=== PATIENT | female | born 1950 | race Caucasian/White ===

== ENCOUNTER 2023-03-29 14:05 | Emergency (ER) | payer MEDICARE, OTHER, SELFPAY ==
--- NOTE | 2023-03-29 14:10 | ED.WOUNDLAC1 ---
HPI - Wound/Laceration General Chief Complaint: Wound/Laceration Stated Complaint: CUT R HAND, STILL BLEEDING Time Seen by Provider: 03/29/23 14:08 Source: patient and family Mode of arrival: walk-in Limitations: no limitations History of Present Illness HPI narrative: 72-year-old female presents with a laceration to her right ring finger after she was using a mandolin today. Unknown date of last tetanus. Denies swelling, temp or sensation changes Related Data Home Medications Medication Instructions Recorded Confirmed amlodipine 5 mg-valsartan 320 mg tab 03/29/23 tablet atorvastatin 40 mg tablet 40 mg PO QDAY 03/29/23 03/29/23 insulin NPH-regular 70-30 U-100 27 unit subcut 03/29/23 insulin 100 unit/mL subcutaneous pen (Novolin 70-30 FlexPen U-100 Insulin) levothyroxine 88 mcg tablet 88 mcg PO QDAY 03/29/23 03/29/23 Allergies Allergy/AdvReac Type Severity Reaction Status Date / Time No Known Drug Allergies Allergy Verified 03/29/23 14:13 Review of Systems ROS Status of ROS 10 or more systems reviewed and unremarkable except as noted in history and below [facility] Social History Smoking status: Current every day smoker Exam Narrative Exam Narrative: General: A&Ox3, no distress, talking in full an complete sentences skin: warm, dry, 1 cm jagged T-shaped laceration to the tip of the right index finger, no foreign body head: normocephalic, atraumatic eyes: EOMI nose: nares patent neck: supple, trachea midline respiratory: non-labored extremities: FROM x 4, strength +5/5 neuro: A&Ox3 psych: appropriate mood and affect, cooperative Constitutional Vital Signs, click to edit/add: Last Vital Signs Temp 98.3 F 03/29/23 14:13 Pulse 90 03/29/23 14:13 Resp 18 03/29/23 14:13 BP 152/96 H 03/29/23 14:13 Pulse Ox 100 03/29/23 14:13 O2 Del Method Room Air 03/29/23 14:13 Course Vital Signs Vital signs: Vital Signs Temperature 98.3 F 03/29/23 14:13 Pulse Rate 90 03/29/23 14:13 Respiratory Rate 18 03/29/23 14:13 Blood Pressure 152/96 H 03/29/23 14:13 Pulse Oximetry 100 03/29/23 14:13 Oxygen Delivery Method Room Air 03/29/23 14:13 Temperature 98.3 F 03/29/23 14:13 Pulse Rate 90 03/29/23 14:13 Respiratory Rate 18 03/29/23 14:13 Blood Pressure 152/96 H 03/29/23 14:13 Pulse Oximetry 100 03/29/23 14:13 Oxygen Delivery Method Room Air 03/29/23 14:13 MDM - Wound/Laceration MDM Narrative Medical decision making narrative: Sutures placed out in 10 days. No evidence of tendon involvement. Discussed wound care. Patient declines updating tetanus. Follow-up with family doctor. Bacitracin placed. afebrile, not tachypneic, not tachycardic, not hypoxic, non toxic appearing and ambulating at baseline and hemodynamically stable to be d/c. answered all questions. educated on SE of meds. pt in agreement with tx. educated when to return to ER. Discharge Plan Discharge Chief Complaint: Wound/Laceration Clinical Impression: Laceration of finger, right Qualifiers: Encounter type: initial encounter Finger: ring finger Damage to nail status: without damage Foreign body presence: without foreign body Qualified Code(s): S61.214A - Laceration without foreign body of right ring finger without damage to nail, initial encounter Patient Disposition: Home, Self-Care Time of Disposition Decision: 14:41 Condition: Good Mode of Transportation: Private Vehicle Prescriptions / Home Meds: No Action amlodipine-valsartan 5-320 mg tablet atorvastatin 40 mg tablet 40 mg PO QDAY Novolin 70-30 FlexPen U-100 100 unit/mL (70-30) insulin pen 27 unit SUBCUT levothyroxine 88 mcg tablet 88 mcg PO QDAY Instructions: Care For Your Stitches (ED) Stand Alone Forms: Portal Instructions Referrals: CHAN MORRISON [Primary Care Provider] - 1 week Discharge Date/Time: 03/29/23 14:52 Procedures ED Laceration Laceration Laceration 1: Site: hand Side (if applicable): right Size (cm): 1 Description: irregular and clean Depth: simple, single layer Anesthetic used: lidocaine 1% Anesthesia technique: local infiltration Amount (ml): 3 Pre-repair: wound explored, irrigated extensively and deep structures intact Skin layer closed with: other (ethilon) Size (cm): 5-0 Number of sutures: 4 Technique: simple, interrupted
[2023-03-29 14:13] VITALS: BP 152/96; PULSE 90; RESP 18; TEMP 36.8; O2SAT 100; BMI 30.2
[2023-03-29] MEDS: BACITRACIN 0.9 GM PACKET 1 PACKET TOPICAL (14:48)
== END 2023-03-29 14:52 | disposition home or self-care (01) ==
PROVIDERS: Emergency Provider Student in an Organized Health Care Education/Training Program; PCP Internal Medicine
DX: S61.214A Laceration without foreign body of right ring finger without damage to nail, initial encounter (principal); Z79.890 Hormone replacement therapy; Z79.4 Long term (current) use of insulin; Z79.899 Other long term (current) drug therapy
CPT/HCPCS: 12001; 99284

== ENCOUNTER 2023-08-05 10:10 | Outpatient (OUT) | payer MEDICARE, OTHER, SELFPAY ==
--- NOTE | 2023-08-05 10:16 | XR_ITS ---
[address] [address] Patient Name: KERLINE JOHNSON MRN: [id number] date: 1950 Sex: F Assigned Patient Location: [facility] Current Patient Location: Accession/Order Number: [id number] Exam Date: 08/05/2023 10:24 Report Date: 08/08/2023 16:03 At the request of: CHAN MORRISON Procedure: XR thoracic spine 3V EXAM: XR thoracic spine 3V HISTORY: Acute Mid Back Pain M54.9 COMPARISON: None. TECHNIQUE: AP and lateral views FINDINGS: Vertebral bodies are normal in height. There is disc space narrowing at mid thoracic levels with associated anterior osteophytosis. Aortic calcification is noted. XR/XR thoracic spine 3V IMPRESSION: Multilevel mid thoracic spondylosis. Electronically authenticated by: John CUEVAS Date: 08/08/2023 16:03
== END 2023-08-05 10:11 | disposition home or self-care (01) ==
LOC: RAD 10:12
PROVIDERS: PCP Internal Medicine; Visit Provider Internal Medicine
DX: M54.9 Dorsalgia, unspecified (principal); M81.0 Age-related osteoporosis without current pathological fracture; M47.814 Spondylosis without myelopathy or radiculopathy, thoracic region
CPT/HCPCS: 72072

== ENCOUNTER 2024-09-24 09:38 | Outpatient (OUT) | payer OTHER, SELFPAY ==
--- NOTE | 2024-09-24 09:52 | XR_ITS ---
The [address] [address] Patient Name: KERLINE JOHNSON MRN: [id number] date: 1950 Sex: F Assigned Patient Location: [facility] Current Patient Location: RAD Accession/Order Number: [id number] Exam Date: 09/24/2024 10:00 Report Date: 09/24/2024 17:27 At the request of: KRAIG QUIJANO Procedure: XR chest 2V EXAM: XR chest 2V HISTORY: Chest Pain near sternum x 2 months. COMPARISON: Chest x-ray 12/29/2022. TECHNIQUE: Two-view chest x-ray. FINDINGS: Cardiac size appears unchanged. Trachea is midline. No mediastinal widening. Chronic interstitial thickening is noted with minor streak-like left basilar atelectasis or scar. No interval consolidative change, pneumothorax or effusion is identified. Osseous structures appear intact. XR/XR chest 2V IMPRESSION: Stable nonacute chest. Electronically authenticated by: RICHELLE BARRERA Date: 09/24/2024 17:27
--- OUTSIDE RECORDS SUMMARY | 2024-09-24 09:57 | XMS_ITS | CCD ---
Author Organization [facility] Care Team Providers Care Blood Bank Technologist Name Role Phone DR PHILLIP DE LA CRUZ Consulting Unavailable TAMIKO, DR GILES Attending Unavailable TAMIKO, DR GILES Admitting Unavailable TAMIKO, DR GILES Primary Care Unavailable WEST, DR CASEY Singh Consulting Unavailable TAMIKO, DR GILES Primary Care Unavailable BENEDICT, DR BLAKELY Admitting Unavailable BENEDICT, DR BLAKELY Attending Unavailable TAMIKO, DR GILES Primary Care Unavailable ERLINDA, DR HADLEY Admitting Unavailable ERLINDA, DR HADLEY Consulting Unavailable ERLINDA, DR HADLEY Attending Unavailable TAMIKO, DR GILES Primary Care Unavailable TAMIKO, DR GILES Consulting Unavailable TAMIKO, DR GILES Attending Unavailable TAMIKO, DR GILES Admitting Unavailable ZIEBER, DR BLAKELY R Consulting Unavailable REQUEST, DR VANESSA LISTED Admitting Unavaila ble REQUEST, DR VANESSA LISTED Consulting Unavaila ble REQUEST, DR VANESSA LISTED Attending Unavaila ble TAMIKO, DR GILES Primary Care Unavailable Aarti Mcgowan Unavailable Phillip De La Cruz MD Primary Care Provider Phillip De La Cruz MD Unavailable Phillip De La Cruz MD Unavailable ANDRA POLLOCK Attending Unavailable PHILLIP DE LA CRUZ Attending Unavailable PHILLIP DE LA CRUZ Attending Unavailable PHILLIP DE LA CRUZ Attending Unavailable PHILLIP DE LA CRUZ Attending Unavailable PHILLIP DE LA CRUZ Attending Unavailable ANDRA POLLOCK Attending Unavailable ANDRA POLLOCK Attending Unavailable Konrad Golden Attending Unavailable Allergies Allergy Classification Reported Allergen(s) Allergy Type Date of Onset Reaction(s) Facility (1 source) levoFLOXacin Drug Allergy nausea [facility] Other (17 sources) levoFLOXacin; Translations: [levoFLOXacin] Drug Allergy 3 Nausea Only [facility] Medications Current Medications Medication Drug Class(es) Dates Sig (Normalized) Sig (Original) amLODIPine 5 mg / valsartan 320 mg oral tablet (17 sources) Dihydropyridine Calcium Channel Vik, Angiotensin 2 Receptor Vik Start: 05-07-2024 take 1 tablet by mouth once daily in the morning amLODIPine-valsart an (Exforge) 5-320 MG tablet Indications: Benign essential hypertension (CMS/HCC) TAKE 1 TABLET BY MOUTH EVERY DAY IN THE MORNING 90 tablet 3 05/07/2024 Active take 1 tablet by matthew th every twenty-four hours Exforge 5-320 MG 1 tablet Orally Once a day for 90 Active ascorbic acid 500 mg chewabl e tablet (17 sources) Vitamin C ascorbic acid (V itamin C) 500 MG tablet Oral Active Vitamin C 500 MG Oral Active Aspir-81 81 MG (1 source) take 1 tablet by mouth once daily Aspir-81 81 MG 1 tablet Orally Once a day *please review for potential update for e-prescription and drug interaction check* Active aspirin 81 mg delayed release oral tablet (16 sources) Platelet Aggregation Inhibitor, Nonsteroidal Anti-inflammatory Drug aspirin (ASPIR) 81 M G EC tablet 1 (one) time each day at the same time. Active atorvastatin 40 mg oral tablet (17 sources) HMG-CoA Reductase Inhibitor Start: take 1 tablet by mouth once daily in the morning atorvastatin (Lipitor) 40 MG tablet Indications: Pure hypercholesterolemia (CMS/HCC) TAKE 1 TABLET BY MOUTH EVERY DAY IN THE MORNING 90 tablet 3 08/06/2024 Active Start: 11-23-2023 take 1 tablet by matthew th once daily atorvastatin (Lipitor) 40 MG tablet Indications: Pure hypercholesterolemia (CMS/HCC) TAKE 1 TABLET BY MOUTH EVERY DAY 100 tablet 3 11/23/2023 Active take 1 tablet by matthew th every twenty-four hours Atorvastatin Calcium 40 MG 1 tablet Orally Once a day Active B Complex - (1 source) B Complex - Oral ly Active B Complex Vitamins (B COMPLEX 1 PO) (16 sources) B Complex Vitami ns (B COMPLEX 1 PO) Orally Active Blood Glucose Monitoring Suppl (Blood Glucose Monitor System) w/Device kit (16 sources) Start: 05-18-2024 Blood Glucose Monitoring Suppl (Blood Glucose Monitor System) w/Device kit Indications: Type 2 diabetes mellitus without complication, with long-term current use of insulin (CMS/HCC) 1 each Daily 1 kit 05/18/2024 Active calcium carbonate 1250 mg oral tablet (1 source) take 1 tablet by mouth every twelve hours Calcium 500 MG 1 tablet with meals Orally Twice a day Active Co Q-10 200 MG (1 source) take 1 capsule by mouth twice daily Co Q-10 200 MG 1 capsule with a meal Orally TWICE A DAY Active [facility] Advanced Glucose Test - (1 source) [facility] Advanced Glu cose Test - USE TO TEST BLOOD SUGAR 3 TIMES A DAY dx:E11.65 Active Daily Multiple Vitamins (1 source) Daily Multiple V itamins Oral *please review for potential update for e-prescription and drug interaction check* Active DAILY MULTIPLE VITAMINS PO (16 sources) DAILY MULTIPLE V ITAMINS PO Oral Active 3 ml insulin isophane, human 70 unt/ml / insulin, regular, human 30 unt/ml pen injector (17 sources) Insulin Start: 02-06-2024 insulin NPH-insulin regular (NovoLIN 70/30 FlexPen) (70-30) 100 UNIT/ML injection Indications: Type 2 diabetes mellitus with diabetic polyneuropathy, with long-term current use of insulin ([facility]) INJECT 27 UNITS SUBCUTANEOUSLY TWICE A DAY 15 mL 12 02/06/2024 Active Start: 10-11-2019 NovoLIN 70/30 FlexPen (70-30) 100 UNIT/ML 27 units Subcutaneous bid Oct, Active levothyroxine sodium 0.088 mg oral tablet (18 sources) l-Thyroxine Start: 05-31-2023 End: 05-19-2024 take 1 tablet by mouth once daily levothyroxine (Synthroid, Levoxyl) 88 MCG tablet Indications: Hypothyroidism, unspecified (CMS/HCC) TAKE 1 TABLET BY MOUTH EVERY DAY FOR 100 DAYS 90 tablet 3 05/19/2024 Active take 1 tablet by matthew th every twenty-four hours Levothyroxine Sodium 88 MCG 1 tablet Orally Once a day Active lutein 6 mg oral capsule (17 sources) Lutein 6 MG caps ule 1 (one) time each day at the same time. Active meloxicam 15 mg oral tablet (1 source) Nonsteroidal Anti-inflammatory Drug Start: 4 take 1 tablet by mouth once daily Meloxicam 15 MG take 1 tablet Oral once daily May, Active niacin 500 mg oral tablet (1 source) Nicotinic Acid Start: 4 take 1 tablet by mouth once daily at bedtime Niacin ER (Antihyperlipidemic) 500 MG take 1 tablet by oral route every day at bedtime after a low-fat snack Oral *please review for potential update for e-prescription and drug interaction check* Aug, Active potassium 99 mg extended release oral tablet (1 source) take 1 tablet by mouth once daily Potassium 99 MG 1 tablet Orally Once a day Active Vitamin D3 2000 UNIT (1 source) take 1 capsule by mouth once daily Vitamin D3 2000 UNIT 1 capsule Orally Once a day *please review for potential update for e-prescription and drug interaction check* Active vitamin e d-alpha 400 unt oral capsule (16 sources) alpha tocopherol (Vitamin E) 400 units capsule 1 capsule 1 (one) time each day at the same time. Active Vitamin E 400 UNIT (1 source) take 1 capsule by mouth once daily Vitamin E 400 UNIT 1 capsule Orally Once a day Active Completed/Discontinued Medications Medication Drug Class(es) Dates Sig (Normalized) Sig (Original) 1 ml denosumab 60 mg/ml prefilled syringe (7 sources) RANK Ligand Inhibitor Start: 09-10-2024 End: 09-10-2024 denosumab (Prolia) injection 60 mg Start: 09-10-2024 End: 09-10-2024 inject 60 mg by subcutaneous injection once 60 mg, Subcutaneous, Once, On Tue09/10/24 at 1515, For 1 dose Start: 09-10-2024 End: 09-10-2024 denosumab (Prolia) injection 60 mg Start: 09-10-2024 End: 09-10-2024 inject 60 mg by subcutaneous injection once 60 mg, Subcutaneous, Once, On Tue09/10/24 at 1515, For 1 dose Start: 06-26-2019 Prolia 1 mg Jun, 60 mg Start: 12-26-2018 Prolia 60 MG/M L as directed Subcutaneous *please review for potential update for e-prescription and drug interaction check* December, Active Start: 12-26-2018 Prolia 1 mg December, 60 mg Triamcinolone (1 source) Corticosteroid Start: 02-12-2019 KENALOG - 10 m g Feb, 40 mg Problems Active Problems Problem Classification Problem Date Documented Date Episodic/Chronic Asthma (17 sources) Acute exacerbation of asthma; Translations: [Unspecified asthma with (acute) exacerbation] Onset: 01-28-2023 01-28-2023 Chronic Chronic kidney disease (4 sources) Chronic kidney disease stage 3A ; Translations: [Chronic kidney disease, stage 3a (HCC) ([facility]/HCC)] 06-04-2024 Chronic Diabetes mellitus with complications (20 sources) Type 2 diabetes mellitus; Translations: [Type 2 diabetes mellitus with other diabetic neurological complication] Onset: 01-28-2023 01-28-2023 Chronic Diabetes mellitus without complication (17 sources) Type 2 diabetes mellitus without complications; Translations: [Type 2 diabetes mellitus] Onset: 06-19-2020 01-28-2023 Chronic Disorders of lipid metabolism (20 sources) Hyperlipidemia; Translations: [Hyperlipidemia, unspecified] Onset: 01-28-2023 Resolved: 06-04-2024 01-28-2023 Chronic Esophageal disorders (17 sources) Gastroesophageal reflux disease; Translations: [Gastro-esophageal reflux disease without esophagitis] Onset: 01-28-2023 01-28-2023 Chronic Essential hypertension (20 sources) Essential (primary) hypertension; Translations: [Benign essential hypertension] Onset: 06-19-2020 01-28-2023 Chronic Menopausal disorders (18 sources) Other primary ovarian failure; Translations: [Decreased estrogen level] Onset: 02-03-2021 01-28-2023 Chronic Mycoses (6 sources) Onychomycosis; Translations: [Tinea unguium] 07-24-2024 Episodic Nutritional deficiencies (17 sources) Vitamin D deficiency; Translations: [Vitamin D deficiency, unspecified] Onset: 01-28-2023 01-28-2023 Chronic Osteoarthritis (17 sources) Osteoarthritis; Translations: [Unspecified osteoarthritis, unspecified site] Onset: 01-28-2023 01-28-2023 Chronic Osteoporosis (20 sources) Age-related osteoporosis without current pathological fracture; Translations: [Osteoporosis] Onset: 02-03-2021 01-28-2023 Chronic Other connective tissue disease (6 sources) Pain of toes of bilateral feet; Translations: [Pain in right toe(s)] 07-24-2024 Episodic Other lower respiratory disease (1 source) Lung mass; Translations: [Solitary pulmonary nodule] Episodic Other nervous system disorders (16 sources) Chronic pain; Translations: [Other chronic pain] Onset: 07-07-2023 07-07-2023 Chronic Other skin disorders (6 sources) Dystrophia unguium; Translations: [Nail dystrophy] 07-24-2024 Episodic Spondylosis; intervertebral disc disorders; other back problems (4 sources) Other intervertebral disc degeneration, lumbar region; Translations: [OTH IV DISC DEGEN LUMBAR REGION] Onset: 05-13-2020 Chronic Substance-related disorders (1 source) Nicotine dependence, cigarettes, uncomplicated; Translations: [NICOTINE DEPEND CIGARETTES UNCOMP] Onset: 06-19-2020 Chronic Thyroid disorders (19 sources) Hypothyroidism, unspecified; Translations: [Hypothyroidism] Onset: 06-19-2020 05-19-2024 Chronic Unclassified (1 source) Patient encounter status; Translations: [Encounter for health counseling related to travel] Viral infection (1 source) COVID-19; Translations: [COVID-19] Onset: 06-19-2020 Past or Other Problems Problem Classification Problem Date Documented Da te Episodic/Chronic Mood disorders (14 sources) Mood disorders Onset: 06-04-2024 06-04-2024 Nausea and vomiting (4 sources) Nausea with vomiting, unspecified; Translations: [Vomiting, unspecified] Onset: 06-17-2020 Episodic Other aftercare (1 source) half-way (current) use of aspirin; Translations: [COMPOSITION MOLDER CURRENT USE OF ASPIRIN] Onset: 06-19-2020 Episodic Other aftercare (1 source) half-way (current) use of insulin; Translations: [SKILLED NURSING CURRENT USE OF INSULIN] Onset: 06-19-2020 Episodic Other aftercare (1 source) 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; Translations: [OTH COMPOSITION MOLDER CURRENT DRUG THERAPY] Onset: 06-19-2020 Episodic Other female genital disorders (16 sources) Mass of ovary; Translations: [Other noninflammatory disorders of ovary, fallopian tube and broad ligament] Onset: 09-20-2016 12-01-2023 Episodic Other gastrointestinal disorders (16 sources) Pelvic mass; Translations: [Intra-abdominal and pelvic swelling, mass and lump, unspecified site] Onset: 10-08-2016 12-01-2023 Episodic Other lower respiratory disease (4 sources) Solitary pulmonary nodule; Translations: [SOLITARY PULMONARY NODULE] Onset: 05-16-2020 Episodic Other lower respiratory disease (16 sources) Nodule of lung; Translations: [Solitary pulmonary nodule] Onset: 01-28-2023 01-28-2023 Episodic Other screening for suspected conditions (not mental disorders or infectious disease) (16 sources) Abnormal finding on evaluation procedure; Translations: [Other abnormal tumor markers] Onset: 09-20-2016 12-01-2023 Episodic Other skin disorders (17 sources) Actinic keratosis; Translations: [Actinic keratosis] Onset: 01-28-2023 01-28-2023 Episodic Unclassified (1 source) Encounter for health counseling related to travel Onset: 01-21-2022 Resolved: 01-21-2022 Results Test Name Value Interpretation Reference Range Facility [facility] ALBUMIN, URINE 1.8 mg/dL Normal See Note: [facility] Comment on above: Result Comment: Refe rence Range: Reference Range Not established Performed By: #### 7 600, [id number] #### [facility] [address], [address] [place] [address] Planner Internship: Humberto Rosenberg MD #### [id number], [id number] #### [facility] [address] [place], [place] [id number] Planner Internship: Ksenia Bardales ALBUMIN/CREATININE RATIO, RANDOM URINE 19 mg/g creat Normal <30 [facility] Comment on above: Result Comment: The ADA defines abnormalities in albumin excretion as follows: Albuminuria Category Result (mg/g creatinine) Normal to Mildly increased <30 Moderately increased 30-299 Severely increased > OR = 300 The ADA recommends that at least two of three specimens collected within a 3-6 month period be abnormal before considering a patient to be within a diagnostic category. Performed By: #### 7 600, 6517 #### [facility] [address], [address] [place] [address] Planner Internship: Humberto Rosenberg MD #### [id number], [id number] #### [facility] [address] [place], [place] [id number] Planner Internship: Ksenia Bardales Creatinine (U) [Mass/Vol] 94 mg/dL Normal 20-275 [facility] Comment on above: Performed By: #### 7 600, 6517 #### [facility] [address], [address] [place], [place] [address] Planner Internship: Humberto Rosenberg MD #### [id number], [id number] #### [facility] [address] Planner Internship: Ksenia Bardales CBC (INCLUDES DIFF/PLT)on Basophils (Bld) [#/Vol] 0.019 10*3/uL Normal 0-200 [facility] Comment on above: Performed By: #### 7 600, 6517 #### [facility] [address], [address] [place] [address] Planner Internship: Humberto Rosenberg MD #### [id number], [id number] #### [facility] [address] Planner Internship: Ksenia Bardales Basophils/100 WBC (Bld) 0.3 % Normal [facility] Comment on above: Performed By: #### 7 600, 6517 #### [facility] [address], [address] [place] [address] Planner Internship: Humberto Rosenberg MD #### [id number], [id number] #### [facility] [address] Planner Internship: Ksenia Bardales Eosinophils (Bld) [#/Vol] 0.192 10*3/uL Normal 15-500 [facility] Comment on above: Performed By: #### 7 600, 6517 #### [facility] [address], [address] [place] [address] Planner Internship: Humberto Rosenberg MD #### [id number], 97620 #### [facility] [address] Planner Internship: Ksenia Bardales Eosinophils/100 WBC (Bld) 3.1 % Normal [facility] Comment on above: Performed By: #### 7 600, 6517 #### [facility] [address], [address] [place] [address] Planner Internship: Humberto Rosenberg MD #### [id number], [id number] #### [facility]-[address] Planner Internship: Ksenia Bardales Erythrocyte distribution width (RBC) [Ratio] 12.7 % Normal 11.0-15.0 [facility] Comment on above: Performed By: #### 7 600, 6517 #### [facility] [address], [address] [place] [address] Planner Internship: Humberto Rosenberg MD #### [id number], [id number] #### [facility]-[address] Planner Internship: Ksenia Bardales Hematocrit (Bld) [Volume fraction] 40.2 % Normal 35.0-45.0 [facility] Comment on above: Performed By: #### 7 600, 6517 #### [facility] [address], [address] [place] [address] Planner Internship: Humberto Rosenberg MD #### [id number], 93849 #### [facility] [address] Planner Internship: Ksenia Bardales Hemoglobin (Bld) [Mass/Vol] 13.0 g/dL Normal 11.7-15.5 [facility] Comment on above: Performed By: #### 7 600, 6517 #### [facility] [address], [address] [place] [address] Planner Internship: Humberto Rosenberg MD #### [id number], 84528 #### [facility] Planner Internship: Ksenia Bardales Lymphocytes (Bld) [#/Vol] 2.48 10*3/uL Normal 850-3900 [facility] Comment on above: Performed By: #### 7 600, 6517 #### [facility] [address] , [address] [place] [address] Planner Internship: Humberto Rosenberg MD #### [id number], 97628 #### [facility] [place] [address] Planner Internship: Ksenia Bardales Lymphocytes/100 WBC (Bld) 40.0 % Normal [facility] Comment on above: Performed By: #### 7 600, 6517 #### [facility] [address], [address] [place] [address] Planner Internship: Humberto Rosenberg MD #### [id number], 49075 #### [facility] [address] Planner Internship: Ksenia Bardales MCH (RBC) [Entitic mass] 30.7 pg Normal 27.0-33.0 [facility] Comment on above: Performed By: #### 7 600, 6517 #### [facility] [place] [address] Planner Internship: Humberto Rosenberg MD #### [id number], 59800 #### [facility] [address] Planner Internship: Ksenia Bardales MCHC (RBC) [Mass/Vol] 32.3 g/dL Normal 32.0-36.0 [facility] Comment on above: Result Comment: For adults, a slight decrease in the calculated MCHC value (in the range of 30 to 32 g/dL) is most likely not clinically significant; however, it should be interpreted with caution in correlation with other red cell parameters and the patient's clinical condition. Performed By: #### 7 600, 6517 #### [facility] [address], [address] [place] [address] Planner Internship: Humberto Rosenberg MD #### [id number], 75560 #### [facility] [address] Planner Internship: Ksenia Bardales MCV (RBC) [Entitic vol] 95.0 fL Normal 80.0-100.0 [facility] Comment on above: Performed By: #### 7 600, 6517 #### [facility] [address], [address] [place] [address] Planner Internship: Humberto Rosenberg MD #### [id number], 37702 #### [facility] [address] [place] [address] Planner Internship: Ksenia Bardales Monocytes (Bld) [#/Vol] 0.558 10*3/uL Normal 200-950 [facility] Comment on above: Performed By: #### 7 600, 6517 #### [facility] [address], [address] [place] [address] Planner Internship: Humberto Rosenberg MD #### [id number], [id number] #### [facility] [address] Planner Internship: Ksenia Alvaradoi Monocytes/100 WBC (Bld) 9.0 % Normal [facility] Comment on above: Performed By: #### 7 600, 6517 #### [facility] [address], [address] [place] [address] Planner Internship: Humberto Rosenberg MD #### [id number], [id number] #### [facility] [address] Planner Internship: Ksenia Alvaradoi Neutrophils (Bld) [#/Vol] 2.951 10*3/uL Normal 5343-5412 [facility] Comment on above: Performed By: #### 7 600, 6517 #### [facility] [address], [address] [place] [address] Planner Internship: Humberto Rosenberg MD #### [id number], 73466 #### [facility] [address] [place] [address] Planner Internship: Ksenia Alvaradoi Neutrophils/100 WBC (Bld) 47.6 % Normal [facility] Comment on above: Performed By: #### 7 600, 6517 #### [facility] [address] , [address] [place] [address] Planner Internship: Humberto Rosenberg MD #### [id number], [id number] #### [facility] [address] [place] [address] Planner Internship: Ksenia Bardales Platelet mean volume (Bld) [Entitic vol] 10.7 fL Normal 7.5-12.5 [facility] Comment on above: Performed By: #### 7 600, 6517 #### [facility] [address], [address] [place] [address] Planner Internship: Humberto Rosenberg MD #### [id number], [id number] #### [place] [address] Planner Internship: Ksenia Bardales Platelets (Bld) [#/Vol] 209 10*3/uL Normal 140-400 [facility] Comment on above: Performed By: #### 7 600, 6517 #### [facility] [address], [address] [place] [address] Planner Internship: Humberto Rosenberg MD #### [id number], 23644 #### [place] [address] Planner Internship: Ksenia Bardales RBC (Bld) [#/Vol] 4.23 10*6/uL Normal 3.80-5.10 [facility] Comment on above: Performed By: #### 7 600, 6517 #### [facility] [address], [address] [place] [address] Planner Internship: Humberto Rosenberg MD #### [id number], 19566 #### [facility] [id number] Planner Internship: Ksenia Bardales WBC (Bld) [#/Vol] 6.2 10*3/uL Normal 3.8-10.8 [facility] Comment on above: Performed By: #### 7 600, 6517 #### [facility] [address], [address] [place] [address] Planner Internship: Humberto Rosenberg MD #### [id number], 70102 #### [facility] [address] [place], [place] [id number] Planner Internship: Ksenia Bardales COMPREHENSIVE METABOLIC PANE [facility] 06-12-2024 Albumin [Mass/Vol] 4.4 g/dL Normal 3.6-5.1 [facility] Comment on above: Performed By: #### 7 600, 6517 #### [facility] [address], [address] [place] [address] Planner Internship: Humberto Rosenberg MD #### [id number], 35854 #### [facility] [address] [place], [place] [id number] Planner Internship: Ksenia Bardales Albumin/Globulin [Mass ratio] 1.3 {ratio} Normal 1.0-2.5 [facility] Comment on above: Performed By: #### 7 600, 6517 #### [facility] [place] [address] Planner Internship: Humberto Rosenberg MD #### [id number], [id number] #### [facility] [address] [place] [address] Planner Internship: Ksenia Bardales ALP [Catalytic activity/Vol] 44 U/L Normal 37-153 [facility] Comment on above: Performed By: #### 7 600, 6517 #### [facility] [place] [address] Planner Internship: Humberto Rosenberg MD #### [id number], 60872 #### [facility] [address] [place], [place] [id number] Planner Internship: Ksenia Bardales ALT [Catalytic activity/Vol] 21 U/L Normal 6-29 [facility] Comment on above: Performed By: #### 7 600, 6517 #### [facility] [address], [address] [place] [address] Planner Internship: Humberto Rosenberg MD #### [id number], 45983 #### [facility] [address] Planner Internship: Ksenia Bardalse AST [Catalytic activity/Vol] 23 U/L Normal 10-35 [facility] Comment on above: Performed By: #### 7 600, 6517 #### [facility] [address], [address] [place] [address] Planner Internship: Humberto Rosenberg MD #### [id number], 24887 #### [facility] [address] Planner Internship: Ksenia Okeefe Flati Bilirubin [Mass/Vol] 1.0 mg/dL Normal 0.2-1.2 [facility] Comment on above: Performed By: #### 7 600, 6517 #### [facility] [address], [address] [place] [address] Planner Internship: Humberto Rosenberg MD #### [id number], [id number] #### [facility] [address] Planner Internship: Ksenia Okeefe Flati Calcium [Mass/Vol] 10.2 mg/dL Normal 8.6-10.4 [facility] Comment on above: Performed By: #### 7 600, 6517 #### [facility] [address], [address] [place] [address] Planner Internship: Humberto Rosenberg MD #### [id number], [id number] #### [facility] [address] Planner Internship: Ksenia R Flati Chloride [Moles/Vol] 107 mmol/L Normal 98-110 [facility] Comment on above: Performed By: #### 7 600, 6517 #### [facility] [address], [address] [place] [address] Planner Internship: Humberto Rosenberg MD #### [id number], [id number] #### [facility] [address] Planner Internship: Ksenia Okeefe Flati CO2 [Moles/Vol] 28 mmol/L Normal 20-32 [facility] Comment on above: Performed By: #### 7 600, 6517 #### [facility] [address], [address] [place] [address] Planner Internship: Humberto Rosenberg MD #### [id number], 81985 #### [facility] Planner Internship: Ksenia Bardales Creatinine [Mass/Vol] 0.88 mg/dL Normal 0.60-1.00 [facility] Comment on above: Performed By: #### 7 600, 6517 #### [facility] [address], [address] [place] [address] Planner Internship: Humberto Rosenberg MD #### [id number], 86097 #### [facility] [address] Planner Internship: Ksenia Bardales GFR/1.73 sq M.predicted among non-blacks MDRD (S/P/Bld) [Vol rate/Area] 68 mL/min/{1.73_m2} Normal > OR = 60 [facility] Comment on above: Performed By: #### 7 600, 6517 #### [facility] [address], [address] [place] [address] Planner Internship: Humberto Rosenberg MD #### [id number], 37056 #### [facility] Planner Internship: Ksenia Bardales Globulin (S) [Mass/Vol] 3.3 g/dL Normal 1.9-3.7 [facility] Comment on above: Performed By: #### 7 600, 6517 #### [facility] [address], [address] [place] [address] Planner Internship: Humberto Rosenberg MD #### [id number], 78697 #### [facility] [id number] Planner Internship: Ksenia Bardales Glucose [Mass/Vol] 198 mg/dL High 65-99 [facility] Comment on above: Result Comment: Fasting reference interval For someone without known diabetes, a glucose value >125 mg/dL indicates that they may have diabetes and this should be confirmed with a follow-up test. Performed By: #### 7 600, 6517 #### [facility] [address], [address] [place] [address] Planner Internship: Humberto Rosenberg MD #### [id number], [id number] #### [facility] [address] Planner Internship: Ksenia Okeefe Flati Potassium [Moles/Vol] 4.6 mmol/L Normal 3.5-5.3 [facility] Comment on above: Performed By: #### 7 600, 6517 #### [facility] [address], [address] [place] [address] Planner Internship: Humberto Rosenberg MD #### [id number], 37115 #### [facility] [address] Planner Internship: Ksenia Okeefe Flati Protein [Mass/Vol] 7.7 g/dL Normal 6.1-8.1 [facility] Comment on above: Performed By: #### 7 600, 6517 #### [facility] [address], [address] [place] [address] Planner Internship: Humberto Rosenberg MD #### [id number], [id number] #### [facility] [address] Planner Internship: Ksenia Okeefe Flati Sodium [Moles/Vol] 141 mmol/L Normal 135-146 [facility] Comment on above: Performed By: #### 7 600, 6517 #### [facility] [address], [address] [place] [address] Planner Internship: Humberto Rosenberg MD #### [id number], 72052 #### [facility] [address] Planner Internship: Ksenia Okeefe Flati Urea nitrogen [Mass/Vol] 26 mg/dL High 7-25 [facility] Comment on above: Performed By: #### 7 600, 6517 #### [facility] [address], [address] [place] [address] Planner Internship: Humberto Rosenberg MD #### [id number], 28027 #### [facility] [address] [place] [address] Planner Internship: Ksenia Bardales Urea nitrogen/Creatinin e [Mass ratio] 30 mg/mg High 6-22 [facility] Comment on above: Performed By: #### 7 600, 6517 #### [facility] [address], [address] [place] [address] Planner Internship: Humberto Rosenberg MD #### [id number], [id number] #### [facility] [address] [place] [address] Planner Internship: Ksenia Bardales LIPID PANEL, [facility] 11-0 Cholesterol [Mass/Vol] 173 mg/dL Normal <200 [facility] Comment on above: Performed By: #### 7 600, 6517 #### [facility] [address], [address] [place] [address] Planner Internship: Humberto Rosenberg MD #### [id number], 68148 #### [facility] [address] Planner Internship: Ksenia Bardales Cholesterol in HDL [Mass/Vol] 78 mg/dL Normal > OR = 50 [facility] Comment on above: Performed By: #### 7 600, 6517 #### [facility] [address], [address] [place] [address] Planner Internship: Humberto Rosenberg MD #### [id number], 18890 #### [facility] [address] [place] [address] Planner Internship: Ksenia Bardales Cholesterol in LDL [Mass/Vol] 81 mg/dL Normal [facility] Comment on above: Result Comment: Refe rence range: <100 Desirable range <100 mg/dL for primary prevention; <70 mg/dL for patients with CHD or diabetic patients with > or = 2 CHD risk factors. LDL-C is now calculated using the Louie calculation, which is a validated novel method providing better accuracy than the Friedewald equation in the estimation of LDL-C. Ck SS et al. DRE. 2013;310(19): 4306-4444 (http://education.[facility]/faq/JSG567) Performed By: #### 7 600, 6517 #### [facility] [address], [address] [place] [address] Planner Internship: Humberto Rosenberg MD #### [id number], [id number] #### [facility] [address] Planner Internship: Ksenia Bardales Cholesterol.total/ Cholesterol in HDL [Mass ratio] 2.2 {ratio} Normal <5.0 [facility] Comment on above: Performed By: #### 7 600, 6517 #### [facility] [address], [address] [place] [address] Planner Internship: Humberto Rosenberg MD #### [id number], 54210 #### [facility] [address] Planner Internship: Ksenia Bardales NON HDL CHOLESTEROL 95 mg/dL (calc) Normal <130 [facility] Comment on above: Result Comment: For patients with diabetes plus 1 major ASCVD risk factor, treating to a non-HDL-C goal of <100 mg/dL (LDL-C of <70 mg/dL) is considered a therapeutic option. Performed By: #### 7 600, 6517 #### [facility] [address], [address] [place] [address] Planner Internship: Humberto Rosenberg MD #### 6399, 31091 #### [facility] [address] Planner Internship: Ksenia Bardales Triglyceride [Mass/Vol] 62 mg/dL Normal <150 [facility] Comment on above: Performed By: #### 7 600, 6517 #### [facility] [address], [address] [place], [place] [address] Planner Internship: Humberto Rosenberg MD #### [id number], 03478 #### [facility] [address] [place] [address] Planner Internship: Ksenia Bardales TSH W/REFLEX TO FT4on 2023 TSH W/REFLEX TO FT4 2.93 mIU/L Normal 0.40-4.50 [facility] Comment on above: Performed By: #### 7 600, 6520 #### [facility] [address], [address] [place] [address] Planner Internship: Humberto Rosenberg MD #### 6399, 18019 #### [facility] [place] [address] Planner Internship: Ksenia Bardales HbA1c (Bld) [Mass fraction]o n 06-04-2024 [facility] Hematology and Cell countson 06-04-2024 HbA1c (Bld) [Mass fraction] 7 % [facility] [employer] COVID Quick Testingon 2021 Result Negative [facility] Other Microalbumin (with Creat)on 11-30-2021 mALB <1.2 [facility] Physical Therapist Comment on above: Result Comment: Unab le to calculate mALB/Crea ratio, mALB is <1.2 mg/dL mALB reference range not established. Performed By: #### m ALBC #### [facility] [address] [place], [place] [id number] [facility] 38 mg/dL Normal 28-217 [facility] Licensed Physical Therapist Comment on above: Performed By: #### m ALBC #### [facility] [address] [place] [id number] XR DEXA BONE DENSITYon 01-30 XR DEXA BONE DENSITY EXAMINATION: XR DEXA BONE DENSITY HISTORY: Adult health examination COMPARISON: 2018 TECHNIQUE: Dual-energy X-ray absorptiometry (DXA) was performed. FINDINGS: Bone mineral density AP spine L1-L4 measures 1.101 g/sq cm. T score -0.7. WHO classification: Normal. Lowest bone mineral density is in the femoral necks measuring 0.673 on the right and on the left. T score -2.6. WHO classification: Osteoporosis IMPRESSION: Osteoporosis. High fracture risk Electronically authenticated by: CASEY RADER Date: 2021-01-30 09:00 Normal [facility] POINT OF CARE GLUCOSEon 06-08 Glucose [Mass/Vol] 189 mg/dL Critically high 74-106 T [facility] Comment on above: Performed By: #### P OCGLUC #### [facility] [address] [place] [address] Stephy Hargrove Rapid Covid-19 PCRon 020 [place] LDT Info SEE BELOW Normal [facility] Comment on above: Result Comment: This test is not yet approved or cleared by the [place] Food and Drug Administration (FDA) . This test was developed by [facility]. The performance characteristics of this test were validated by [facility]. The results are not intended to be used as the sole means for clinical diagnosis or patient management decisions. [facility] is authorized under Clinical Laboratory Improvement Amendments (CLIA) to perform high-complexity testing. When diagnostic testing is negative, the possibility of a false negative should be considered in the context of a patients recent exposures and the presence of clinical signs and symptoms consistent with SARS-CoV-2. Performed By: #### C VDRPD #### [facility] [address] [place] [address] Stephy Hargrove SARS-CoV-2 (COVID-19) RNA GAIL+probe Ql (Unsp spec) Detected Invalid Interpretation Code NOT DETECTED [facility] Comment on above: Result Comment: This test is not yet approved or cleared by the [place] Food and Drug Administration (FDA). This test was developed by [facility]. The performance characteristics of this test were validated by [facility]. The results are not intended to be used as the sole means for clinical diagnosis or patient management decisions. [facility] is authorized under Clinical Laboratory Improvement Amendments (CLIA) to perform high-complexity testing. Performed By: #### C VDRPD #### [facility] [address] [place] [address] Stephy Hargrove CREATININEon 05-16-2020 Creatinine [Mass/Vol] 1.01 mg/dL Normal 0.52-1.04 [facility] Comment on above: Performed By: #### C GIL #### [facility] [address] [place] [address] Stephy Hargrove EGFR-AF BANGLADESHI >60 Normal >=60 [facility] Comment on above: Performed By: #### C GIL #### [facility] [address] [address] Stephy Hargrove EGFR-NON AF BANGLADESHI 54 mL/min/1.73m2 Critically low >=60 [facility] Comment on above: Performed By: #### C GIL #### [facility] [address] CHEST W CONon 05-16-2020 CT CHEST W CON EXAMINATION: CT CHEST W CON HISTORY: Solitary nodule of lung COMPARISON: 05/11/2019 CTA chest without contrast TECHNIQUE: Multi-planar CT images were created with 100 mL Omnipaque 300 IV contrast. Axial, Coronal, and Sagittal images. Dose reduction techniques were achieved by using automated exposure control and/or adjustment of mA and/or kV according to patient size and/or use of iterative reconstruction technique. FINDINGS: VASCULATURE: No pulmonary embolism or abnormal opacity. LUNGS: Stable 7 mm nodule within the posterior right lower lobe. Numerous 2-4 mm nodules scattered throughout the lungs, not appreciably changed. PLEURA: No mass, effusion, or pneumothorax. LYNDA: No mass or adenopathy. MEDIASTINUM: No mass or adenopathy. CARDIAC: No enlargement, pericardial effusion, or pericardial thickening. AORTA: No aneurysm or dissection. CHEST WALL: No mass or axillary adenopathy. BONES: No bone lesion or fracture. LIMITED ABDOMEN: No suspicious findings. Limited images of the upper abdomen. OTHER: Negative. IMPRESSION: 1. Stable nodules scattered within the lungs, nonspecific, but given the multiplicity, favor chronic granulomatous. Follow-up noncontrast CT chest imaging in one year is recommended to document continued stability. Electronically authenticated by: ZORA ATKINSON Date: 2020-05-16 13:45 Normal [facility] Vital Signs Date Time Vital Sign Value Performing Clinician Jean Carlos peres 09-10-2024 14:56-0500 Body height 165.1 cm Phillip De La Cruz MD Work Phone: [facility] 09-10-2024 14:56-0500 Body mass index (BMI) [Ratio] 28.29 kg/m2 Phillpi De La Cruz MD Work Phone: [facility] 09-10-2024 14:56-0500 Body weight 77.11 kg Phillip De La Cruz MD Work Phone: [facility] 09-10-2024 14:56-0500 Diastolic blood pressure 72 mm[Hg] Phillip De La Cruz MD Work Phone: [facility] 09-10-2024 14:56-0500 Heart rate 92 /min Phillip De La Cruz MD Work Phone: [facility] 09-10-2024 14:56-0500 SaO2% (BldA) [Mass fraction] 96 % Phillip De La Cruz MD Work Phone: [facility] 09-10-2024 14:56-0500 Systolic blood pressure 132 mm[Hg] Phillip De La Cruz MD Work Phone: [facility] 08-28-2024 16:08-0500 Body height 165.1 cm Andra Pollock DPM Work Phone: [facility] 08-28-2024 16:08-0500 Body mass index (BMI) [Ratio] 28.29 kg/m2 Andar Pollock DPM Work Phone: [facility] 08-28-2024 16:08-0500 Body weight 77.11 kg Andra Pollock DPM Work Phone: [facility] 08-07-2024 09:53-0500 Body height 165.1 cm Andra Pollock DPM Work Phone: [facility] 08-07-2024 09:53-0500 Body mass index (BMI) [Ratio] 28.29 kg/m2 Andra Pollock DPM Work Phone: [facility] 08-07-2024 09:53-0500 Body weight 77.11 kg Andra Pollock DPM Work Phone: [facility] 07-24-2024 13:21-0500 Body height 165.1 cm Andra Pollock DPM Work Phone: [facility] 07-24-2024 13:21-0500 Body mass index (BMI) [Ratio] 28.29 kg/m2 Andra Pollock DPM Work Phone: [facility] 07-24-2024 13:21-0500 Body weight 77.11 kg Andra Pollock DPM Work Phone: [facility] 06-04-2024 09:41-0400 Body mass index (BMI) [Ratio] 28.21 kg/m2 Phillip De La Cruz MD Work Phone: [facility] 06-04-2024 09:41-0400 Body weight 79.29 kg Phillip De La Cruz MD Work Phone: [facility] 06-04-2024 09:41-0400 Diastolic blood pressure 85 mm[Hg] Phillip De La Cruz MD Work Phone: [facility] 06-04-2024 09:41-0400 Heart rate 79 /min Phillpi De La Cruz MD Work Phone: [facility] 06-04-2024 09:41-0400 Respiratory rate 18 /min Phillip De La Cruz MD Work Phone: [facility] 06-04-2024 09:41-0400 SaO2% (BldA) [Mass fraction] 99 % Phillip De La Cruz MD Work Phone: [facility] 06-04-2024 09:41-0400 Systolic blood pressure 125 mm[Hg] Phillip De La Cruz MD Work Phone: [facility] Encounters Encounter Date Encounter Type Care Provider Facility Start: 09-24-2024 ambulatory Konrad Golden Facility :[facility] [place] Start: 09-12-2024 ambulatory Konrad Golden Facility:[facility] [place] Start: 09-10-2024 End: 09-10-2024 Office outpatient visit 10 minutes Phillip De La Cruz MD Work Phone: [facility] Comment on above: Age-related osteopor osis without current pathological fracture ([facility]); Type 2 diabetes mellitus with diabetic chronic kidney disease ([facility]); Chronic kidney disease, stage 2 (mild); Type 2 diabetes mellitus with other specified complication ([facility]); Hyperlipidemia, unspecified ([facility]) Start: 09-10-2024 End: 09-10-2024 ambulatory PHILLIP DE LA CRUZ Not Available Start: 09-10-2024 End: 09-10-2024 Bamboo flowsheet Phillip De La Cruz MD Work Phone: [facility] Start: 09-10-2024 End: 09-10-2024 Bamboo flowsheet Phillip De La Cruz MD Work Phone: [facility] Start: 08-28-2024 End: 08-28-2024 Office outpatient visit 15 minutes Andra Pollock DPM Work Phone: [facility] Comment on above: Nail dystrophy (Prim elda Dx); Onychomycosis; Pain in toes of both feet Start: 08-28-2024 End: 08-28-2024 ambulatory ANDRA POLLOCK Not Available Start: 08-28-2024 End: 08-28-2024 Bamboo flowsheet Andra Pollock DPM Work Phone: [facility] Start: 08-28-2024 End: 08-28-2024 Bamboo flowsheet Andra Pollock DPM Work Phone: [facility] Start: 08-07-2024 End: 08-07-2024 Bamboo flowsheet Andra Pollock DPM Work Phone: [facility] Start: 08-07-2024 End: 08-07-2024 Bamboo flowsheet Andra Pollock DPM Work Phone: [facility] Start: 08-07-2024 End: 08-07-2024 Postop follow up visit related to original px Andra Pollock DPM Work Phone: [facility] Comment on above: Nail dystrophy (Prim elda Dx); Onychomycosis; Pain in toes of both feet Start: 08-07-2024 End: 08-07-2024 ambulatory ANDRA POLLOCK Not Available Start: 07-24-2024 End: 07-24-2024 Bamboo flowsheet Andra Pollock DPM Work Phone: [facility] Start: 07-24-2024 End: 07-24-2024 Bamboo flowsheet Andra Pollock DPM Work Phone: [facility] Start: 07-24-2024 End: 07-24-2024 ambulatory ANDRA POLLOCK Not Available Start: 07-24-2024 End: 07-24-2024 Office outpatient new 30 minutes Andra Pollock DPM Work Phone: [facility] Comment on above: Nail dystrophy (Prim elda Dx); Onychomycosis; Pain in toes of both feet Start: 06-04-2024 End: 06-04-2024 Bamboo flowsheet Phillip De La Cruz MD Work Phone: [facility] Start: 06-04-2024 End: 06-04-2024 Bamboo flowsheet Phillip De La Cruz MD Work Phone: [facility] Start: 06-04-2024 End: 06-04-2024 Assay of hemosiderin, quant Phillip De La Cruz MD Work Phone: [facility] Work Phone: Start: 06-04-2024 End: 06-04-2024 Patient encounter procedure Phillip De La Cruz MD Work Phone: [facility] Comment on above: Routine general medi jonna examination at health care facility (Primary Dx); Type 2 diabetes mellitus with diabetic polyneuropathy, with long-term current use of insulin (CMS/HCC); Benign essential hypertension (CMS/HCC); Chronic kidney disease, stage 3a (N18.31); Mixed hyperlipidemia (CMS/HCC) Start: 06-04-2024 End: 06-04-2024 ambulatory PHILLIP DE LA CRUZ Not Available Start: 05-19-2024 End: 05-19-2024 Refill Beena TUCKER Work Phone: [facility] Comment on above: Hypothyroidism, unsp ecified (CMS/HCC) Start: 03-01-2024 End: 03-01-2024 ambulatory PHILLIP B TAMIKO Not Available Start: 12-26-2023 End: 12-26-2023 ambulatory PHILLIP Delisa DE LA CRUZ Not Available Start: 12-01-2023 End: 12-01-2023 ambulatory PHILLIP B TAMIKO Not Available Start: 01-21-2022 End: 01-21-2022 ambulatory Aarti Mcgowan Other [facility] Other Start: 01-21-2022 Office outpatient vi sit 5 minutes Aarti Mcgowan [facility] [place] Start: 02-03-2021 Encounter for genera l adult medical examination without abnormal findings DR PHILLIP DE LA CRUZ [facility] Start: 01-30-2021 End: 01-31-[address] PHILLIP DE LA CRUZ Facility:[facility] Start: 01-30-2021 End: 01-31-2021 Encounter for general adult medical examination without abnormal findings DR PHILLIP DE LA CRUZ Facility:[facility] Start: 10-13-2020 End: 10-14-[address] RASHEEDA DUPREE Facility:[facility] Start: 06-17-2020 End: 06-17-[address] PHILLIP DE LA CRUZ Facility:[facility] Start: 05-16-2020 End: 05-17-[address] PHILLIP DE LA CRUZ Facility:[facility] Start: 05-13-2020 End: 06-16-[address] PHILLIP DE LA CRUZ Facility:[facility] Procedures Date Procedure Procedure Detail Performing Clinician Start: 06-04-2024 Hemoglobin glycosylated a1c Phillip De La Cruz MD Work Phone: Start: 01-28-2023 H/O: hysterectomy History of hysterectomy Beena TUCKER Work Phone: H/O: hysterectomy Aarti Mcgowan Other Plan of Treatment Date Care Activity Detail Author Start: 06-11-2025 Urine screening for protein Diabetes: Urine Protein Screening [facility] Start: 06-04-2025 Medicare Annual Wellness (AWV) Medicare Annual Wellness (AWV) [facility] Start: 03-01-2025 Screening for malign ant neoplasm of colon Colorectal Cancer Screening [facility] Comment on above: Postponed from 05/01 (Patient Refused) Start: 01-27-2025 Glaucoma screening Diabetes: R etinopathy Screening [facility] Start: 10-01-2024 End: 10-01-2024 Patient encounter procedure 10/01/2024 1:00 PM EST Office Visit [facility] [address] [place] [address] Phillip De La Cruz MD [address] [place] [address] [facility] Start: 09-10-2024 End: 09-10-2024 Patient encounter procedure [facility] Comment on above: Arrived Start: 09-04-2024 Hemoglobin A1c measurement Diabetes: Hemoglobin A1C [facility] Start: 08-28-2024 End: 08-28-2024 Patient encounter procedure [facility] Comment on above: Arrived Start: 08-07-2024 End: 08-07-2024 Patient encounter procedure [facility] Comment on above: Arrived Start: 08-06-2024 End: 08-06-2024 Patient encounter procedure 08/06/2024 8:45 AM EST Office Visit [facility] [address] [place] [address] Phillip De La Cruz MD [address] [facility] [address] [place] [address] [facility] Start: 06-04-2024 End: 06-04-2025 Comprehensive metabolic 2000 panel - Serum or Plasma Comprehensive metabolic panel Lab Routine Type 2 diabetes mellitus with diabetic polyneuropathy, with long-term current use of insulin (CMS/HCC) Benign essential hypertension (CMS/HCC) Chronic kidney disease, stage 3a (N18.31) Expected: 06/04/2024 (Approximate), Expires: 06/04/2025 [facility] Comment on above: Expected: 06/04/2024 (Approximate), Expires: 06/04/2025 Start: 06-04-2024 End: 06-04-2025 Lipid 1996 panel - Serum or Plasma Lipid panel Lab Routine Mixed hyperlipidemia ([facility]/HCC) Expected: 06/04/2024 (Approximate), Expires: 06/04/2025 [facility] Comment on above: Expected: 06/04/2024 (Approximate), Expires: 06/04/2025 Start: 06-04-2024 End: 06-04-2025 TSH W/REFLEX TO FT4 TSH W/REFLEX TO FT4 Lab Routine Type 2 diabetes mellitus with diabetic polyneuropathy, with long-term current use of insulin ([facility]/HCC) Expected: 06/04/2024 (Approximate), Expires: 06/04/2025 [facility] Work Phone: Comment on above: Expected: 06/04/2024 (Approximate), Expires: 06/04/2025 Start: 06-04-2024 End: 06-04-2024 Patient encounter procedure [facility] Comment on above: Arrived Start: 06-02-2024 Urine screening for protein Diabetes: Urine Protein Screening [facility] Start: 03-01-2024 Hemoglobin A1c measurement Diabetes: Hemoglobin A1C [facility] Start: 02-17-2023 Medicare Annual Wellness (AWV) Medicare Annual Wellness (AWV) [facility] Start: 12-05-2021 Screening for malign ant neoplasm of colon FIT-DNA [facility] Start: 1950 Screening for malign ant neoplasm of colon [facility] CBC W Auto Different ial panel - Blood CBC and differential Lab Routine Type 2 diabetes mellitus with diabetic polyneuropathy, with long-term current use of insulin ([facility]) Benign essential hypertension ([facility]) Chronic kidney disease, stage 3a (N18.31) Ordered: 06/04/2024 [facility] Comment on above: Ordered: 06/04/2024 Microalbumin/Creatin ine panel in random Urine Microalbumin / creatinine urine ratio Lab Routine Type 2 diabetes mellitus with diabetic polyneuropathy, with long-term current use of insulin ([facility]/HCC) Ordered: 06/04/2024 [facility] Comment on above: Ordered: 06/04/2024 Immunizations Immunization Date Immunization Notes Care Provider Fa sofia 04-16-2024 influenza, high dose seasonal, preservative-free Phillip De La Cruz MD Work Phone: [facility] 06-20-2023 RSV, recombinant, protein subunit RSVpreF, adjuvant reconstitu, 120mcg/0.5mL, PF (Arexvy) Beena Hemmer PA Work Phone: [facility] 03-23-2023 Influenza, High-dose Seasonal, Quadrivalent, Preservative Free Beena Hemmer PA Work Phone: [facility] 06-01-2022 Influenza, Seasonal, Quadrivalent, Adjuvanted Beena Hemmer PA Work Phone: [facility] 06-16-2021 influenza, high dose seasonal, preservative-free Beena Hemmer PA Work Phone: [facility] 05-29-2021 zoster vaccine recombinant Beena Hemmer PA Work Phone: [facility] 2021 influenza, high dose seasonal, preservative-free Beena Hemmer PA Work Phone: [facility] 01-29-2021 zoster vaccine recombinant Beena Hemmer PA Work Phone: [facility] 03-29-2020 influenza, injectabl e, quadrivalent, preservative free Beena Hemmer PA Work Phone: [facility] 02-07-2020 pneumococcal polysaccharide vaccine, 23 valent Beena Hemmer PA Work Phone: [facility] 01-23-2020 pneumococcal vaccine , unspecified formulation; Translations: [Pneumovax 23 25 MCG/0.5ML] Aarit Mcgowan Other [facility] Other 06-20-2019 influenza, high dose seasonal, preservative-free Aarti Mcgowan Other [facility] 02-12-2019 pneumococcal conjuga te vaccine, 13 valent Beena Hemmer PA Work Phone: [facility] NEGATED: Highlighted row has not occurred!09-24-2015 pneumococcal polysaccharide vaccine, 23 valent Aarti Mcgowan Other [facility] Other Payers Date Payer Category Payer Medicare (Managed Care) [facility] [id number] 2024 Unknown [id number] 2022 Unknown [employer] [place] [id number] 2022-Present [address] [place] [address] [id number] 2014 Medicare [id number] 1959 Medicare [id number] 1959 Self-pay 1959 Unknown [id number] 1949 Unknown [id number] [id number]. 2.593 1949 Unknown [id number] 2.16.840.1.814826.3.579. 2.593 1949 Unknown [id number] 2.16.840.1.447544.3.579. 2.593 1949 Unknown [id number] 2.16.840.1.871004.3.579. 2.593 1949 Unknown [id number] 2.16.840.1.586084.3.579. 2.1259 1949 Unknown [id number] 2.16.840.1.706996.3.579. 2.1259 1949 Unknown [id number] 2.16.840.1.174248.3.579. 2.1258 1949 Unknown [id number] 2.16.840.1.147290.3.579. 2.1258 1949 Unknown [id number] 2.16.840.1.925001.3.579. 2.1258 1949 Unknown [id number] 2.16.840.1.461432.3.579. 2.1258 1949 Unknown [id number] 2.16.840.1.117815.3.579. 2.1258 1949 Unknown [id number] 2.16.840.1.114895.3.579. 2.9 1949 Unknown [id number] 2.16.840.1.984267.3.579. 2.727 Unknown [id number] 2.16.840.1.699927.3.579. 2.593 Social History Date Type Detail Facility Start: 03-01-2024 End: 06-04-2024 Sex Assigned At [facility] [employer] Other Start: 01-28-2023 Tobacco smoking stat [facility] Never smoked tobacco [facility] Start: 01-28-2023 Tobacco use and exposure Smokeless tobacco non-user [facility] Start: 03-01-2024 End: 09-10-2024 Alcoholic beverage intake Ex-drinker (finding) [facility] Start: 03-01-2024 End: 06-04-2024 History of Social function [facility] Start: 1950 Sex assigned at Not on file [facility] Medical Equipment Procedure Code Equipment Code Equipment Origin al Text Equipment Identifier Dates [id number], [id number], [id number] Start: 12-31-2022 Clinical Notes 01-21-2022 to 09-10-2024 Phillip De La Cruz MD - 09/10/2024 3:15 PM Mendel Pollock DPM - 08/28/2024 4:00 PM ESTAndra Pringle Pollock, BISIM - 08/07/2024 10:00 AM TAMARAndra Pringle Pollock, DANE - 07/24/2024 1:15 PM EST Note Date & Type Note Facility 09-10-2024 History of Presen t illness Narrative Images from the original note were not included. Subjective Patient ID: Naima Mejia is a 74 y.o. female who presents for prolia injection. Pt here for prolia injection for osteoporosis, has completed dexa scan to verify in past Current Outpatient Medications on File Prior to Visit Medication Sig Dispense Refill alpha tocopherol (Vitamin E) 400 units capsule 1 capsule 1 (one) time each day at the same time. amLODIPine-valsartan (Exforge) 5-320 MG tablet TAKE 1 TABLET BY MOUTH EVERY DAY IN THE MORNING 90 tablet 3 ascorbic acid (Vitamin C) 500 MG tablet Oral aspirin (ASPIR) 81 MG EC tablet 1 (one) time each day at the same time. atorvastatin (Lipitor) 40 MG tablet TAKE 1 TABLET BY MOUTH EVERY DAY IN THE MORNING 90 tablet 3 B Complex Vitamins (B COMPLEX 1 PO) Orally Blood Glucose Monitoring Suppl (Blood Glucose Monitor System) w/Device kit 1 each Daily 1 kit 0 DAILY MULTIPLE VITAMINS PO Oral Glucose Blood (Blood Glucose Test) strip 1 each by In Vitro route Daily 100 strip 3 insulin NPH-insulin regular (NovoLIN 70/30 FlexPen) (70-30) 100 UNIT/ML injection INJECT 27 UNITS SUBCUTANEOUSLY TWICE A DAY 15 mL 12 insulin pen needle (B-D UF III MINI PEN NEEDLES) 31G x 5 mm misc USE WITH INSULIN DAILY 100 each 11 Lancets misc 1 Device Daily 100 each 3 Lancets Ultra Thin misc intradermal 4 times daily levothyroxine (Synthroid, Levoxyl) 88 MCG tablet TAKE 1 TABLET BY MOUTH EVERY DAY FOR 100 DAYS 90 tablet 3 Lutein 6 MG capsule 1 (one) time each day at the same time. No current facility-administered medications on file prior to visit. I have reviewed and reconciled the history and medication list with the patient today. Allergies Allergen Reactions Levofloxacin Nausea Only Social History Tobacco Use Smoking status: Never Smokeless tobacco: Never Vaping Use Vaping status: Never Used Substance Use Topics Alcohol use: Not Currently Family History Problem Relation Name Age of Onset Cancer Mother Alzheimer's disease Mother Past Medical History: Diagnosis Date Adnexal mass Asthma (CMS/HCC) Cerebrovascular accident ([facility]/HCC) 2013 Diabetes mellitus ([facility]/HCC) Diabetic coma ([facility]/HCC) 2005 Hyperlipemia ([facility]/HCC) Hypertension ([facility]/HCC) Osteoarthrosis Teratoma 2017 dr amezquita Past Surgical History: Procedure Laterality Date TOE SURGERY Bilateral 1977 TOTAL ABDOMINAL HYSTERECTOMY 1984 Visit Vitals BP 132/72 Pulse 92 Ht 5' 5 Wt 170 lb SpO2 96% BMI 28.29 kg/m Smoking Status Never BSA 1.88 m Review of Systems Objective Physical Exam Cardiovascular: Rate and Rhythm: Normal rate and regular rhythm. Pulmonary: Effort: Pulmonary effort is normal. Breath sounds: Normal breath sounds. Assessment/Plan Diagnoses and all orders for this visit: Age-related osteoporosis without current pathological fracture ([facility]) - denosumab (Prolia) injection 60 mg Type 2 diabetes mellitus with diabetic chronic kidney disease ([facility]) Chronic kidney disease, stage 2 (mild) Type 2 diabetes mellitus with other specified complication ([facility]) Hyperlipidemia, unspecified ([facility]) Follow up in about 2 weeks (around 09/24/2024) for Wellness. documented in this encounter [facility] 08-28-2024 History of Presen t illness Narrative Images from the original note were not included. Subjective Patient ID: Naima Mejia is a 74 y.o. female who presents for POV (Naima Mejia is a 74 y.o. female. Pt is here today for FUV Right hallux total phenol. DOS 07/24/24. Patient states it has improved, still some drainage present./BS: [address] De La Cruz 06/04/2024 SS 9.5). HPI Patient presents for follow up of the right hallux total phenol procedure. She states the toe is no longer painful. She is no longer having drainage. She has continued to cover the area during the day and leave it open to air at night. She was interested in having the same procedure on the left hallux, but was surprised as to how slowly her right great toe healed and does not wish to proceed with a phenol on the left. Review of Systems Medications Current Outpatient Medications: alpha tocopherol (Vitamin E) 400 units capsule, 1 capsule 1 (one) time each day at the same time., Disp: , Rfl: amLODIPine-valsartan (Exforge) 5-320 MG tablet, TAKE 1 TABLET BY MOUTH EVERY DAY IN THE MORNING, Disp: 90 tablet, Rfl: 3 ascorbic acid (Vitamin C) 500 MG tablet, Oral, Disp: , Rfl: aspirin (ASPIR) 81 MG EC tablet, 1 (one) time each day at the same time., Disp: , Rfl: atorvastatin (Lipitor) 40 MG tablet, TAKE 1 TABLET BY MOUTH EVERY DAY IN THE MORNING, Disp: 90 tablet, Rfl: 3 B Complex Vitamins (B COMPLEX 1 PO), Orally, Disp: , Rfl: Blood Glucose Monitoring Suppl (Blood Glucose Monitor System) w/Device kit, 1 each Daily, Disp: 1 kit, Rfl: 0 DAILY MULTIPLE VITAMINS PO, Oral, Disp: , Rfl: Glucose Blood (Blood Glucose Test) strip, 1 each by In Vitro route Daily, Disp: 100 strip, Rfl: 3 insulin NPH-insulin regular (NovoLIN 70/30 FlexPen) (70-30) 100 UNIT/ML injection, INJECT 27 UNITS SUBCUTANEOUSLY TWICE A DAY, Disp: 15 mL, Rfl: 12 insulin pen needle (B-D UF III MINI PEN NEEDLES) 31G x 5 mm misc, USE WITH INSULIN DAILY, Disp: 100 each, Rfl: 11 Lancets misc, 1 Device Daily, Disp: 100 each, Rfl: 3 Lancets Ultra Thin misc, intradermal 4 times daily, Disp: , Rfl: levothyroxine (Synthroid, Levoxyl) 88 MCG tablet, TAKE 1 TABLET BY MOUTH EVERY DAY FOR 100 DAYS, Disp: 90 tablet, Rfl: 3 Lutein 6 MG capsule, 1 (one) time each day at the same time., Disp: , Rfl: Allergies Levofloxacin Past Surgical History Past Surgical History: Procedure Laterality Date TOE SURGERY Bilateral 1977 TOTAL ABDOMINAL HYSTERECTOMY 1984 Family History Family History Problem Relation Name Age of Onset Cancer Mother Alzheimer's disease Mother Objective Physical Exam Cardiovascular: Comments: Pedal pulses: DP trace b/l, PT 2/4 bilateral. Skin temp is warm to warm. Varicosities: absent Hair growth: present Pulmonary: Effort: Pulmonary effort is normal. Musculoskeletal: General: No tenderness. Right lower leg: No edema. Left lower leg: No edema. Comments: ROM: AJ and STJ ROM are normal and pain free. MUSCLE STRENGTH: 5/5 for dorsiflexion, plantarflexion, inversion, eversion. PAIN: No further pain R hallux, L hallux nail is painful Skin: General: Skin is warm. Capillary Refill: Capillary refill takes 2 to 3 seconds. Findings: No bruising or erythema. Comments: SKIN FINDINGS: web spaces are clean/dry HYPERKERATOSIS: none. NAIL PATHOLOGY: R hallux nail has been permanently removed. The distal nail bed is healed. The proximal nail bed is healed with a thin new layer of epithelialized tissue present. No further inflammation or erythema at the nail fold. L hallux nail is 8mm thick, yellow, brittle, elongated, fungal, lysed from distal 1/2 of nail bed, clubbed SKIN PATHOLOGY: texture, turgor, hair growth, within normal limits. Neurological: Mental Status: She is alert and oriented to person, place, and time. Comments: VIBRATORY:Absent at IPJ and MPJ R, diminished at IPJ and MPJ L, and medial malleolus, and patella b/l. SEMMES-MANUELA 5.07 MONOFILAMENT intact at 10/10 sites. Psychiatric: Mood and Affect: Mood normal. Behavior: Behavior normal. Assessment/Plan ICD-10-CM 1. Nail dystrophy L60.3 2. Onychomycosis B35.1 3. Pain in toes of both feet M79.674 M79.675 Pt is doing well. Nail bed has healed, due to the delay in healing R hallux, pt does not wish to proceed with L hallux total phenol procedure at this time and plans to return for nail debridement if the nail becomes painful. She was invited to call with any questions or concerns. RTO prn This note was created with the assistance of a speech recognition program. While intending to generate a timely document that accurately reflects the content of the visit, no guarantee can be provided that every grammatical or spelling mistake has been or will be identified or corrected. Thank you for your understanding. Andra Pollock DPM documented in this encounter [facility] 08-07-2024 History of Presen t illness Narrative Images from the original note were not included. Subjective Patient ID: Naima Mejia is a 74 y.o. female who presents for Follow-up (Pt is here today for FUV nail procedure Rt total hallux nail removal, she states it has improved, still some drainage present./BS: 132). HPI Patient presents for follow up of right hallux total phenol procedure. Patient states the toe is nonpainful. She has had some drainage. She has continued to soak the toe. She is covering the area occasionally. She is interested in having the same procedure done to the left hallux but would like to wait to see how the right toe heals 1st. Review of Systems Medications Current Outpatient Medications: alpha tocopherol (Vitamin E) 400 units capsule, 1 capsule 1 (one) time each day at the same time., Disp: , Rfl: amLODIPine-valsartan (Exforge) 5-320 MG tablet, TAKE 1 TABLET BY MOUTH EVERY DAY IN THE MORNING, Disp: 90 tablet, Rfl: 3 ascorbic acid (Vitamin C) 500 MG tablet, Oral, Disp: , Rfl: aspirin (ASPIR) 81 MG EC tablet, 1 (one) time each day at the same time., Disp: , Rfl: atorvastatin (Lipitor) 40 MG tablet, TAKE 1 TABLET BY MOUTH EVERY DAY IN THE MORNING, Disp: 90 tablet, Rfl: 3 B Complex Vitamins (B COMPLEX 1 PO), Orally, Disp: , Rfl: Blood Glucose Monitoring Suppl (Blood Glucose Monitor System) w/Device kit, 1 each Daily, Disp: 1 kit, Rfl: 0 DAILY MULTIPLE VITAMINS PO, Oral, Disp: , Rfl: Glucose Blood (Blood Glucose Test) strip, 1 each by In Vitro route Daily, Disp: 100 strip, Rfl: 3 insulin NPH-insulin regular (NovoLIN 70/30 FlexPen) (70-30) 100 UNIT/ML injection, INJECT 27 UNITS SUBCUTANEOUSLY TWICE A DAY, Disp: 15 mL, Rfl: 12 insulin pen needle (B-D UF III MINI PEN NEEDLES) 31G x 5 mm misc, USE WITH INSULIN DAILY, Disp: 100 each, Rfl: 11 Lancets misc, 1 Device Daily, Disp: 100 each, Rfl: 3 Lancets Ultra Thin misc, intradermal 4 times daily, Disp: , Rfl: levothyroxine (Synthroid, Levoxyl) 88 MCG tablet, TAKE 1 TABLET BY MOUTH EVERY DAY FOR 100 DAYS, Disp: 90 tablet, Rfl: 3 Lutein 6 MG capsule, 1 (one) time each day at the same time., Disp: , Rfl: Allergies Levofloxacin Past Surgical History Past Surgical History: Procedure Laterality Date TOE SURGERY Bilateral 1977 TOTAL ABDOMINAL HYSTERECTOMY 1983 Family History Family History Problem Relation Name Age of Onset Cancer Mother Alzheimer's disease Mother Objective Physical Exam Cardiovascular: Comments: Pedal pulses: DP trace b/l, PT 2/4 bilateral. Skin temp is warm to warm. Varicosities: absent Hair growth: present Pulmonary: Effort: Pulmonary effort is normal. Musculoskeletal: General: No tenderness. Right lower leg: No edema. Left lower leg: No edema. Comments: ROM: AJ and STJ ROM are normal and pain free. MUSCLE STRENGTH: 5/5 for dorsiflexion, plantarflexion, inversion, eversion. PAIN: No further pain R hallux, L hallux nail is painful Skin: General: Skin is warm. Capillary Refill: Capillary refill takes 2 to 3 seconds. Findings: No bruising or erythema. Comments: SKIN FINDINGS: web spaces are clean/dry HYPERKERATOSIS: none. NAIL PATHOLOGY: R hallux nail has been permanently removed. The distal nail bed is healed. The proximal nail bed is still open with serous drainage and fibrogranular base. The eponychium has mild inflammation and erythema as expected after total phenol. L hallux nail is 8mm thick, yellow, brittle, elongated, fungal. Both nails are lysed from distal 1/2 of nail bed, clubbed, fungal. SKIN PATHOLOGY: texture, turgor, hair growth, within normal limits. Neurological: Mental Status: She is alert and oriented to person, place, and time. Comments: VIBRATORY:Absent at IPJ and MPJ R, diminished at IPJ and MPJ L, and medial malleolus, and patella b/l. SEMMES-MANUELA 5.07 MONOFILAMENT intact at 10/10 sites. Psychiatric: Mood and Affect: Mood normal. Behavior: Behavior normal. Assessment/Plan ICD-10-CM 1. Nail dystrophy L60.3 2. Onychomycosis B35.1 3. Pain in toes of both feet M79.674 M79.675 Pt is doing well. Nail bed is healing. Fibrous tissue removed to encourage continued drainage from nail matrix area. Instructed pt to continue to change dressing daily until drainage ceases. Call if they notice increase in redness, swelling, pain, or drainage. RTO 2-3 weeks for recheck. If patient heals well, she would like to proceed with L hallux total phenol procedure This note was created with the assistance of a speech recognition program. While intending to generate a timely document that accurately reflects the content of the visit, no guarantee can be provided that every grammatical or spelling mistake has been or will be identified or corrected. Thank you for your understanding. Andra Pollock DPM documented in this encounter [facility] 07-24-2024 History of Presen t illness Narrative Images from the original note were not included. Subjective Patient ID: Naima Mejia is a 74 y.o. female who presents for Toenail Problem (Pt is here today requesting nail removal BL hallux nails, the nails are bothersome for her as they grow into the 2nd toe. /BS: 123 A1C: 7.0 /LV Dr. De La Cruz 06-04-2024/SS: 9.5). HPI Patient presents complaining of hallux nails that are thick, elongated, fungal. She states the nails are raised and rubbing in shoe gear and curled to grow into the 2nd digits. They are bothersome for her. She has tried trimming them and maintain them at home with little success. She is requesting permanent removal of both hallux nails. She is a diabetic. She has been seen here in the past for the same issue, most recently in 2020. Review of Systems Medications Current Outpatient Medications: alpha tocopherol (Vitamin E) 400 units capsule, 1 capsule 1 (one) time each day at the same time., Disp: , Rfl: amLODIPine-valsartan (Exforge) 5-320 MG tablet, TAKE 1 TABLET BY MOUTH EVERY DAY IN THE MORNING, Disp: 90 tablet, Rfl: 3 ascorbic acid (Vitamin C) 500 MG tablet, Oral, Disp: , Rfl: aspirin (ASPIR) 81 MG EC tablet, 1 (one) time each day at the same time., Disp: , Rfl: atorvastatin (Lipitor) 40 MG tablet, TAKE 1 TABLET BY MOUTH EVERY DAY, Disp: 100 tablet, Rfl: 3 B Complex Vitamins (B COMPLEX 1 PO), Orally, Disp: , Rfl: Blood Glucose Monitoring Suppl (Blood Glucose Monitor System) w/Device kit, 1 each Daily, Disp: 1 kit, Rfl: 0 DAILY MULTIPLE VITAMINS PO, Oral, Disp: , Rfl: Glucose Blood (Blood Glucose Test) strip, 1 each by In Vitro route Daily, Disp: 100 strip, Rfl: 3 insulin NPH-insulin regular (NovoLIN 70/30 FlexPen) (70-30) 100 UNIT/ML injection, INJECT 27 UNITS SUBCUTANEOUSLY TWICE A DAY, Disp: 15 mL, Rfl: 12 insulin pen needle (B-D UF III MINI PEN NEEDLES) 31G x 5 mm misc, USE WITH INSULIN DAILY, Disp: 100 each, Rfl: 11 Lancets misc, 1 Device Daily, Disp: 100 each, Rfl: 3 Lancets Ultra Thin misc, intradermal 4 times daily, Disp: , Rfl: levothyroxine (Synthroid, Levoxyl) 88 MCG tablet, TAKE 1 TABLET BY MOUTH EVERY DAY FOR 100 DAYS, Disp: 90 tablet, Rfl: 3 Lutein 6 MG capsule, 1 (one) time each day at the same time., Disp: , Rfl: Allergies Levofloxacin Past Surgical History Past Surgical History: Procedure Laterality Date TOE SURGERY Bilateral 1977 TOTAL ABDOMINAL HYSTERECTOMY 1983 Family History Family History Problem Relation Name Age of Onset Cancer Mother Alzheimer's disease Mother Objective Physical Exam Cardiovascular: Comments: Pedal pulses: DP trace b/l, PT 2/4 bilateral. Skin temp is warm to warm. Varicosities: absent Hair growth: present Pulmonary: Effort: Pulmonary effort is normal. Musculoskeletal: General: No tenderness. Right lower leg: No edema. Left lower leg: No edema. Comments: ROM: AJ and STJ ROM are normal and pain free. MUSCLE STRENGTH: 5/5 for dorsiflexion, plantarflexion, inversion, eversion. PAIN: b/l hallux nails Skin: General: Skin is warm. Capillary Refill: Capillary refill takes 2 to 3 seconds. Findings: No bruising or erythema. Comments: SKIN FINDINGS: web spaces are clean/dry HYPERKERATOSIS: none. NAIL PATHOLOGY: R hallux nail is 8mm thick, malformed, dystrophic, yellow, raised, incurvated. There is evidence of fungal involvement. L hallux nail is 8mm thick, yellow, brittle, elongated, fungal. Both nails are lysed from distal 1/2 of nail bed, clubbed, fungal. SKIN PATHOLOGY: texture, turgor, hair growth, within normal limits. Neurological: Mental Status: She is alert and oriented to person, place, and time. Comments: VIBRATORY:Absent at IPJ and MPJ R, diminished at IPJ and MPJ L, and medial malleolus, and patella b/l. SEMMES-MANULEA 5.07 MONOFILAMENT intact at 10/10 sites. Psychiatric: Mood and Affect: Mood normal. Behavior: Behavior normal. Assessment/Plan ICD-10-CM 1. Nail dystrophy L60.3 2. Onychomycosis B35.1 3. Pain in toes of both feet M79.674 M79.675 Patient was examined and evaluated. Discussed findings of trace DP pulse bilateral. Discussed that this may cause delayed healing after a nail procedure. Patient is interested in having both hallux nails fully removed permanently. I recommended we start with 1 nail to see how she tolerates the procedure, and how well she heals postoperatively. She agrees, and requests the R hallux nail be removed first and asks if I can debride the L hallux nail as it is abutting the L 2nd digit and is painful. L hallux nail was debrided in length and thickness with small nail nipper and electronic nail ti and curette. The phenol procedure was discussed in detail and pt understands it will likely drain for several days to weeks after. It may be painful and there could be regrowth of nail. All questions answered to their satisfaction. I explained the removal of the offending toenail and matrix, followed by the application of Phenol to destroy the nail growth plate. I discussed the risks, complications, and the expected recovery course with the patient and they said they understood and agreed. After appropriate consent and verifying the correct digit, the R hallux was anesthetized with 3 mL of 2% xylocaine plain. It was then prepped and draped in the usual aseptic manner. A tourniquet was used for hemostasis. The offending nail was removed, matrix area curetted, and 3-30 second applications of phenol were applied to the matrix area and nail bed. The tourniquet was released, free bleeding was encountered and encouraged. A telfa pad and DSD was applied with moderate compression. The initial layer impregnated with Amerigel Ointment. Written and oral instructions were given to and understood by the patient. Patient will RTO in 10-14 days This note was created with the assistance of a speech recognition program. While intending to generate a timely document that accurately reflects the content of the visit, no guarantee can be provided that every grammatical or spelling mistake has been or will be identified or corrected. Thank you for your understanding. Andra Pollock DPM documented in this encounter [facility] 06-04-2024 History of Presen t illness Narrative Images from the original note were not included. Subjective : Chief Complaint: Naima Mejia is an 74 y.o. female here for an annual wellness visit. I have reviewed and reconciled the history and medication list with the patient today. Current Outpatient Medications Medication Sig Dispense Refill alpha tocopherol (Vitamin E) 400 units capsule 1 capsule 1 (one) time each day at the same time. amLODIPine-valsartan (Exforge) 5-320 MG tablet TAKE 1 TABLET BY MOUTH EVERY DAY IN THE MORNING 90 tablet 3 ascorbic acid (Vitamin C) 500 MG tablet Oral aspirin (ASPIR) 81 MG EC tablet 1 (one) time each day at the same time. atorvastatin (Lipitor) 40 MG tablet TAKE 1 TABLET BY MOUTH EVERY DAY 100 tablet 3 B Complex Vitamins (B COMPLEX 1 PO) Orally Blood Glucose Monitoring Suppl (Blood Glucose Monitor System) w/Device kit 1 each Daily 1 kit 0 DAILY MULTIPLE VITAMINS PO Oral Glucose Blood (Blood Glucose Test) strip 1 each by In Vitro route Daily 100 strip 3 insulin NPH-insulin regular (NovoLIN 70/30 FlexPen) (70-30) 100 UNIT/ML injection INJECT 27 UNITS SUBCUTANEOUSLY TWICE A DAY 15 mL 12 insulin pen needle (B-D UF III MINI PEN NEEDLES) 31G x 5 mm misc USE WITH INSULIN DAILY 100 each 11 Lancets misc 1 Device Daily 100 each 3 Lancets Ultra Thin misc intradermal 4 times daily levothyroxine (Synthroid, Levoxyl) 88 MCG tablet TAKE 1 TABLET BY MOUTH EVERY DAY FOR 100 DAYS 90 tablet 3 Lutein 6 MG capsule 1 (one) time each day at the same time. No current facility-administered medications for this visit. Review of Systems List of current healthcare providers: Patient Care Team: Phillip De La Cruz MD as PCP - General (Internal Medicine) Phillip De La Cruz MD as PCP - O Reach Phillip De La Cruz MD as PCP - Devoted Medicare Annual Visit Over the past 2 weeks, how often have you been bothered by any of the following problems? Little interest or pleasure in doing things: Not at all Feeling down, depressed, or hopeless: Not at all Patient Health Questionnaire-2 Score: 0 Over the past 2 weeks, how often have you been bothered by any of the following problems? Trouble falling or staying asleep, or sleeping too much: Not at all Feeling tired or having little energy: Not at all Poor appetite or overeating: Not at all Feeling bad about yourself - or that you are a failure or have let yourself or your family down: Not at all Trouble concentrating on things, such as reading the newspaper or watching television: Not at all Moving or speaking so slowly that other people could have noticed? Or the opposite - being so fidgety or restless that you have been moving around a lot more than usual.: Not at all Thoughts that you would be better off or hurting yourself in some way: Not at all Patient Health Questionnaire-9 Score: 0 Ritchie Fall Risk History of Falling, Immediate or Within 3 Months: No Health Risk Assessment Form Do you need help eating, bathing, using the toilet, dressing, or getting around your home?: No Can you prepare your own meals?: Yes Can you do your own housework without help?: Yes Can you shop for groceries or clothes without help?: Yes Do you exercise for about 20 minutes 3 or more days a week?: No How confident are you that you can control and manage most of your health problems?: Very confident Can you mange your money, credit cards and accounts, pay bills and taxes?: Yes Cognitive Screening Three Word Registration: Banana, [place], Chair Clock Drawing: Normal Clock - 2 Three Word Recall: All 3 words correct - 3 Total Score (0-5 Points): 5 Advance Care Planning Do you have a living will?: Yes Do you have a medical power of trial attorney?: Yes Who is your medical power of trial attorney?: sister Objective : BP 125/85 Pulse 79 Resp 18 Wt 174 lb 12.8 oz SpO2 99% BMI 28.21 kg/m No results found. Physical Exam Constitutional: General: She is not in acute distress. Appearance: Normal appearance. She is well-developed. HENT: Head: Normocephalic and atraumatic. Eyes: General: No scleral icterus. Conjunctiva/sclera: Conjunctivae normal. Cardiovascular: Rate and Rhythm: Normal rate and regular rhythm. Heart sounds: Normal heart sounds. No murmur heard. Pulmonary: Effort: Pulmonary effort is normal. No respiratory distress. Breath sounds: Normal breath sounds. No wheezing, rhonchi or rales. Skin: General: Skin is warm and dry. Neurological: General: No focal deficit present. Mental Status: She is alert and oriented to person, place, and time. Psychiatric: Mood and Affect: Mood normal. Behavior: Behavior normal. Office Visit on 06/04/2024 Component Date Value Ref Range Status Hemoglobin A1C 06/04/2024 7.0 Final Assessment/Plan : The following health maintenance schedule was reviewed with the patient and provided in printed form in the after visit summary: Health Maintenance Topic Date Due Medicare Annual Wellness (AWV) 02/17/2023 Diabetes: Urine Protein Screening 06/02/2024 Colorectal Cancer Screening 03/01/2025 (Originally 1950) Diabetes: Hemoglobin A1C 09/04/2024 Diabetes: Retinopathy Screening 01/27/2025 Influenza Vaccine Completed Pneumococcal Vaccine: 65+ Years Completed Mammogram Discontinued Advance Care Planning Assessment/Plan Diagnoses and all orders for this visit: Routine general medical examination at health care facility Type 2 diabetes mellitus with diabetic polyneuropathy, with long-term current use of insulin (CMS/HCC) - POCT glycosylated hemoglobin (Hb A1C) docked device - TSH W/REFLEX TO FT4; Future - Microalbumin / creatinine urine ratio - Comprehensive metabolic panel; Future - CBC and differential Benign essential hypertension (CMS/HCC) - Comprehensive metabolic panel; Future - CBC and differential Chronic kidney disease, stage 3a (N18.31) - Comprehensive metabolic panel; Future - CBC and differential Mixed hyperlipidemia (CMS/HCC) - Lipid panel; Future Orders Placed This Encounter Procedures POCT glycosylated hemoglobin (Hb A1C) docked device Electronically signed by Phillip De La Cruz MD on June 04, 2024 documented in this encounter [facility] 05-19-2024 Telephone encount er Note Levothyroxine sent [facility] 05-19-2024 Miscellaneous Notes Formattin g of this note might be different from the original. Levothyroxine sent documented in this encounter [facility] 01-21-2022 Evaluation note Encounter Date Diagnosis Assessment Notes Jan, Travel advice encounter (ICD-10 - Z71.84) [facility] Other Evaluation note* Diagnosis Hypothyroidism, unspecified ([facility]/HCC) documented in this encounter [facility] HealthcareEvaluation note* Diagnosis Routine general medical examination at health care facility- Primary Routine general medical examination at a health care facility Type 2 diabetes mellitus with diabetic polyneuropathy, with long-term current use of insulin ([facility]/HCC) Benign essential hypertension ([facility]/HCC) Essential hypertension, benign Chronic kidney disease, stage 3a (N18.31) Mixed hyperlipidemia ([facility]/HCC) Mixed hyperlipidemia documented in this encounter [facility] HealthcareEvaluation note* Diagnosis Nail dystrophy- Primary Other specified disease of nail Onychomycosis Dermatophytosis of nail Pain in toes of both feet documented in this encounter [facility] HealthcareEvaluation note* Diagnosis Nail dystrophy- Primary Other specified disease of nail Onychomycosis Dermatophytosis of nail Pain in toes of both feet documented in this encounter [facility] HealthcareEvaluation note* Diagnosis Age-related osteoporosis without current pathological fracture (CMS/HCC) Type 2 diabetes mellitus with diabetic chronic kidney disease ([facility]/HCC) Chronic kidney disease, stage 2 (mild) Type 2 diabetes mellitus with other specified complication (CMS/HCC) Hyperlipidemia, unspecified (CMS/HCC) documented in this encounter [facility] HealthcareHistory general Narrative - Reported* Type Description Date Medical History Essential hypertension, benign Medical History Diabetes mellitus wi thout mention of complication, type II or unspecified type, not stated as uncontrolled Medical History Other and unspecified hyperlipid emia Medical History Osteoarthrosis, unsp ecified whether generalized or localized, unspecified site Medical History Asthma, unspecified, with (acute ) exacerbation Medical History cerebrovascular accident 2014 Medical History 2006 Diabetic Coma Medical History Teratoma - Dr. Amezquita (2017) Medical History Adnexal mass Medical History Adnexal mass Surgical History Procedure:Hysterectomy;Disease: MARGARET 1983 Surgical History Lance toe surgery 1977 Surgical History Teratoma Removal 2017 Hospitalization History see surgical history [facility] Other Summary Purpose Family History No Family History Records FoundNo Family History Records FoundNo Family History Records FoundNo Family History Records FoundNo Family History Records Found Advance Directives No Advanced Directives Records FoundNo Advanced Directives Records FoundNo Advanced Directives Records FoundNo Advanced Directives Records FoundNo Advanced Directives Records Found Additional Source Comments INFORMATION SOURCE (unrecogn ized section and content) DATE CREATED AUTHOR 02/04/2021 [facility] DATE CREATED AUTHOR AUTHOR'S ORGANIZ ATION 12/02/2021 [facility] DATE CREATED AUTHOR AUTHOR'S ORGANIZ ATION 06/14/2024 [facility] DATE CREATED AUTHOR AUTHOR'S ORGANIZ ATION 09/12/2024 [facility] EPIC DATE CREATED AUTHOR AUTHOR'S ORGANIZ ATION 09/23/2024 [facility] REASON FOR VISIT (unrecogniz ed section and content) Reason Comments Med Refill Reason Comments Toenail Problem Pt is here today req uesting nail removal BL hallux nails, the nails are bothersome for her as they grow into the 2nd toe. BS: 123 A1C: 7.[address] De La Cruz [id number]: 9.5 Reason Comments Follow-up Pt is here today for FUV nail procedure Rt total hallux nail removal, she states it has improved, still some drainage present.BS: 132 Reason Comments POV Naima Mejia is a 74 y.o. female. Pt is here today for FUV Right hallux total phenol. DOS 07/24/24. Patient states it has improved, still some drainage present./BS: [address] De La Cruz 06/04/2024 SS 9.5 Reason Comments prolia injection Care Teams (unrecognized sec tion and content) Blood Bank Technologist Relationship Specialty Start Date End Date Phillip De La Cruz MD [address] [place] [address] [place] [address] PCP - General Internal Medicine 12/31/22 Phillip De La Cruz MD [address] [place] [address] [place] [address] PCP - ACO Reach 12/30/22 Phillip De L aCruz MD [address] [place] [address] [place] [address] PCP - Devoted 04/08/24 Blood Bank Technologist Relationship Specialty Start Date End Date Phillip De La Cruz MD [address] [place] [address] [place] [address] PCP - General Internal Medicine 12/31/22 Phillip De La Cruz MD [address] [place] [address] [place] [address] PCP - ACO Reach 12/30/22 Phillip De La Cruz MD [address] [place] [address] [place] [address] PCP - Devoted 04/08/24 Blood Bank Technologist Relationship Specialty Start Date End Date Phillip De La Cruz MD [address] [place] [address] [place] [address] PCP - General Internal Medicine 12/31/22 Phillip De La Cruz MD [address] [place] [address] [place] [address] PCP - ACO Reach 12/30/22 Phillip De La Cruz MD [address] [facility] [address] [place] [address] PCP - Devoted 04/08/24 Blood Bank Technologist Relationship Specialty Start Date End Date Phillip De La Cruz MD [address] [place] [address] [place] [address] PCP - General Internal Medicine 12/31/22 Phillip De La Cruz MD [address] [place] [address] [place] [address] PCP - ACO Reach 12/30/22 Phillip De La Cruz MD [address] [place] [address] [place] [address] PCP - Devoted 04/08/24 Blood Bank Technologist Relationship Specialty Start Date End Date Phillip De La Cruz MD [address] [place] [address] [place] [address] PCP - General Internal Medicine 12/31/22 Phillip De La Cruz MD [address] [place] [address] [place] [address] PCP - ACO Reach 12/30/22 Phillip De La Cruz MD [address] [place] [address] [place] [address] PCP - Devoted 04/08/24 Blood Bank Technologist Relationship Specialty Start Date End Date Phillip De La Cruz MD [address] [place] [address] [place] [address] PCP - General Internal Medicine 12/31/22 Phillip De La Cruz MD [address] [place] [address] [place] [address] PCP - ACO Reach 12/30/22 Phillip De La Cruz MD [address] [place] [address] [place] [address] PCP - Devoted 04/08/24 FOR RECORDS PERTAINING TO PATIENTS WHO ARE OR HAVE BEEN ENROLLED IN A CHEMICAL DEPENDENCY/SUBSTANCEABUSE PROGRAM, SOME INFORMATION MAY BE OMITTED. This clinical summary was aggregated from multiple sources. Caution should be exercised in using it in the provision of clinical care. This summary normalizes information from multiple sources, and as a consequence, information in this document may materially change the coding, format and clinical context of patient data. In addition, data may be omitted in some cases. CLINICAL DECISIONS SHOULD BE BASED ON THE PRIMARY CLINICAL RECORDS. [facility]. provides no warranty or guarantee of the accuracy or completeness of information in this document.
== END 2024-09-24 09:39 | disposition home or self-care (01) ==
LOC: RAD 09:42
PROVIDERS: PCP Family Medicine; Visit Provider Nurse Practitioner
DX: R07.89 Other chest pain (principal)
CPT/HCPCS: 71046

== ENCOUNTER 2025-01-08 12:21 | Outpatient (OUT) | payer OTHER, SELFPAY ==
--- NOTE | 2025-01-08 12:29 | XR_ITS ---
The [place] [id number] Patient Name: KERLINE JOHNSON MRN: [id number] date: 1950 Sex: F Assigned Patient Location: [facility] Current Patient Location: [facility] Accession/Order Number: [id number] Exam Date: 01/08/2025 12:46 Report Date: 01/08/2025 12:47 At the request of: KRAIG QUIJANO Procedure: XR abdomen 1V SINGLE VIEW ABDOMEN COMPARISON: None CLINICAL DATA: Bilateral flank pain and microscopic hematuria. Supine view of the abdomen and pelvis was obtained. There is mild air and stool within the colon. No dilated small bowel loops are present. No soft tissue masses or suspect renal calculi are seen. There are mild degenerative changes at the spine. There is partial lumbarization of S1. XR/XR abdomen 1V IMPRESSION: NO ACUTE FINDINGS OR RADIOPAQUE STONES. Impression dictated by: Beena Grigsby M.D. 01/08/2025 12:47 PM Dictation Location: [place] [address] Electronically authenticated by: [id number] Y Date: 01/08/2025 12:47
== END 2025-01-08 12:22 | disposition home or self-care (01) ==
LOC: RAD 12:25
PROVIDERS: PCP Family Medicine; Visit Provider Nurse Practitioner
DX: R10.9 Unspecified abdominal pain (principal); R31.9 Hematuria, unspecified
CPT/HCPCS: 74018

== ENCOUNTER 2025-02-07 10:29 | Outpatient (OUT) | payer OTHER, SELFPAY ==
--- OUTSIDE RECORDS SUMMARY | 2025-02-07 10:35 | XMS_ITS | Encounter Summary ---
Author Organization [facility] Address [address] [place] [address] Care Team Providers Care Elementary Assistant Teacher Name Role Phone Phillip De La Cruz MD Primary Care Provider [phone] Phillip De La Cruz MD Unavailable [phone] Phillip De La Cruz MD Unavailable [phone] Phillip De La Cruz MD Unavailable [phone] Encounter Details Date Type Department Care Team (Late st Contact Info) Description 09/11/2024 Abstract [facility] [address] [facility] [address] [place] [address] Phillip De La Cruz MD [address] [facility] [address] [place], [place] [id number] Social History Tobacco Use Types Packs/Day Years Used Date Smoking Tobacco: Never Smokeless Tobacco: Never Alcohol Use Standard Drinks/Week Comments Not Currently 0 (1 standard drink = 0.6 oz pur e alcohol) PHQ-2 Answer Date Recorded Patient Health Questionnaire-2 Score 0 06/04/2024 Comments Unknown Sex and Gender Information Value Date Recorded Sex Assigned at Not on file Legal Sex Female 6:52 PM EDT Gender Identity Not on file Sexual Orientation Not on file documented as of this encounter Plan of Treatment Not on file documented as of this encounter Visit Diagnoses Not on filedocumented in this encounter Additional Health Concerns Assessment Noted Time PHQ-9 Depression Total Score: 0 06/04/20 9:00 AM EDT documented as of this encounter Care Teams Elementary Assistant Teacher Relationship Specialty Start Date End Date Phillip De La Cruz MD [address] [facility] [address] [place], [place] [id number] PCP - General Internal Medicine 12/31/22 Phillip De La Cruz MD [address] [place] [address] [place] [address] PCP - ACO Reach 12/30/22 09/13/24 Phillip De La Cruz MD [address] [place] [address] [place] [address] PCP - Devoted 04/08/24 Phillip De La Cruz MD [address] [facility] [address] [place] [address] PCP - ACO Reach 09/21/24 11/08/24 documented as of this encounter
--- OUTSIDE RECORDS SUMMARY | 2025-02-07 10:35 | XMS_ITS | Encounter Summary ---
Author Organization [facility] Address [address] [place] [address] Care Team Providers Care Medical Office Receptionist Assistant Name Role Phone Phillip De La Cruz MD Primary Care Provider [phone] Phillip De La Cruz MD Unavailable [phone] Phillip De La Cruz MD Unavailable [phone] Phillip De La Cruz MD Unavailable [phone] Encounter Details Date Type Department Care Team (Late st Contact Info) Description 08/08/2023 Clinisync Result Encounter [facility] External Department Unsolicited Phillip De La Cruz MD [address] [place] [address] Social History Tobacco Use Types Packs/Day Years Used Date Smoking Tobacco: Never Smokeless Tobacco: Never Alcohol Use Standard Drinks/Week Comments Not Currently 0 (1 standard drink = 0.6 oz pur e alcohol) Comments Unknown Sex and Gender Information Value Date Recorded Sex Assigned at Not on file Legal Sex Female 6:52 PM EDT Gender Identity Not on file Sexual Orientation Not on file documented as of this encounter Plan of Treatment Not on file documented as of this encounter Procedures Procedure Name Priority Date/Time Associated Diagnosis Comments XR THORACIC SPINE 3V 08/08/2023 4:03 PM EST documented in this encounter Results * XR THORACIC SPINE 3V (08/08/2023 4:03 PM EST) Anatomical Region Laterality Modality Other 08/08/2023 4:03 PM EST Narrative 08/08/2023 4:05 PM EST The [address] [address] XRay Report Signed Patient: KERLINE JOHNSON MR#: [id number] : 1950 Acct:[id number] Age/Sex: 73 / F ADM Date: 08/05/23 Loc: RAD Attending Dr: PHILLIP DE LA CRUZ Ordering Physician: PHILLIP DE LA CRUZ Date of Service: 08/05/23 Procedure(s): XR thoracic spine 3V Accession Number(s): [id number] cc: PHILLIP DE LA CRUZ [place] [id number] Patient Name: KERLINE JOHNSON MRN: [id number] date: 1950 Sex: F Assigned Patient Location: [facility] Current Patient Location: Accession/Order Number: [id number] Exam Date: 08/05/2023 10:24 Report Date: 08/08/2023 16:03 At the request of: PHILLIP DE LA CRUZ Procedure: XR thoracic spine 3V EXAM: XR thoracic spine 3V HISTORY: Acute Mid Back Pain M54.9 COMPARISON: None. TECHNIQUE: AP and lateral views FINDINGS: Vertebral bodies are normal in height. There is disc space narrowing at mid thoracic levels with associated anterior osteophytosis. Aortic calcification is noted. XR/XR thoracic spine 3V IMPRESSION: Multilevel mid thoracic spondylosis. Electronically authenticated by: John LOPEZ Date: 08/08/2023 16:03 Dictated By: Leonardo Lopez M.D. Signed By: 08/08/23 1605 DD/ 1603 TD/TT: Special Warfare Boat Operator: Procedure Note Radiology, Radiologist, MD - 08/08/[address] [address] XRay Report Signed Patient: KERLINE JOHNSON LMR#: [id number] : 1950cct:[id number] Age/Sex: 73 / FADM Date: 08/05/23 Loc: RAD Attending Dr: PHILLIP DE LA CRUZ Ordering Physician: PHILLIP DE LA CRUZ Date of Service: 08/05/23 Procedure(s): XR thoracic spine 3V Accession Number(s): [id number] cc: PHILLIP DE LA CRUZ [address] [address] Patient Name: KERLINE JOHNSON MRN: [facility]:[id number] date: 1950 Sex: F Assigned Patient Location: [facility] Current Patient Location: Accession/Order Number: [id number] Exam Date: 08/05/2023 10:24 Report Date: 08/08/2023 16:03 At the request of: PHILLIP DE LA CRUZ Procedure: XR thoracic spine 3V EXAM: XR thoracic spine 3V HISTORY: Acute Mid Back Pain M54.9 COMPARISON: None. TECHNIQUE: AP and lateral views FINDINGS: Vertebral bodies are normal in height. There is disc spacenarrowing at mid thoracic levels with associated anterior osteophytosis. Aortic calcification is noted. XR/XR thoracic spine 3V IMPRESSION: Multilevel mid thoracic spondylosis. Electronically authenticated by: John LOPEZ Date: 08/08/2023 16:03 Dictated By: Leonardo Lopez M.D. Signed By:08/08/23 1605 DD/ 1603 TD/TT: Special Warfare Boat Operator: Phillip De La Cruz MD [facility] Final Result documented in this encounter Visit Diagnoses Not on filedocumented in this encounter Care Teams Medical Office Receptionist Assistant Relationship Specialty Start Date End Date Phillip De La Cruz MD [address] [facility] [address] [place] [address] PCP - General Internal Medicine 12/31/22 Phillip De La Cruz MD [address] [place] [address] [place] [address] PCP - ACO Reach 12/30/22 09/13/24 Phillip De La Cruz MD [address] [place] [address] [place] [address] PCP - Devoted 04/08/24 Phillip De La Cruz MD [address] [place] [address] [place] [address] PCP - ACO Reach 09/21/24 11/08/24 documented as of this encounter
--- OUTSIDE RECORDS SUMMARY | 2025-02-07 10:35 | XMS_ITS | Encounter Summary ---
Author Organization [facility] Address [address] [place] [address] Care Team Providers Care Optimization Consultant Name Role Phone Phillip De La Cruz MD Primary Care Provider [phone] Phillip De La Cruz MD Unavailable [phone] Phillip De La Cruz MD Unavailable [phone] Phillip De La Cruz MD Unavailable [phone] Encounter Details Date Type Department Care Team (Late st Contact Info) Description 12/27/2023 Abstract [facility] 112 [facility] [address] [place] [address] Phillip De La Cruz MD [address] [facility] [address] [place] [address] Social History Tobacco Use Types Packs/Day Years [...] on filedocumented in this encounter Care Teams Optimization Consultant Relationship Specialty Start Date End Date Phillip De La Cruz MD [address] [facility] [address] [place] [address] PCP - General Internal Medicine 12/31/22 Phillip De La Cruz MD [address] [facility] [address] [place] [address] PCP - ACO Reach 12/30/22 09/13/24 Phillip De La Cruz MD [address] [facility] [address] [place] [address] PCP - Devoted 04/08/24 Phillip De La Cruz MD [address] [facility] [address] [place] [address] PCP - ACO Reach 09/21/24 11/08/24 documented as of this encounter
--- OUTSIDE RECORDS SUMMARY | 2025-02-07 10:35 | XMS_ITS | Clinical Summary ---
Author Organization [facility] Healthcare Address [address] [place] [address] Care Team Providers Care Sales Representative Adding Machines Name Role Phone Phillip De La Cruz MD Primary Care Provider [phone] Phillip De La Cruz MD Unavailable [phone] Allergies Active Allergy Reactions Criticality Noted Date Comments Levofloxacin Nausea Only 01/28/2023 Medications insulin pen needle (B-D UF III MINI PEN NEEDLES) 31G x 5 mm miscIndications:Unspeci fied osteoarthritis, unspecified site USE WITH INSULIN DAILY 100 each 11 023 Active DAILY MULTIPLE VITAMINS PO Oral Active aspirin (ASPIR) 81 MG EC tablet 1 (one) time each day at the same time. Active B Complex Vitamins (B COMPLEX 1 PO) Orally Active ascorbic acid (Vitamin C) 500 MG tablet Oral Act ana luisa Lancets Ultra Thin misc intradermal 4 times daily Active alpha tocopherol (Vitamin E) 400 units capsule 1 capsule 1 (one) time each day at the same time. Active Lutein 6 MG capsule 1 (one) time each day at the same time. Active insulin NPH-insulin regular (NovoLIN 70/30 FlexPen) (70-30) 100 UNIT/ML injectionIndications:Ty pe 2 diabetes mellitus with diabetic polyneuropathy, with long-term current use of insulin (HCC) INJECT 27 UNITS SUBCUTANEOUSLY TWICE A DAY 15 mL 12 02/05/ 024 Active amLODIPine-valsartan (Exforge) 5-320 MG tabletIndications:Benig n essential hypertension TAKE 1 TABLET BY MOUTH EVERY DAY IN THE MORNING 90 tablet 3 024 Active Blood Glucose Monitoring Suppl (Blood Glucose Monitor System) w/Device kitIndications:Type 2 diabetes mellitus without complication, with long-term current use of insulin (HCC) 1 each Daily 1 kit Active Glucose Blood (Blood Glucose Test) stripIndications:Type 2 diabetes mellitus without complication, without long-term current use of insulin ([facility]) 1 each by In Vitro route Daily 100 strip 3 Active Lancets miscIndications:Type 2 diabetes mellitus without complication, without long-term current use of insulin ([facility]) 1 Device Daily 100 each 3 Active levothyroxine (Synthroid, Levoxyl) 88 MCG tabletIndications:Hypot hyroidism, unspecified TAKE 1 TABLET BY MOUTH EVERY DAY FOR 100 DAYS 90 tablet 3 Active atorvastatin (Lipitor) 40 MG tabletIndications:Pure hypercholesterolemia TAKE 1 TABLET BY MOUTH EVERY DAY IN THE MORNING 90 tablet 3 Active Active Problems Problem Noted Date Diagnosed Date Other chronic pain 07/07/2023 Actinic keratosis 01/28/2023 Benign essential hypertension 01/28/2023 Estrogen deficiency 01/28/2023 GERD (gastroesophageal reflux disease) 3 History of hysterectomy 01/28/2023 Hyperlipidemia 01/28/2023 Hypothyroidism 01/28/2023 Mild nonproliferative diabetic retinopathy 01/28 Neuropathy due to type 2 diabetes mellitus 01/28 Osteoarthrosis 01/28/2023 Osteoporosis without current pathological fractu re 01/28/2023 Pulmonary nodule seen on imaging study 3 Type 2 diabetes mellitus 01/28/2023 Unspecified asthma with (acute) exacerbation Vitamin D deficiency 01/28/2023 Pelvic mass in female 10/08/2016 Abnormal tumor markers 09/20/2016 Ovarian mass 09/20/2016 Resolved Problems Problem Noted Date Diagnosed Date Resolved Date Pure hypercholesterolemia 06/01/2023 Immunizations Immunization Administration Dates Next Due Influenza, High Dose Seasona l, Preservative Free 04/16/2024,06/16/2021,2021,06/20,06/20/2019 Influenza, High-dose Seasona l, Quadrivalent, Preservative Free 03/23/2023 Influenza, Seasonal, Quadriv alent, Adjuvanted 06/01/2022 Influenza, injectable, quadr ivalent, preservative free 03/29/2020 Pneumococcal Conjugate PCV 13 02/12/2019 Pneumococcal Polysaccharide PPSV23 02/07/2020 RSV, recombinant, protein rocha bunit RSVpreF, adjuvant reconstitu, 120mcg/0.5mL, PF (Arexvy) 06/20/2023 Zoster, Recombinant 05/29/2021,01/29/2021 Family History Medical History Relation Name Comments Alzheimer's disease Mother Cancer Mother Relation Name Status Comments Mother Social History Tobacco Use Types Packs/Day Years Used Date Smoking Tobacco: Never Smokeless Tobacco: Never Tobacco Cessation:Counseling Given: Not Answered Alcohol Use Standard Drinks/Week Comments Not Currently 0 (1 standard drink = 0.6 oz pur e alcohol) PHQ-2 Answer Date Recorded Patient Health Questionnaire-2 Score 0 06/04/2024 Comments Unknown Sex and Gender Information Value Date Recorded Sex Assigned at Not on file Legal Sex Female 6:52 PM EDT Gender Identity Not on file Sexual Orientation Not on file Last Filed Vital Signs Vital Sign Reading Time Taken Comments Blood Pressure 132/72 09/10/2024 2:56 PM EST Pulse 92 09/10/2024 2:56 PM EST Temperature - - Respiratory Rate 18 06/04/2024 9:41 AM EDT Oxygen Saturation 96% 09/10/2024 2:56 PM EST Inhaled Oxygen Concentration - - Weight 77.1 kg (170 lb) 09/10/2024 2:56 PM EST Height 165.1 cm (5' 5 ) 09/10/2024 2:56 PM EST Body Mass Index 28.29 09/10/2024 2:56 PM EST Plan of Treatment Health Maintenance Due Date Last Done Comments CT Colonography 1950 Colonoscopy 1950 FIT 1949 FOBT 1950 Sigmoidoscopy 1950 FIT-DNA 12/05/2021 12/05/2018 Diabetes: Hemoglobin A1C 09/04/2024 024, 12/01/2023, 06/01/2023, Additional history exists Diabetes: Retinopathy Screening 01/27/2025 01/28/2024, 11/26/2021, 12/06/2020, Additional history exists Colorectal Cancer Screening 03/01/2025 Postponed from 1950 (Patient Refused) Influenza Vaccine (#1) 2025 , 03/23/2023, 06/01/2022, Additional history exists Medicare Annual Wellness (AWV) 06/04/2025 06/04/2024, 02/17/2022 Diabetes: Urine Protein Screening 06/11/2025 06/11/2024, 06/02/2023, 04/23/2022, Additional history exists Mammogram Discontinued 07/19/2018 Pneumococcal Vaccine: 65+ Years Completed 02/07/2020, 02/12/2019 Procedures Procedure Name Priority Date/Time Associated Diagnosis Comments MICROALBUMIN / CREATININE URINE RATIO Routine 06/11/2024 8:01 AM EST Type 2 diabetes mellitus with diabetic polyneuropathy, with long-term current use of insulin (HCC) POCT GLYCOSYLATED HEMOGLOBIN (HGB A1C) Routine 06/04/2024 9:56 AM EDT Type 2 diabetes mellitus with diabetic polyneuropathy, with long-term current use of insulin (HCC) DIABETIC RETINOPATHY SCREENING - OU - BOTH EYES Routine 01/28/2024 LAB COLOGUARD COLON CANCER SCREEN Routine 12/05/2018 BI MAMMOGRAM SCREENING BILATERAL Routine 07/19/2018 12:00 PM EST from Last 3 Months or Most Recently Relevant to Health Maintenance Results * Microalbumin / creatinine urine ratio (06/11/2024 8:01 AM EST) CREATININE, RANDOM URINE 94 20 - 275 mg/dL [facility] ALBUMIN, URINE 1.8 See Note: mg/dL [facility] Comment: Reference Range: Reference Range Not established ALBUMIN/CREATININE RATIO, RANDOM URINE 19 <30 mg/g creat [facility] Comment: The ADA defines abnormalities in albumin excretion as follows: Albuminuria Category Result (mg/g creatinine) Normal to Mildly increased <30 Moderately increased 30-299 Severely increased > OR = 300 The ADA recommends that at least two of three specimens collected within a 3-6 month period be abnormal before considering a patient to be within a diagnostic category. Urine Urine specimen obtained by clean catch procedure / Unknown 06/11/2024 8:01 AM EST 06/11/2024 3:17 PM EST Narrative Resulting Agency Comment Performing Organization Information Site ID: QPT Name: [facility] Address: [address] , [address] [place] [address] Director: Humberto Rosenberg MD us Phillip De La Cruz MD LAB URINE ORDERABLES Final Res ult [facility] * POCT glycosylated hemoglobin (Hb A1C) docked device (06/04/2024 9:56 AM EDT) Hemoglobin A1C 7.0 Blood Venous blood specimen / Unknown 06/04/2024 9:56 AM EDT us Phillip De La Cruz MD POINT OF CARE TEST ENTER/EDIT ORDERABLES Final Result * (ABNORMAL) Diabetic Retinopathy Screening - OU - Both Eyes (01/28/2024) RESULTS Retinopathy OU Anatomical Region Laterality Modality Head Other 01/28/2024 Beena Khan PA OPHTH PHOTOGRAPHY Final Result * Cologuard® colon cancer screening (12/05/2018) COLOGUARD RESULT REPORTABLE Negative Not Applicable [facility] Comment: A negative result indicates a low likelihood that a colorectal cancer (CRC) or an advanced adenoma (adenomatous polyps with more advanced pre-malignant features) is present. The chance that a person with a negative Cologuard test has a colorectal cancer is less than 1 in 1500 (negative predictive value >99.9%) or has an advanced adenoma is less than 5.3% (negative predictive value 94.7%). These data are based on a prospective cross-sectional screening study of 10,000 individuals at average risk for colorectal cancer who were screened with both Cologuard and colonoscopy. (Estrella Obrien al, N Engl J Med 2014;370(14):8151-4367) COLOGUARD RE-SCREENING RECOMMENDATION: Periodic routine colorectal cancer screening is an important part of preventive healthcare for asymptomatic persons at average risk for colorectal cancer. Following a negative Cologuard result, the [place] [employer] Society and U.S. Multi-Society Task Force screening guidelines recommend a Cologuard re-screening interval of 3 years. References: [place] [employer] Society (ACS). Colorectal cancer prevention and early detection. [place], [place]: [place] [employer]; [updated 2015Nov 29]. https://www.cancer.org/cancer/fvqoa-jykraq-hlrhed/xzypwefhy-yawohainq-ymptejy/ac s-rec ommendations.html. Accessed April 07, 2018; Juan Pablo DK, Kiya CR, Cinthya RamseyK, Colorectal Cancer Screening: Recommendations for Physicians and Patients from the U.S. Multi-Society Task Force on Colorectal Cancer Screening, Am J Gastroenterology 2017; 112:0137-8300. Test Type: Composite algorithmic analysis of stool DNA-biomarkers with hemoglobin immunoassay. Quantitative values of individual biomarkers are not reportable and are not associated with individual biomarker result reference ranges. Precautions and Limitations: Cologuard is intended for colorectal cancer screening of adults of either sex, 50 years or older, who are at typical average-risk for colorectal cancer. A negative Cologuard test result does not guarantee the absence of colorectal cancer or advanced adenoma (pre-cancer). Patients with a negative Cologuard test result should be advised to continue participating in a colorectal cancer screening program. Cologuard may produce a positive result, even though a colonoscopy may not find colorectal cancer or precancerous polyps. The performance of Cologuard has been established in a cross sectional study (i.e., single point in time). Performance has not been evaluated in adults who have been previously tested with Cologuard or in patients less than 50 years of age. Cologuard has been approved for use by the U.S. FDA. Cologuard performance data in a 10,000 patient pivotal study using colonoscopy as the reference method can be accessed at the following location: www.GoCardless.Ufora/results. Additional description of the Cologuard test process, warnings and precautions can be found at www.cologuardtest.com. Rx Only. 12/05/2018 us Beena [facility] FERNANDEZ Final Result [facility] * Bilateral screening mammogram (07/19/2018 12:00 PM EST) Anatomical Region Laterality Modality Breast Bilateral Mammography Narrative 07/19/2018 12:00 PM EST PERFORMED AT [facility] LOCATION:[id number] Procedure Note CONVERSION, GENERIC / Phillip De La Cruz MD - 02/11/2023 PERFORMED AT [facility] LOCATION:[id number] Phillip De La Cruz MD IMG BI PROCEDURES Final Result from Last 3 Months or Most Recently Relevant to Health Maintenance Insurance [employer] Care Teams Sales Representative Adding Machines Relationship Specialty Start Date End Date Phillip De La Cruz MD [address] [facility] [address] [place] [address] PCP - General Internal Medicine 12/31/22 Phillip De La Cruz MD [address] [place] [address] [place] [address] PCP - Devoted 04/08/24
--- OUTSIDE RECORDS SUMMARY | 2025-02-07 10:35 | XMS_ITS | Encounter Summary ---
Author Organization [facility] Address [address] [place] [address] Care Team Providers Care Strap Machine Operator Name Role Phone Phillip De La Cruz MD Primary Care Provider [phone] Phillip De La Cruz MD Unavailable [phone] Phillip De La Cruz MD Unavailable [phone] Phillip De La Cruz MD Unavailable [phone] Encounter Details Date Type Department Care Team (Late st Contact Info) Description 06/21/2024 Abstract [facility] [address] [facility] 110 [place] [address] Phillip De La Cruz MD [address] [facility] 110 [place], [place] [id number] Social History Tobacco Use Types Packs/Day Years [...] documented as of this encounter Care Teams Strap Machine Operator Relationship Specialty Start Date End Date Phillip De La Cruz MD [address] [facility] 110 [place], [place] [id number] PCP - General Internal Medicine 12/31/22 Phillip De La Cruz MD [address] [place] [address] [place] [address] PCP - ACO Reach 12/30/22 09/13/24 Phillip De La Cruz MD [address] [place] [address] [place] [address] PCP - Devoted 04/08/24 Phillip De La Cruz MD [address] [facility] [address] [place] [address] PCP - ACO Reach 09/21/24 11/08/24 documented as of this encounter
--- OUTSIDE RECORDS SUMMARY | 2025-02-07 10:35 | XMS_ITS | Encounter Summary ---
Author Organization [facility] Address [address] [place] [address] Care Team Providers Care Customer Relations Consultant Name Role Phone Phillip De La Cruz MD Primary Care Provider [phone] Phillip De La Cruz MD Unavailable [phone] Phillip De La Cruz MD Unavailable [phone] Phillip De La Cruz MD Unavailable [phone] Encounter Details Date Type Department Care Team (Late st Contact Info) Description 01/12/2023 Abstract [facility] [address] [facility] 110 [place] [address] Phillip De La Cruz MD [address] [facility] 110 [place] [address] Social History Tobacco Use Types Packs/Day Years Used Date Smoking Tobacco: Never Assessed Comments Unknown Sex and Gender Information Value Date Recorded Sex Assigned at Not on file Legal Sex Female 6:52 PM EDT Gender Identity Not on file Sexual Orientation Not on file documented as of this encounter Plan of Treatment Not on file documented as of this encounter Visit Diagnoses Not on filedocumented in this encounter Care Teams Customer Relations Consultant Relationship Specialty Start Date End Date Phillip De La Cruz MD [address] [place] [address] [place] [address] PCP - General Internal Medicine 12/31/22 Phillip De La Cruz MD [address] [place] [address] [place] [address] PCP - ACO Reach 12/30/22 09/13/24 Phillip De La Cruz MD [address] [facility] [address] [place] [address] PCP - Devoted 04/08/24 Phillip De La Cruz MD [address] [facility] [address] [place] [address] PCP - ACO Reach 09/21/24 11/08/24 documented as of this encounter
--- OUTSIDE RECORDS SUMMARY | 2025-02-07 10:35 | XMS_ITS | Encounter Summary ---
Author Organization [facility] Address [address] [place] [address] Care Team Providers Care Cardio Clinician Name Role Phone Phillip De La Cruz MD Primary Care Provider [phone] Phillip De La Cruz MD Unavailable [phone] Phillip De La Cruz MD Unavailable [phone] Phillip De La Cruz MD Unavailable [phone] Encounter Details Date Type Department Care Team (Late st Contact Info) Description 01/30/2024 Abstract [facility] 112 [facility] 110 [place] [address] Phillip De La Cruz MD [address] [facility] 110 [place] [address] Social History Tobacco Use Types Packs/Day Years [...] on filedocumented in this encounter Care Teams Cardio Clinician Relationship Specialty Start Date End Date Phillip De La Cruz MD [address] [facility] 110 [place] [address] PCP - General Internal Medicine 12/31/22 Phillip De La Cruz MD 112 [facility] 110 [place] [address] PCP - ACO Reach 12/30/22 09/13/24 Phillip De La Cruz MD [address] [facility] 110 [place] [address] PCP - Devoted 04/08/24 Phillip De La Cruz MD [address] [facility] 110 [place] [address] PCP - ACO Reach 09/21/24 11/08/24 documented as of this encounter
--- OUTSIDE RECORDS SUMMARY | 2025-02-07 10:35 | XMS_ITS | Encounter Summary ---
Author Organization [facility] Address [address] [place] [address] Care Team Providers Care Pediatric Geneticist Name Role Phone Phillip De La Cruz MD Primary Care Provider [phone] Phillip De La Cruz MD Unavailable [phone] Phillip De La Cruz MD Unavailable [phone] Phillip De La Cruz MD Unavailable [phone] Encounter Details Date Type Department Care Team (Late st Contact Info) Description 06/04/2024 Abstract [facility] [address] [facility] 110 [place] [address] Phillip De La Cruz MD [address] [facility] 110 [place] [address] Social History Tobacco Use Types Packs/Day Years [...] on file documented as of this encounter Functional Status * Over the past 2 weeks, how often have you been bothered by any of the following problems? Question Answer Date of Assessment Author Little interest or pleasure in doing things Not at all 06/04/2024 9:00 AM EDT Rosalba Quinones M A Feeling down, depressed, or hopeless Not at all 06/04/2024 9:00 AM EDT Rosalba Quinones M A Patient Health Questionnaire -2 Score 0 06/04/2024 9:00 AM EDT Rosalba Quinones M A * Question Answer Date of Assessment Author Trouble falling or staying asleep, or sleeping too much Not at all 06/04/2024 9:00 AM EDT Rosalba Quinones MA Feeling tired or having emanuel le energy Not at all 06/04/2024 9:00 AM EDT Rosalba Quinones M A Poor appetite or overeating Not at all 06/04/2024 9: 00 AM EDT Rosalba Quinones MA Feeling bad about yourself - or that you are a failure or have let yourself or your family down Not at all 06/04/2024 9:00 AM EDT Rosalba Reyes MA Trouble concentrating on thi ngs, such as reading the newspaper or watching television Not at all 06/04/2024 9:00 AM EDT Rosalba Quinones M A Moving or speaking so slowly that other people could have noticed? Or the opposite - being so fidgety or restless that you have been moving around a lot more than usual. Not at all 06/04/2024 9:00 AM EDT Rosalba Quinones M A Thoughts that you would be better off or hurting yourself in some way Not at all 06/04/2024 9:00 AM EDT Rosalba Quinones MA Patient Health Questionnaire -9 Score 0 06/04/2024 9:00 AM EDT Rosalba Quinones M A documented as of this encounter Plan of Treatment Not on file documented as of this encounter Visit Diagnoses Not on filedocumented in this encounter Additional Health Concerns Assessment Noted Time PHQ-9 Depression Total Score: 0 06/04/20 24 9:00 AM EDT documented as of this encounter Care Teams Pediatric Geneticist Relationship Specialty Start Date End Date Phillip De La Cruz MD [address] [facility] 110 [place] [address] PCP - General Internal Medicine 12/31/22 Phillip De La Cruz MD [address] [place] [address] [place] [address] PCP - ACO Reach 12/30/22 09/13/24 Phillip De La Cruz MD [address] [facility] [address] [place] [address] PCP - Devoted 04/08/24 Phillip De La Cruz MD [address] [facility] [address] [place] [address] PCP - ACO Reach 09/21/24 11/08/24 documented as of this encounter
--- OUTSIDE RECORDS SUMMARY | 2025-02-07 10:35 | XMS_ITS | Encounter Summary ---
Author Organization [facility] Address [address] [place] [address] Care Team Providers Care Economic Development Director Name Role Phone Phillip De La Cruz MD Primary Care Provider [phone] Phillip De La Cruz MD Unavailable [phone] Phillip De La Cruz MD Unavailable [phone] Phillip De La Cruz MD Unavailable [phone] Encounter Details Date Type Department Care Team (Late st Contact Info) Description 05/03/2024 Abstract [facility] 112 [facility] 110 [place] [address] Phillip De La Cruz MD [address] [facility] 110 [place] [address] Social History Tobacco Use Types Packs/Day Years [...] on filedocumented in this encounter Care Teams Economic Development Director Relationship Specialty Start Date End Date Phillip De La Cruz MD 112 [facility] 110 [place] [address] PCP - General Internal Medicine 12/31/22 Phillip De La Cruz MD 112 [facility] 110 [place] [address] PCP - ACO Reach 12/30/22 09/13/24 Phillip De La Cruz MD [address] [facility] 110 [place] [address] PCP - Devoted 04/08/24 Phillip De La Cruz MD [address] [facility] 110 [place] [address] PCP - ACO Reach 09/21/24 11/08/24 documented as of this encounter
--- OUTSIDE RECORDS SUMMARY | 2025-02-07 10:35 | XMS_ITS | Encounter Summary ---
Author Organization [facility] Address [address] [place] [address] Care Team Providers Care Senior Sql Dba Name Role Phone Phillip De La Cruz MD Primary Care Provider [phone] Phillip De La Cruz MD Unavailable [phone] Phillip De La Cruz MD Unavailable [phone] Phillip De La Cruz MD Unavailable [phone] Encounter Details Date Type Department Care Team (Late st Contact Info) Description 05/03/2024 Abstract [facility] 112 [facility] 110 [place] [address] Phillip De La Cruz MD [address] [facility] 110 [place] [address] Social History Tobacco Use Types Packs/Day Years [...] on filedocumented in this encounter Care Teams Senior Sql Dba Relationship Specialty Start Date End Date Phillip De La Cruz MD 112 [facility] 110 [place] [address] PCP - General Internal Medicine 12/31/22 Phillip De La Cruz MD 112 [facility] 110 [place] [address] PCP - ACO Reach 12/30/22 09/13/24 Phillip De La Cruz MD [address] [facility] 110 [place] [address] PCP - Devoted 04/08/24 Phillip De La Cruz MD [address] [facility] 110 [place] [address] PCP - ACO Reach 09/21/24 11/08/24 documented as of this encounter
--- OUTSIDE RECORDS SUMMARY | 2025-02-07 10:35 | XMS_ITS | Encounter Summary ---
Author Organization [facility] Address [address] [place] [address] Care Team Providers Care Ems Helicopter Pilot Name Role Phone Phillip De La Cruz MD Primary Care Provider [phone] Phillip De La Cruz MD Unavailable [phone] Phillip De La Cruz MD Unavailable [phone] Phillip De La Cruz MD Unavailable [phone] Encounter Details Date Type Department Care Team (Late st Contact Info) Description 08/09/2023 Orders Only [facility] [address] [place] [address] [place] [phone] A, Unknown Practice [address] [place], [place] [id number] Social History Tobacco Use Types Packs/Day Years [...] Date/Time Associated Diagnosis Comments XR THORACIC SPINE 3 VIEWS Routine 08/05/2023 9:23 AM EST documented in this encounter Results * XR thoracic spine 3 views (08/05/2023 9:23 AM EST) Anatomical Region Laterality Modality Spine, T-spine Radiographic Alicia ging us Unknown Practice A IMG XR PROCEDURES Final Resul t documented in this encounter Visit Diagnoses Not on filedocumented in this encounter Care Teams Ems Helicopter Pilot Relationship Specialty Start Date End Date Phillip De La Cruz MD [address] [place] [address] [place] [address] PCP - General Internal Medicine 12/31/22 Phillip De La Cruz MD [address] [place] [address] [place] [address] PCP - ACO Reach 12/30/22 09/13/24 Phillip De La Cruz MD [address] [facility] 110 [place] [address] PCP - Devoted 04/08/24 Phillip De La Cruz MD [address] [facility] [address] [place] [address] PCP - ACO Reach 09/21/24 11/08/24 documented as of this encounter
--- OUTSIDE RECORDS SUMMARY | 2025-02-07 10:35 | XMS_ITS | Clinical Summary ---
Author Organization [employer] Address [facility] [id number] [address] [place] [address] Care Team Providers Care Sports Attorney Name Role Phone Phillip De La Cruz MD Primary Care Provider [phone] Allergies Active Allergy Reactions Criticality Noted Date Comments Levofloxacin Vomiting 10/08/2016 Medications amLODIPine-vals madyson (EXFORGE) 5-320 mg per tablet Take 1 tablet by mouth once daily. 3 08/20/2016 Active levothyroxine (SYNTHROID, LEVOTHROID) 88 MCG tablet Take 1 tablet (88 mcg total) by mouth once daily. 2 08/17/2016 Active atorvastatin (LIPITOR) 40 mg tablet Take 1 tablet (40 mg total) by mouth once daily. 1 08/16/2016 Active meloxicam (MOBIC) 15 mg tablet Take 1 tablet (15 mg total) by mouth once daily. 3 06/21/2016 Active aspirin 81 mg Take 1 tablet (81 mg total) by mouth in the morning. Active LUTEIN ORAL Take by mouth daily. Active niacin (VITAMIN B3) 500 mg tablet Take 1 tablet (500 mg total) by mouth daily with breakfast. Active VITAMIN E ACETATE (VITAMIN E ORAL) Take by mouth daily. Active b complex vitamins tablet Take 1 tablet by mouth in the morning. Active multivitamin (THERAGRAN) tablet Take 1 tablet by mouth in the morning. Active coenzyme Q10 200 mg capsule Take 200 mg by mouth daily. Active CALCIUM CARBONATE (CALCIUM 500 ORAL) Take by mouth daily. Active ascorbic acid (VITAMIN C) 500 mg tablet Take 1 tablet (500 mg total) by mouth in the morning. Active insulin NPH and regular human (HumuLIN 70-30,NovoLIN 70-30) 100 unit/mL (70-30) injection Inject 0.27 mL (27 Units total) under the skin in the morning and 0.27 mL (27 Units total) in the evening. Inject before meals. Active Active Problems Problem Noted Date Diagnosed Date Pelvic mass in female 10/08/2016 Ovarian mass 09/20/2016 Type 2 diabetes mellitus with complication 09/20 Abnormal tumor markers 09/20/2016 Family History Medical History Relation Name Comments No Known Problems Father Breast cancer Mother Dementia Mother Anesthesia problems Neg Hx Relation Name Status Comments Father Mother Social History Tobacco Use Types Packs/Day Years Used Date Smoking Tobacco: Never Smokeless Tobacco: Never Alcohol Use Standard Drinks/Week Comments No 0 (1 standard drink = 0.6 oz pur e alcohol) Childcare Answer Date Recorded Childcare Unknown 01/17/2019 Employment Answer Date Recorded Employment Unknown 01/17/2019 Purpose - Life Answer Date Recorded Purpose and direction in life Unknown Comments No Sex and Gender Information Value Date Recorded Sex Assigned at Not on file Legal Sex Female 11:33 AM EDT Gender Identity Not on file Sexual Orientation Not on file Last Filed Vital Signs Vital Sign Reading Time Taken Comments Blood Pressure 131/56 11/11/2022 8:50 AM EDT Pulse 73 11/11/2022 8:50 AM EDT Temperature 36.8 C (98.2 F) 11/11/2022 6:46 AM EDT Respiratory Rate 15 11/11/2022 8:50 AM EDT Oxygen Saturation 95% 11/11/2022 8:50 AM EDT Inhaled Oxygen Concentration - - Weight 81.2 kg (179 lb) 11/11/2022 6:46 AM EDT Height 167.6 cm (5' 6 ) 11/11/2022 6:46 AM EDT Body Mass Index 28.89 11/11/2022 6:46 AM EDT Plan of Treatment Health Maintenance Due Date Last Done Comments Diabetic Ophthalmology Exam 1949 Depression Screening 1961 Tobacco Screening 1961 DTaP,Tdap and Td Vaccines (1 - Tdap) 1968 Fall Risk Screening 2014 COVID-19 Vaccine (2023-2 5 season) 2024 11/15/2021, 06/10/2021, 10/13/2020 Influenza Vaccine 04/08/2025 06/01/2022, , 03/29/2020, Additional history exists Zoster (Shingles) Vaccine Completed 05/29/2021, Medical Devices Implanted Type Area Butcher Head Device Identifier Shelf Expiration Date Model / Serial / Lot Lens Iol Ultrasert 24.0d - [id number] - [id number] Implanted:Qty: 1 on 10/21/2022 by Swathi Jones MD at [facility] Lens Left: [employer] 09/28/2024 [id number] 24.0 / [id number] / NA Lens Iol Ultrasert 23.5d - [id number] - [id number] Implanted:Qty: 1 on 11/11/2022 by Swathi Jones MD at [facility] Lens [employer] 03/07/2025 [id number] 23.5 / [id number] / Insurance MEDICARE [facility] [place] [address] Care Teams Sports Attorney Relationship Specialty Start Date End Date Phillip De La Cruz MD [address] [facility], [facility] [address] [place] [id number] PCP - General Internal Medicine 09/20/16
--- OUTSIDE RECORDS SUMMARY | 2025-02-07 10:35 | XMS_ITS | Encounter Summary ---
Author Organization [facility] Address [address] [place] [address] Care Team Providers Care Toxics Program Officer Name Role Phone Phillip De La Cruz MD Primary Care Provider [phone] Phillip De La Cruz MD Unavailable [phone] Phillip De La Cruz MD Unavailable [phone] Phillip De La Cruz MD Unavailable [phone] Encounter Details Date Type Department Care Team (Late st Contact Info) Description 06/08/2023 Abstract [facility] [address] [facility] [address] [place] [phone] Phillip De La Cruz MD [address] [facility] [address] [place] [address] Social History Tobacco Use Types Packs/Day Years [...] on filedocumented in this encounter Care Teams Toxics Program Officer Relationship Specialty Start Date End Date Phillip De La Cruz MD 112 [facility] [address] [place] [address] PCP - General Internal Medicine 12/31/22 Phillip De La Cruz MD 112 [facility] [address] [place] [address] PCP - ACO Reach 12/30/22 09/13/24 Phillip De La Cruz MD [address] [facility] [address] [place] [address] PCP - Devoted 04/08/24 Phillip De La Cruz MD [address] [facility] [address] [place] [address] PCP - ACO Reach 09/21/24 11/08/24 documented as of this encounter
--- OUTSIDE RECORDS SUMMARY | 2025-02-07 10:35 | XMS_ITS | Encounter Summary ---
Author Organization [facility] Address [address] [place] [address] Care Team Providers Care Intellectual Property Manager Name Role Phone Phillip De La Cruz MD Primary Care Provider [phone] Phillip De La Cruz MD Unavailable [phone] Phillip De La Cruz MD Unavailable [phone] Phillip De La Cruz MD Unavailable [phone] Encounter Details Date Type Department Care Team (Late st Contact Info) Description 09/06/2024 Abstract [facility] [address] [facility] [address] [place] [address] Phillip De La Cruz MD [address] [facility] [address] [place], [place] [id number] Social History Tobacco Use Types Packs/Day Years [...] documented as of this encounter Care Teams Intellectual Property Manager Relationship Specialty Start Date End Date Phillip De La Cruz MD [address] [facility] [address] [place], [place] [phone] PCP - General Internal Medicine 12/31/22 Phillip De La Cruz MD [address] [facility] [address] [place] [address] PCP - ACO Reach 12/30/22 09/13/24 Phillip De La Cruz MD [address] [facility] [address] [place] [address] PCP - Devoted 04/08/24 Phillip De La Cruz MD [address] [facility] [address] [place] [address] PCP - ACO Reach 09/21/24 11/08/24 documented as of this encounter
[2025-02-07 11:15] LABS: Lactate/Lactic Acid 1.2 mmol/L (0.4-2.0)
[2025-02-07 11:21] LABS: Potassium 4.1 mmol/L (3.5-5.1)
== END 2025-02-07 10:30 | disposition home or self-care (01) ==
PROVIDERS: PCP Family Medicine; Visit Provider Nurse Practitioner Family
DX: R42 Dizziness and giddiness (principal); R25.2 Cramp and spasm
CPT/HCPCS: 36415; 83605; 84132

== ENCOUNTER 2025-03-11 08:49 | Outpatient (OUT) | payer OTHER, SELFPAY ==
--- OUTSIDE RECORDS SUMMARY | 2025-03-05 23:59 | XMS_ITS | Continuity of Care Document ---
Author Organization [facility] Address [address] [place] [phone] Care Team Providers Care Radiological Engineer Name Role Phone MELITA GUILLERMO Primary Care Physician Encounter FT_AMBFIN [id number] Date(s): 03/05/25 - 03/05/[address] [address]- Discharge Disposition: Home (Routine DC) Attending Physician: Konrad Golden MD Encounter Type: Clinic Allergies, Adverse Reactions, Alerts Substance Criticality Severity Reaction Reaction Severity Status levoFLOXacin Nausea Active Immunizations Given and Recorded Vaccine Date Status Refusal Reason influenza virus vaccine, inactivated 04/16/24 Thomas rded influenza virus vaccine, inactivated 03/23/23 Thomas rded influenza virus vaccine, inactivated 06/01/22 Thomas rded influenza virus vaccine, inactivated 06/16/21 Thomas rded influenza virus vaccine, inactivated 03/29/20 Thomas rded influenza virus vaccine, inactivated 06/20/19 Thomas rded RSV vaccine preF3, recombinant 06/20/23 Recorded SARSCoV2 mRNA(ooybhzekj-exin-ekzppv) vac 11/15/21 Recorded SARS-CoV-2 (COVID-19) mRNA BNT-162b2 vax 1 06/10/21 Recorded zoster vaccine, inactivated 05/29/21 Recorded zoster vaccine, inactivated 01/29/21 Recorded SARS-CoV-2 (COVID-19) Ad26 vaccine 10/13/20 Record ed pneumococcal 23-valent vaccine 02/07/20 Recorded pneumococcal 13-valent vaccine 02/12/19 Recorded 1Result Comment: 2024-09-20: TPV70 Medications amlodipine-valsartan 5 mg-320 mg oral tablet 1 tab(s), Oral, Daily, 90 tab(s), Refill(s) 0, TAKE 1 TABLET BY MOUTH EVERY DAY IN THE MORNING, [id number] 164, cm, 11/27/24 12:58:00 EDT, Height/Length Dosing, 77, kg, 11/27/24 12:58:00 EDT, Weight Dosing Start Date: 11/27/24 Status: Ordered Quantity: 90.0 Unit: tab(s) Repeat number: 1 atorvastatin 80 mg Tab 80 mg = 1 tab(s), Oral, Daily, # 90 tab(s), Refills(s) 0, [id number], 164, cm, 02/07/25 9:23:00 EDT, Height/Length Dosing, 67.2, kg, 02/07/25 9:23:00 EDT, Weight Dosing Start Date: 02/21/25 Status: Ordered Quantity: 90.0 Unit: tab(s) Repeat number: 1 levothyroxine 88 mcg (0.088 mg) Tab TAKE 1 TABLET BY MOUTH EVERY DAY FOR 100 DAYS Start Date: 09/20/24 Status: Ordered Repeat number: 1 NovoLOG FlexPen 100 units/mL injectable solution See Instructions, TID AC per SSI 150-199= 2unints 200-249=4u 250-299=6u 300- 349=8u 350-400=10u [id number] give 15u and call doctor, # 45 mL, Refills(s) 1, [id number], 164, cm, 11/27/24 12:58:00 EDT, Height/Length Dosing, 77, kg, 11/27/24 12:58:00 EDT, Weight Dosing Start Date: 11/29/24 Status: Ordered Quantity: 45.0 Unit: mL Repeat number: 2 ondansetron 4 mg Dis Tab 4 mg = 1 tab(s), Oral, q6hr, PRN Nausea/Vomiting, # 12 tab(s), Refills(s) 0, [id number], 164, cm, 01/08/25 11:48:00 EDT, Height/Length Dosing, 70.1, kg, 01/08/25 11:48:00 EDT, Weight Dosing Start Date: 01/10/25 Status: Ordered Quantity: 12.0 Unit: tab(s) Repeat number: 1 onetouch ultra2 test strips onetouch ultra2 test strips, See Instructions, 400 EA, 1, to check BS qid e11.9, [id number] Supply, 164, cm, 11/27/24 12:58:00 EDT, Height/Length Dosing, 77, kg, 11/27/24 12:58:00 EDT, Weight Dosing Start Date: 12/25/24 Status: Ordered Quantity: 400.0 Unit: EA Repeat number: 2 Ozempic (1 mg dose) 4 mg/3 mL subcutaneous solution 1 mg, SubCutaneous, qWeek, please start after February 01., # 9 mL, Refills(s) 1, [id number], 164, cm, 01/17/25 10:06:00 EDT, Height/Length Dosing, 68.4, kg, 01/17/25 10:06:00 EDT, Weight Dosing Start Date: 01/17/25 Status: Ordered Quantity: 9.0 Unit: mL Repeat number: 2 Pepcid 20 mg Tab 20 mg = 1 tab(s), Oral, BID, # 180 tab(s), Refills(s) 0, [id number], 164, cm, 02/07/25 9:23:00 EDT, Height/Length Dosing, 67.2, kg, 02/07/25 9:23:00 EDT, Weight Dosing Start Date: 02/22/25 Status: Ordered Quantity: 180.0 Unit: tab(s) Repeat number: 1 Indications: Gastro-esophageal reflux disease without esophagitis; Hyperlipidemia, unspecified; Type 2 diabetes mellitus without complications; Essential (primary) hypertension; Cerebral infarction, unspecified; Other specified health status; Chronic kidney disease, stage 3a; Hypothyroidism, unspecified; Overweight; Body mass index [BMI] 28.0-28.9, adult; Problem List Condition Confirmation Course Effective Dates Status Health Status Informant Asthma Confirmed Active Hematuria Confirmed Active CVA (cerebrovascular accident) Confirmed Active Chest pain Confirmed Active Chronic kidney disease stage 3A. 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 Active Osteoarthritis Confirmed 01/28/23 Active Osteoporosis Confirmed 02/03/21 Active Type 2 diabetes mellitus Confirmed 06/19/20 Active Procedures Procedure Date Related Diagnosis Body Site Status 2017 Completed History of - hysterectomy (context-dependent category) Com pleted Social History Social History Type Response Smoking Status Never (less than 100 in lifetime);Never; Concerns about tobacco use in household: No; Smoking Cessation Yes entered on: 02/07/25 Sex Female Sex Representation Female (finding) Patient Care team information Care Team Personnel Name: MELITA GUILLERMO CNP Position: FT Ambulatory - Primary Care - [facility] Member Role: Primary Care Physician Address: [address] [place] [phone] Telecom: Care Team Related Persons Name: Barrett Johnson Insurance Providers Guarantor name: Health Plan Information #: 1 Payer: NA Payer Identifier: [id number] Member Number: [id number] Group Number: [id number] Subscriber Identifier: [id number] Relationship to Subscriber: Self Coverage Type: MEDICARE Coverage Verification Date: Telecom: NA Address:
--- OUTSIDE RECORDS SUMMARY | 2025-03-05 23:59 | XMS_ITS | Continuity of Care Document ---
Author Organization [facility] Address [address] [place] [phone] Care Team Providers Care Real Estate Internship Name Role Phone MELITA GUILLERMO Primary Care Physician Encounter FT_AMBFIN [id number] Date(s): 03/05/25 - 03/05/[address] [address]- Encounter Diagnosis Gastroesophageal reflux disease(Discharge Diagnosis) - 03/05/25 Hypertension(Discharge Diagnosis) - 03/05/25 Type 2 diabetes mellitus(Discharge Diagnosis) - 03/05/25 Discharge Disposition: Home (Routine DC) Attending Physician: MELITA GUILLERMO CNP Encounter Type: Clinic Allergies, Adverse Reactions, Alerts [...] RSV vaccine preF3, recombinant 06/20/23 Recorded SARSCoV2 mRNA(mgmswbmiz-lfze-xyapui) vac 11/15/21 Recorded SARS-CoV-2 (COVID-19) mRNA BNT-162b2 [...] BY MOUTH EVERY DAY IN THE MORNING, [id number], cm, 11/27/24 12:58:00 EDT, Height/Length Dosing, 77, kg, 11/27/24 12:58:00 EDT, Weight Dosing Start Date: 11/27/24 Status: Ordered Quantity: 90.0 Unit: tab(s) Repeat number: 1 atorvastatin 80 mg Tab 80 mg = 1 tab(s), Oral, Daily, # 90 tab(s), Refills(s) 0, [id number], 164, cm, 02/07/25 9:23:00 EDT, Height/Length [...] 150-199= 2unints 200-249=4u 250-299=6u 300- 349=8u 350-400=10u [id number] give 15u and call doctor, # 45 mL, Refills(s) 1, Pharmacy: [facility]/pharmacy #[id number], 164, cm, 11/27/24 12:58:00 EDT, Height/Length Dosing, 77, kg, 11/27/24 12:58:00 EDT, Weight Dosing Start Date: 11/29/24 Status: Ordered Quantity: 45.0 Unit: mL Repeat number: 2 ondansetron 4 mg Dis Tab 4 mg = 1 tab(s), Oral, q6hr, PRN Nausea/Vomiting, # 12 tab(s), Refills(s) 0, [id number], 164, cm, 06/03/25 11:48:00 EDT, Height/Length Dosing, 70.1, kg, 01/08/25 11:48:00 EDT, Weight Dosing Start Date: 01/10/25 Status: Ordered Quantity: 12.0 Unit: tab(s) Repeat number: 1 onetouch ultra2 test strips onetouch ultra2 test strips, See Instructions, 400 EA, 1, to check BS qid e11.9, [facility]/pharmacy #[id number], Supply, 164, cm, 11/27/24 12:58:00 EDT, Height/Length Dosing, 77, kg, 11/27/24 12:58:00 EDT, Weight Dosing Start Date: 12/25/24 Status: Ordered Quantity: 400.0 Unit: EA Repeat number: 2 Ozempic (1 mg dose) 4 mg/3 mL subcutaneous solution 1 mg, SubCutaneous, qWeek, please start after February 01., # 9 mL, Refills(s) 1, [id number], 164, cm, 01/17/25 10:06:00 EDT, Height/Length Dosing, 68.4, kg, 01/17/25 10:06:00 EDT, Weight Dosing Start Date: 01/17/25 Status: Ordered Quantity: 9.0 Unit: mL Repeat number: 2 Pepcid 20 mg Tab 20 mg = 1 tab(s), Oral, BID, # 180 tab(s), Refills(s) 0, [id number], 164, cm, 02/07/25 9:23:00 EDT, Height/Length [...] GUSTAVO Member Role: Primary Care Physician Address: [address] [place] [phone] Telecom: Care Team Related Persons Name: Barrett Johnson Insurance Providers Guarantor name: Health Plan Information #: 1 Payer: NA Payer Identifier: [id number] Member Number: [id number] Group Number: [id number] Subscriber Identifier: [id number] Relationship to Subscriber: Self Coverage Type: MEDICARE Coverage Verification Date: Telecom: NA Address:
--- OUTSIDE RECORDS SUMMARY | 2025-03-11 08:52 | XMS_ITS | Encounter Summary ---
Author Organization [facility] Address [address] [place] [address] Care Team Providers Care Senior Climate Advisor Name Role Phone Phillip De La Cruz MD Primary Care Provider [phone] Phillip De La Cruz MD Unavailable [phone] Phillip De La Cruz MD Unavailable [phone] Phillip De La Cruz MD Unavailable [phone] Encounter Details Date Type Department Care Team (Late st Contact Info) Description 06/04/2024 Abstract [facility] [place] [facility] [address] [facility] 110 [place] [address] Phillip De La Cruz MD [address] [facility] 110 [place], [place] [id number] Social History Tobacco Use Types Packs/Day Years [...] documented as of this encounter Care Teams Senior Climate Advisor Relationship Specialty Start Date End Date Phillip De La Cruz MD [address] [facility] 110 [place] [address] PCP - General Internal Medicine 12/31/22 Phillip De La Cruz MD [address] [facility] 110 [place] [address] PCP - ACO Reach 12/30/22 09/13/24 Phillip De La Cruz MD [address] [facility] 110 [place] [address] PCP - Devoted 04/08/24 Phillip De La Cruz MD [address] [facility] [address] [place] [address] PCP - ACO Reach 09/21/24 11/08/24 documented as of this encounter
--- OUTSIDE RECORDS SUMMARY | 2025-03-11 08:52 | XMS_ITS | Encounter Summary ---
Author Organization [facility] Address [address] [place] [address] Care Team Providers Care Design Sales Consultant Name Role Phone Phillip De La Cruz MD Primary Care Provider [phone] Phillip De La Cruz MD Unavailable [phone] Phillip De La Cruz MD Unavailable [phone] Phillip De La Cruz MD Unavailable [phone] Encounter Details Date Type Department Care Team (Late st Contact Info) Description 09/11/2024 Abstract [facility] [place] [facility] [address] [facility] 110 [place] [address] Phillip De La Cruz MD [address] [facility] 110 [place], [place] [id number] Social History Tobacco Use Types Packs/Day Years [...] documented as of this encounter Care Teams Design Sales Consultant Relationship Specialty Start Date End Date Phillip De La Cruz MD [address] [facility] 110 [place], [place] [phone] PCP - General Internal Medicine 12/31/22 Phillip De La Cruz MD [address] [place] [address] [place] [address] PCP - ACO Reach 12/30/22 09/13/24 Phillip De La Cruz MD [address] [place] [address] [place] [address] PCP - Devoted 04/08/24 Phillip De La Cruz MD [address] [facility] 110 [place] [address] PCP - ACO Reach 09/21/24 11/08/24 documented as of this encounter
--- OUTSIDE RECORDS SUMMARY | 2025-03-11 08:52 | XMS_ITS | Clinical Summary ---
Author Organization [employer] Address [id number] [address] [place] [address] Care Team Providers Care Silo Operator Name Role Phone Phillip De La Cruz MD Primary Care Provider [phone] Allergies Active Allergy Reactions Criticality Noted Date [...] Completed 05/29/2021, Medical Devices Implanted Type Area Senior Enterprise Architect Device Identifier Shelf Expiration Date Model / Serial / Lot Lens Iol Ultrasert 24.0d - [id number] - [id number] Implanted:Qty: 1 on 10/21/2022 by Swathi Jones MD at [facility] Lens Left: [employer] 09/28/2024 [id number] 24.0 / [id number] / NA Lens Iol Ultrasert 23.5d - [id number] - [id number] Implanted:Qty: 1 on 11/11/2022 by Swathi Jones MD at [facility] Lens [employer] 03/07/2025 [id number] 23.5 / [id number] / Insurance MEDICARE [facility] [place] [address] Care Teams Silo Operator Relationship Specialty Start Date End Date Phillip De La Cruz MD [address] [facility] 110 [place] [id number] PCP - General Internal Medicine 09/20/16
--- OUTSIDE RECORDS SUMMARY | 2025-03-11 08:52 | XMS_ITS | Encounter Summary ---
Author Organization [facility] Address [address] [place] [address] Care Team Providers Care Body Mechanic Name Role Phone Phillip De La Cruz MD Primary Care Provider [phone] Phillpi De La Cruz MD Unavailable [phone] Phillip De La Cruz MD Unavailable [phone] Phillip De La Cruz MD Unavailable [phone] Encounter Details Date Type Department Care Team (Late st Contact Info) Description 12/27/2023 Abstract [facility] [place] [facility] [address] [facility] 110 [place] [address] Phillip De La Cruz MD [address] [facility] 110 [place], [place] [id number] Social History Tobacco Use Types Packs/Day Years [...] on filedocumented in this encounter Care Teams Body Mechanic Relationship Specialty Start Date End Date Phillip De La Cruz MD [address] [facility] 110 [place] [address] PCP - General Internal Medicine 12/31/22 Phillip De La Cruz MD [address] [facility] 110 [place] [address] PCP - ACO Reach 12/30/22 09/13/24 Phillip De La Cruz MD [address] [facility] [address] [place] [address] PCP - Devoted 04/08/24 Phillip De La Cruz MD [address] [place] [address] [place] [address] PCP - ACO Reach 09/21/24 11/08/24 documented as of this encounter
--- OUTSIDE RECORDS SUMMARY | 2025-03-11 08:52 | XMS_ITS | Encounter Summary ---
Author Organization [facility] Address [address] [place] [address] Care Team Providers Care Retarder Operator Name Role Phone Phillip De La Cruz MD Primary Care Provider [phone] Phillip De La Cruz MD Unavailable [phone] Phillip De La Cruz MD Unavailable [phone] Phillip De La Cruz MD Unavailable [phone] Encounter Details Date Type Department Care Team (Late st Contact Info) Description 08/09/2023 [facility] [address] [facility] 110 [place] [address] A, Unknown Practice [address] [place] [id number] Social History Tobacco Use Types Packs/Day Years [...] on filedocumented in this encounter Care Teams Retarder Operator Relationship Specialty Start Date End Date Phillip De La Cruz MD [address] [place] [address] [place] [address] PCP - General Internal Medicine 12/31/22 Phillip De La Cruz MD [address] [facility] [address] [place] [address] PCP - ACO Reach 12/30/22 09/13/24 Phillip De La Cruz MD [address] [place] 110 [place] [address] PCP - Devoted 04/08/24 Phillip De La Cruz MD [address] [facility] 110 [place] [address] PCP - ACO Reach 09/21/24 11/08/24 documented as of this encounter
--- OUTSIDE RECORDS SUMMARY | 2025-03-11 08:52 | XMS_ITS | Encounter Summary ---
Author Organization [facility] Address [address] [place] [address] Care Team Providers Care Furniture Cleaner Name Role Phone Phillip De La Cruz MD Primary Care Provider [phone] Phillip De La Cruz MD Unavailable [phone] Phillip De La Cruz MD Unavailable [phone] Phillip De La Cruz MD Unavailable [phone] Encounter Details Date Type Department Care Team (Late st Contact Info) Description 05/03/2024 Abstract [facility] [place] [facility] [address] [facility] 110 [place] [address] Phillip De La Cruz MD [address] [facility] 110 [place], [place] [phone] Social History Tobacco Use Types Packs/Day Years [...] on filedocumented in this encounter Care Teams Furniture Cleaner Relationship Specialty Start Date End Date Phillip De La Cruz MD [address] [facility] 110 [place] [address] PCP - General Internal Medicine 12/31/22 Phillip De La Cruz MD [address] [facility] 110 [place] [address] PCP - ACO Reach 12/30/22 09/13/24 Phillip De La Cruz MD [address] [facility] [address] [place] [address] PCP - Devoted 04/08/24 Phillip De La Cruz MD [address] [place] [address] [place] [address] PCP - ACO Reach 09/21/24 11/08/24 documented as of this encounter
--- OUTSIDE RECORDS SUMMARY | 2025-03-11 08:52 | XMS_ITS | Encounter Summary ---
Author Organization [facility] Address [address] [place] [address] Care Team Providers Care Parking Control Officer Name Role Phone Phillip De La Cruz MD Primary Care Provider [phone] Phillip De La Cruz MD Unavailable [phone] Phillip De La Cruz MD Unavailable [phone] Phillip De La Cruz MD Unavailable [phone] Encounter Details Date Type Department Care Team (Late st Contact Info) Description 06/08/2023 Abstract [facility] [place] [facility] [address] [facility] 110 [place] [address] Phillip De La Cruz MD [address] [facility] 110 [place], [place] [id number] Social History Tobacco Use Types Packs/Day Years [...] on filedocumented in this encounter Care Teams Parking Control Officer Relationship Specialty Start Date End Date Phillip De La Cruz MD [address] [facility] 110 [place], [place] [phone] PCP - General Internal Medicine 12/31/22 Phillip De La Cruz MD [address] [facility] 110 [place] [address] PCP - ACO Reach 12/30/22 09/13/24 Phillip De La Cruz MD [address] [facility] [address] [place] [address] PCP - Devoted 04/08/24 Phillip De La Cruz MD [address] [place] [address] [place] [address] PCP - ACO Reach 09/21/24 11/08/24 documented as of this encounter
--- OUTSIDE RECORDS SUMMARY | 2025-03-11 08:52 | XMS_ITS | Clinical Summary ---
Author Organization [facility] Address [address] [place] [address] Care Team Providers Care Retail Marketing Specialist Name Role Phone Phillip De La Cruz MD Primary Care Provider [phone] Phillip De La Cruz MD Unavailable [phone] Allergies Active Allergy Reactions Criticality Noted Date [...] complication, without long-term current use of insulin ([facility]) 1 each by In Vitro route Daily 100 strip 3 Active Lancets miscIndications:Type 2 diabetes mellitus without complication, without long-term current use of insulin ([facility]) 1 Device Daily 100 each 3 Active [...] 1950 FIT 1950 FOBT 1950 Sigmoidoscopy 1950 Colorectal Cancer Screening 12/05/2021 FIT-DNA 12/05/2021 12/05/2018 Diabetes: Hemoglobin A1C 09/04/2024 024, 12/01/2023, 06/01/2023, Additional history exists Diabetes: Retinopathy Screening 01/27/2025 01/28/2024, 11/26/2021, 12/06/2020, Additional history exists Influenza Vaccine (#1) 2025 4, 03/23/2023, 06/01/2022, Additional history exists Medicare Annual Wellness (AWV) 06/04/2025 06/04/2024 , 02/17/2022 Diabetes: Urine Protein Screening 06/11/2025 06/11/2024, 06/02/2023, 04/23/2022, Additional history exists Mammogram Discontinued 07/19/2018 Pneumococcal Vaccine: 65+ Years Completed 0, 02/12/2019 Procedures Procedure Name Priority Date/Time Associated [...] Information Site ID: QPT Name: [facility] Address: Sasha Das , [address] [place] [address] Director: Humberto Rosenberg MD Phillip De La Cruz MD LAB URINE [...] Khan PA OPHTH PHOTOGRAPHY Final Result * Cologuard?? colon cancer screening (12/05/2018) COLOGUARD RESULT REPORTABLE [...] (Estrella Obrien al, N Engl J Med 2014;370(14):3816-1170) COLOGUARD RE-SCREENING RECOMMENDATION: Periodic routine colorectal cancer screening is an important part of preventive healthcare for asymptomatic persons at average risk for colorectal cancer. Following a negative Cologuard result, the [place] [employer] Society and U.S. Multi-Society Task Force screening guidelines recommend a Cologuard re-screening interval of 3 years. References: [place] [employer] Society (ACS). Colorectal cancer prevention and early detection. [place], [place]: [place] [employer]; [updated 2015Nov 29]. https://www.cancer.org/cancer/udezd-qgjdhe-qucezq/jxyekcfli-gkzlhppet-jvjaumq/ac s-rec ommendations.html. Accessed April 07, 2018; Juan Pablo DK, Kiya GAVIRIA, Cinthya RamseyK, Colorectal Cancer Screening: Recommendations for Physicians and Patients from the U.S. Multi-Society Task Force on Colorectal Cancer Screening, Am J Gastroenterology 2017; 112:0010-9005. Test Type: Composite algorithmic analysis of stool [...] can be accessed at the following location: www.[employer]/results. Additional description of the Cologuard test process, warnings and precautions can be found at www.cologuardtest.com. Rx Only. 12/05/2018 [facility] Final Result [facility] * Bilateral screening mammogram (07/19/2018 12:00 PM EST) Anatomical Region Laterality Modality Breast Bilateral Mammography Narrative 07/19/2018 12:00 PM EST PERFORMED AT [facility] LOCATION:[id number] Procedure Note CONVERSION, GENERIC / Phillip De La Cruz MD - 02/11/2023 PERFORMED AT [facility] LOCATION:[id number] Phillip De La Cruz MD IMG BI PROCEDURES Final Result from Last 3 Months or Most Recently Relevant to Health Maintenance Insurance [employer] Care Teams Retail Marketing Specialist Relationship Specialty Start Date End Date Phillip De La Cruz MD [address] [place] [address] [place] [address] PCP - General Internal Medicine 12/31/22 Phillip De La Cruz MD [address] [place] [address] [place] [address] PCP - Devoted 04/08/24
--- OUTSIDE RECORDS SUMMARY | 2025-03-11 08:52 | XMS_ITS | Encounter Summary ---
Author Organization [facility] Address [address] [place] [address] Care Team Providers Care Music Coordinator Name Role Phone Phillip De La Cruz MD Primary Care Provider [phone] Phillip De La Cruz MD Unavailable [phone] Phillip De La Cruz MD Unavailable [phone] Phillip De La Cruz MD Unavailable [phone] Encounter Details Date Type Department Care Team (Late st Contact Info) Description 06/21/2024 Abstract [facility] [place] [facility] [address] [facility] 110 [place] [address] Phillip De La Cruz MD [address] [facility] 110 [place], [place] [id number] Social History Tobacco Use Types Packs/Day Years [...] documented as of this encounter Care Teams Music Coordinator Relationship Specialty Start Date End Date Phillip De La Cruz MD [address] [facility] 110 [place], [place] [id number] PCP - General Internal Medicine 12/31/22 Phillip De La Cruz MD [address] [place] [address] [place] [address] PCP - ACO Reach 12/30/22 09/13/24 Phillip De La Cruz MD [address] [place] [address] [place] [address] PCP - Devoted 04/08/24 Phillip De La Cruz MD [address] [facility] 110 [place] [address] PCP - ACO Reach 09/21/24 11/08/24 documented as of this encounter
--- OUTSIDE RECORDS SUMMARY | 2025-03-11 08:52 | XMS_ITS | Encounter Summary ---
Author Organization [facility] Address [address] [place] [address] Care Team Providers Care Coating Mixer Name Role Phone Phillip De La Cruz MD Primary Care Provider [phone] Phillip De La Cruz MD Unavailable [phone] Phillip De La Cruz MD Unavailable [phone] Phillip De La Cruz MD Unavailable [phone] Encounter Details Date Type Department Care Team (Late st Contact Info) Description 09/06/2024 Abstract [facility] [place] [facility] [address] [facility] 110 [place] [address] Phillip De La Cruz MD [address] [facility] 110 [place], [place] [address] Social History Tobacco Use Types Packs/Day Years [...] documented as of this encounter Care Teams Coating Mixer Relationship Specialty Start Date End Date Phillip De La Cruz MD [address] [facility] 110 [place], [place] [address] PCP - General Internal Medicine 12/31/22 Phillip De La Cruz MD [address] [place] [address] [place] [address] PCP - ACO Reach 12/30/22 09/13/24 Phillip De La Cruz MD [address] [place] [address] [place] [address] PCP - Devoted 04/08/24 Phillip De La Cruz MD [address] [facility] 110 [place] [address] PCP - ACO Reach 09/21/24 11/08/24 documented as of this encounter
--- OUTSIDE RECORDS SUMMARY | 2025-03-11 08:52 | XMS_ITS | Encounter Summary ---
Author Organization [facility] Address [address] [place] [address] Care Team Providers Care Horticulture Superintendent Name Role Phone Phillip De La Cruz MD Primary Care Provider [phone] Phillip De La Cruz MD Unavailable [phone] Phillip De La Cruz MD Unavailable [phone] Phillip De La Cruz MD Unavailable [phone] Encounter Details Date Type Department Care Team (Late st Contact Info) Description 05/03/2024 Abstract [facility] [place] [facility] [address] [facility] 110 [place] [address] Phillip De La Cruz MD [address] [facility] 110 [place], [place] [phone] Social History Tobacco Use Types Packs/Day Years [...] on filedocumented in this encounter Care Teams Horticulture Superintendent Relationship Specialty Start Date End Date Phillip De La Cruz MD [address] [facility] 110 [place] [address] PCP - General Internal Medicine 12/31/22 Phillip De La Cruz MD [address] [facility] 110 [place] [address] PCP - ACO Reach 12/30/22 09/13/24 Phillip De La Cruz MD [address] [facility] [address] [place] [address] PCP - Devoted 04/08/24 Phillip De La Cruz MD [address] [place] [address] [place] [address] PCP - ACO Reach 09/21/24 11/08/24 documented as of this encounter
--- OUTSIDE RECORDS SUMMARY | 2025-03-11 08:52 | XMS_ITS | Encounter Summary ---
Author Organization [facility] Address [address] [place] [address] Care Team Providers Care Cook Night Name Role Phone Phillip De La Cruz MD Primary Care Provider [phone] Phillip De La Cruz MD Unavailable [phone] Phillip De La Cruz MD Unavailable [phone] Phillip De La Cruz MD Unavailable [phone] Encounter Details Date Type Department Care Team (Late st Contact Info) Description 08/08/2023 Clinisync Result Encounter [facility] External Department Unsolicited Phillip De La Cruz MD [address] [place] [address] Social History Tobacco Use Types Packs/Day Years [...] PM EST Narrative 08/08/2023 4:05 PM EST [address] [address] XRay Report Signed Patient: KERLINE JOHNSON MR#: [id number] : 1950 Acct:[id number] Age/Sex: 73 / F ADM Date: 08/05/23 Loc: RAD Attending Dr: PHILLIP DE LA CRUZ Ordering Physician: PHILLIP DE LA CRUZ Date of Service: 08/05/23 Procedure(s): XR thoracic spine 3V Accession Number(s): [id number] cc: PHILLIP DE LA CRUZ [place] [id number] Patient Name: KERLINE JOHNSON MRN: [id number] date: 1950 Sex: F Assigned Patient Location: [facility] Current Patient Location: Accession/Order Number: [id number] Exam Date: 08/05/2023 10:24 Report Date: 08/08/2023 [...] Signed By: 08/08/23 1605 DD/ 1603 TD/TT: Rn Admissions: Procedure Note Radiology, Radiologist, MD - 08/08/[address] [address] XRay Report Signed Patient: EKRLINE JOHNSON LMR#: [id number] : 1950cct:[id number] Age/Sex: 73 / FADM Date: 08/05/23 Loc: RAD Attending Dr: PHILLIP DE LA CRUZ Ordering Physician: PHILLIP DE LA CRUZ Date of Service: 08/05/23 Procedure(s): XR thoracic spine 3V Accession Number(s): [id number] cc: PHILLIP DE LA CRUZ [address] [address] Patient Name: KERLINE JOHNSON MRN: [facility]:[id number] date: 1950 Sex: F Assigned Patient Location: [facility] Current Patient Location: Accession/Order Number: [id number] Exam Date: 08/05/2023 10:24 Report Date: 08/08/2023 [...] M.D. Signed By:08/08/23 1605 DD/ 1603 TD/TT: Rn Admissions: Phillip De La Cruz MD [facility] Final Result documented in this encounter Visit Diagnoses Not on filedocumented in this encounter Care Teams Cook Night Relationship Specialty Start Date End Date Phillip De La Cruz MD [address] [facility] 110 [place] [address] PCP - General Internal Medicine 12/31/22 Phillip De La Cruz MD [address] [place] [address] [place] [address] PCP - ACO Reach 12/30/22 09/13/24 Phillip De La Cruz MD [address] [place] [address] [place] [address] PCP - Devoted 04/08/24 Phillip De La Cruz MD [address] [place] [address] [place] [address] PCP - ACO Reach 09/21/24 11/08/24 documented as of this encounter
--- OUTSIDE RECORDS SUMMARY | 2025-03-11 08:52 | XMS_ITS | Encounter Summary ---
Author Organization [facility] Address [address] [place] [address] Care Team Providers Care Small Battery Plate Assembler Name Role Phone Phillip De La Cruz MD Primary Care Provider [phone] Phillip De La Cruz MD Unavailable [phone] Phlilip De La Cruz MD Unavailable [phone] Phillip De La Cruz MD Unavailable [phone] Encounter Details Date Type Department Care Team (Late st Contact Info) Description 01/12/2023 Abstract [facility] [place] [facility] [address] [facility] 110 [place] [address] Phillip De La Cruz MD [address] [facility] 110 [place], [place] [phone] Social History Tobacco Use Types Packs/Day Years [...] on filedocumented in this encounter Care Teams Small Battery Plate Assembler Relationship Specialty Start Date End Date Phillip De La Cruz MD [address] [facility] [address] [place] [address] PCP - General Internal Medicine 12/31/22 Phillip De La Cruz MD [address] [place] [address] [place] [address] PCP - ACO Reach 12/30/22 09/13/24 Phillip De La Cruz MD [address] [place] [address] [place] [address] PCP - Devoted 04/08/24 Phillip De La Cruz MD [address] [place] [address] [place] [address] PCP - ACO Reach 09/21/24 11/08/24 documented as of this encounter
--- OUTSIDE RECORDS SUMMARY | 2025-03-11 08:52 | XMS_ITS | Encounter Summary ---
Author Organization [facility] Address [address] [place] [address] Care Team Providers Care Equipment Or Machinery Cleaner Name Role Phone Phillip De La Cruz MD Primary Care Provider [phone] Phillip De La Cruz MD Unavailable [phone] Phillip De La Cruz MD Unavailable [phone] Phillip De La Cruz MD Unavailable [phone] Encounter Details Date Type Department Care Team (Late st Contact Info) Description 01/30/2024 Abstract [facility] [place] [facility] [address] [facility] 110 [place] [address] Phillip De La Cruz MD [address] [facility] 110 [place], [place] [address] Social History Tobacco Use Types Packs/Day Years [...] on filedocumented in this encounter Care Teams Equipment Or Machinery Cleaner Relationship Specialty Start Date End Date Phillip De La Cruz MD [address] [facility] 110 [place] [address] PCP - General Internal Medicine 12/31/22 Phillip De La Cruz MD [address] [facility] 110 [place] [address] PCP - ACO Reach 12/30/22 09/13/24 Phillip De La Cruz MD [address] [facility] [address] [place] [address] PCP - Devoted 04/08/24 Phillip De La Cruz MD [address] [place] [address] [place] [address] PCP - ACO Reach 09/21/24 11/08/24 documented as of this encounter
[2025-03-11 09:24] LABS: Hematocrit 39.6 % (36.0-48.0); Hemoglobin 13.2 g/dL (12.0-16.0); Immature Granulocytes Abs Auto 0.01 10^3/uL (0.00-0.03); Immature Granulocytes Pct Auto 0.1 % (0.0-0.5); Lymphocytes Absolute Auto 3.0 10^3/uL (1.2-3.8); Mean Corpuscular HGB Conc 33.3 g/dL (29.9-35.2); Mean Corpuscular Hemoglobin 32.1 pg (26.7-34.0); Mean Corpuscular Volume 96.4 fL (81.0-99.0); Platelet Count 141 10^3/uL (150-450); Red Blood Count 4.11 10^6/uL (4.20-5.40); White Blood Count 6.7 10^3/uL (4.0-11.0)
[2025-03-11 10:31] LABS: Iron 107.0 ug/dL (50.0-170.0)
[2025-03-11 10:42] LABS: Alanine Aminotransferase 44 U/L (14-59); Albumin Globulin Ratio 1.0; Albumin Level 4.0 g/dL (3.4-5.0); Alkaline Phosphatase 50 U/L (46-116); Anion Gap 10.8; Aspartate Amino Transferase 35 U/L (15-37); Blood Urea Nitrogen 30.0 mg/dL (7.0-18.0); Calcium 11.1 mg/dL (8.5-10.1); Carbon Dioxide 28.8 mmol/L (21.0-32.0); Chloride 104 mmol/L (98-107); Cholesterol 168 mg/dL (<=200); Estimated GFR (African America 56 (>=60 mL/min/1.73m^2); Estimated GFR (Non-African Ame 46 (>=60 mL/min/1.73m^2); Free T3 1.62 pg/mL (2.18-3.98); Globulin 4.1 g/dL; Glucose 153 mg/dL (74-106); HDL Cholesterol 75 mg/dL (40-60); Potassium 4.6 mmol/L (3.5-5.1); Sodium 139 mmol/L (136-145); Thyroid Stimulating Hormone 1.190 uIU/mL (0.358-3.740); Total Protein 8.1 g/dL (6.4-8.2); Triglycerides 73 mg/dL (<=150); VLDL CHOLESTEROL 14.6 mg/dL
== END 2025-03-11 08:50 | disposition home or self-care (01) ==
LOC: LAB 08:50
PROVIDERS: PCP Family Medicine; Visit Provider Family Medicine
DX: D64.9 Anemia, unspecified (principal); E11.9 Type 2 diabetes mellitus without complications; E78.00 Pure hypercholesterolemia, unspecified; E03.9 Hypothyroidism, unspecified; I10 Essential (primary) hypertension; Z12.12 Encounter for screening for malignant neoplasm of rectum; R53.83 Other fatigue
CPT/HCPCS: 36415; 80053; 80061; 83036; 83540; 84436; 84443; 84481; 85025

== ENCOUNTER 2025-03-12 10:01 | Outpatient (REF) | payer OTHER, SELFPAY ==
--- OUTSIDE RECORDS SUMMARY | 2025-03-06 07:30 | XMS_ITS ---
Author Organization [facility] in [place] Address [address] [place] [address] Care Team Providers Care Court Assistant Name Role Phone Ivan Gutierrez Primary Care Provider [phone] Allergies No Known Allergies REASON FOR VISIT Wellness check- needs to have yearly labs done as well, Patient needs [facility] Medications Medication SIG (Take, Route, Frequency, Duration) Notes Start Date End Date Status Lancets - use one lancet daily to monitor glucose level dx-E11.9 for 90 days 03/01/2025 Active Atorvastatin Calcium 80 MG TAKE 1 TABLET BY MOUTH EVERY DAY Oral for 90 Days Active NovoLIN 70/30 FlexPen (70-30) 100 UNIT/ML 12 U Subcutaneous bid 02/20/2025 Active Levothyroxine Sodium 88 MCG TAKE 1 TABLE T BY MOUTH EVERY DAY FOR 100 DAYS Oral for 90 Days Active amLODIPine Besylate-Valsartan 5-320 MG TAKE 1 TABLET BY MOUTH EVERY DAY IN THE MORNING Oral for 90 Days Active Aspirin 81 MG 1 tablet Orally Once a day Active Pen Montfort 31G X 5 MM Use 1 pen needle to inject insulin TID for 30 days 03/06/2025 Active Social History Tobacco Use: Social History Observation Description Date Details (start date - stop date) Never Smoker NA - NA Tobacco Control (Standard) Question Answer Notes Tobacco use: Nonsmoker Problems Problem Type SNOMED Code ICD Code Onset Dates Problem Status W/U Status Risk Notes Problem Hypothyroid (03652719) Hypothyroid (E03.9) Active confirmed Problem Hypertension (24964131) Hypertension (I10) Active confirmed Vital Signs Weight 141.4 lbs 03/06/2025 Height 66 in 03/06/2025 Blood pressure systolic 116 mm Hg 03/06/20 25 Blood pressure diastolic 62 mm Hg 025 BMI 22.82 kg/m2 03/06/2025 Encounters Encounter Location Date Provider Diagnosis [facility] [address] [place] [address] 03/06/2025 Ivan Gutierrez Diabetes E11.9 ; Hypercholesteremia E78.00 ; Hypothyroid E03.9 and Hypertension I10 Assessments Encounter Date Diagnosis (ICD Code) Assessment Notes Treatment Notes Treatment Clinical Notes Section Notes 03/06/2025 Diabetes (ICD-10 - E11.9) 03/06/2025 Hypercholesteremia (ICD-10 - E78.00) 03/06/2025 Hypothyroid (ICD-10 - E03.9) 03/06/2025 Hypertension (ICD-10 - I10) Plan Of Treatment Medication Medication Name Sig Start Date Stop Date Notes Pen Montfort 31G X 5 MM Use 1 pen needle to inject insulin TID for 30 days 03/06/2025 Pending Test Test Name Order Date HEMOGLOBIN A1C (GLYCO) 03/06/2025 IRON, TOTAL 03/06/2025 LIPID PANEL (CHOL/TRIG/HDL/LDL) 03/06/20 25 STOOL OCCULT BLOOD 03/06/2025 THYROID PANEL (T4/TSH/FREE T3) 5 CMP (COMP MET HAYDEN) w/eGFR CKD-EPI 2024 CBC WITH DIFF 03/06/2025 Progress Notes * ALEX Naima LDOB:[birth year] (74 yo F)Acc No.[id number]:03/06/2025 Progress Note Patient: Naima WEINER Provider: Teagan Gutierrez ([facility])MD :1950 A ge:74 Y S ex:Female Date:03/06/2025 Address:[address] [place], [place] [id number] Check In:11:09 AM ESTCheck O ut:11:56 AM EST Subjective: * Chief Complaints: * W froylan check- needs to have yearly labs done as wellPatient needs pen needle [facility] * HPI: G eneral: chol - on meds - follow up on labs htn - stabel at home - o SE from meds dm - back on the 70/30 - much better low thyfoid - checking on labs. * ROS: E ENT: hearing changes d enies. v isual changes d enies.?non-healing mouth sores d enies. s wollen glands or neck lumps d enies. h oarseness d enies. s ore throat d enies. d ifficulty swallowing d enies. n ose bleeds d enies. n yen congestion d enies. e ar ache d enies. e ar discharge?denies. r inging in ears d enies. l ight sensitivity d enies. e ye pain d enies. b lurring d enies. e ye irritation d enies. d ouble vision d enies.?vision loss d enies. G eneral/Constitutional: Sweats: D enies. F atigue d enies. S leep problems d enies. A norexia d enies. M alaise d enies. W eight loss d enies.?Fatigue or Weakness d enies. F ever or Chills d enies. C ardiovascular: Shortness of Breath w/lying flat d enies. L ightheadedness/dizziness d enies. C hest tightness/ heavy pressure d enies. S welling of legs, ankles, or feet d enies. W aking up with shortness of breath d enies. C hest pain denies. P alpitations d enies. W eight gain d enies. R espiratory: Chronic or frequent cough d enies. C oughing up blood?denies. D ifficulty breathing d enies. P roductive cough d enies. S noring?denies. S hortness of breath that awakens from sleep (PND) d enies. C hest pain d enies. S putum production d enies. W heezing d enies. M usculoskeletal: Joint pain d enies. J oint Fluid d enies. B ack pain d enies. K nee pain d enies. N lorrie pain d enies. J oint Stiffness d enies. M uscle cramps d enies. W eakness of muscles d enies. A rthritis d enies. M uscle aches d enies. P ain in shoulder(s) d enies. S wollen joints d enies. * Active Problem List I63.9 Stroke Modified On:02/20/2025/U Status:confirmed E78.00 Hypercholesteremia Modified On:02/20/2025/U Status:confirmed E11.9 Diabetes Modified On:02/20/2025/U Status:confirmed E03.9 Hypothyroid Modified On:03/06/2025/U Status:confirmed I10 Hypertension Modified On:03/06/2025U Status:confirmed * Medical History: * Surgical History: U terus Removed Big Toe- Bilateral (Calcium Deposit) Ovaries and Tubes Removed * Hospitalization/Major Diagno stic Procedure: D enies Past Hospitalization * Family History: F ather: unknown. M other: , Dementia, diagnosed with Other malignant neoplasm of unspecified site. * Social History: T obacco Use: T obacco Control (Standard) T obacco use: N onsmoker * Medications: T akingamLODIPine Besylate-Valsartan 5-320 MG Tablet TAKE 1 TABLET BY MOUTH EVERY DAY IN THE MORNING Oral Aspirin 81 MG Tablet Chewable 1 tablet Orally Once a day Atorvastatin Calcium 80 MG Tablet TAKE 1 TABLET BY MOUTH EVERY DAY Oral Lancets - Miscellaneous use one lancet daily to monitor glucose level dx-E11.9 Levothyroxine Sodium 88 MCG Tablet TAKE 1 TABLET BY MOUTH EVERY DAY FOR 100 DAYS Oral NovoLIN 70/30 FlexPen(Insulin NPH Isophane & Regular) (70-30) 100 UNIT/ML Suspension Pen- injector 12 U Subcutaneous bid Pen Montfort 31G X 5 MM Miscellaneous Use 1 pen needle to inject insulin TID DX E11.9 Taking amLODIPine Besylate-Valsartan 5-320 MG Tablet TAKE 1 TABLET BY MOUTH EVERY DAY IN THE MORNING Oral Taking Aspirin 81 MG Tablet Chewable 1 tablet Orally Once a day Taking Atorvastatin Calcium 80 MG Tablet TAKE 1 TABLET BY MOUTH EVERY DAY Oral Taking Lancets - Miscellaneous use one lancet daily to monitor glucose level dx-E11.9 Taking Levothyroxine Sodium 88 MCG Tablet TAKE 1 TABLET BY MOUTH EVERY DAY FOR 100 DAYS Oral Taking NovoLIN 70/30 FlexPen(Insulin NPH Isophane & Regular) (70-30) 100 UNIT/ML Suspension Pen-injector 12 U Subcutaneous bid Taking Pen Montfort 31G X 5 MM Miscellaneous Use 1 pen needle to inject insulin TID DX E11.9 DiscontinuedNovoLOG FlexPen(Insulin Aspart) 100 UNIT/ML Solution Pen-injector Subcutaneous Medication List reviewed and reconciled with the patientDiscontinued NovoLOG FlexPen(Insulin Aspart) 100 UNIT/ML Solution Pen-injector Subcutaneous Medication List reviewed and reconciled with the patient * Allergies: N .K.D.A.no[Allergies Verified] Objective: * Vitals: W t:141.4lbs, Ht: 66 in, BP:116/62mm Hg, BMI:22.82Index, Ht-cm: 167.64 cm, Wt-k.14 kg. * Examination: P hysical Exam: GENERAL: w ell developed, well nourished, in no acute distress. HEAD: n ormocephalic/atraumatic. EYES: p upils equal, round and reactive to light, conjunctivae and sclerae normal. EARS: n o deformity or lesion of external ear, canals and TM appear normal bilaterally, TM's intact, not inflamed with normal light reflex, hearing grossly normal to conversational speech. NOSE: n o deformity, discharge, inflammation, or lesions.? MOUTH: m ucous membranes moist, normal oropharynx and posterior pharynx without lesions or exudates, tongue normal, dentition normal. NECK: n lorrie supple, no masses or palpable cervical nodes, trachea midline, thyroid without nodules, masses, tenderness, or enlargement. CHEST: n o chest wall deformity, no chest wall tenderness.? LUNGS: n ormal respiratory effort and clear to auscultation, no wheezes, rales, or rhonchi, good air exchange. CARDIO: r egular rate and rhythm, normal S1 and S2, nor murmur, rub, or gallop. PULSES: n ormal capillary refill. ABDOMEN: s oft, non-distended, non-tender, no masses. MUSCULOSKELETAL: n o deformity or scoliosis noted, normal range of motion, joints normal, no erythema, edema, effusion, or ecchymosis. EXTREMITY: n o clubbing, cyanosis, edema, or deformity with normal ROM in both upper and lower bilateral extremities. NEUROLOGIC: g rossly normal. SKIN: n o rashes, ulcerations, or suspicious lesions. LYMPH NODES: n o cervical adenopathy, nodes normal. MENTAL STATUS: a lert and oriented x3, normal mood and affect. Assessment: * Assessment: 1. D iabetes - E11.9 (Primary) 2 . H ypercholesteremia - E78.00 ?3. H ypothyroid - E03.9 4 . H ypertension - I10 Plan: * Treatment: 2. H ypercholesteremia L AB: HEMOGLOBIN A1C (GLYCO) L AB: IRON, TOTAL L AB: LIPID PANEL (CHOL/TRIG/HDL/LDL) L AB: STOOL OCCULT BLOOD L AB: THYROID PANEL (T4/TSH/FREE T3) L AB: CMP (COMP MET HAYDEN) w/eGFR CKD-EPI L AB: CBC WITH DIFF 3. H ypothyroid L AB: HEMOGLOBIN A1C (GLYCO) L AB: IRON, TOTAL L AB: LIPID PANEL (CHOL/TRIG/HDL/LDL) L AB: STOOL OCCULT BLOOD L AB: THYROID PANEL (T4/TSH/FREE T3) L AB: CMP (COMP MET HAYDEN) w/eGFR CKD-EPI L AB: CBC WITH DIFF 4. H ypertension L AB: HEMOGLOBIN A1C (GLYCO) L AB: IRON, TOTAL L AB: LIPID PANEL (CHOL/TRIG/HDL/LDL) L AB: STOOL OCCULT BLOOD L AB: THYROID PANEL (T4/TSH/FREE T3) L AB: CMP (COMP MET HAYDEN) w/eGFR CKD-EPI L AB: CBC WITH DIFF * Procedure Codes: * * Sign off status: Completed Visit Status: C HK (Check Out) true * Provider: Teagan Gutierrez ([facility])MD Date: 0 03/06/2025 Generated for Oskar loyd/Luis/eTransmitting on: 03/12/2025 10:07 AM EDT History and Physical Notes * HPI (History of Present Illness) Category Sub-Category Detail Notes Category Not es General chol - on meds - follow up on labs htn - stabel at home - o SE from meds dm - back on the 70/30 - much better low thyfoid - checking on labs Examination Category Sub-Category Detail Notes Category Not es Physical Exam GENERAL: well developed, well nourished, in no acute distress HEAD: normocephalic/atraum atic EYES: pupils equal, round and reactive to light, conjunctivae and sclerae normal EARS: no deformity or lesi on of external ear, canals and TM appear normal bilaterally, TM's intact, not inflamed with normal light reflex, hearing grossly normal to conversational speech NOSE: no deformity, discha rge, inflammation, or lesions MOUTH: mucous membranes radha st, normal oropharynx and posterior pharynx without lesions or exudates, tongue normal, dentition normal NECK: neck supple, no mass es or palpable cervical nodes, trachea midline, thyroid without nodules, masses, tenderness, or enlargement CHEST: no chest wall deform ity, no chest wall tenderness LUNGS: normal respiratory e ffort and clear to auscultation, no wheezes, rales, or rhonchi, good air exchange CARDIO: regular rate and rhy thm, normal S1 and S2, nor murmur, rub, or gallop PULSES: normal capillary ref ill ABDOMEN: soft, non-distended, non-tender, no masses RECTAL: MUSCULOSKELETAL: no deformity or scol iosis noted, normal range of motion, joints normal, no erythema, edema, effusion, or ecchymosis EXTREMITY: no clubbing, cyanosi s, edema, or deformity with normal ROM in both upper and lower bilateral extremities NEUROLOGIC: grossly normal SKIN: no rashes, ulceratio ns, or suspicious lesions LYMPH NODES: no cervical adenopat hy, nodes normal MENTAL STATUS: alert and oriented x 3, normal mood and affect
--- OUTSIDE RECORDS SUMMARY | 2025-03-11 09:36 | XMS_ITS ---
Author Organization [facility] [place] Address [address] [place] [address] Care Team Providers Care Pit Worker Power Shovel Name Role Phone Matt Ivan Primary Care Provider REASON FOR VISIT review labs Encounters Encounter Location Date Provider Diagnosis [facility] [address] [place] [address] 03/11/2025 Ivan Gutierrez Plan Of Treatment No Information Progress Notes * Naima MEJIA LDOB:[birth year] (74 yo F)Acc No.[id number]:03/11/2025 Patient: Naima WEINER :1950 A ge:74 Y S ex:Female Address:[address] [place] [address], [address] * true * Date: Generated for Oskar loyd/Luis/eTransmitting on: 0 03/12/2025 10:06 AM EDT
--- OUTSIDE RECORDS SUMMARY | 2025-03-12 10:07 | XMS_ITS | Encounter Summary ---
Author Organization [facility] Address [address] [place] [address] Care Team Providers Care Animation Producer Name Role Phone Phillip De La Cruz MD Primary Care Provider [phone] Phillip De La Cruz MD Unavailable [phone] Phillip De La Cruz MD Unavailable [phone] Phillip De La Cruz MD Unavailable [phone] Encounter Details Date Type Department Care Team (Late st Contact Info) Description 08/09/2023 Orders Only [facility] [address] [facility] 110 [place] [address] A, Unknown Practice [address] [place] [address] Social History Tobacco Use Types Packs/Day [...] on filedocumented in this encounter Care Teams Animation Producer Relationship Specialty Start Date End Date Phillip De La Cruz MD [address] [place] [address] [place] [address] PCP - General Internal Medicine 12/31/22 Phillip De La Cruz MD [address] [place] [address] [place] [address] PCP - ACO Reach 12/30/22 09/13/24 Phillip De La Cruz MD [address] [place] [address] [place] [address] PCP - Devoted 04/08/24 Phillip De La Cruz MD [address] [facility] 110 [place] [address] PCP - ACO Reach 09/21/24 11/08/24 documented as of this encounter
--- OUTSIDE RECORDS SUMMARY | 2025-03-12 10:07 | XMS_ITS | Encounter Summary ---
Author Organization [facility] Address [address] [place] [address] Care Team Providers Care Locomotive Firer/Fireman Name Role Phone Phillip De La Cruz MD Primary Care Provider [phone] Phlilip De La Cruz MD Unavailable [phone] Phillip De La Cruz MD Unavailable [phone] Phillip De La Cruz MD Unavailable [phone] Encounter Details Date Type Department Care Team (Late st Contact Info) Description 01/12/2023 Abstract [facility] [place] [facility] [address] [facility] 110 [place] [address] Phillip De La Cruz MD [address] [facility] 110 [place], [place] [phone] Social History Tobacco Use Types Packs/Day Years [...] on filedocumented in this encounter Care Teams Locomotive Firer/Fireman Relationship Specialty Start Date End Date Phillip De La Cruz MD [address] [facility] [address] [place] [address] PCP - General Internal Medicine 12/31/22 Phillip De La Cruz MD [address] [place] [address] [place] [address] PCP - ACO Reach 12/30/22 09/13/24 Phillip De La Cruz MD [address] [place] [address] [place] [address] PCP - Devoted 04/08/24 Phillip De La Cruz MD [address] [place] [address] [place] [address] PCP - ACO Reach 09/21/24 11/08/24 documented as of this encounter
--- OUTSIDE RECORDS SUMMARY | 2025-03-12 10:07 | XMS_ITS | Encounter Summary ---
Author Organization [facility] Address [address] [place] [address] Care Team Providers Care Supervisor Plating And Point Assembly Name Role Phone Phillip De La Cruz MD Primary Care Provider [phone] Phillip De La Cruz MD Unavailable [phone] Phillip De La Cruz MD Unavailable [phone] Phillip De La Cruz MD Unavailable [phone] Encounter Details Date Type Department Care Team (Late st Contact Info) Description 06/21/2024 Abstract [facility] [place] [facility] [address] [facility] 110 [place] [address] Phillip De La Cruz MD [address] [facility] 110 [place], [place] [address] Social History Tobacco Use Types Packs/Day Years [...] documented as of this encounter Care Teams Supervisor Plating And Point Assembly Relationship Specialty Start Date End Date Phillip De La Cruz MD [address] [facility] 110 [place], [place] [address] PCP - General Internal Medicine 12/31/22 Phillip De La Cruz MD [address] [place] [address] [place] [address] PCP - ACO Reach 12/30/22 09/13/24 Phillip De La Cruz MD [address] [place] [address] [place] [address] PCP - Devoted 04/08/24 Phillip De La Cruz MD [address] [facility] 110 [place] [address] PCP - ACO Reach 09/21/24 11/08/24 documented as of this encounter
--- OUTSIDE RECORDS SUMMARY | 2025-03-12 10:07 | XMS_ITS | Clinical Summary ---
Author Organization [employer] Address [id number] [address] [place] [address] Care Team Providers Care Stone Breaker Name Role Phone Phillip De La Cruz MD Primary Care Provider [phone] Allergies Active Allergy Reactions Criticality Noted Date [...] Completed 05/29/2021, Medical Devices Implanted Type Area Liability Claims Adjuster Device Identifier Shelf Expiration Date Model / Serial / Lot Lens Iol Ultrasert 24.0d - [id number] - [id number] Implanted:Qty: 1 on 10/21/2022 by Swathi Jones MD at [facility] Lens Left: [employer] 09/28/2024 [id number] 24.0 / [id number] / NA Lens Iol Ultrasert 23.5d - [id number] - [id number] Implanted:Qty: 1 on 11/11/2022 by Swathi Jones MD at [facility] Lens [employer] 03/07/2025 [id number] 23.5 / [id number] / Insurance MEDICARE [facility] [place] [address] Care Teams Stone Breaker Relationship Specialty Start Date End Date Phillip De La Cruz MD [address] [email or web address] 110 [place] [address] PCP - General Internal Medicine 09/20/16
--- OUTSIDE RECORDS SUMMARY | 2025-03-12 10:07 | XMS_ITS | Patient Health Record ---
Author Organization [facility] in [place] Address [address] [place] [address] Care Team Providers Care Tax Assistant Name Role Phone Ivan Gutierrez Primary Care Provider [phone] Allergies No Known Allergies Results Component Value Reference Range Notes CBC AUTO DIFF Reviewed date:03/11/2025 01:38:22 PM Interpretation: Performing Lab: Notes/Report: [facility] , White Blood Count 6.7 4.0-11.0 10 3/uL Red Blood Count 4.11 4.20-5.40 10 6/uL Hemoglobin 13.2 12.0-16.0 g/dL Hematocrit 39.6 36.0-48.0 % Mean Corpuscular Volume 96.4 81.0-99.0 fL Mean Corpuscular Hemoglobin 32.1 26.7-34.0 pg Mean Corpuscular HGB Conc 33.3 29.9-35.2 g/dL Red Cell Distribution Width 13.2 11.0-15.0 % Platelet Count 141 150-450 10 3/uL Mean Platelet Volume 10.6 9.5-13.5 fL Neutrophils Percent Auto 43.0 43.0-75.0 % Lymphocytes Percent Auto 45.2 20.5-60.0 % Monocytes Percent Auto 9.7 1.7-12.0 % Eosinophils Percent Auto 1.6 0.9-7.0 % Basophils Percent Auto 0.4 0.2-2.0 % Immature Granulocytes Pct Auto 0.1 0.0-0.5 % Neutrophils Absolute Auto 2.9 1.4-6.5 10 3/uL Lymphocytes Absolute Auto 3.0 1.2-3.8 10 3/uL Monocytes Absolute Auto 0.7 0.3-0.8 10 3/uL Eosinophils Absolute Auto 0.1 0.0-0.7 10 3/uL Basophils Absolute Auto 0.0 0.0-0.1 10 3/uL Immature Granulocytes Abs Auto 0.01 0.00-0.03 10 3/uL Performing Lab: see note ML - [facility] FREE T3 Reviewed date:03/11/2025 01:38:22 PM Interpretation: Performing Lab: Notes/Report: [facility] , Free T3 1.62 2.18-3.98 pg/mL Performing Lab: see note ML - [facility] GLYCOHEMOGLOBIN A1C Reviewed date:03/11/2025 01:38:22 PM Interpretation: Performing Lab: Notes/Report: [facility] , Glycohemoglobin A1C 8.2 4.5-6.2 % ADA RECOMMENDED LIMIT 4.0 - 6.0 ADA THERAPEUTIC TARGET < 7.0 ACTION SUGGESTED > 7.0 Estimated Average Glucose 189 Performing Lab: see note ML - [facility] IRON Reviewed date:03/11/2025 01:38:22 PM Interpretation: Performing Lab: Notes/Report: [facility] , Iron 107.0 50.0-170.0 ug/dL Performing Lab: see note ML - [facility] LIPID PROFILE Reviewed date:03/11/2025 01:38:22 PM Interpretation: Performing Lab: Notes/Report: [facility] , Triglycerides 73 <=150 mg/dL Cholesterol 168 <=200 mg/dL HDL Cholesterol 75 40-60 mg/dL > or =60 mg/dl - LOW CARDIOVASCULAR RISK <40 mg/dl - HIGH CARDIOVASCULAR RISK LDL Cholesterol Calculated 79.0 <100 mg/dl OPTIMAL 100-129 mg/dl NEAR OR ABOVE OPTIMAL 130-159 mg/dl BORDERLINE HIGH 160-189 mg/dl HIGH >190 mg/dl VERY HIGH VLDL CHOLESTEROL 14.6 Chol HDL Ratio 2.2 3.3 - 4.4 LOW RISK 4.4 - 7.1 AVERAGE RISK 7.1 - 11.0 MODERATE RISK >11.0 HIGH RISK Performing Lab: see note ML - [facility] PROF 14(COMP METB) Reviewed date:03/11/2025 01:38:22 PM Interpretation: Performing Lab: Notes/Report: [facility] , Sodium 139 136-145 mmol/L Potassium 4.6 3.5-5.1 mmol/L Chloride 104 98-107 mmol/L Carbon Dioxide 28.8 21.0-32.0 mmol/L Anion Gap 10.8 Glucose 153 74-106 mg/dL Blood Urea Nitrogen 30.0 7.0-18.0 mg/dL Creatinine 1.15 0.55-1.02 mg/dL Estimated GFR ( Monique 56 >=60 mL/min/1.73m 2 Estimated GFR (Non- Haven 46 >=60 mL/min/1.73m 2 BUN Creatinine Ratio 26.1 Calcium 11.1 8.5-10.1 mg/dL Bilirubin Total 1.5 0.2-1.0 mg/dL Aspartate Amino Transferase 35 15-37 U/L Alanine Aminotransferase 44 14-59 U/L Alkaline Phosphatase 50 46-116 U/L Total Protein 8.1 6.4-8.2 g/dL Albumin Level 4.0 3.4-5.0 g/dL Globulin 4.1 Albumin Globulin Ratio 1.0 Performing Lab: see note ML - [facility] LB T4 Reviewed date:03/11/2025 01:38:22 PM Interpretation: Performing Lab: Notes/Report: [facility] , T4 Thyroxine 12.10 4.80-13.90 ug/dL Performing Lab: see note ML - [facility] LB TSH Reviewed date:03/11/2025 01:38:22 PM Interpretation: Performing Lab: Notes/Report: [facility] , Thyroid Stimulating Hormone 1.190 0.358-3.740 u IU/mL Performing Lab: see note ML - [facility] LB Reason For Referral No Information Medications Medication SIG (Take, Route, Frequency, Duration) Notes Start Date End Date Status amLODIPine Besylate-Valsartan 5-320 MG TAKE 1 TABLET BY MOUTH EVERY DAY IN THE MORNING Oral for 90 Days Active Lancets - use one lancet daily to [...] 100 DAYS Oral for 90 Days Active Aspirin 81 MG 1 tablet Orally Once a day Active Pen [place] 31G X 5 MM Use 1 pen needle to inject insulin TID for 30 days 03/06/2025 Active Social History Tobacco Use: Social History Observation Description Date Details (start date - stop date) Never Smoker NA - NA Tobacco Control (Standard) Question Answer Notes Tobacco use: Nonsmoker AUDIT-C (Standard) Question Answer Notes Did you have a drink containing alcohol in the p ast year? No Points 0 Interpretation Negative Problems Problem Type SNOMED Code ICD Code Onset Dates Problem Status W/U Status Risk Notes Problem Hypertension (22752115) Hypertension (I10) Active confirmed Problem Stroke (156427222) Stroke (I63.9) Active confir med Problem Hypothyroid (40379555) Hypothyroid (E03.9) Activ e confirmed Problem hypercholesterolemia (disorder) (84403563) Hypercholesteremia (E78.00) Active confirmed Problem Type II diabetes mellitus without complication (933588072) Diabetes (E11.9) Active confirmed Vital Signs Blood pressure diastolic 62 mm Hg 03/06/2025 Height 66 in 03/06/2025 Blood pressure systolic 116 mm Hg 03/06/2025 Weight 141.4 lbs 03/06/2025 BMI 22.82 kg/m2 03/06/2025 Encounters Encounter Location Date Provider Diagnosis [id number] [place] [address] 02/20/2025 Ivan Hoy Diabetes E11.9 and Hypercholesteremia E78.[address] [address] 03/06/2025 Ivan Hoy Diabetes E11.9 ; Hypercholesteremia E78.00 ; Hypothyroid E03.9 and Hypertension I10 [address] [address] 03/01/2025 Ivan Yeungy [address] [address] 03/11/2025 Ivan Yeungy [facility] [address] [place] [address] 03/11/2025 Ivan Yeungy Assessments Encounter Date Diagnosis (ICD Code) Assessment Notes Treatment Notes Treatment Clinical Notes Section Notes 02/20/2025 Hypercholesteremia (ICD-10 - E78.00) 02/20/2025 Diabetes (ICD-10 - E11.9) 03/06/2025 Hypercholesteremia (ICD-10 - E78.00) 03/06/2025 Diabetes (ICD-10 - E11.9) 03/06/2025 Hypothyroid (ICD-10 - E03.9) 03/06/2025 Hypertension (ICD-10 - I10) Plan Of Treatment Pending Test Test Name Order Date HEMOGLOBIN A1C (GLYCO) 03/06/2025 IRON, TOTAL 03/06/2025 LIPID PANEL (CHOL/TRIG/HDL/LDL) 03/06/20 25 STOOL OCCULT BLOOD 03/06/2025 THYROID PANEL (T4/TSH/FREE T3) 5 CMP (COMP MET HAYDEN) w/eGFR CKD-EPI 2024 CBC WITH DIFF 03/06/2025 Insurance Providers Payer Name Payer Address Payer Phone Subscriber Number Group Number Insured Name Patient Relationship to Insured Coverage Start Date Coverage End Date [employer] [address] [place] [id number] [phone] [id number] Naima Johnson Self - patient is the insured Medical (General) History Medical History History ICD Code Diabetes E11.9 Hypercholesteremia E78.00 Thyroid disorder E07.9 Stroke I63.9 Surgical History Surgery Date(Month/Year) Big Toe- Bilateral (Calcium Deposit) Uterus Removed Ovaries and Tubes Removed
--- OUTSIDE RECORDS SUMMARY | 2025-03-12 10:07 | XMS_ITS | Encounter Summary ---
Author Organization [facility] Address [address] [place] [address] Care Team Providers Care Criminalist Technician Name Role Phone Phillip De La Cruz MD Primary Care Provider [phone] Phillip De La Cruz MD Unavailable [phone] Phillip De La Cruz MD Unavailable [phone] Phillip De La Cruz MD Unavailable [phone] Encounter Details Date Type Department Care Team (Late st Contact Info) Description 06/08/2023 Abstract [facility] [place] [facility] [address] [facility] 110 [place] [address] Phillip De La Cruz MD [address] [facility] 110 [place], [place] [address] Social History Tobacco Use Types Packs/Day Years [...] on filedocumented in this encounter Care Teams Criminalist Technician Relationship Specialty Start Date End Date Phillip De La Cruz MD [address] [facility] 110 [place], [place] [address] PCP - General Internal Medicine 12/31/22 Phillip De La Cruz MD [address] [facility] 110 [place] [address] PCP - ACO Reach 12/30/22 09/13/24 Phillip De La Cruz MD [address] [facility] [address] [place] [address] PCP - Devoted 04/08/24 Phillip De La Cruz MD [address] [place] [address] [place] [address] PCP - ACO Reach 09/21/24 11/08/24 documented as of this encounter
--- OUTSIDE RECORDS SUMMARY | 2025-03-12 10:07 | XMS_ITS | Encounter Summary ---
Author Organization [facility] Address [address] [place] [address] Care Team Providers Care Maintenance Shop Manager Name Role Phone Phillip De La Cruz MD Primary Care Provider [phone] Phillip De La Cruz MD Unavailable [phone] Phillip De La Cruz MD Unavailable [phone] Phillip De La Cruz MD Unavailable [phone] Encounter Details Date Type Department Care Team (Late st Contact Info) Description 06/04/2024 Abstract [facility] [place] [facility] [address] [facility] 110 [place] [address] Phillip De La Cruz MD [address] [facility] 110 [place], [place] [id number] Social History Tobacco Use Types Packs/Day Years [...] documented as of this encounter Care Teams Maintenance Shop Manager Relationship Specialty Start Date End Date Phillip De La Cruz MD [address] [facility] 110 [place] [address] PCP - General Internal Medicine 12/31/22 Phillip De La Cruz MD [address] [facility] 110 [place] [address] PCP - ACO Reach 12/30/22 09/13/24 Phillip De La Cruz MD [address] [facility] 110 [place] [address] PCP - Devoted 04/08/24 Phillip De La Cruz MD [address] [facility] 110 [place] [address] PCP - ACO Reach 09/21/24 11/08/24 documented as of this encounter
--- OUTSIDE RECORDS SUMMARY | 2025-03-12 10:07 | XMS_ITS | Encounter Summary ---
Author Organization [facility] Address [address] [place] [address] Care Team Providers Care Staff Auditor Name Role Phone Phillip De La Cruz MD Primary Care Provider [phone] Phillip De La Cruz MD Unavailable [phone] Phillip De La Cruz MD Unavailable [phone] Phillip De La Cruz MD Unavailable [phone] Encounter Details Date Type Department Care Team (Late st Contact Info) Description 09/06/2024 Abstract [facility] [place] [facility] [address] [facility] 110 [place] [address] Phillip De La Cruz MD [address] [facility] 110 [place], [place] [address] Social History Tobacco Use Types Packs/Day Years [...] documented as of this encounter Care Teams Staff Auditor Relationship Specialty Start Date End Date Phillip De La Cruz MD [address] [facility] 110 [place], [place] [phone] PCP - General Internal Medicine 12/31/22 Phillip De La Cruz MD [address] [place] [address] [place] [address] PCP - ACO Reach 12/30/22 09/13/24 Phillip De La Cruz MD [address] [facility] [address] [place] [address] PCP - Devoted 04/08/24 Phillip De La Cruz MD [address] [facility] 110 [place] [address] PCP - ACO Reach 09/21/24 11/08/24 documented as of this encounter
--- OUTSIDE RECORDS SUMMARY | 2025-03-12 10:07 | XMS_ITS | Encounter Summary ---
Author Organization [facility] Address [address] [place] [address] Care Team Providers Care Electric Arc Welder Name Role Phone Phillip De La Cruz MD Primary Care Provider [phone] Phillip De La Cruz MD Unavailable [phone] Phillip De La Cruz MD Unavailable [phone] Phillip De La Cruz MD Unavailable [phone] Encounter Details Date Type Department Care Team (Late st Contact Info) Description 09/11/2024 Abstract [facility] [place] [facility] [address] [facility] 110 [place] [address] Phillip De La Cruz MD [address] [facility] 110 [place], [place] [phone] Social History Tobacco Use Types Packs/Day Years [...] documented as of this encounter Care Teams Electric Arc Welder Relationship Specialty Start Date End Date Phillip De La Cruz MD [address] [facility] 110 [place], [place] [address] PCP - General Internal Medicine 12/31/22 Phillip De La Cruz MD [address] [place] [address] [place] [address] PCP - ACO Reach 12/30/22 09/13/24 Phillip De La Cruz MD [address] [place] [address] [place] [address] PCP - Devoted 04/08/24 Phillip De La Cruz MD [address] [facility] 110 [place] [address] PCP - ACO Reach 09/21/24 11/08/24 documented as of this encounter
--- OUTSIDE RECORDS SUMMARY | 2025-03-12 10:07 | XMS_ITS | Encounter Summary ---
Author Organization [facility] Address [address] [place] [address] Care Team Providers Care Production Material Handler Name Role Phone Phillip De La Cruz MD Primary Care Provider [phone] Phillip De La Cruz MD Unavailable [phone] Phillip De La Cruz MD Unavailable [phone] Phillip De La Cruz MD Unavailable [phone] Encounter Details Date Type Department Care Team (Late st Contact Info) Description 12/27/2023 Abstract [facility] [place] [facility] [address] [facility] 110 [place] [address] Phillip De La Cruz MD [address] [facility] 110 [place], [place] [phone] Social History Tobacco Use Types Packs/Day Years [...] on filedocumented in this encounter Care Teams Production Material Handler Relationship Specialty Start Date End Date Phillip De La Cruz MD [address] [facility] 110 [place] [address] PCP - General Internal Medicine 12/31/22 Phillip De La Cruz MD [address] [facility] 110 [place] [address] PCP - ACO Reach 12/30/22 09/13/24 Phillip De La Cruz MD [address] [facility] [address] [place] [address] PCP - Devoted 04/08/24 Phillip De La Cruz MD [address] [place] [address] [place] [address] PCP - ACO Reach 09/21/24 11/08/24 documented as of this encounter
--- OUTSIDE RECORDS SUMMARY | 2025-03-12 10:07 | XMS_ITS | Encounter Summary ---
Author Organization [facility] Address [address] [place] [address] Care Team Providers Care Ice Cream Shop Associate Name Role Phone Phillip De La Cruz MD Primary Care Provider [phone] Phillip De La Cruz MD Unavailable [phone] Phillip De La Cruz MD Unavailable [phone] Phillip De La Cruz MD Unavailable [phone] Encounter Details Date Type Department Care Team (Late st Contact Info) Description 05/03/2024 Abstract [facility] [place] [facility] [address] [facility] 110 [place] [address] Phillip De La Cruz MD [address] [facility] 110 [place], [place] [address] Social History Tobacco Use Types Packs/Day Years [...] on filedocumented in this encounter Care Teams Ice Cream Shop Associate Relationship Specialty Start Date End Date Phillip De La Cruz MD [address] [facility] 110 [place] [address] PCP - General Internal Medicine 12/31/22 Phillip De La Cruz MD [address] [facility] 110 [place] [address] PCP - ACO Reach 12/30/22 09/13/24 Phillip De La Cruz MD [address] [facility] [address] [place] [address] PCP - Devoted 04/08/24 Phillip De La Cruz MD [address] [place] [address] [place] [address] PCP - ACO Reach 09/21/24 11/08/24 documented as of this encounter
--- OUTSIDE RECORDS SUMMARY | 2025-03-12 10:07 | XMS_ITS | Encounter Summary ---
Author Organization [facility] Address [address] [place] [address] Care Team Providers Care Icebox Man Name Role Phone Phillip De La Cruz MD Primary Care Provider [phone] Phillip De La Cruz MD Unavailable [phone] Phillip De La Cruz MD Unavailable [phone] Phillip De La Cruz MD Unavailable [phone] Encounter Details Date Type Department Care Team (Late st Contact Info) Description 05/03/2024 Abstract [facility] [place] [facility] [address] [facility] 110 [place] [address] Phillip De La Cruz MD [address] [facility] 110 [place], [place] [phone] Social History Tobacco Use Types Packs/Day Years [...] on filedocumented in this encounter Care Teams Icebox Man Relationship Specialty Start Date End Date Phillip De La Cruz MD [address] [facility] 110 [place] [address] PCP - General Internal Medicine 12/31/22 Phillip De La Cruz MD [address] [facility] 110 [place] [address] PCP - ACO Reach 12/30/22 09/13/24 Phillip De La Cruz MD [address] [facility] [address] [place] [address] PCP - Devoted 04/08/24 Phillip De La Cruz MD [address] [place] [address] [place] [address] PCP - ACO Reach 09/21/24 11/08/24 documented as of this encounter
--- OUTSIDE RECORDS SUMMARY | 2025-03-12 10:07 | XMS_ITS | Encounter Summary ---
Author Organization [facility] Address [address] [place] [address] Care Team Providers Care Cosmetic Sales Consultant Name Role Phone Phillip De La Cruz MD Primary Care Provider [phone] Phillip De La Cruz MD Unavailable [phone] Phillip De La Cruz MD Unavailable [phone] Phillip De La Cruz MD Unavailable [phone] Encounter Details Date Type Department Care Team (Late st Contact Info) Description 08/08/2023 Clinisync Result Encounter [facility] External Department Unsolicited Phillip De La Cruz MD [address] [place] [address] Social History Tobacco Use Types Packs/Day Years [...] EST Narrative 08/08/2023 4:05 PM EST The [address] [address] XRay Report Signed Patient: KERLINE JOHNSON MR#: [id number] : 1950 Acct:[id number] Age/Sex: 73 / F ADM Date: 08/05/23 Loc: RAD Attending Dr: PHILLIP DE LA CRUZ Ordering Physician: PHILLIP DE LA CRUZ Date of Service: 08/05/23 Procedure(s): XR thoracic spine 3V Accession Number(s): [id number] cc: PHILLIP DE LA CRUZ [place] [id number] Patient Name: KERLINE JOHNSON MRN: [id number] date: 1950 Sex: F Assigned Patient Location: [facility] Current Patient Location: Accession/Order Number: [id number] Exam Date: 08/05/2023 10:24 Report Date: 08/08/2023 [...] Signed By: 08/08/23 1605 DD/ 1603 TD/TT: Pharmacy Clerk: Procedure Note Radiology, Radiologist, MD - 08/08/[address] [address] XRay Report Signed Patient: KERLINE JOHNSON LMR#: [id number] : 1950cct:[id number] Age/Sex: 73 / FADM Date: 08/05/23 Loc: RAD Attending Dr: PHILLIP DE LA CRUZ Ordering Physician: PHILLIP DE LA CRUZ Date of Service: 08/05/23 Procedure(s): XR thoracic spine 3V Accession Number(s): [id number] cc: PHILLIP DE LA CRUZ [address] [address] Patient Name: KERLINE JOHNSON MRN: [facility]:[id number] date: 1950 Sex: F Assigned Patient Location: [facility] Current Patient Location: Accession/Order Number: [id number] Exam Date: 08/05/2023 10:24 Report Date: 08/08/2023 [...] M.D. Signed By:08/08/23 1605 DD/ 1603 TD/TT: Pharmacy Clerk: Phillip De La Cruz MD [facility] Final Result documented in this encounter Visit Diagnoses Not on filedocumented in this encounter Care Teams Cosmetic Sales Consultant Relationship Specialty Start Date End Date Phillip De La Cruz MD [address] [facility] 110 [place] [address] PCP - General Internal Medicine 12/31/22 Phillip De La Cruz MD [address] [facility] [address] [place] [address] PCP - ACO Reach 12/30/22 09/13/24 Phillip De La Cruz MD [address] [facility] [address] [place] [address] PCP - Devoted 04/08/24 Phillip De La Cruz MD [address] [facility] [address] [place] [address] PCP - ACO Reach 09/21/24 11/08/24 documented as of this encounter
--- OUTSIDE RECORDS SUMMARY | 2025-03-12 10:07 | XMS_ITS | Encounter Summary ---
Author Organization [facility] Address [address] [place] [address] Care Team Providers Care Parking Officer Name Role Phone Phillip De La Cruz MD Primary Care Provider [phone] Phillip De La Cruz MD Unavailable [phone] Phillip De La Cruz MD Unavailable [phone] Phillip De La Cruz MD Unavailable [phone] Encounter Details Date Type Department Care Team (Late st Contact Info) Description 01/30/2024 Abstract [facility] [place] [facility] [address] [facility] 110 [place] [address] Phillip De La Cruz MD [address] [facility] 110 [place], [place] [address] Social History Tobacco Use Types Packs/Day Years [...] filedocumented in this encounter Care Teams Parking Officer Relationship Specialty Start Date End Date Phillip De La Cruz MD [address] [facility] 110 [place] [address] PCP - General Internal Medicine 12/31/22 Phillip De La Cruz MD [address] [facility] 110 [place] [address] PCP - ACO Reach 12/30/22 09/13/24 Phillip De La Cruz MD [address] [facility] [address] [place] [address] PCP - Devoted 04/08/24 Phililp De La Cruz MD [address] [place] [address] [place] [address] PCP - ACO Reach 09/21/24 11/08/24 documented as of this encounter
--- OUTSIDE RECORDS SUMMARY | 2025-03-12 10:07 | XMS_ITS | Clinical Summary ---
Author Organization [facility] Address [address] [place] [address] Care Team Providers Care Roll Forming Machine Set Up Mechanic Name Role Phone Phillip De La Cruz MD Primary Care Provider [phone] Phillip De La Cruz MD Unavailable [phone] Allergies Active Allergy Reactions Criticality Noted Date [...] complication, without long-term current use of insulin ([facility]) 1 each by In Vitro route Daily 100 strip 3 Active Lancets miscIndications:Type 2 diabetes mellitus without complication, without long-term current use of insulin ([facility]) 1 Device Daily 100 each [...] Information Site ID: QPT Name: [facility] Address: Sasha Das , [address] [place] [address] Director: Humberto Rosenberg MD Phillip De La [...] (Estrella Obrien al, N Engl J Med 2014;370(14):1592-1242) COLOGUARD RE-SCREENING RECOMMENDATION: Periodic routine colorectal cancer screening is an important part of preventive healthcare for asymptomatic persons at average risk for colorectal cancer. Following a negative Cologuard result, the [employer] and U.S. Multi-Society Task Force screening guidelines recommend a Cologuard re-screening interval of 3 years. References: [employer] (ACS). Colorectal cancer prevention and early detection. [place], [place]: [employer]; [updated 2015Nov 29]. https://www.cancer.org/cancer/hdrtq-foddce-mfcbaj/ftqrsknjl-opsccfalm-yndsiyv/ac s-rec ommendations.html. Accessed April 07, 2018; Juan Pablo DK, Kiya GAVIRIA, Cinthya RamseyK, Colorectal Cancer Screening: Recommendations for Physicians and Patients from the U.S. Multi-Society Task Force on Colorectal Cancer Screening, Am J Gastroenterology 2017; 112:8945-1392. Test Type: Composite algorithmic analysis of stool [...] can be accessed at the following location: [email or web address]. Additional description of the Cologuard test process, warnings and precautions can be found at [email or web address].com. Rx Only. 12/05/2018 [facility] [facility] Final Result [facility] * Bilateral screening mammogram (07/19/2018 12:00 PM EST) Anatomical Region Laterality Modality Breast Bilateral Mammography Narrative 07/19/2018 12:00 PM EST PERFORMED AT [facility] LOCATION:[id number] Procedure Note CONVERSION, GENERIC / Phillip De La Cruz MD - 02/11/2023 PERFORMED AT [facility] LOCATION:[id number] Phillip De La Cruz MD IMG BI PROCEDURES Final Result from Last 3 Months or Most Recently Relevant to Health Maintenance Insurance [employer] Care Teams Roll Forming Machine Set Up Mechanic Relationship Specialty Start Date End Date Phillip De La Cruz MD [address] [place] [address] PCP - General Internal Medicine 12/31/22 Phillip De La Cruz MD [address] [place] [address] PCP - [employer] 04/08/24
== END 2025-03-12 10:02 | disposition home or self-care (01) ==
LOC: LAB 10:01
PROVIDERS: PCP Family Medicine; Visit Provider Family Medicine
DX: D64.9 Anemia, unspecified (principal); E11.9 Type 2 diabetes mellitus without complications; E78.00 Pure hypercholesterolemia, unspecified; E03.9 Hypothyroidism, unspecified; I10 Essential (primary) hypertension; Z12.12 Encounter for screening for malignant neoplasm of rectum; R53.83 Other fatigue
CPT/HCPCS: G0328

== ENCOUNTER 2025-06-13 16:09 | Outpatient (OUT) | payer OTHER, SELFPAY ==
--- OUTSIDE RECORDS SUMMARY | 2025-06-13 16:14 | XMS_ITS | CCD ---
Author Organization [facility] Care Team Providers Care Operating Table Assembler Name Role Phone JONO, DR GILES Consulting Unavailable JONO, DR GILES Attending Unavailable JONO, DR GILES Admitting Unavailable JONO, DR GILES Primary Care Unavailable WEST, DR CASEY Singh Consulting Unavailable JONO, DR GILES Primary Care Unavailable BENEDICT, DR BLAKELY Admitting Unavailable BENEDICT, DR BLAKELY Attending Unavailable JONO, DR GILES Primary Care Unavailable ERLINDA, DR HADLEY Admitting Unavailable ERLINDA, DR HADLEY Consulting Unavailable ERLINDA, DR HADLEY Attending Unavailable JONO, DR GILES Primary Care Unavailable JONO, DR GILES Consulting Unavailable JONO, DR GILES Attending Unavailable JONO, DR GILES Admitting Unavailable ZIEBER, DR BLAKELY R Consulting Unavailable REQUEST, DR VANESSA LISTED Admitting Unavaila ble REQUEST, DR VANESSA LISTED Consulting Unavaila ble REQUEST, NONE LISTED Attending Unavaila ble JONO, DR GILES Primary Care Unavailable Aarti Mcgowan Unavailable Phillip De La Cruz MD Primary Care Provider Phillip De La Cruz MD Unavailable Phillip De La Cruz MD Unavailable LUCY POLLOCK Attending Unavailable PHILLIP DE LA CRUZ Attending Unavailable PHILLIP DE LA CRUZ Attending Unavailable PHILLIP DE LA CRUZ Attending Unavailable PHILLIP DE LA CRUZ Attending Unavailable PHILLIP DE LA CRUZ Attending Unavailable LUCY POLLOCK Attending Unavailable LUCY POLLOCK Attending Unavailable Konrad Golden Primary Care Physician MELITA GUILLERMO Primary Care Physician [phone] JACOBO GUILLERMO Attending UnavailKonrad Voss Attending Unavailable JACOBO GUILLERMO Attending UnavailJACOBO Chew Attending UnavailJACOBO Chew Admitting UnavailMD Konrad Voss Attending Unavailable MD Konrad Golden Attending Unavailable Jessie, SAUSAGE WRAPPER Padma Cortes Attending Unavailable MD Konrad Golden Attending Unavailable MD Konrad Golden Admitting Unavailable MD Konrad Golden Attending Unavailable Padma Roman Attending Unavailable Padma Roman Admitting Unavailable MD Konrad oGlden Attending Unavailable Padma Roman Attending Unavailable MD Konrad Golden Attending Unavailable MD Konrad Golden Attending Unavailable MD Konrad Golden Referring Unavailable MD Konrad Golden Admitting Unavailable MD Konrad Golden Attending Unavailable Phillip De La Cruz MD Unavailable [phone] Phillip De La Cruz MD Unavailable [phone] Allergies Allergy ClassificationReported Allergen(s)Allergy TypeDate of OnsetReaction(s) Facility (1 source)levoFLOXacinDrug Allerg[facility]ause[facility] Other (20 sources)levoFLOXacin; Translations: [levofloxacin]Drug Kebkrry32-72-9540 Nausea Only, Nausea (finding)[facility] Medications Current Medications MedicationDrug Class(es)DatesSig (Normalized)Sig (Original)0.25 MG, 0.5 MG Dose 3 ML semaglutide 0.68 MG/ML Pen Injector [Ozempic] (1 source)Start: 19-54-6844jrijth 0.5 mg by subcutaneous injection every week Ozempic 2 mg/3 mL (0.25 mg or 0.5 mg dose) subcutaneous solution 0.5 mg, SubCutaneous, qWeek, rotate injection sites, # 9 mL, Refills(s) 1, Pharmacy: [facility]/pharmacy #[id number], 164, cm, 01/01/25 13:29:00 EDT, Height/Length Dosing, 70.8, kg, 01/01/25 13:29:00 EDT, Weight Dosing Start Date: 01/01/25 Status: Ordered Quantity: 9.0 Unit: mL Repeat number: 23 ML semaglutide 1.34 MG/ML Pen Injector [Ozempic] (1 source)Start: 21-52-3255fxnfjz 1 mg by subcutaneous injection every week Ozempic (1 mg dose) 4 mg/3 mL subcutaneous solution 1 mg, SubCutaneous, qWeek, please start after February 01., # 9 mL, Refills(s) 1, Pharmacy: [facility]/pharmacy #[id number], 164, cm, 01/17/25 10:06:00 EDT, Height/Length Dosing, 68.4, kg, 01/17/25 10:06:00 EDT, Weight Dosing Start Date: 01/17/25 Status: Ordered Quantity: 9.0 Unit: mL Repeat number: 2amLODIPine 5 mg / valsartan 320 mg oral tablet (19 sources)Dihydropyridine Calcium Channel Vik, Angiotensin 2 Receptor BlockerStart: 60-38-5428xxmpihwcpr-valsartan 5 mg-320 mg oral tablet 1 tab(s), Oral, Daily, 90 tab(s), Refill(s) 0, TAKE 1 TABLET BY MOUTH EVERY DAY IN THE MORNING, [facility]/pharmacy #[id number], 164, cm, 11/27/24 12:58:00 EDT, Height/Length Dosing, 77, kg, 11/27/24 12:58:00 EDT, Weight Dosing Start Date: 11/27/24 Status: Ordered Quantity: 90.0 Unit: tab(s) Repeat number: 1Start: 68-43-1298anmn 1 tablet by mouth once daily in the morningamLODIPine-valsartan (Exforge) 5-320 MG tablet Indications: Benign essential hypertension (CMS/HCC)TAKE 1 TABLET BY MOUTH EVERY DAY IN THE MORNING 90 tablet 3 05/07/2024 Activetake 1 tablet by mouth every twenty-four hoursExforge 5-320 MG 1 tablet Orally Once a day for 90 Activeascorbic acid 500 mg chewable tablet (18 sources)Vitamin Cascorbic acid (Vitamin C) 500 MG tablet Oral ActiveVitamin C 500 MG Oral ActiveAspir-81 81 MG (1 source)take 1 tablet by mouth once dailyAspir-81 81 MG 1 tablet Orally Once a day *please review for potential update for e-prescription and drug interaction check* Activeaspirin 81 mg delayed release oral tablet (17 sources)Platelet Aggregation Inhibitor, Nonsteroidal Anti-inflammatory Drug aspirin (ASPIR) 81 MG EC tablet 1 (one) time each day at the same time. Active atorvastatin 80 mg oral tablet (19 sources)HMG-CoA Reductase InhibitorStart: 35-79-1854opxw 1 tablet by mouth once dailyatorvastatin 80 mg Tab 80 mg = 1 tab(s), Oral, Daily, # 90 tab(s), Refills(s) 0, Pharmacy: [facility]/pharmacy #[id number], 164, issa, 11/27/24 12:58:00 EDT, Height/Length Dosing, 77, kg, 11/27/24 12:58:00 EDT, Weight Dosing Start Date: 11/27/24 Status: Ordered Quantity: 90.0 Unit: tab(s) Repeat number: 1Start: 29-38-0166vthv 1 tablet by mouth once daily in the morningatorvastatin (Lipitor) 40 MG tablet Indications: Pure hypercholesterolemia (CMS/HCC) TAKE 1 TABLET BY MOUTH EVERY DAY IN THE MORNING 90 tablet 3 08/06/2024 ActiveStart: 11-23-2023 take 1 tablet by mouth once dailyatorvastatin (Lipitor) 40 MG tablet Indications: Pure hypercholesterolemia (CMS/HCC) TAKE 1 TABLET BY MOUTH EVERY DAY 100 tablet 3 11/23/2023 Activetake 1 tablet by mouth every twenty-four hours Atorvastatin Calcium 40 MG 1 tablet Orally Once a day ActiveB Complex - (1 source)B Complex - Orally ActiveB Complex Vitamins (B COMPLEX 1 PO) (17 sources)B Complex Vitamins (B COMPLEX 1 PO) Orally ActiveBlood Glucose Monitoring Suppl (Blood Glucose Monitor System) w/Device kit (16 sources)Start: 29-95-7391Vzeni Glucose Monitoring Suppl (Blood Glucose Monitor System) w/Device kit Indications: Type 2 diabetes mellitus without complication, with long-term current use of insulin ([facility]) 1 each Daily 1 kit 05/18/2024 Activecalcium carbonate 1250 mg oral tablet (1 source)take 1 tablet by mouth every twelve hoursCalcium 500 MG 1 tablet with meals Orally Twice a day ActiveCo Q-10 200 MG (1 source)take 1 capsule by mouth twice dailyCo Q-10 200 MG 1 capsule with a meal Orally TWICE A DAY ActiveCVS Advanced Glucose Test - (1 source)[facility] Advanced Glucose Test - USE TO TEST BLOOD SUGAR 3 TIMES A DAY dx:E11.65 ActiveDaily Multiple Vitamins (1 source)Daily Multiple Vitamins Oral *please review for potential update for e-prescription and drug interaction check* ActiveDAILY MULTIPLE VITAMINS PO (17 sources)DAILY MULTIPLE VITAMINS PO Oral Activefamotidine 20 mg oral tablet (2 sources)Histamine-2 Receptor AntagonistStart: 19-66-6653djlc 1 tablet by mouth twice dailyPepcid 20 mg Tab 20 mg = 1 tab(s), Oral, BID, # 180 tab(s), Refills(s) 0, Pharmacy: [facility]/pharmacy #[id number], 164, cm, 11/27/24 12:58:00 EDT, Height/Length Dosing, 77, kg, 11/27/24 12:58:00 EDT, Weight Dosing Start Date: 11/27/24 Status: Ordered Quantity: 180.0 Unit: tab(s) Repeat number: 1 Indications: Essential (primary) hypertension; Hypothyroidism, unspecified; Other specified health status; Gastro-esophageal reflux disease without esophagitis; Cerebral infarction, unspecified; Type 2 diabetes mellitus without complications; Hyperlipidemia, unspecified; Overweight; Chronic kidney disease, stage 3a; Body mass index [BMI] 28.0-28.9, adult;3 ml insulin aspart, human 100 unt/ml pen injector (2 sources)Insulin AnalogStart: 71-11-3714DcnnCVX FlexPen 100 units/mL injectable solution See Instructions, TID AC per SSI 150-199= 2unints 200-249=4u 250-299=6u 300-349=8u 350-400=10u over 400 give 15u and call doctor, # 45 mL, Refills(s) 1, Pharmacy: [facility]/pharmacy #[id number], 164, cm, 11/27/24 12:58:00 EDT, Height/Length Dosing, 77, kg, 11/27/24 12:58:00 EDT, Weight Dosing Start Date: 11/29/24 Status: Ordered Quantity: 45.0 Unit: mL Repeat number: 23 ml insulin isophane, human 70 unt/ml / insulin, regular, human 30 unt/ml pen injector (17 sources)InsulinStart: 88-85-2826bahwhpl NPH-insulin regular (NovoLIN 70/30 FlexPen) (70-30) 100 UNIT/ML injection Indications: Type2 diabetes mellitus with diabetic polyneuropathy, with long-term current use of insulin ([facility]) INJECT 27 UNITS SUBCUTANEOUSLY TWICE A DAY 15 mL 12 02/06/2024 ActiveStart: 10-11-2019 NovoLIN 70/30 FlexPen (70-30) 100 UNIT/ML 27 units Subcutaneous bid Oct, Activelevothyroxine sodium 0.088 mg oral tablet (20 sources)l-ThyroxineStart: 95-57-2883tpzv 1 tablet by mouth once daily levothyroxine 88 mcg (0.088 mg) Tab TAKE 1 TABLET BY MOUTH EVERY DAY FOR 100 DAYS Start Date: 09/20/24 Status: Ordered Repeat number: 1Start: 05-31-2023 End: 46-81-7705yswa 1 tablet by mouth once dailylevothyroxine (Synthroid, Levoxyl) 88 MCG tablet Indications: Hypothyroidism, unspecified (CMS/HCC)TAKE 1 TABLET BY MOUTH EVERY DAY FOR 100 DAYS 90 tablet 3 05/19/2024 Activetake 1 tablet by mouth every twenty-four hoursLevothyroxine Sodium 88 MCG 1 tablet Orally Once a day Activelutein 6 mg oral capsule (18 sources)Lutein 6 MG capsule 1 (one) time each day at the same time. Active meloxicam 15 mg oral tablet (1 source)Nonsteroidal Anti-inflammatory DrugStart: 55-83-9489mejj 1 tablet by mouth once dailyMeloxicam 15 MG take 1 tablet Oral once daily May, Activeniacin 500 mg oral tablet (1 source)Nicotinic AcidStart: 43-53-0544mnno 1 tablet by mouth once daily at bedtimeNiacin ER (Antihyperlipidemic) 500 MG take 1 tablet by oral route every day at bedtime after a low-fat snack Oral *please review for potential update for e-prescription and drug interaction check* 2013 Activeondansetron 4 mg disintegrating oral tablet (1 source)Serotonin-3 Receptor AntagonistStart: 60-07-3912gfnc 1 tablet by mouth every six hours as needed for nauseaondansetron 4 mg Dis Tab 4 mg = 1 tab(s), Oral, q6hr, PRN Nausea/Vomiting, # 12 tab(s), Refills(s) 0, Pharmacy: [facility]/pharmacy #[id number], 164, cm, 01/08/25 11:48:00 EDT, Height/Length Dosing, 70.1, kg, 01/08/25 11:48:00 EDT, Weight Dosing Start Date: 01/10/25 Status: Ordered Quantity: 12.0 Unit: tab(s) Repeat number: 1potassium 99 mg extended release oral tablet (1 source)take 1 tablet by mouth once dailyPotassium 99 MG 1 tablet Orally Once a day Activetamsulosin hydrochloride 0.4 mg oral capsule (1 source)alpha-Adrenergic BlockerStart: 36-82-3246knbk 1 capsule by mouth once dailyFlomax 0.4 mg Cap 0.4 mg = 1 cap(s), Oral, Daily, # 30 cap(s), Refills(s) 0, Pharmacy: [facility]/pharmacy#[id number], 164, cm, 01/08/25 11:48:00 EDT, Height/Length Dosing, 70.1, kg, 01/08/25 11:48:00 EDT, Weight Dosing Start Date: 01/08/25 Status: Ordered Quantity: 30.0 Unit: cap(s) Repeat number: 1 Indications: Hematuria, unspecified; Body mass index [BMI] 26.0-26.9, adult;Vitamin D3 2000 UNIT (1 source)take 1 capsule by mouth once dailyVitamin D3 2000 UNIT 1 capsule Orally Once a day *please review for potential update for e-prescription and drug interaction check* Activevitamin e d-alpha 400 unt oral capsule (17 sources)alpha tocopherol (Vitamin E) 400 units capsule 1 capsule 1 (one) time each day at the same time. ActiveVitamin E 400 UNIT (1 source)take 1 capsule by mouth once dailyVitamin E 400 UNIT 1 capsule Orally Once a day Active Completed/Discontinued Medications MedicationDrug Class(es)DatesSig (Normalized)Sig (Original)1 ml denosumab 60 mg/ml prefilled syringe (7 sources)RANK Ligand InhibitorStart: 09-10-2024 End: 60-16-4551abiegqnsg (Prolia) injection 60 mgStart: 09-10-2024 End: 71-86-6521mkocuc 60 mg by subcutaneous injection once60 mg, Subcutaneous, Once, On Tue09/10/24 at 1515, For 1 doseStart: 09-10-2024 End: 68-05-5268yrtgkbcnd (Prolia) injection 60 mgStart: 09-10-2024 End: 75-75-3081rttxxh 60 mg by subcutaneous injection once60 mg, Subcutaneous, Once, On Tue09/10/24 at 1515, For 1 doseStart: 11-12-6216Mrtrqe 1 mg Jun, 60 mgStart: 35-75-4287Deztrh 60 MG/ML as directed Subcutaneous *please review for potential update for e-prescription anddrug interaction check* December, ActiveStart: 30-48-9751Xwqjql 1 mg December, 60 mgTriamcinolone (1 source)CorticosteroidStart: 04-49-5352COYOWOM - 10 mg Feb, 40 mg Problems Active Problems Problem ClassificationProblemDateDocumented DateEpisodic/ChronicAcute cerebrovascular disease (3 sources)Cerebrovascular xppitbsi94-83-8676BbbltpvRstxoj (20 sources)Acute exacerbation of asthma; Translations: [Unspecified asthma with (acute) exacerbation]Onset: 590436-65-2514FvbwilwXefpobu kidney disease (7 sources)Chronic kidney disease stage 3A ; Translations: [Chronic kidney disease, stage 3a (HCC) ([facility]/HCC)]07-05-8964AunfcueTblphpft mellitus with complications (20 sources)Type 2 diabetes mellitus; Translations: [Type 2 diabetes mellitus with other diabetic neurological complication]Onset: hronic Diabetes mellitus without complication (20 sources)Type 2 diabetes mellitus without complications; Translations: [Type 2 diabetes mellitus]Onset: 261905-49-4707KrznsjjBkbybonfg of lipid metabolism (20 sources)Hyperlipidemia; Translations: [Hyperlipidemia, unspecified]Onset: 01-28-2023 Resolved: 165223-22-5869UqounlmIkqivnpych disorders (20 sources)Gastroesophageal reflux disease; Translations: [Gastro-esophageal reflux disease without esophagitis]Onset: 513274-64-1866YoehkwtZhwmbmzun hypertension (20 sources)Essential (primary) hypertension; Translations: [Benign essential hypertension]Onset: 814610-82-5779ChipwaxBisexaisqbizq symptoms and ill- defined conditions (2 sources)Blood in wpfab43-59-4464NkjbfhizAwjoyjugoc disorders (19 sources)Other primary ovarian failure; Translations: [Decreased estrogen level]Onset: 507164-73-4597YnhwlmmMnulbic (6 sources)Onychomycosis; Translations: [Tinea unguium]07-66-6970Nxaxcehz Nonspecific chest pain (3 sources)Chest pmtj38-11-2347IszgqqayVluzjpyszgn deficiencies (18 sources)Vitamin D deficiency; Translations: [Vitamin D deficiency, unspecified]Onset: 959215-94-1890YnqpcfsZhdiwxclllzwhh (20 sources)Osteoarthritis; Translations: [Unspecified osteoarthritis, unspecified site]Onset: 604848-43-6185CjsikfeWyspgjxhdvxn (20 sources)Age-related osteoporosis without current pathological fracture; Translations: [Osteoporosis]Onset: 800195-11-9087KrwreadAtsoh connective tissue disease (6 sources)Pain of toes of bilateral feet; Translations: [Pain in right toe(s)] 83-41-8960PlztofkzZnjaq gastrointestinal disorders (3 sources)Mass of uterine jxpwky65-29-9557TniiuurkYiwgb lower respiratory disease (1 source)Lung mass; Translations: [Solitary pulmonary nodule]EpisodicOther nervous system disorders (17 sources)Chronic pain; Translations: [Other chronic pain]Onset: 07-07-2023 54-90-7358FjhjygxVqwfx nutritional; endocrine; and metabolic disorders (2 sources)Body mass index 25-29 - auqdvqieui51-48-8176GhywbzgsNrdyu nutritional; endocrine; and metabolic disorders (2 sources)Overweight in adulthood with body mass index of 25 or more but less than 3311-70-5871SydjbmqrPbkpo skin disorders (6 sources)Dystrophia unguium; Translations: [Nail dystrophy]00-90-9521Zcwsdhpb Spondylosis; intervertebral disc disorders; other back problems (4 sources)Other intervertebral disc degeneration, lumbar region; Translations: [OTH IV DISC DEGEN LUMBAR REGION]Onset: 89-05-1886HhencehSmcqjqzlu-related disorders (1 source)Nicotine dependence, cigarettes, uncomplicated; Translations: [NICOTINE DEPEND CIGARETTES UNCOMP]Onset: 27-72-6985XgqlmmmKkqjsgm disorders (20 sources)Hypothyroidism, unspecified; Translations: [Hypothyroidism]Onset: 914667-11-9716PoeqjjuBogchiozdtsj (1 source)Patient encounter status; Translations: [Encounter for health counseling related to travel]Unclassified (1 source)First encounter by vwfqlji33-96-0265Xkkatgbwsxwb (2 sources)Cij-nroxwk04-18tcojdf30-87-2541Wcctgadpbbyv (1 source)Body mass index 20-24 - -78-1497Grpxn infection (1 source)COVID-19; Translations: [COVID-19]Onset: 06-19-2020 Past or Other Problems Problem ClassificationProblemDateDocumented DateEpisodic/ChronicMood disorders (14 sources)Mood disordersOnset: Nausea and vomiting (4 sources)Nausea with vomiting, unspecified; Translations: [Vomiting, unspecified]Onset: 49-56-6593QyciaxacAxkds aftercare (1 source)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; Translations: [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 USE OF 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]Onset: 73-92-9530RbzhawojFgche aftercare (1 source)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; Translations: [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 USE OF INSULIN]Onset: 72-53-6574NrgirvtbAkbmd aftercare (1 source)Other mcc (current) drug therapy; Translations: [OTH 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 DRUG THERAPY]Onset: 48-06-9643ZacyhzhyHndhk female genital disorders (17 sources)Mass of ovary; Translations: [Other noninflammatory disorders of ovary, fallopian tube and broad ligament]Onset: 579272-47-8495Paohxzah Other gastrointestinal disorders (17 sources)Pelvic mass; Translations: [Intra-abdominal and pelvic swelling, mass and lump, unspecified site]Onset: 384148-30-3459PctjziqxMcepn lower respiratory disease (4 sources)Solitary pulmonary nodule; Translations: [SOLITARY PULMONARY NODULE] Onset: 96-67-3588DqthfnztLoiuk lower respiratory disease (20 sources)Nodule of lung; Translations: [Solitary pulmonary nodule]Onset: 079056-99-1779JshgzuyyDkgth screening for suspected conditions (not mental disorders or infectious disease) (17 sources)Abnormal finding on evaluation procedure; Translations: [Other abnormal tumor markers]Onset: 670052-11-0604BfuilkykJrweo skin disorders (18 sources)Actinic keratosis; Translations: [Actinic keratosis]Onset: 990935-05-0919NtchgajsBqazxahrizza (1 source)Encounter for health counseling related to travelOnset: 01-21-2022 Resolved: 01-21-2022 Results Test NameValueInterpretationReference RangeFacilityAmbulatory Visit Summaryon 47-17-5793Dsdguwjnsx Visit SummaryAmbulatory Visit Summary KERLINE MEJIA :1950 Visit Date:02/07/2025 Ambulatory Visit Instructions Your Diagnosis Dizziness Muscle cramps BMI 24.0-24.9, adult Nonsmoker Your Care Team Attending Physician - MELITA GUILLERMO CNP Primary Care Physician - Konrad Golden MD This Is Your Medications List [facility] Prescription ([employer] ultra2 test strips) amlodipine-valsartan (amlodipine-valsartan 5 mg-320 mg oral tablet) atorvastatin (atorvastatin 80 mg Tab) famotidine (Pepcid 20 mg Tab) insulin aspart (NovoLOG FlexPen 100 units/mL injectable solution) levothyroxine (levothyroxine 88 mcg (0.088 mg) Tab) meclizine (Antivert 12.5 mg Tab) ondansetron (ondansetron 4 mg Dis Tab) semaglutide (Ozempic (1 mg dose) 4 mg/3 mL subcutaneous solution) Procedures Performed Foot (2018), H/O: hysterectomy. Discharge Vitals Temperature (Oral) 36.8 ???C Heart Rate (Peripheral) 94 Respiratory Rate 18 Blood Pressure 132/84 Height 164 cm Height 65 in Weight 67.2 kg Weight 148.15 lb BMI 24.99 What to do next Scheduled Follow-Up Appointments Tuesday 1:00 PM EDT Where: [facility] [address] [address]- Medications What How Much When Why Instructions Unchanged amlodipine-valsartan (amlodipine-valsartan 5 mg-320 mg oral tablet) 1 Tablets By Mouth Every day TAKE 1 TABLET BY MOUTH EVERY DAY IN THE MORNING Unchanged atorvastatin (atorvastatin 80 mg Tab) 1 Tablets By Mouth Every day Unchanged famotidine (Pepcid 20 mg Tab) 1 Tablets By Mouth 2 times a day CVA (cerebrovascular accident) Chronic kidney disease stage 3A. Type 2 diabetes mellitus Hypertension Gastroesophageal reflux disease Hyperlipidemia Overweight (BMI 25.0-29.9) BMI 28.0-28.9,adult Nonsmoker Hypothyroid Unchanged insulin aspart (NovoLOG FlexPen 100 units/ mL injectable solution) See instructions TID AC per SSI 150-199= 2unints 200-249=4u 250-299=6u 300-349=8u 350-400=10u over 400 give 15u and call doctor Unchanged levothyroxine (levothyroxine 88 mcg (0.088 mg) Tab) TAKE 1 TABLET BY MOUTH EVERY DAY FOR 100 DAYS Unchanged meclizine (Antivert 12.5 mg Tab) 1 Tablets By Mouth 3 times a day as needed for for dizziness Unchanged Misc Prescription ([employer]2 test strips) See instructions to check BS qid e11.9 Unchanged ondansetron (ondansetron 4 mg Dis Tab) 1 Tablets By Mouth Every 6 hours as needed for Nausea/Vomiting Unchanged semaglutide (Ozempic (1 mg dose) 4 mg/ 3 mL subcutaneous solution) 1 Milligram Subcutaneous Every week please start after February 01. Allergies levoFLOXacin (Nausea) Problems Ongoing - Any problem that you are currently receiving treatment for. Adnexal mass Asthma BMI 24.0-24.9, adult Chest pain Chronic kidney disease stage 3A. CVA (cerebrovascular accident) Diabetes mellitus Gastroesophageal reflux disease Hematuria Hyperlipidemia Hypertension Nodule of lung Nonsmoker Osteoarthritis Osteoporosis Type 2 diabetes mellitus Historical - Any problem that you are no longer receiving treatment for. Hyperlipidemia Patient Survey You may receive a survey via text or e-mail asking about your office visit. Please share your experience with us by completing your survey. We appreciate your feedback and thank you for choosing us for your care. Patient Portal You may access all of your results and other medical record information on our secure patient portal. If you are not signed up for this yet, please contact Greetz at [phone] to get signed up today. Language Information Language assistance services are available as needed. [facility] Medicine Office/Clinic Noteon [phone] Medicine Office/Clinic NoteFamassachusetts general hospital [facility] Office/Clinic Note Chief Complaint Acute Visit *Dizziness The patient presents with dizziness and muscle cramps. HPI Staff Pt presents today for acute visit. Has been feeling dizzy & experiencing jaylen horses. HELADIO 01/17/25 w/John Roman CNP, she recommended increasing hydration & was given Antivert. ENT referral recommended if no improvement. States she took the Antivert for 3-4days. No improvement. Prior her dizziness was when she closed her eyes. She would lose balance. Now it is more the room is spinning. States she has increased her water intake. Hgb A1C %: 5.9 % (11/27/24 13:46:00) I have reviewed and verified the staff HPI to be accurate for this encounter. History of Present Illness 74-year-old female presenting with dizziness and muscle cramps. The dizziness began last week and is described as a spinning sensation, which occurs without any specific trigger and was not alleviated by meclizine prescribed by a nurse practitioner. The patient reports that the dizziness was severeenough last week to prevent her from working, but it has improved this week. The muscle cramps occur primarily in the afternoon to evening and affect the ankles, feet, calves, legs, and stomach. These cramps are frequent, occurring almost daily, and are particularly bothersome when lying down at night. The patient has a history of diabetes mellitus, which has been poorly controlled despite medicationadjustments, including a switch from 70/30 insulin to Ozempic. The patient has been diabetic for approximately 15 years and has experienced elevated blood sugar levels despite dietary modifications and medication changes. The patient's last recorded HbA1c was 5.9% while on 70/30 insulin, but she reports that her blood sugar levels have been high since switching to Ozempic- she is in agreement to f/u with this provider for a diabetes f/u at the end of February. Review of Systems PHQ Score Initial Depression Screen Score: 0 SCORE - Neurological: Reports dizziness with spinning sensation, denies headaches or balance issues whiledriving. - Musculoskeletal: Reports muscle cramps in ankles, feet, calves, legs, and stomach, occurring primarily in the afternoon to evening. - Endocrine: Reports high blood sugar levels, denies recent hypoglycemic episodes. Physical Exam Vitals & Measurements T: 36.8 ???C(Oral) HR: 94(Peripheral) RR: 18 BP: 132/84 SpO2: 97% HT: 65 in HT: 164 cm WT: 148.15 lb WT: 67.2 kg BMI: 24.99 General: alert, no acute distress Skin: warm, dry Head: no trauma, normocephalic Ears: No abnormalities noted upon examinatio Neck: Trachea midline, no adenopathy, no tenderness Eye: normal conjunctiva, sclera clear Cardiovascular: regular rate and rhythm, normal peripheral perfusion Respiratory: Lungs CTA, respirations non labored Back: No tenderness, Normal ROM, Normal alignment. Extremities: no deformity, no trauma Neurological: oriented x 4, LOC appropriate for age, CN II-XII intact, motor strength equal & normal bilaterally, sensation equal & normal bilaterally, speech normal;Negative Romberg test, able to perform heel-to-toe walk without difficulty. Assessment/Plan 1. Dizziness (R42: Dizziness and giddiness) - Plan to perform lab work and EKG to rule out cardiac causes. - POC EKG- Normal SR - ENT referral considered if initial tests are inconclusive. Ordered: ECG 12 Lead Adult Lactic Acid Potassium Level 2. Muscle cramps (R25.2: Cramp and spasm) - Plan to check potassium levels and supplement if necessary. - Consideration of lactic acid levels as a potential cause. Ordered: Lactic Acid Potassium Level 3. BMI 24.0-24.9, adult (Z68.24: Body mass index [BMI] 24.0-24.9, adult) BMI 24.99 Encourage diet as tolerated Encourage daily exercise Monitor weight at each visit 4. Nonsmoker (Z78.9: Other specified health status) Encouraged to continue as a non-smoker Ordered: Body Mass Index (BMI) documented 3008F Current tobacco non-user 1036F Functional status assessed 1170F HBA1C <7.0 Most Recent Level 3044F Medication list documented in medical record 1159F Most recent diastolic blood pressure 80-89 mm Hg 3079F Review of all meds by a prescribing practitioner or clinical pharmacist documented in EHR 1160F Systolic BP 130-139 mm Hg (Most Recent) 3075F Follow-up With When Contact Information MELITA GUILLERMO CNP, FAM In 26 days 03/05/2025 EDT [address] [place] [address] Business (1) Additional Instructions: Diabetes & Dizziness Patient Education Dizziness, Iijj-nx-Ptvz Problem List/Past Medical History Ongoing Adnexal mass Asthma BMI 24.0-24.9, adult Chest pain Chronic kidney disease stage 3A. CVA (cerebrovascular accident) Diabetes mellitus Gastroesophageal reflux disease Hematuria Hyperlipidemia Hypertension Nodule of lung Nonsmoker Osteoarthritis Osteoporosis Type 2 diabetes mellitus Historical (more content not included)...[facility]: Result Comment: Electronically Signed By: MELITA GUILLERMO CNP\Date and Time Signed: 02/07/25 11:41 EDTAmbulatory Visit Summaryon [id number] Visit SummaryAmbulatory Visit Summary KERLINE MEJIA :1950 Visit Date:01/17/2025 Ambulatory Visit Instructions Your Diagnosis Dizziness and giddiness BMI 25.0-25.9,adult Hyperglycemia, unspecified Unspecified nonsuppurative otitis media, left ear Your Care Team Attending Physician - Konrad Golden MD Primary Care Physician - Konrad Golden MD This Is Your Medications List meclizine (Antivert 12.5 mg Tab) semaglutide (Ozempic (1 mg dose) 4 mg/3 mL subcutaneous solution) Contact prescribing physician if questions or concerns Misc Prescription (Utopiauch ultra2 test strips) amlodipine-valsartan (amlodipine-valsartan 5 mg-320 mg oral tablet) atorvastatin (atorvastatin 80 mg Tab) famotidine (Pepcid 20 mg Tab) insulin aspart (NovoLOG FlexPen 100 units/mL injectable solution) levothyroxine (levothyroxine 88 mcg (0.088 mg) Tab) ondansetron (ondansetron 4 mg Dis Tab) [Image Removed: STOP]Stop taking these medications tamsulosin (Flomax 0.4 mg Cap) Procedures Performed Foot (2018), H/O: hysterectomy. Discharge Vitals Temperature (Temporal Artery) 36.4 ???C Heart Rate (Peripheral) 96 Respiratory Rate 16 Blood Pressure 112/58 Blood Pressure 112/58(Sitting) Blood Pressure 102/52(Standing) Height 65 in Height 164 cm Weight 150.796 lb Weight 68.4 kg BMI 25.43 What to do next Scheduled Follow-Up Appointments Tuesday 10:45 AM EDT With: Where: [facility] Tuesday 1:00 PM EDT With: Where: [address] [address]- Tuesday 2:00 PM EDT With: [place] TESFAYE, Konrad Presley Where: [address] [address]- Medications What How Much When Why Instructions New meclizine (Antivert 12.5 mg Tab) 1 Tablets By Mouth 3 times a day as needed for for dizziness Pickup at [facility]/pharmacy #[id number] Changed semaglutide (Ozempic (1 mg dose) 4 mg/ 3 mL subcutaneous solution) 1 Milligram SubcutaneousEvery week please start after February 01. Pickup at [facility]/pharmacy #[id number] Unchanged amlodipine-valsartan (amlodipine-valsartan 5 mg-320 mg oral tablet) 1 Tablets By Mouth Every day TAKE 1 TABLET BY MOUTH EVERY DAY IN THE MORNING Contact prescribing physician if questions or concerns Unchanged atorvastatin (atorvastatin 80 mg Tab) 1 Tablets By Mouth Every day Contact prescribing physician if questions or concerns Unchanged famotidine (Pepcid 20 mg Tab) 1 Tablets By Mouth 2 times a day CVA (cerebrovascular accident) Chronic kidney disease stage 3A. Type 2 diabetes mellitus Hypertension Gastroesophageal reflux disease Hyperlipidemia Overweight (BMI 25.0-29.9) BMI 28.0-28.9,adult Nonsmoker Hypothyroid Contact prescribing physician if questions or concerns Unchanged insulin aspart (NovoLOG FlexPen 100 units/ mL injectable solution) See instructions TID AC per SSI 150-199= 2unints 200-249=4u 250-299=6u 300-349=8u 350-400=10u over 400 give 15u and call doctor Contact prescribing physician if questions or concerns Unchanged levothyroxine (levothyroxine 88 mcg (0.088 mg) Tab) TAKE 1 TABLET BY MOUTH EVERY DAY FOR 100 DAYS Contact prescribing physician if questions or concerns Unchanged Misc Prescription (onetouch ultra2 test strips) See instructions to check BS qid e11.9 Contact prescribing physician if questions or concerns Unchanged ondansetron (ondansetron 4 mg Dis Tab) 1 Tablets By Mouth Every 6 hours as needed for Nausea/Vomiting Contact prescribing physician if questions or concerns Pharmacy Information [facility]/pharmacy #[id number]: [address], [place] [phone] What How Much When Why Comments Stop Taking tamsulosin (Flomax 0.4 mg Cap) 1 Capsules By Mouth Every day Hematuria BMI 26.0-26.9,adult Allergies levoFLOXacin (Nausea) Problems Ongoing - Any problem that you are currently receiving treatment for. Adnexal mass Asthma BMI 26.0-26.9,adult Chest pain Chronic kidney disease stage 3A. CVA (cerebrovascular accident) Diabetes mellitus Gastroesophageal reflux disease Hematuria Hyperlipidemia Hypertension Nodule of lung Osteoarthritis Osteoporosis Overweight (BMI 25.0-29.9) Type 2 diabetes mellitus Historical - Any problem that you are no longer receiving treatment for. Hyperlipidemia Patient Survey You may receive a survey via text or e-mail asking about your office visit. Please share your experience with us by completing your survey. We appreciate your feedback and thank you for choosing us for your care. Education Materials BMI for Adults Body mass index (BMI) is a number found using a person's weight and height. BMI can help tell how much of a person's weight is made up of fat. BMI does not measure body fat directly. It is used instead of tests that directly measure body fat, which can be difficult and expensive. What (more content not included)...[facility] CenterAmb[facility] SummaryAmbulatory Visit Summary KERLINE MEJIA :1950 Visit Date:01/17/2025 Ambulatory Visit Instructions Your Diagnosis Dizziness and giddiness BMI 25.0-25.9,adult Hyperglycemia, unspecified Unspecified nonsuppurative otitis media, left ear Your Care Team Attending Physician - Konrad Golden MD. Primary Care Physician - Konrad Golden MD This Is Your Medications List meclizine (Antivert 12.5 mg Tab) semaglutide (Ozempic (1 mg dose) 4 mg/3 mL subcutaneous solution) Contact prescribing physician if questions or concerns Misc Prescription (Grubstertouch ultra2 test strips) amlodipine-valsartan (amlodipine-valsartan 5 mg-320 mg oral tablet) atorvastatin (atorvastatin 80 mg Tab) famotidine (Pepcid 20 mg Tab) insulin aspart (NovoLOG FlexPen 100 units/mL injectable solution) levothyroxine (levothyroxine 88 mcg (0.088 mg) Tab) ondansetron (ondansetron 4 mg Dis Tab) [Image Removed: STOP]Stop taking these medications tamsulosin (Flomax 0.4 mg Cap) Procedures Performed Foot (2018), H/O: hysterectomy. Discharge Vitals Temperature (Temporal Artery) 36.4 ???C Heart Rate (Peripheral) 96 Respiratory Rate 16 Blood Pressure 112/58 Blood Pressure 112/58(Sitting) Blood Pressure 102/52(Standing) Height 65 in Height 164 cm Weight 150.796 lb Weight 68.4 kg BMI 25.43 What to do next Scheduled Follow-Up Appointments Tuesday 10:45 AM EDT With: Where: [facility] Tuesday 1:00 PM EDT With: Where: [address] [address]- Tuesday 2:00 PM EDT With: [place] TESFAYE, Konrad Presley Where: [address] [address]- Medications What How Much When Why Instructions New meclizine (Antivert 12.5 mg Tab) 1 Tablets By Mouth 3 times a day as needed for for dizziness Pickup at [facility]/pharmacy #[id number] Changed semaglutide (Ozempic (1 mg dose) 4 mg/ 3 mL subcutaneous solution) 1 Milligram SubcutaneousEvery week please start after February 01. Pickup at [facility]/pharmacy #[id number] Unchanged amlodipine-valsartan (amlodipine-valsartan 5 mg-320 mg oral tablet) 1 Tablets By Mouth Every day TAKE 1 TABLET BY MOUTH EVERY DAY IN THE MORNING Contact prescribing physician if questions or concerns Unchanged atorvastatin (atorvastatin 80 mg Tab) 1 Tablets By Mouth Every day Contact prescribing physician if questions or concerns Unchanged famotidine (Pepcid 20 mg Tab) 1 Tablets By Mouth 2 times a day CVA (cerebrovascular accident) Chronic kidney disease stage 3A. Type 2 diabetes mellitus Hypertension Gastroesophageal reflux disease Hyperlipidemia Overweight (BMI 25.0-29.9) BMI 28.0-28.9,adult Nonsmoker Hypothyroid Contact prescribing physician if questions or concerns Unchanged insulin aspart (NovoLOG FlexPen 100 units/ mL injectable solution) See instructions TID AC per SSI 150-199= 2unints 200-249=4u 250-299=6u 300-349=8u 350-400=10u over 400 give 15u and call doctor Contact prescribing physician if questions or concerns Unchanged levothyroxine (levothyroxine 88 mcg (0.088 mg) Tab) TAKE 1 TABLET BY MOUTH EVERY DAY FOR 100 DAYS Contact prescribing physician if questions or concerns Unchanged Misc Prescription (onetouch ultra2 test strips) See instructions to check BS qid e11.9 Contact prescribing physician if questions or concerns Unchanged ondansetron (ondansetron 4 mg Dis Tab) 1 Tablets By Mouth Every 6 hours as needed for Nausea/Vomiting Contact prescribing physician if questions or concerns Pharmacy Information [facility]/pharmacy #[id number]: [address], [place] [phone] What How Much When Why Comments Stop Taking tamsulosin (Flomax 0.4 mg Cap) 1 Capsules By Mouth Every day Hematuria BMI 26.0-26.9,adult Allergies levoFLOXacin (Nausea) Problems Ongoing - Any problem that you are currently receiving treatment for. Adnexal mass Asthma BMI 26.0-26.9,adult Chest pain Chronic kidney disease stage 3A. CVA (cerebrovascular accident) Diabetes mellitus Gastroesophageal reflux disease Hematuria Hyperlipidemia Hypertension Nodule of lung Osteoarthritis Osteoporosis Overweight (BMI 25.0-29.9) Type 2 diabetes mellitus Historical - Any problem that you are no longer receiving treatment for. Hyperlipidemia Patient Survey You may receive a survey via text or e-mail asking about your office visit. Please share your experience with us by completing your survey. We appreciate your feedback and thank you for choosing us for your care. Education Materials BMI for Adults Body mass index (BMI) is a number found using a person's weight and height. BMI can help tell how much of a person's weight is made up of fat. BMI does not measure body fat directly. It is used instead of tests that directly measure body fat, which can be difficult and expensive. What (more content not included)...[facility] Medicine Office/Clinic Noteon [id number] Medicine Office/Clinic NoteFamassachusetts general hospital Medicine Office/Clinic Note Chief Complaint started feeling dizzy 2-3 days ago comes and goes, Feels like she is spinning. Feels like right earis plugged The patient presents with dizziness. HPI Staff C/O of Dizziness: Onset:2-3 days ago Sensation: Head spinning Nausea: Yes Vomiting: Denies Headaches: Yes Ear Congestion: Yes OTC: Tylenol and zofran History of Present Illness - The patient is a 74-year-old female presenting with dizziness. - Dizziness began at the start of the week and correlates with elevated blood sugar levels. - Blood sugar readings have been in the high 200s, potentially contributing to dizziness. - The patient is on 0.5 mg of Ozempic, with plans to increase to 1 mg. - Dehydration is suspected due to increased urination from hyperglycemia and recent heat exposure. - Fluid behind the ear was observed, possibly contributing to dizziness, and Antivert was suggestedfor symptom management. - The patient reports persistent fatigue, which may be worsened by Antivert. - An eye examination is scheduled in two weeks as part of preventative care. - Eye examination scheduled in two weeks. Review of Systems PHQ Score Initial Depression Screen Score: 0 SCORE Physical Exam Vitals & Measurements T: 36.4 ???C(Temporal Artery) HR: 96(Peripheral) RR: 16 BP: 112/58 BP: 112/58(Sitting) BP: 102/52(Standing) SpO2: 95% HT: 164 cm HT: 65 in WT: 68.4 kg WT: 150.796 lb BMI: 25.43 General: alert, no acute distress ENMT: oral mucosa moist, fluid behind the ear noted Cardiovascular: Regular rate and rhythm, normal peripheral perfusion Respiratory: Lungs clear to auscultation, respirations non labored Extremities: no deformity, no trauma Neurological: oriented x 4, level of consciousness appropriate for age, CN II- XII intact, motor strength equal & normal bilaterally, speech normal Abdomen: Soft, Non-tender, Non-distended, + Bowel sounds Assessment/Plan 1. Dizziness and giddiness (R42) - Increase Ozempic dosage to 1 mg to improve blood sugar control. - Encourage increased hydration to address potential dehydration. - Prescribe Antivert for dizziness management, with caution regarding potential sedation. - Monitor symptoms and consider ENT referral if no improvement in a week. 2. BMI 25.0-25.9,adult (Z68.25: Body mass index [BMI] 25.0-25.9, adult) - BMI education added. Ordered: Body Mass Index (BMI) documented 3008F Current tobacco non-user 1036F Depression Screening Negative 3352F Influenza immunization status assessed 1030F Most recent diastolic blood pressure <80 mm Hg 3078F Most recent systolic blood pressure >= 140 mm Hg 3077F 3. Hyperglycemia, unspecified (R73.9) - Increase Ozempic dosage to 1 mg to improve glycemic control. - Monitor blood sugar levels closely. 4. Unspecified nonsuppurative otitis media, left ear (H65.92) - Prescribe Antivert to manage dizziness related to fluid in the ear. - Consider ENT referral if symptoms persist. Orders: meclizine, 12.5 mg = 1 tab(s), Oral, TID, PRN for dizziness, # 30 tab(s), Refills(s) 0, Pharmacy: [facility]/pharmacy #[id number], 164, cm, 01/17/25 10:06:00 EDT, Height/Length Dosing, 68.4, kg, 01/17/25 10:06:00EDT, Weight Dosing semaglutide, 1 mg, SubCutaneous, qWeek, please start after February 01., # 9 mL, Refills(s) 1, Pharmacy: [facility]/pharmacy #[id number], 164, cm, 01/17/25 10:06:00 EDT, Height/Length Dosing, 68.4, kg, 01/17/25 10:06:00 EDT, Weight Dosing - 74-year-old female with a history of hyperglycemia presenting with dizziness. - Dizziness is likely multifactorial, with contributions from elevated blood sugar levels and possible dehydration. - Fluid behind the ear may also be contributing to dizziness, and Antivert is recommended for management. - The patient is on Ozempic, with plans to increase the dosage to 1 mg to better control blood sugar levels. - An eye examination is scheduled as part of preventative care. Preventative Care: Eye Examination - Schedule and complete eye examination in two weeks. I discussed with the patient the likely causes of her dizziness, including elevated blood sugar levels and potential dehydration. We agreed to increase her Ozempic dosage to 1 mg to better manage herblood sugar. I recommended increasing her fluid intake to address dehydration. I prescribed Antivert to help manage her dizziness, cautioning her about potential sedation. We also discussed the possibility of an ENT referral if her symptoms do not improve within a week. Additionally, I advised her to complete her scheduled eye examination in two weeks as part of her preventative care. - Increase Ozempic dosage to 1 mg as directed. - Drink more water to stay hydrated. - Take Antivert only when experiencing dizziness. - Monitor blood sugar levels regularly. - Call the doctor if dizziness does not improve in a week. - Attend scheduled eye examination in two weeks. Follow-up No qualifying data available Patient Education (more content not included)...[facility] CenterComment on above:Result Comment: Electronically Signed By: [place] TESFAYE, Konrad Presley\.br\Date and Time Signed: 01/17/25 10:33 EDTC Urineon [id number] identified Cx Nom (U)Microbiology PROCEDURE: Urine Culture [R1] SOURCE: U Random BODY SITE: COLLECTED DATE/TIME: 01/08/2025 12:01 EDT RECEIVED DATE/TIME: 01/08/2025 19:18 EDT START DATE/TIME: 01/08/2025 19:18 EDT FREE TEXT SOURCE: Padma Martin Jodi L FINAL REPORTS Final Report [] Verified Date/Time: 01/10/2025 08:31 EDT 2,000 cfu/ml Mixed skin contaminants Performing Locations R1: This [facility] performed at: [facility], [address] [place] [address], [facility]- , , NciddfAelkddCorey HospitalComment on above:Performed By: #### [id number] #### [facility] [address] [place] [id number] Visit Summaryon 05-21-2028Vvsiisodig Visit Summary Ambulatory Visit Summary KERLINE MEJIA :1950 Visit Date:01/08/2025 Ambulatory Visit Instructions Your Diagnosis Hematuria BMI 26.0-26.9,adult Flank pain Tests Performed KUB -- Results Pending -- Please visit your patient portal for your results or contact your primary care physician. Your Care Team Attending Physician - Padma Martin Primary Care Physician - Konrad Golden MD This Is Your Medications List [facility] Prescription (Grubstertouch ultra2 test strips) amlodipine-valsartan (amlodipine-valsartan 5 mg-320 mg oral tablet) atorvastatin (atorvastatin 80 mg Tab) famotidine (Pepcid 20 mg Tab) insulin aspart (NovoLOG FlexPen 100 units/mL injectable solution) levothyroxine (levothyroxine 88 mcg (0.088 mg) Tab) semaglutide (Ozempic 2 mg/3 mL (0.25 mg or 0.5 mg dose) subcutaneous solution) Procedures Performed Foot (2017), H/O: hysterectomy. Discharge Vitals Temperature (Temporal Artery) 36.4 ???C Heart Rate (Peripheral) 82 Respiratory Rate 18 Blood Pressure 128/64 Height 164 cm Height 65 in Weight 70.1 kg Weight 154.544 lb BMI 26.06 What to do next Scheduled Follow-Up Appointments Tuesday 10:45 AM EDT With: Where: [facility] Tuesday 1:00 PM EDT With: Where: [address] [address]- Tuesday 2:00 PM EDT With: Konrad Golden MD Where: [address] [address]- Medications What How Much When Why Instructions Unchanged amlodipine-valsartan (amlodipine-valsartan 5 mg-320 mg oral tablet) 1 Tablets By Mouth Every day TAKE 1 TABLET BY MOUTH EVERY DAY IN THE MORNING Unchanged atorvastatin (atorvastatin 80 mg Tab) 1 Tablets By Mouth Every day Unchanged famotidine (Pepcid 20 mg Tab) 1 Tablets By Mouth 2 times a day CVA (cerebrovascular accident) Chronic kidney disease stage 3A. Type 2 diabetes mellitus Hypertension Gastroesophageal reflux disease Hyperlipidemia Overweight (BMI 25.0-29.9) BMI 28.0-28.9,adult Nonsmoker Hypothyroid Unchanged insulin aspart (NovoLOG FlexPen 100 units/ mL injectable solution) See instructions TID AC per SSI 150-199= 2unints 200-249=4u 250-299=6u 300-349=8u 350-400=10u over 400 give 15u and call doctor Unchanged levothyroxine (levothyroxine 88 mcg (0.088 mg) Tab) TAKE 1 TABLET BY MOUTH EVERY DAY FOR 100 DAYS Unchanged Misc Prescription (onetouch ultra2 test strips) See instructions to check BS qid e11.9 Unchanged semaglutide (Ozempic 2 mg/ 3 mL (0.25 mg or 0.5 mg dose) subcutaneous solution) 0.5 Milligram Subcutaneous Every week rotate injection sites Allergies levoFLOXacin (Nausea) Problems Ongoing - Any problem that you are currently receiving treatment for. Adnexal mass Asthma BMI 26.0-26.9,adult Chest pain Chronic kidney disease stage 3A. CVA (cerebrovascular accident) Diabetes mellitus Gastroesophageal reflux disease Hematuria Hyperlipidemia Hypertension Nodule of lung Osteoarthritis Osteoporosis Overweight (BMI 25.0-29.9) Type 2 diabetes mellitus Historical - Any problem that you are no longer receiving treatment for. Hyperlipidemia Patient Survey You may receive a survey via text or e-mail asking about your office visit. Please share your experience with us by completing your survey. We appreciate your feedback and thank you for choosing us for your care. [facility] Medicine Office/Clinic Noteon [id number] Medicine Office/Clinic NoteFamassachusetts general hospital Medicine Office/Clinic Note HPI Staff Kerline is a 74 year old female presenting with blood in urine, back pain and lightheadedness, Onset: started today Symptoms: back ache, bright red blood when wiping OTC used: none Last UTI: n/a Hx of kidney stones: none UA in office documented in chart History of Present Illness pt presents today with blood in urine, back pain and lightheadedness Review of Systems PHQ Score Initial Depression Screen Score: 0 SCORE Physical Exam Vitals & Measurements T: 36.4 ???C(Temporal Artery) HR: 82(Peripheral) RR: 18 BP: 128/64 HT: 164 cm HT: 65 in WT: 70.1 kg WT: 154.544 lb BMI: 26.06 General: alert, no acute distress ENMT: oral mucosa moist, no pharyngeal erythema or exudate Cardiovascular: regular rate and rhythm, normal peripheral perfusion Respiratory: Lungs CTA, respirations non labored Extremities: no deformity, no trauma Neurological: oriented x 4, LOC appropriate for age, CN II-XII intact, motor strength equal & normal bilaterally, speech normal Assessment/Plan 1. Hematuria (R31.9: Hematuria, unspecified) trace of blood in U/A. will send for culture. KUB order sent to [facility]. pt will go there now for x ray. pt has never had kidney stones or UTI. both of her siblings suffer from recurrent kidney stones. FloMax sent to pharmacy. will notify her of those results. if no improvement in 1 week RTC to see . Ordered: tamsulosin, 0.4 mg = 1 cap(s), Oral, Daily, # 30 cap(s), Refills(s) 0, [id number], 164, cm, 01/08/25 11:48:00 EDT, Height/Length Dosing, 70.1, kg, 01/08/25 11:48:00 EDT, Weight Dosing Urine Culture Urnls Dip Stick Auto w/o Microscopy POC [id number] XR Abdomen 1 View 2. Flank pain (R10.9: Unspecified abdominal pain) KUB ordered. Ordered: XR Abdomen 1 View 3. BMI 26.0-26.9,adult (Z68.26: Body mass index [BMI] 26.0-26.9, adult) BMI education given Ordered: tamsulosin, 0.4 mg = 1 cap(s), Oral, Daily, # 30 cap(s), Refills(s) 0, Pharmacy: [facility] #[id number], 164, cm, 01/08/25 11:48:00 EDT, Height/Length Dosing, 70.1, kg, 01/08/25 11:48:00 EDT, Weight Dosing Follow-up No qualifying data available Problem List/Past Medical History Ongoing Adnexal mass Asthma BMI 26.0-26.9,adult Chest pain Chronic kidney disease stage 3A. CVA (cerebrovascular accident) Diabetes mellitus Gastroesophageal reflux disease Hematuria Hyperlipidemia Hypertension Nodule of lung Osteoarthritis Osteoporosis Overweight (BMI 25.0-29.9) Type 2 diabetes mellitus Historical Hyperlipidemia Procedure/Surgical History Foot (2018), H/O: hysterectomy. Medications amlodipine-valsartan 5 mg-320 mg oral tablet, 1 tab(s), Oral, Daily atorvastatin 80 mg Tab, 80 mg= 1 tab(s), Oral, Daily Flomax 0.4 mg Cap, 0.4 mg= 1 cap(s), Oral, Daily levothyroxine 88 mcg (0.088 mg) Tab NovoLOG FlexPen 100 units/mL injectable solution, See Instructions, 1 refills onetouch ultra2 test strips, See Instructions, 1 refills Ozempic 2 mg/3 mL (0.25 mg or 0.5 mg dose) subcutaneous solution, 0.5 mg, SubCutaneous, qWeek, 1 refills Pepcid 20 mg Tab, 20 mg= 1 tab(s), Oral, BID Allergies levoFLOXacin (Nausea) Social History Alcohol Never., 09/24/2024 Substance Abuse Never., 09/24/2024 Tobacco Never (less than 100 in lifetime) Tobacco Use:. Never Smokeless Tobacco Use:. Household tobacco concerns: No. Yes, 01/08/2025 Immunizations Vaccine Date Status Comments influenza virus vaccine, inactivated 04/16/2024 Recorded influenza virus vaccine, inactivated 03/23/2023 Recorded influenza virus vaccine, inactivated 06/01/2022 Recorded SARSCoV2 mRNA(ydsxflqfe-lcoh-ellcdb) vac 11/15/2021 Recorded influenza virus vaccine, inactivated 06/16/2021 Recorded SARS-CoV-2 (COVID-19) mRNA BNT-162b2 vax 06/10/2021 Recorded 2024-09-20: TPV70 zoster vaccine, inactivated 05/29/2021 Recorded zoster vaccine, inactivated 01/29/2021 Recorded SARS-CoV-2 (COVID-19) Ad26 vaccine 10/13/2020 Recorded influenza virus vaccine, inactivated 03/29/2020 Recorded pneumococcal 23-valent vaccine 02/07/2020 Recorded influenza virus vaccine, inactivated 06/20/2019 Recorded pneumococcal 13-valent vaccine 02/12/2019 Recorded Lab Results Ambulatory Point of Care Results Bilirubin Urine Dipstick: 1+ Small (01/08/25 11:56:00) Blood Urine Dipstick: Trace-intact (01/08/25 11:56:00) Glucose Urine Dipstick: Negative (01/08/25 11:56:00) Ketones Urine Dipstick: Trace - 5 mg/dl (01/08/25 11:56:00) Leukocytes Urine Dipstick: Negative (01/08/25 11:56:00) Nitrite Urine Dipstick: Negative (01/08/25 11:56:00) Protein Urine Dipstick: 3+ (300 mg/dl) (01/08/25 11:56:00) Specific [place] Urine Dipstick: 1.025 (01/08/25 11:56:00) Urine Appearance Urine Dipstick: Clear (01/08/25 11:56:00) Urine Color Urine Dipstick: Yellow (01/08/25 11:56:00) Urobilinogen Urine Dipstick: Normal 0.2-1 EU/dl (01/08/25 11:56:00) pH Urine Dipstick: 5.5 (01/08/25 11:56:00)[facility] Comment on above:Result Comment: Electronically Signed By: Jessie OLIVAREZ, Padma Walls.br\Date and Time Signed: 01/08/25 12:37 EDTInterdisciplinary Note - Nutrition on [id number] Note - NutritionInterdisciplinary Note - Nutrition Initial MNT r/t DM. 9:15-10:45AM. 1.5 hours. Nutrition Assessment. Food and Nutrition-Related History. Kerline is here for initial MNT r/t DM. No previous DSME and has never discussed w RD prior to this date. Pt did not bring in readings from glucose. I was able to review from previous MD visit w readings. Glucose ranges 200-300. Reporting to me she likes to checkher glucose. Does not want to use the Dexcom G7 as it is costing her too much for medications and does not want to pay for something her insurance does not cover, G7. Encouraged her to discuss w provider for Free style [place]. Does not drink milk, only likes vanilla yogurt. Avoids spaghetti noodles, bread, potatoes, dressing, and most other carbs. Reads labels and if it has any added sugar she does not purchase. Food and Nutrient Intake Recall: Pt reporting, she does not eat many carbs, avoids at most meals. Wakes up at 4:30AM works at local [employer] Tuesday through Tuesday mornings 4:30AM-10:30 AM. B: Does not consume, prefers ???brunch??? [place] drink throughout the day, ???no sugar? [place]-Next visit to review label w her. 2 cups of coffee, nothing added. Brunch: 1:30-2PM spaghetti sauce w 7 meatballs. [place] sauce w least sugar and carbs. Nothing else the rest of the day. 7:30-8PM sleep. Does not eat after 4:30 PM d/t upset stomach. Dining Out: w male friend, Valentín. Eats only the protein gives him the rest of the foods w carbs. Food Allergy: NKFA Does not like milk to drink. Medication: reviewed Behavior: willing to learn Activity: at work on feet. Up and down stairs. PMH: CKD HTN CVA HLD Anthropometric: Ht: 65??? Wt: 152.4# Recent weight changes: none UBW: 150 range. Reports high weight was 195# 20 years ago or more when dx w DM. IBW: 125# % IBW: 122% BMI: 25.4, healthy for most elderly population. Biochemical Data: reviewed. A1C: 7.0% Fasting glucose: 200 range. 1-2 Hr PPG: lower per pt. Nutrition Status Classification: Compromise Moderate Nutrition Diagnosis: Food- and Nutrition-Related Knowledge Deficit R/T Lack of prior nutrition- related education AEB inconsistent carbohydrate timing and inability to select carb choices at meals, avoiding most carbs. Nutrition Intervention: Comprehensive Nutrition Education Calories: REE 1209 1400-1500kcal maintenance Protein: 70-85gm Fluid: 1900-2100ml 1. Modify calories: 1400-1500kcal 2. Modify carbohydrate distribution: Breakfast:45-60 gms, Lunch: 45 gms, Dinner:45 gms, Snack: 30 gms 3. Schedule of foods: 3 meals and 1 snack. Adjust snack to accommodate work hours. Education: Basic understanding of meal plan for diabetes self-management. Modify carbohydrates: Reviewed a sample meal plan for the proper carbohydrate distribution/timing throughout the day. Demonstrated the proper portions of commonly consumed food items. Used food models and measuring cups to illustrate and facilitate dialog. Encouraged measurement of food items for one day of usual food if unsure of portions at home. Discussed food labels and reviewed carbohydrate portions with food choices. Modify Protein: Discussed portions of protein sources and distribution throughout the day. Reviewed low fat protein sources. Modify Fat: Reviewed fat portions discussing saturated and unsaturated fats. Provided other options for reducing fat content of commonly consumed foods. Modify Fiber: Reviewed high fiber foods Encouraged higher fiber foods at each meal. Nutrition Education: Education Materials: Provided material related to calories, carbohydrate distribution, portion sizes, and label reading topics from sources such as Academy of Nutrition and Dietetics, [employer] [facility], Nicole Nordisk, and [place] [employer]. Referral of Care: Follow up w RD 1-2 weeks then DSME program with RN. Communication by phone, fax, or EMR from DSME staff to provider after completion of program/cessation. Chart notes will be available in EMR after 7 days of completion or cessation. Nutrition Monitoring and Evaluation: 1. Pt understanding of nutrition intervention: good 2. Monitor endocrine/glucose profile w desired readings. 3. Patient to maintain weight. 4. Monitor motivation to change behavior to change w goal setting, self- monitoring and/or problem solving. 5. Monitor total energy intake: 1400-1500kcal/d 6. Monitor willingness to try new foods: higher fiber foods 7. Instructed pt to contact RD for f/u or questions. Telephone number and email provided. 8. Goal: Food logs: Measure carbohydrate portions and document. 9. Will follow for changes in progress and assist prn. Nutrition Assessment Comments The complete initial assessment may be deferred based on participants willingness to participate, learning barrier, or pending f/u for complete assessment. DOMINGO Manjarrez, JOHN, SAMCoshocton Regional Medical CenterComment on above:Result Comment: Electronically Signed By: Jono LANE, JOHN, Sydni VARGAS\.br\Date and Time Signed: 01/07/25 11:42 EDTAmbulatory Visit Summaryon [id number] Visit SummaryAmbulatory Visit Summary KERLINE MEJIA :1950 Visit Date:01/01/2025 Ambulatory Visit Instructions Your Diagnosis FDC (current) use of insulin, FDC (current) use of insulin Type 2 diabetes mellitus without complication, with long-term current use of insulin Gastroesophageal reflux disease without esophagitis Overweight (BMI 25.0-29.9) Your Care Team Attending Physician - Konrad Golden MD Primary Care Physician - Konrad Golden MD This Is Your Medications List semaglutide (Ozempic 2 mg/3 mL (0.25 mg or 0.5 mg dose) subcutaneous solution) Contact prescribing physician if questions or concerns Misc Prescription ([employer] ultra2 test strips) amlodipine-valsartan (amlodipine-valsartan 5 mg-320 mg oral tablet) atorvastatin (atorvastatin 80 mg Tab) famotidine (Pepcid 20 mg Tab) insulin aspart (NovoLOG FlexPen 100 units/mL injectable solution) levothyroxine (levothyroxine 88 mcg (0.088 mg) Tab) Procedures Performed Foot (2018), H/O: hysterectomy. Discharge Vitals Temperature (Oral) 36.4 ???C Heart Rate (Peripheral) 88 Respiratory Rate 20 Blood Pressure 126/84 Height 164.0 cm Height 65 in Weight 70.8 kg Weight 156.087 lb BMI 26.32 What to do next Scheduled Follow-Up Appointments Tuesday 1:00 PM EDT With: Where: [address] [address]- Tuesday 2:00 PM EDT With: [place] TESFAYE, Konrad Presley Where: [address] [address]- Medications What How Much When Why Instructions Changed semaglutide (Ozempic 2 mg/ 3 mL (0.25 mg or 0.5 mg dose) subcutaneous solution) 0.5 Milligram Subcutaneous Every week rotate injection sites Pickup at [facility]/pharmacy #[id number] Unchanged amlodipine-valsartan (amlodipine-valsartan 5 mg-320 mg oral tablet) 1 Tablets By Mouth Every day TAKE 1 TABLET BY MOUTH EVERY DAY IN THE MORNING Contact prescribing physician if questions or concerns Unchanged atorvastatin (atorvastatin 80 mg Tab) 1 Tablets By Mouth Every day Contact prescribing physician if questions or concerns Unchanged famotidine (Pepcid 20 mg Tab) 1 Tablets By Mouth 2 times a day CVA (cerebrovascular accident) Chronic kidney disease stage 3A. Type 2 diabetes mellitus Hypertension Gastroesophageal reflux disease Hyperlipidemia Overweight (BMI 25.0-29.9) BMI 28.0-28.9,adult Nonsmoker Hypothyroid Contact prescribing physician if questions or concerns Unchanged insulin aspart (NovoLOG FlexPen 100 units/ mL injectable solution) See instructions TID AC per SSI 150-199= 2unints 200-249=4u 250-299=6u 300-349=8u 350-400=10u over 400 give 15u and call doctor Contact prescribing physician if questions or concerns Unchanged levothyroxine (levothyroxine 88 mcg (0.088 mg) Tab) TAKE 1 TABLET BY MOUTH EVERY DAY FOR 100 DAYS Contact prescribing physician if questions or concerns Unchanged Misc Prescription (onetouch ultra2 test strips) See instructions to check BS qid e11.9 Contact prescribing physician if questions or concerns Pharmacy Information [facility]/pharmacy #[id number]: [address], [place] [phone] Allergies levoFLOXacin (Nausea) Problems Ongoing - Any problem that you are currently receiving treatment for. Adnexal mass Asthma Chest pain Chronic kidney disease stage 3A. CVA (cerebrovascular accident) Diabetes mellitus Gastroesophageal reflux disease Hyperlipidemia Hypertension Nodule of lung Osteoarthritis Osteoporosis Overweight (BMI 25.0-29.9) Type 2 diabetes mellitus Historical - Any problem that you are no longer receiving treatment for. Hyperlipidemia Patient Survey You may receive a survey via text or e-mail asking about your office visit. Please share your experience with us by completing your survey. We appreciate your feedback and thank you for choosing us for your care. [facility] Center[facility] Summary Ambulatory Visit Summary KERLINE MEJIA :1950 Visit Date:01/01/2025 Ambulatory Visit Instructions Your Diagnosis FDC (current) use of insulin, FDC (current) use of insulin Type 2 diabetes mellitus without complication, with long-term current use of insulin Gastroesophageal reflux disease without esophagitis Overweight (BMI 25.0-29.9) Your Care Team Attending Physician - Konrad Golden MD Primary Care Physician - Konrad Golden MD. This Is Your Medications List semaglutide (Ozempic 2 mg/3 mL (0.25 mg or 0.5 mg dose) subcutaneous solution) Contact prescribing physician if questions or concerns Misc Prescription (onetouch ultra2 test strips) amlodipine-valsartan (amlodipine-valsartan 5 mg-320 mg oral tablet) atorvastatin (atorvastatin 80 mg Tab) famotidine (Pepcid 20 mg Tab) insulin aspart (NovoLOG FlexPen 100 units/mL injectable solution) levothyroxine (levothyroxine 88 mcg (0.088 mg) Tab) Procedures Performed Foot (2018), H/O: hysterectomy. Discharge Vitals Temperature (Oral) 36.4 ???C Heart Rate (Peripheral) 88 Respiratory Rate 20 Blood Pressure 126/84 Height 164.0 cm Height 65 in Weight 70.8 kg Weight 156.087 lb BMI 26.32 What to do next Scheduled Follow-Up Appointments Tuesday 1:00 PM EDT With: Where: [address] [address]- Tuesday 2:00 PM EDT With: [place] TESFAYE, Konrad Presley Where: [address] [address]- Medications What How Much When Why Instructions Changed semaglutide (Ozempic 2 mg/ 3 mL (0.25 mg or 0.5 mg dose) subcutaneous solution) 0.5 Milligram Subcutaneous Every week rotate injection sites Pickup at [facility]/pharmacy #[id number] Unchanged amlodipine-valsartan (amlodipine-valsartan 5 mg-320 mg oral tablet) 1 Tablets By Mouth Every day TAKE 1 TABLET BY MOUTH EVERY DAY IN THE MORNING Contact prescribing physician if questions or concerns Unchanged atorvastatin (atorvastatin 80 mg Tab) 1 Tablets By Mouth Every day Contact prescribing physician if questions or concerns Unchanged famotidine (Pepcid 20 mg Tab) 1 Tablets By Mouth 2 times a day CVA (cerebrovascular accident) Chronic kidney disease stage 3A. Type 2 diabetes mellitus Hypertension Gastroesophageal reflux disease Hyperlipidemia Overweight (BMI 25.0-29.9) BMI 28.0-28.9,adult Nonsmoker Hypothyroid Contact prescribing physician if questions or concerns Unchanged insulin aspart (NovoLOG FlexPen 100 units/ mL injectable solution) See instructions TID AC per SSI 150-199= 2unints 200-249=4u 250-299=6u 300-349=8u 350-400=10u over 400 give 15u and call doctor Contact prescribing physician if questions or concerns Unchanged levothyroxine (levothyroxine 88 mcg (0.088 mg) Tab) TAKE 1 TABLET BY MOUTH EVERY DAY FOR 100 DAYS Contact prescribing physician if questions or concerns Unchanged Misc Prescription (onetouch ultra2 test strips) See instructions to check BS qid e11.9 Contact prescribing physician if questions or concerns Pharmacy Information [facility]/pharmacy #[id number]: [address], [place] [phone] Allergies levoFLOXacin (Nausea) Problems Ongoing - Any problem that you are currently receiving treatment for. Adnexal mass Asthma Chest pain Chronic kidney disease stage 3A. CVA (cerebrovascular accident) Diabetes mellitus Gastroesophageal reflux disease Hyperlipidemia Hypertension Nodule of lung Osteoarthritis Osteoporosis Overweight (BMI 25.0-29.9) Type 2 diabetes mellitus Historical - Any problem that you are no longer receiving treatment for. Hyperlipidemia Patient Survey You may receive a survey via text or e-mail asking about your office visit. Please share your experience with us by completing your survey. We appreciate your feedback and thank you for choosing us for your care. [facility] Medicine Office/Clinic Noteon [id number] Medicine Office/Clinic NoteFamassachusetts [facility] Office/Clinic Note Chief Complaint Difficulty achieving stable blood glucose levels. HPI Staff Please speak with patient about scheduling an AWV. Kerline is a 74 year old female presenting with 1 week med f/u Continued Ozempic 0.25mg ... she wants to know if she can have a cheaper alternative it is 362 a month and she can not afford that Monitor of daily blood sugars- sometimes... she said there is really no improvement between 200-300 she did bring log with her today no refills needed today History of Present Illness - The patient is a 74-year-old female presenting with management concerns for Type 2 diabetes mellitus and long-term insulin use. - Persistent glucose fluctuations between low 100s and high 300s. - Shift from initial WeGoVy therapy to current medication regimen. - Decision to transition back to WeGoVy sample with adjustments in dosage noted. - Current readings present variability and patient expresses concern over fluctuating glucose levels during the day. - Cost concerns related to Medicare billing cycles and medication coverage. - Discussion regarding diabetic glucose range target of 100 to 200 for patient's benefit. - Emphasized need for monitoring blood glucose levels following any medication or dosing changes. - Brief discussion on the heart and kidney protective benefits of current medications. Review of Systems PHQ Score Initial Depression Screen Score: 0 SCORE Physical Exam Vitals & Measurements T: 36.4 ???C(Oral) HR: 88(Peripheral) RR: 20 BP: 126/84 SpO2: 99% HT: 65 in HT: 164.0 cm WT: 156.087 lb WT: 70.8 kg BMI: 26.32 General: alert, no acute distress ENMT: oral mucosa moist Cardiovascular: Regular rate and rhythm, normal peripheral perfusion Respiratory: Lungs clear to auscultation, respirations non labored Extremities: no deformity, no trauma Neurological: oriented x 4, level of consciousness appropriate for age, CN II- XII intact, motor strength equal & normal bilaterally, speech normal Abdomen: Soft, Non-tender, Non-distended, + Bowel sounds Assessment/Plan 1. FDC (current) use of insulin, (Z79.4: FDC (current) use of insulin)FDC (current) use of insulin - Plan to reduce insulin gradually with Ozempic. 2. Type 2 diabetes mellitus without complication, with long-term current use of insulin (E11.9: Type 2 diabetes mellitus without complications) - Increase Ozempic to 0.5. Monitor glucose levels in a week. - Aim for 100-200 glucose range. - Consider Jardiance if targets unmet. 3. Gastroesophageal reflux disease without esophagitis (K21.9: Gastro-esophageal reflux disease without esophagitis) - Maintain lifestyle and dietary modifications. Orders: semaglutide, 0.5 mg, SubCutaneous, qWeek, rotate injection sites, # 9 mL, Refills(s) 1, Pharmacy: [facility]/pharmacy #[id number], 164, cm, 01/01/25 13:29:00 EDT, Height/Length Dosing, 70.8, kg, 01/01/25 13:29:00EDT, Weight Dosing - Increase Ozempic to 0.5 dosage as discussed, with further increments planned. - 74-year-old female with a history of Type 2 diabetes mellitus presenting with recent instability in glucose levels. - Ongoing diabetes management with insulin, focus on stabilizing glucose fluctuations. - Treatment targets organ protective effects of medications. - Incremental increase of Ozempic planned, with potential for incorporating Jardiance. I discussed with the patient the recent difficulties in managing her Type 2 diabetes mellitus, withparticular focus on the fluctuations in her blood glucose levels despite adjustments. We reviewed her past regimen and the switch from WeGoVy to her current medication. I emphasized the importance ofachieving stable glucose readings, ideally within the 100 to 200 range. I provided details about the heart and kidney protective effects of Ozempic and discussed its benefits over the current insulinregimen. We also reviewed Medicare billing changes impacting medication costs and I reassured the patient that our strategy aims to reduce her reliance on insulin. I planned for an increase in Ozempic dosage to 0.5 and asked the patient to report her glucose levels in a week, with follow-up adjustments planned based on her response. - Increase the Ozempic dose to 0.5 as directed today. - Monitor blood glucose levels daily and ensure they stay between 100 and 200. - Keep note of your readings and call me in one week with the results. - If blood sugars consistently exceed 200, contact me immediately. - Remember, it???s important to adhere to dietary guidelines that help manage your diabetes. - If concerned about medication costs, please discuss with me any financial assistance options available. - Schedule your follow-up appointment for two months from today as discussed. Follow-up No qualifying data available Problem List/Past Medical History Ongoing Adnexal mass Asthma Chest pain Chronic kidney disease stage 3A. CVA (cerebrovascular accident) Diab (more content not included)...[facility] CenterComment on above:Result Comment: Electronically Signed By: Konrad Golden MD\.br\Date and Time Signed: 01/01/25 13:50 EDTAmbulatory Visit Summaryon [id number] Visit SummaryAmbulatory Visit Summary KERLINE MEJIA :1950 Visit Date:12/25/2024 Ambulatory Visit Instructions Your Diagnosis Non-smoker BMI 26.0-26.9,adult Overweight (BMI 25.0-29.9) Your Care Team Attending Physician - Konrad Golden MD. Primary Care Physician - Konrad Golden MD. This Is Your Medications List [facility] Prescription (onetouch ultra2 test strips) amlodipine-valsartan (amlodipine-valsartan 5 mg-320 mg oral tablet) atorvastatin (atorvastatin 80 mg Tab) famotidine (Pepcid 20 mg Tab) insulin aspart (NovoLOG FlexPen 100 units/mL injectable solution) levothyroxine (levothyroxine 88 mcg (0.088 mg) Tab) semaglutide (Ozempic 2 mg/3 mL (0.25 mg or 0.5 mg dose) subcutaneous solution) Procedures Performed Foot (2018), H/O: hysterectomy. Discharge Vitals Temperature (Oral) 36.3 ???C Heart Rate (Peripheral) 90 Respiratory Rate 20 Blood Pressure 122/64 Height 164.0 cm Height 65 in Weight 70.8 kg Weight 156.087 lb BMI 26.32 What to do next Scheduled Follow-Up Appointments Tuesday. 2024 1:20 PM EDT With: [place] TESFAYE, Konrad Presley Where: [address] [phone]- Medications What How Much When Why Instructions Unchanged amlodipine-valsartan (amlodipine-valsartan 5 mg-320 mg oral tablet) 1 Tablets By Mouth Every day TAKE 1 TABLET BY MOUTH EVERY DAY IN THE MORNING Unchanged atorvastatin (atorvastatin 80 mg Tab) 1 Tablets By Mouth Every day Unchanged famotidine (Pepcid 20 mg Tab) 1 Tablets By Mouth 2 times a day CVA (cerebrovascular accident) Chronic kidney disease stage 3A. Type 2 diabetes mellitus Hypertension Gastroesophageal reflux disease Hyperlipidemia Overweight (BMI 25.0-29.9) BMI 28.0-28.9,adult Nonsmoker Hypothyroid Unchanged insulin aspart (NovoLOG FlexPen 100 units/ mL injectable solution) See instructions TID AC per SSI 150-199= 2unints 200-249=4u 250-299=6u 300-349=8u 350-400=10u over 400 give 15u and call doctor Unchanged levothyroxine (levothyroxine 88 mcg (0.088 mg) Tab) TAKE 1 TABLET BY MOUTH EVERY DAY FOR 100 DAYS Unchanged Misc Prescription ([employer] ultra2 test strips) See instructions to check BS qid e11.9 Unchanged semaglutide (Ozempic 2 mg/ 3 mL (0.25 mg or 0.5 mg dose) subcutaneous solution) 0.5 Milligram Subcutaneous Every week rotate injection sites Allergies levoFLOXacin (Nausea) Problems Ongoing - Any problem that you are currently receiving treatment for. Adnexal mass Asthma Chest pain Chronic kidney disease stage 3A. CVA (cerebrovascular accident) Diabetes mellitus Encounter to establish care with new provider Gastroesophageal reflux disease Hyperlipidemia Hypertension Nodule of lung Osteoarthritis Osteoporosis Overweight (BMI 25.0-29.9) Type 2 diabetes mellitus Historical - Any problem that you are no longer receiving treatment for. Hyperlipidemia Patient Survey You may receive a survey via text or e-mail asking about your office visit. Please share your experience with us by completing your survey. We appreciate your feedback and thank you for choosing us for your care. [facility] Medicine Office/Clinic Noteon [id number]inic Note Chief Complaint Difficulty in controlling blood sugar levels despite current medication regimen. HPI Staff 1m follow up to medication changes. Started on Ozempic & sliding scale initiation. BS go between 200- 300 she has been getting light headed and extremely tired her right ear feels plugged and ribs hurt Pt also started on pepcid for GERD. this med is good for her with n issues Improvement in chest pain ? this has improved no issues Lipitor increased to 80mg QD. Labs drawn 11/27/24. History of Present Illness - The patient is a 74-year-old female presenting with medication adjustment and diabetes management. - Blood sugar levels are not controlled on the current sliding scale regimen. - No improvement in blood sugar post-sliding scale insulin. - Ozempic last injected a week prior; dosage increase suggested. - Normal diet reported; unclear protein intake. - Reports of dizziness potentially related to insufficient hydration. - Recent labs: Fasting glucose 110 mg/dl non-fasting, A1c at 5.9. - Dietary counseling discussed with a focus on increasing protein intake and hydration. - Encouragement provided for diabetic education regarding diet and protein intake. - Recommended monitoring of daily blood sugar levels over the next week. Review of Systems PHQ Score Initial Depression Screen Score: 0 SCORE Physical Exam Vitals & Measurements T: 36.3 ???C(Oral) HR: 90(Peripheral) RR: 20 BP: 122/64 SpO2: 97% HT: 65 in HT: 164.0 cm WT: 156.087 lb WT: 70.8 kg BMI: 26.32 General: alert, no acute distress ENMT: oral mucosa moist Cardiovascular: Regular rate and rhythm, normal peripheral perfusion Respiratory: Lungs clear to auscultation, respirations non labored Extremities: no deformity, no trauma Neurological: oriented x 4, level of consciousness appropriate for age, CN II- XII intact, motor strength equal & normal bilaterally, speech normal Abdomen: Soft, Non-tender, Non-distended, + Bowel sounds Assessment/Plan 1. Diabetes mellitus (E11.9: Type 2 diabetes mellitus without complications) - At this time we will send to diabetic education. Will increase the Ozempic from the 0.25 to the 0.5. Patient will be on a Dexcom G7 and will follow-up in a week to show his blood sugars. 2. Non-smoker (Z78.9: Other specified health status) - Reinforce benefits of non-smoking lifestyle. Ordered: Body Mass Index (BMI) documented 3008F Current tobacco non-user 1036F Depression Screening Negative 3352F Influenza immunization status assessed 1030F Medication list documented in medical record 1159F Patient screen for fall risk: no falls in last year or 1 fall with no injury in last year 1101F Review of all meds by a prescribing practitioner or clinical pharmacist documented in EHR 1160F 3. BMI 26.0-26.9,adult (Z68.26: Body mass index [BMI] 26.0-26.9, adult) - Increase Ozempic dose to 0.5 mg. - Encourage diabetic education regarding dietary protein intake. Ordered: Body Mass Index (BMI) documented 3008F Current tobacco non-user 1036F Depression Screening Negative 3352F Influenza immunization status assessed 1030F Medication list documented in medical record 1159F Patient screen for fall risk: no falls in last year or 1 fall with no injury in last year 1101F Review of all meds by a prescribing practitioner or clinical pharmacist documented in EHR 1160F 4. Overweight (BMI 25.0-29.9) (E66.3: Overweight) - Recommend dietary and physical activity improvements. Ordered: Body Mass Index (BMI) documented 3008F Current tobacco non-user 1036F Depression Screening Negative 3352F Influenza immunization status assessed 1030F Medication list documented in medical record 1159F Patient screen for fall risk: no falls in last year or 1 fall with no injury in last year 1101F Review of all meds by a prescribing practitioner or clinical pharmacist documented in EHR 1160F 5. Chronic kidney disease stage 3A. (N18.31: Chronic kidney disease, stage 3a) Will continue to monitor. 6. Hypertension (I10: Essential (primary) hypertension) At goal at this time. 7. Gastroesophageal reflux disease (K21.9: Gastro-esophageal reflux disease without esophagitis) Controlled with medication. 8. Hyperlipidemia (E78.5: Hyperlipidemia, unspecified) Continue on a statin. Orders: [facility] Prescription, [place] ultra2 test strips, See Instructions, 400 EA, 1, to check BS qid e11.9,[facility]/pharmacy #[id number], Supply, 164, cm, 11/27/24 12:58:00 EDT, Height/Length Dosing, 77, kg, 11/27/24 12:58:00 EDT, Weight Dosing semaglutide, 0.5 mg, SubCutaneous, qWeek, rotate injection sites, # 9 mL, Refills(s) 1, Pharmacy: [facility]/pharmacy #[id number], 164, cm, 12/25/24 13:35:00 EDT, Height/Length Dosing, 70.8, kg, 12/25/24 13:35:00EDT, Weight Dosing - 74-year-old female with history of type 2 diabetes presenting with medication adjustment and diabetes management. - Inadequate glycemic control on current s (more content not included)...Normal [facility] CenterComment on above:Result Comment: Electronically Signed By: Konrad Golden MD\.br\Date and Time Signed: 12/25/24 14:19 EDT Ambulatory Visit Summaryon [id number] Visit SummaryAmbulatory Visit Summary KERLINE MEJIA :1950 Visit Date:11/27/2024 Ambulatory Visit Instructions Your Diagnosis CVA (cerebrovascular accident) Chronic kidney disease stage 3A. Type 2 diabetes mellitus Hypertension Gastroesophageal reflux disease Hyperlipidemia Overweight (BMI 25.0-29.9) BMI 28.0-28.9,adult Nonsmoker Hypothyroid Your Care Team Attending Physician - Konrad Golden MD Primary Care Physician - Konrad Golden MD This Is Your Medications List amlodipine-valsartan (amlodipine-valsartan 5 mg-320 mg oral tablet) atorvastatin (atorvastatin 80 mg Tab) famotidine (Pepcid 20 mg Tab) insulin lispro (HumaLOG KwikPen 100 units/mL injectable solution) Contact prescribing physician if questions or concerns Misc Prescription ([employer] ULTRA TEST STRIP) levothyroxine (levothyroxine 88 mcg (0.088 mg) Tab) [Image Removed: STOP]Stop taking these medications insulin isophane-insulin regular (NovoLIN 70/30 FlexPen subcutaneous suspension) Procedures Performed Foot (2018), H/O: hysterectomy. Discharge Vitals Temperature (Tympanic) 36.7 ???C Heart Rate (Peripheral) 80 Respiratory Rate 18 Blood Pressure 136/84 Height 164 cm Height 65 in Weight 77 kg Weight 169.756 lb BMI 28.63 What to do next Instructions From Your Doctor 2m follow up ([facility] was initially scheduled to establish care w/Dr Golden, however appt had to be rs'd due to Dr Golden being out of office sick. ) Patient is here for follow up on Diabetes. How often are you checking your blood sugars? _ daily What are your average readings? _ good most of the time (90-107 the last couple of days) Paresthesias, Ulcerations or sores? no Lisinopril, aspirin, statin therapy? Yes Foot Exam: 08/2024 Eye Exam: appt in December Last A1c: Per last encounter due today. CXR ordered at [facility] due to chest pain. NEG Questions/Concerns: Still has the pain. Thinks it may now be heartburn. Scheduled Follow-Up Appointments Tuesday. 2024 1:40 PM EDT With: [place] TESFAYE, Konrad Presley Where: [place] [phone]- Medications What How Much When Why Instructions New famotidine (Pepcid 20 mg Tab) 1 Tablets By Mouth 2 times a day CVA (cerebrovascular accident) Chronic kidney disease stage 3A. Type 2 diabetes mellitus Hypertension Gastroesophageal reflux disease Hyperlipidemia Overweight (BMI 25.0-29.9) BMI 28.0-28.9,adult Nonsmoker Hypothyroid Pickup at [facility]/pharmacy #[id number] New insulin lispro (HumaLOG KwikPen 100 units/ mL injectable solution) 1 Units Subcutaneous Before meals Per SSI. 150-199: 2 units 200-249: 4 units 250-299: 6 units 300-349: 8 units 350-400: 10 unitsOver 400 give 15 units and call. Pickup at [facility]/pharmacy #[id number] Changed amlodipine-valsartan (amlodipine-valsartan 5 mg-320 mg oral tablet) 1 Tablets By Mouth Every day TAKE 1 TABLET BY MOUTH EVERY DAY IN THE MORNING Pickup at [facility]/pharmacy #[id number] Changed atorvastatin (atorvastatin 80 mg Tab) 1 Tablets By Mouth Every day Pickup at [facility]/pharmacy #[id number] Unchanged levothyroxine (levothyroxine 88 mcg (0.088 mg) Tab) TAKE 1 TABLET BY MOUTH EVERY DAY FOR 100 DAYS Contact prescribing physician if questions or concerns Unchanged Misc Prescription (ONETOUCH ULTRA TEST STRIP) USE TO CHECK BLOOD SUGAR DAILY Contact prescribing physician if questions or concerns Pharmacy Information [facility]/pharmacy #[id number]: [address], [place] [id number] [phone] What When Comments Stop Taking insulin isophane-insulin regular (NovoLIN 70/ 30 FlexPen subcutaneous suspension) INJECT 27 UNITS SUBCUTANEOUSLY TWICE DAILY Allergies levoFLOXacin (Nausea) Problems Ongoing - Any problem that you are currently receiving treatment for. Adnexal mass Asthma BMI 28.0-28.9,adult Chest pain Chronic kidney disease stage 3A. CVA (cerebrovascular accident) Diabetes mellitus Encounter to establish care with new provider Gastroesophageal reflux disease Hyperlipidemia Hypertension Nodule of lung Nonsmoker Osteoarthritis Osteoporosis Overweight (BMI 25.0-29.9) Type 2 diabetes mellitus Historical - Any problem that you are no longer receiving treatment for. Hyperlipidemia Common Emergency Awareness Tips IS IT A STROKE? Act FAST and Check for these signs: FACE Does the face look uneven? ARM Does one arm drift down? SPEECH Does their speech sound strange? TIME Call at any sign of stroke Heart Attack Signs Chest discomfort: Most heart attacks involve discomfort in the center of the chest and lasts more than a few minutes, or goes away and comes back. It can feel like uncomfortable pressure, squeezing, fullness or pain. Discomfort in upper body: Symptoms can include pain or discomfort in one or both arms, back, neck, jaw or stomach. Shortness of breath: With or without discomfort. Other signs: Breaking out in a cold sweat, nausea, (more content not included)...[facility] w/ Auto Diffon 11-27-2024 Basophils/100 WBC (Bld)0.7 %Normal0.0-2.0[facility] CenterComment on above:Performed By: #### [id number] #### [facility] [address] [place] [address] 05960Jqjorzvnu/Leukocytes Auto (Bld) [Pure # fraction]0.0 E9/LNormal 0.0-0.2FOhioHealth Van Wert HospitalComment on above:Performed By: #### [id number] #### [facility] [address] [place] [address] 23021Wksglzjttcc (Bld) [#/Vol]0.1 E9/LNormal0.0-0.5FOhioHealth Van Wert HospitalComment on above:Performed By: #### [id number] #### [facility] [address] [place] [address] 97263Auultgrixjr/100 WBC (Bld)2.4 %Normal0.0-8.0[facility] CenterComment on above:Performed By: #### [id number] #### [facility] [address] [place] [address] 32937Hwzkrwkprli distribution width (RBC) [Ratio]14.3 %High10.9-14.2 [facility] CenterComment on above:Performed By: #### [id number] #### [facility] [address] [place] [address] 41707Dtctdaqfkj (Bld) [Volume fraction]40.3 %Yqlrwc49.0-46.0[facility] CenterComment on above:Performed By: #### [id number] #### [facility] [address] [place] [address] 96797Dqkjbzzxvc (Bld) [Mass/Vol]13.0 g/hFOizjkv73.0-16.0[facility] CenterComment on above:Performed By: #### [id number] #### [facility] [address] [place] [address] 40202Thhdoirkfaf (Bld) [#/Vol]2.7 E9/LNormal1.0-4.0[facility] CenterComment on above:Performed By: #### [id number] #### [facility] [address] [place] [address] 13595Xautdywdgej/100 WBC (Bld)45.0 %Vjjjvt69.0-50.0[facility] CenterComment on above:Performed By: #### [id number] #### [facility] [address] [place] [address] 86890XGC (RBC) [Entitic mass]30.4 taEtlfea39.0-34.0[facility] CenterComment on above:Performed By: #### [id number] #### [facility] [address] [place] [address] 78244BAIN (RBC) [Mass/Vol]32.3 g/cKXkiidv31.4-36.0[facility] CenterComment on above:Performed By: #### [id number] #### [facility] [address] [place] [address] 57518CDN (RBC) [Entitic vol]94.1 jPZyapgt86.0-100.0[facility] CenterComment on above:Performed By: #### [id number] #### [facility] [address] [place] [address] 53561Qxivtpzmv (Bld) [#/Vol]0.5 E9/LNormal0.2-1.0[facility] CenterComment on above:Performed By: #### [id number] #### [facility] [address] [place] [address] 18976Oesxxtfybvb (Bld) [#/Vol]2.6 E9/LNormal2.0-7.5FOhioHealth Van Wert HospitalComment on above:Performed By: #### [id number] #### [facility] [address] [place] [address] 04301Pkebuyackig/100 WBC (Bld)44.0 %Bacfsy24.0-75.0[facility] CenterComment on above:Performed By: #### [id number] #### [facility] [address] [place], [place] [address]Hdjrbqao595.0 E9/QLknmcf487.0-500.0[facility] Comment on above:Performed By: #### [id number] #### [facility] [address] [place], [place] [address]Bgyixhtz mean volume (Bld) [Entitic vol]9.0 fLNormal6.4-10.8 [facility] CenterComment on above:Performed By: #### [id number] #### [facility] [address] [place] [address] 35488JLR (Bld) [#/Vol]4.3 E12/LNormal4.3-5.9[facility] CenterComment on above:Performed By: #### [id number] #### [facility] [address] [place] [address] 20166RFS corrected for nucl RBC Auto (Bld) [#/Vol]6.0 E9/LNormal 4.0-11.0[facility] CenterComment on above:Performed By: #### [id number] #### [facility] [address] [place] [address] 89229NJQWVZFYAUpnhabn By: SYSTEM SYSTEM on 79-22-6055Plgcuzf [Mass/Vol]4.5 g/dLNormal3.3 - 5.0 gm/dLRemisol ChemAlbumin/Globulin [Mass ratio] 1.3 {ratio}Normal1.1 - 2.2Remisol ChemALP [Catalytic activity/Vol]46 [iU]/d Bnijaq23 - 98 Int._Unit/LRemisol ChemALT No additional P-5'-P [Catalytic activity/Vol]29 [iU]/dNormal6 - 46 Int._Unit/LRemisol ChemAnion gap [Moles/Vol] 10 mmol/LNormal6 - 16 mEq/LRemisol ChemAST [Catalytic activity/Vol]37 [iU]/d Normal5 - 43 Int._Unit/LRemisol ChemBilirubin [Mass/Vol]1.3 mg/dLHigh0.0 - 1.1 mg/dLRemisol ChemCalcium [Mass/Vol]10.1 mg/dLNormal8.9 - 11.1 mg/dLRemisol Chem Chloride [Moles/Vol]105 mmol/XGlpcwa098 - 111 mmol/LRemisol ChemCholesterol [Mass/Vol]168 mg/lHMmuzjy871 - 200 mg/dLRemisol ChemCholesterol in HDL [Mass/Vol]77 mg/dLInvalid Interpretation CodeRemisol ChemComment on above:Result Comment: '>= 60 LOW RISK' '<= 40 HIGH RISK'Cholesterol in LDL [Mass/Vol]81 mg/dLNormal<=129mg/dLRemisol ChemCholesterol in VLDL [Mass/Vol]10 mg/dLNormal7 - 40 mg/dLRemisol ChemCO2 [Moles/Vol]27 mmol/UBmvfho98 - 31 mmol/LRemisol ChemCreatinine [Mass/Vol]0.9 mg/dLNormal0.5 - 1.3 mg/dLRemisol HkemtFIF22 mL/min/1.73 j1Eoovzh>=59mL/min/1.73 v2Jdufdae ChemGlobulin (S) [Mass/Vol]3.4 g/dLNormal1.4 - 4.0 gm/dLRemisol Chem Glucose [Mass/Vol]110 mg/mOOtxivr50 - 199 mg/dLRemisol ChemPotassium [Moles/Vol] 4.0 mmol/LNormal3.5 - 5.3 mmol/LRemisol ChemProtein [Mass/Vol]7.9 g/dLHigh6.0 - 7.8 gm/dLRemisol ChemSodium [Moles/Vol]138 mmol/JRzozjh128 - 145 mmol/LRemisol ChemTriglyceride [Mass/Vol]49 mg/dLNormal<=149mg/dLRemisol ChemTSH Qn2.57 m[IU]/LNormal0.34 - 5.60 mcIU/mLRemisol ChemUrea nitrogen [Mass/Vol]17 mg/dL Normal5 - 21 mg/dLRemisol ChemUrea nitrogen/Creatinine [Mass ratio]19 mg/mg Qlugbb17 - 20Remisol ChemCHEMISTRYOrdered By: Ani Lam on 11-27-2024 Albumin DL <= 20 mg/L (U) [Mass/Vol]mg/dLNormal0.0 - 1.9 mg/dLRemisol Chem Albumin/Creatinine DL <= 20 mg/L (U) [Mass ratio]NOT CALCULATEDInvalid Interpretation Code0.0 - 30.0Remisol ChemComment on above:Interpretive Data: 30- 300 mg/g Cr indicates an increased risk for diabetic nephropathy. >300 mg/g Cr is consistent with clinical nephropathy.HbA1c (Bld) [Mass fraction] 5.9 %Normal<=5.9%[facility] ChemAutoSSU Ckngrwvaus96.1 mg/dLInvalid Interpretation CodeRemisol ChemCMPon [id number] [Mass/Vol]4.5 g/dLNormal3.3-5.0[facility] CenterComment on above:Performed By: #### [id number] #### [facility] [address] [place], [place] [address]Cugspcr/Globulin (S) [Mass conc ratio]1.1Yjrbrx4.1-2.2FOhioHealth Van Wert HospitalComment on above:Performed By: #### [id number] #### [facility] [address] [place], [place] [address]AJD [Catalytic activity/Vol]46 Int._Unit/VFkqphc81-66WfgcgwAdena Pike Medical CenterComment on above:Performed By: #### [id number] #### [facility] [address] [place], [place] [address]TCL No additional P-5'-P [Catalytic activity/Vol]29 Int._Unit/L Normal6-46[facility] CenterComment on above:Performed By: #### [id number] #### [facility] [address] [place], [place] [address]Qfieh gap [Moles/Vol]10 mmol/LNormal6-16[facility] CenterComment on above:Performed By: #### [id number] #### [facility] [address] [place], [place] [address]NYL [Catalytic activity/Vol]37 Int._Unit/LNormal5-43[facility] CenterComment on above:Performed By: #### [id number] #### [facility] [address] [place], [place] [address]Pknlvplcd [Mass/Vol]1.3 mg/dLHigh0.0-1.1FOhioHealth Van Wert HospitalComment on above:Performed By: #### [id number] #### [facility] [address] [place], [place] [address]Dzfuxex [Mass/Vol]10.1 mg/dLNormal8.9-11.1FOhioHealth Van Wert HospitalComment on above:Performed By: #### [id number] #### [facility] [address] [place], [place] [address]Gesvutxi [Moles/Vol]105 mmol/VKaquzw214-719QxbztjAdena Pike Medical CenterComment on above:Performed By: #### [id number] #### [facility] [address] [place], [place] [address]FD4 [Moles/Vol]27 mmol/JPoehqd05-07LwlxwyAdena Pike Medical Center Comment on above:Performed By: #### [id number] #### [facility] [address] [place] [address] 85[address]Nzpvbwjbcx [Mass/Vol]0.9 mg/dLNormal0.5-1.3FOhioHealth Van Wert HospitalComment on above:Performed By: #### [id number] #### [facility] [address] [place], [place] [address]Garmqjpp (S) [Mass/Vol]3.4 g/dLNormal1.4-4.0[facility] CenterComment on above:Performed By: #### [id number] #### [facility] [address] [place], [place] [address]Fsfjhyp [Mass/Vol]110 mg/wTTmsclu84-191UlxxorAdena Pike Medical CenterComment on above:Performed By: #### [id number] #### [facility] [address] [place], [place] [address]Dbnfhjfik [Moles/Vol]4.0 mmol/LNormal3.5-5.3FOhioHealth Van Wert HospitalComment on above:Performed By: #### [id number] #### [facility] [address] [place], [place] [address]Gbkpzwa [Mass/Vol]7.9 g/dLHigh6.0-7.8[facility] CenterComment on above:Performed By: #### [id number] #### [facility] [address] [place], [place] [address]Xbzmgz [Moles/Vol]138 mmol/EBqfzqv165-206RmsaptAdena Pike Medical CenterComment on above:Performed By: #### [id number] #### [facility] [address] [place], [place] [address]Vnls nitrogen [Mass/Vol]17 mg/dLNormal5-21[facility] CenterComment on above:Performed By: #### [id number] #### [facility] [address] [place], [place] [address]Zhla nitrogen/Creatinine [Mass ratio]19 No XetxuVcdqum95-28 [facility] CenterComment on above:Performed By: #### [id number] #### [facility] [address] [place], [place] [address]Jmssjo Medicine Office/Clinic Noteon 15-08-6448Zvhngs Medicine Office/Clinic NoteFamassachusetts general hospital Medicine Office/Clinic Note Chief Complaint 2m follow up Concerns regarding diabetes management and persistent chest pain. History of Present Illness - The patient is a 74-year-old female presenting with diabetes management and chest pain. - Type 2 diabetes managed with Novolin, with hypoglycemic episodes at night and hyperglycemia in the morning. - Diabetic coma history noted; insulin doses adjusted based on dietary intake. - Persistent chest pain, described as pressure, lasting five to six seconds, present for six months. - GERD suspected as the cause of chest pain, with no current treatment for it. - Discussion of the potential benefits of starting the patient on Ozempic for cardiovascular and renal protection. - Instruction on the importance of monitoring blood glucose levels due to diabetes and variable night-time hypoglycemia. - Dietary guidance for diabetes management, including potential for nighttime snacks to stabilize blood sugar. - Plans for thyroid function monitoring with levothyroxine as part of hypothyroidism management. Problem List/Past Medical History Ongoing Adnexal mass Asthma BMI 28.0-28.9,adult Chest pain Chronic kidney disease stage 3A. CVA (cerebrovascular accident) Diabetes mellitus Encounter to establish care with new provider Gastroesophageal reflux disease Hyperlipidemia Hypertension Nodule of lung Nonsmoker Osteoarthritis Osteoporosis Overweight (BMI 25.0-29.9) Type 2 diabetes mellitus Historical Hyperlipidemia Procedure/Surgical History Foot (2018), H/O: hysterectomy. Medications amlodipine-valsartan 5 mg-320 mg oral tablet, 1 tab(s), Oral, Daily atorvastatin 80 mg Tab, 80 mg= 1 tab(s), Oral, Daily HumaLOG KwikPen 100 units/mL injectable solution, 1 unit(s), SubCutaneous, TIDAC levothyroxine 88 mcg (0.088 mg) Tab ONETOUCH ULTRA TEST STRIP Allergies levoFLOXacin (Nausea) Social History Alcohol Never., 09/24/2024 Substance Abuse Never., 09/24/2024 Tobacco Never (less than 100 in lifetime) Tobacco Use:. Never Smokeless Tobacco Use:. Household tobacco concerns: No. Yes, 11/27/2024 Immunizations Vaccine Date Status Comments influenza virus vaccine, inactivated 04/16/2024 Recorded influenza virus vaccine, inactivated 03/23/2023 Recorded influenza virus vaccine, inactivated 06/01/2022 Recorded SARSCoV2 mRNA(lkaagkbmy-utok-jnuaik) vac 11/15/2021 Recorded influenza virus vaccine, inactivated 06/16/2021 Recorded SARS-CoV-2 (COVID-19) mRNA BNT-162b2 vax 06/10/2021 Recorded 2024-09-20: TPV70 zoster vaccine, inactivated 05/29/2021 Recorded zoster vaccine, inactivated 01/29/2021 Recorded SARS-CoV-2 (COVID-19) Ad26 vaccine 10/13/2020 Recorded influenza virus vaccine, inactivated 03/29/2020 Recorded pneumococcal 23-valent vaccine 02/07/2020 Recorded influenza virus vaccine, inactivated 06/20/2019 Recorded pneumococcal 13-valent vaccine 02/12/2019 Recorded Physical Exam Vitals & Measurements T: 36.7 ???C(Tympanic) HR: 80(Peripheral) RR: 18 BP: 136/84 SpO2: 99% HT: 65 in HT: 164 cm WT: 169.756 lb WT: 77 kg BMI: 28.63 General: alert, no acute distress ENMT: oral mucosa moist Cardiovascular: Regular rate and rhythm, normal peripheral perfusion Respiratory: Lungs clear to auscultation, respirations non labored Extremities: no deformity, no trauma Neurological: oriented x 4, level of consciousness appropriate for age, CN II- XII intact, motor strength slightly reduced on the left side, speech normal Abdomen: Soft, Non-tender, Non-distended, + Bowel sounds Assessment/Plan 1. CVA (cerebrovascular accident) (I63.9: Cerebral infarction, unspecified) Ordered: CBC w/ Auto Diff Comprehensive Metabolic Panel HgbA1c Lipid Panel TSH With T4fr Reflex Urine Microalbumin/Creatinine Ratio 2. Chronic kidney disease stage 3A. (N18.31: Chronic kidney disease, stage 3a) Ordered: CBC w/ Auto Diff Comprehensive Metabolic Panel HgbA1c Lipid Panel TSH With T4fr Reflex Urine Microalbumin/Creatinine Ratio 3. Type 2 diabetes mellitus (E11.9: Type 2 diabetes mellitus without complications) - Initiate Ozempic. Start sliding scale insulin. Ordered: CBC w/ Auto Diff Comprehensive Metabolic Panel HgbA1c Lipid Panel TSH With T4fr Reflex Urine Microalbumin/Creatinine Ratio 4. Hypertension (I10: Essential (primary) hypertension) - At goal. Ordered: CBC w/ Auto Diff Comprehensive Metabolic Panel HgbA1c Lipid Panel TSH With T4fr Reflex Urine Microalbumin/Creatinine Ratio 5. Gastroesophageal reflux disease (K21.9: Gastro-esophageal reflux disease without esophagitis) - Start Pepcid. Evaluate further if symptoms persist. Ordered: CBC w/ Auto Diff Comprehensive Metabolic Panel HgbA1c Lipid Panel TSH With T4fr Reflex Urine Microalbumin/Creatinine Ratio 6. Hyperlipidemia (E78.5: Hyperlipidemia, unspecified) - Will increase to 80 of lipitor. Ordered: CBC w/ Auto Diff Comprehe (more content not included)...[facility] CenterComment on above:Result Comment: Electronically Signed By: [place] TESFAYE, Konrad Singh.iwona\Date and Time Signed: 11/27/24 13:40 EDTHEMATOLOGYOrdered By: SYSTEM SYSTEM on 90-12-7693Cpixsjwki/100 WBC (Bld)0.7 %Normal0.0 - 2.0 %Remisol Heme Basophils/Leukocytes Auto (Bld) [Pure # fraction]0.0 E9/LNormal0.0 - 0.2 E9/L Remisol HemeEosinophils (Bld) [#/Vol]0.1 E9/LNormal0.0 - 0.5 E9/LRemisol Heme Eosinophils/100 WBC (Bld)2.4 %Normal0.0 - 8.0 %Remisol HemeErythrocyte distribution width (RBC) [Ratio]14.3 %High10.9 - 14.2 %Remisol HemeHematocrit (Bld) [Volume fraction]40.3 %Nvovdi08.0 - 46.0 %Remisol HemeHemoglobin (Bld) [Mass/Vol]13.0 g/mYQvmnqo23.0 - 16.0 gm/dLRemisol HemeLymphocytes (Bld) [#/Vol] 2.7 E9/LNormal1.0 - 4.0 E9/LRemisol HemeLymphocytes/100 WBC (Bld)45.0 %Normal 14.0 - 50.0 %Remisol HemeMCH (RBC) [Entitic mass]30.4 bbIixuac71.0 - 34.0 pg Remisol HemeMCHC (RBC) [Mass/Vol]32.3 g/lTHhaqny66.4 - 36.0 gm/dLRemisol HemeMCV (RBC) [Entitic vol]94.1 pAYturrz95.0 - 100.0 fLRemisol HemeMonocytes (Bld) [#/Vol]0.5 E9/LNormal0.2 - 1.0 E9/LRemisol HemeMonocytes/100 WBC (Bld)7.9 % Normal4.0 - 14.0 %Remisol HemeNeutrophils (Bld) [#/Vol]2.6 E9/LNormal2.0 - 7.5 E9/LRemisol HemeNeutrophils/100 WBC (Bld)44.0 %Xdphkn05.0 - 75.0 %Remisol Heme Amvhubyx541.0 E9/HAnxlru404.0 - 500.0 E9/LRemisol HemePlatelet mean volume (Bld) [Entitic vol]9.0 fLNormal6.4 - 10.8 fLRemisol HemeRBC (Bld) [#/Vol]4.3 E12/L Normal4.3 - 5.9 E12/LRemisol HemeWBC corrected for nucl RBC Auto (Bld) [#/Vol] 6.0 E9/LNormal4.0 - 11.0 E9/LRemisol OxngXilS5zmg 24-71-8587DkG6t (Bld) [Mass fraction]5.9 %Normal<=5.9[facility] CenterComment on above:Performed By: #### [id number] #### [facility] [address] [place], [place] [address]Puxxs Panelon 07-36-4460Nstltdavqfn [Mass/Vol]168 mg/dLNormal 120-200[facility] CenterComment on above:Performed By: #### [id number] #### [facility] [address] [place], [place] [address]Gygtcolqixa in HDL [Mass/Vol]77 mg/dLInvalid Interpretation CodeAdena Pike Medical CenterComment on above:Result Comment: '>= 60 LOW RISK' '<= 40 HIGH RISK'Performed By: #### [id number] #### [facility] [address] [place], [place] [address]Rvuknzblsxp in LDL [Mass/Vol]81 mg/dLNormal<=129[facility] Medical CenterComment on above:Performed By: #### [id number] #### [facility] [address] [place], [place] [address]Qrrdgfdqkpt in VLDL [Mass/Vol]10 mg/dLNormal7-40[facility] Medical CenterComment on above:Performed By: #### [id number] #### [facility] [address] [place], [place] [address]Bhatkijvwktu [Mass/Vol]49 mg/dLNormal<=149[facility] CenterComment on above:Performed By: #### [id number] #### [facility] [address] [place], [place] [address]FIR With T4fr Reflexon 10-83-2768DUR Qn2.57 m[IU]/LNormal 0.34-5.60[facility] CenterComment on above:Performed By: #### [id number] #### [facility] [address] [place], [place] [address]M MA/Cr Ratioon 50-18-8518Vhypwdo DL <= 20 mg/L (U) [Mass/Vol] mg/dLNormal0.0-1.9[facility] Medical CenterComment on above:Performed By: #### [id number] #### [facility] [address] [place], [place] [address]Vdvwguc/Creatinine DL <= 20 mg/L (U) [Mass ratio]NOT CALCULATED Invalid Interpretation Code.0-30.0[facility] Medical CenterComment on above: Result Comment: 30-300 mg/g Cr indicates an increased risk for diabetic nephropathy. >300 mg/g Cr is consistent with clinical nephropathy.Performed By: #### [id number] #### [facility] [address] [place], [place] [address]G Fvdbexskpq54.1 mg/dLInvalid Interpretation CodeAdena Pike Medical CenterComment on above:Performed By: #### [id number] #### [facility] [address] [place], [place] [address]wBNNyc 18-66-4033wNZP99 mL/min/1.73 x5Uuusti>=59A[facility] Medical CenterComment on above:Performed By: #### [id number] #### [facility] [address] [place], [place] [address]Gyyhbr Medicine Office/Clinic Noteon 63-09-1730Aybcrq Medicine Office/Clinic NoteFami Medicine Office/Clinic Note Chief Complaint Establish Care HPI Staff Pt presents today to Establish Care: History: Any previous diagnosis: DM History of seeing any specialist: podiatry & eye When was your last doctors visit: 09/10/24 Last provider: Dr De La Cruz Any recent labs: 06/11/24 (in Daniela's file cabinet) Health Maintenance UTD: Colonoscopy: Cologuard a cpl yrs ago Mammogram: a long time Pelvic/Pap: S/P Hysterectomy. several yrs ago Dexa Bone Scan: 01/30/21 Acute: Current issues/complaints: pain/pressure on Rt side of chest History of Present Illness pt presents today to establish care Review of Systems PHQ Score Initial Depression Screen Score: 3 SCORE Detailed Depression Screen Score: 1 Total Depression Screen Score: 4 Physical Exam Vitals & Measurements T: 36.6 ???C(Tympanic) HR: 85(Peripheral) RR: 18 BP: 138/84 SpO2: 98% HT: 65 in HT: 164 cm WT: 77.6 kg WT: 171.079 lb BMI: 28.85 General: alert, no acute distress ENMT: oral mucosa moist, no pharyngeal erythema or exudate Cardiovascular: regular rate and rhythm, normal peripheral perfusion Respiratory: Lungs CTA, respirations non labored Extremities: no deformity, no trauma Neurological: oriented x 4, LOC appropriate for age, CN II-XII intact, motor strength equal & normal bilaterally, speech normal Assessment/Plan 1. Encounter to establish care with new provider (Z76.89: Persons encountering health services in other specified circumstances) pt presents today to establish care. is a previous Dr. De La Cruz pt. pt states he is just very hard to get into and is so busy. She was supposed to see Dr. Golden today. but he is ill. Assured her this office will be able to manage her care. Is not due for labs at this time. just had prolia injection September. 2. Type 2 diabetes mellitus (E11.9: Type 2 diabetes mellitus without complications) Last HGBA1C was in May was 7. will recheck end of November. does not need refills at this time 3. Chest pain (R07.9: Chest pain, unspecified) pt points to area towards right side of chest and states it hurts right her. like a sore muscle. ithas been like that for about a month. pt has shoveled snow a couple times. not sure if she straineda muscle or if something else is going on. Will order chest x ray to start with. since she is diabetic I will hold off on steroid. may consider anti inflammatory daily for a couple weeks. 4. BMI 28.0-28.9,adult (Z68.28: Body mass index [BMI] 28.0-28.9, adult) BMI education given 5. Overweight (BMI 25.0-29.9) (E66.3: Overweight) see above 6. Nonsmoker (Z78.9: Other specified health status) continue not smoking Follow-up No qualifying data available Problem List/Past Medical History Ongoing Adnexal mass Asthma BMI 28.0-28.9,adult Chest pain Chronic kidney disease stage 3A. CVA (cerebrovascular accident) Diabetes mellitus Encounter to establish care with new provider Gastroesophageal reflux disease Hyperlipidemia Hypertension Nodule of lung Nonsmoker Osteoarthritis Osteoporosis Overweight (BMI 25.0-29.9) Type 2 diabetes mellitus Historical Hyperlipidemia Procedure/Surgical History Foot (2018), H/O: hysterectomy. Medications amlodipine-valsartan 5 mg-320 mg oral tablet atorvastatin 40 mg Tab levothyroxine 88 mcg (0.088 mg) Tab NovoLIN 70/30 FlexPen subcutaneous suspension ONETOUCH ULTRA TEST STRIP Allergies levoFLOXacin (Nausea) Social History Alcohol Never., 09/24/2024 Substance Abuse Never., 09/24/2024 Tobacco Never (less than 100 in lifetime) Tobacco Use:. Never Smokeless Tobacco Use:. Household tobacco concerns: No. Yes, 09/24/2024 Immunizations Vaccine Date Status Comments influenza virus vaccine, inactivated 04/16/2024 Recorded influenza virus vaccine, inactivated 03/23/2023 Recorded influenza virus vaccine, inactivated 06/01/2022 Recorded SARSCoV2 mRNA(qdmsbzhuc-wkgf-hbkpsz) vac 11/15/2021 Recorded influenza virus vaccine, inactivated 06/16/2021 Recorded SARS-CoV-2 (COVID-19) mRNA BNT-162b2 vax 06/10/2021 Recorded 2024-09-20: TPV70 zoster vaccine, inactivated 05/29/2021 Recorded zoster vaccine, inactivated 01/29/2021 Recorded SARS-CoV-2 (COVID-19) Ad26 vaccine 10/13/2020 Recorded influenza virus vaccine, inactivated 03/29/2020 Recorded pneumococcal 23-valent vaccine 02/07/2020 Recorded influenza virus vaccine, inactivated 06/20/2019 Recorded pneumococcal 13-valent vaccine 02/12/2019 RecordedCoshocton Regional Medical CenterComment on above:Result Comment: Electronically Signed By: Padma Martin\.br\Date and Time Signed: 09/24/24 11:14 ESTALBUMIN, RANDOM URINE W/CREATININEon 93-38-9059RTPWMXC, URINE1.8 mg/dLNormalSee Note:[facility] Comment on above:Result Comment: Reference Range: Reference Range Not establishedPerformed By: #### 7600, 6517 #### [facility] [address], [address] [place] [address] Fraud Analyst: Humberto Rosenberg MD #### 6399, 19427 #### [facility] [address] [place], [place] [phone] Fraud Analyst: Ksenia AlvaradoiALBUMIN/CREATININE RATIO, RANDOM URINE19 mg/g creatNormal<30Quest DiagnosticsComment on above:Result Comment: The ADA defines abnormalities in albumin excretion as follows: Albuminuria Category Result (mg/g creatinine) Normal to Mildly increased <30 Moderately increased 30-299 Severely increased > OR = 300 The ADA recommends that at least two of three specimens collected within a 3-6 month period be abnormal before considering a patient to be within a diagnostic category.Performed By: #### 7600, 6517 #### [facility] [address], [address] [place] [address] Fraud Analyst: Humberto Rosenberg MD #### 6399, 86566 #### [facility] [address] [place], [place] [phone] Fraud Analyst: Ksenia Okeefe FlatiCreatinine (U) [Mass/Vol]94 mg/cJTprgzv55-919 [facility]osticsComment on above:Performed By: #### 7600, 6517 #### [facility] [address], [address] [place] [address] Fraud Analyst: Humberto Rosenberg MD #### 6399, 52691 #### [facility] [address] [place] [address] Fraud Analyst: Ksenia AlvaradoiCBC (INCLUDES DIFF/PLT)on 75-65-2518Bkjzdxkqn (Bld) [#/Vol]0.019 10*3/uLNormal0-200Quest DiagnosticsComment on above:Performed By: #### 7600, 6517 #### [facility] [address], [address] [place] [address] Fraud Analyst: Humberto Rosenberg MD #### 6399, 33354 #### [facility] [address] [place] [address] Fraud Analyst: Ksenia Okeefe FlatiBasophils/100 WBC (Bld)0.3 %NormalQuest DiagnosticsComment on above:Performed By: #### 0, 6517 #### [facility] [place] [address], [address] [place] [address] Fraud Analyst: Humberto Rosenberg MD #### 6399, 41425 #### [facility] [address] Fraud Analyst: Ksenia Okeefe FlatiEosinophils (Bld) [#/Vol]0.192 10*3/uLNormal 15-500Quest DiagnosticsComment on above:Performed By: #### 7599, 6517 #### [facility] [address], [address] [place] [address] Fraud Analyst: Humberto Rosenberg MD #### 6399, 08701 #### [facility] [address] Fraud Analyst: Ksenia Okeefe FlatiEosinophils/100 WBC (Bld)3.1 %NormalQuest DiagnosticsComment on above:Performed By: #### 0, 6517 #### [facility] [address], [address] [place] [address] Fraud Analyst: Humberto Rosenberg MD #### 6399, 99043 #### [facility] [address] [place] [address] Fraud Analyst: Ksenia AlvaradoiErythrocyte distribution width (RBC) [Ratio] 12.7 %Djcgxq11.0-15.0Quest DiagnosticsComment on above:Performed By: #### 760, 6517 #### [facility] [address], [address] [place] [address] Fraud Analyst: Humberto Rosenberg MD #### 6399, 91700 #### [facility] [address] [place], [place] [phone] Fraud Analyst: Ksenia Okeefe FlatiHematocrit (Bld) [Volume fraction]40.2 %Normal 35.0-45.0Quest DiagnosticsComment on above:Performed By: #### 7600, 6517 #### [facility] [place] [address], [address] [place] [address] Fraud Analyst: Humberto Rosenberg MD #### 6399, 26056 #### [place] [address] Fraud Analyst: Ksenia Okeefe FlatiHemoglobin (Bld) [Mass/Vol]13.0 g/dLNormal 11.7-15.5Quest DiagnosticsComment on above:Performed By: #### 7600, 6517 #### [facility] [address], [address] [place] [address] Fraud Analyst: Humberto Rosenberg MD #### 6399, 49180 #### [facility] [id number] Fraud Analyst: Ksenia Okeefe FlatiLymphocytes (Bld) [#/Vol]2.48 10*3/uLNormal 850-3900Quest DiagnosticsComment on above:Performed By: #### 7600, 6517 #### [facility] [place] [address] [address] , [address] [place] [address] Fraud Analyst: Humberto Rosenberg MD #### 6399, 19227 #### [facility] [address] [place], [place] [phone] Fraud Analyst: Ksenia Okeefe FlatiLymphocytes/100 WBC (Bld)40.0 %NormalQuest DiagnosticsComment on above:Performed By: #### 7600, 6517 #### [facility] [address] , [address] [place] [address] Fraud Analyst: Humberto Rosenberg MD #### 6399, 65610 #### [facility] [address] [place] [address] Fraud Analyst: Ksenia HearnCH (RBC) [Entitic mass]30.7 pvTsqcyw96.0-33.0 [facility]osticsComment on above:Performed By: #### 5430, 6517 #### [facility] [address], [address] [place] [address] Fraud Analyst: Humberto Rosenberg MD #### 6399, 64372 #### [facility] [address] [place] [address] Fraud Analyst: Ksenia AlvaradoiMCHC (RBC) [Mass/Vol]32.3 g/tMMyhqmm46.0-36.0 [facility]osticsComment on above:Result Comment: For adults, a slight decrease in the calculated MCHC value (in the range of 30 to 32 g/dL) is most likely not clinically significant; however, it should be interpreted with caution in correlation with other red cell parameters and the patient's clinical condition.Performed By: #### 0220, 2365 #### [facility] [place] [address] Fraud Analyst: Humberto Rosenberg MD #### 6399, 60865 #### [facility] [address] [place] [address] Fraud Analyst: Ksenia HearnCV (RBC) [Entitic vol]95.0 gKYkukjb23.0-100.0 [facility]osticsComment on above:Performed By: #### 4180, 6517 #### [facility] [address], [address] [place] [address] Fraud Analyst: Humberto Rosenberg MD #### 6399, 18146 #### [facility] [address] [place] [address] Fraud Analyst: Ksenia AlvaradoiMonocytes (Bld) [#/Vol]0.558 10*3/uLNormal 200-950Quest DiagnosticsComment on above:Performed By: #### 7600, 6517 #### [facility] [address], [address] [place] [address] Fraud Analyst: Humberto Rosenberg MD #### 6399, 40910 #### [facility] [address] [place] [address] Fraud Analyst: Ksenia Okeefe FlatiMonocytes/100 WBC (Bld)9.0 %NormalQuest DiagnosticsComment on above:Performed By: #### 7600, 6517 #### [facility] [address], [address] [place] [address] Fraud Analyst: Humberto Rosenberg MD #### 6399, 32264 #### [facility] [address] Fraud Analyst: Ksenia Okeefe FlatiNeutrophils (Bld) [#/Vol]2.951 10*3/uLNormal 1500-7800Quest DiagnosticsComment on above:Performed By: #### 7600, 6517 #### [facility] [place] [address] Fraud Analyst: Humberto Rosenberg MD #### 6399, 46493 #### [facility] [address] Fraud Analyst: Ksenia Okeefe FlatiNeutrophils/100 WBC (Bld)47.6 %NormalQuest DiagnosticsComment on above:Performed By: #### 7600, 6517 #### [facility] [address], [address] [place] [address] Fraud Analyst: Humberto Rosenberg MD #### 6399, 78199 #### [facility] [address] [place] [address] Fraud Analyst: Ksenia Okeefe FlatiPlatelet mean volume (Bld) [Entitic vol]10.7 fLNormal7.5-12.5Quest DiagnosticsComment on above:Performed By: #### 7600, 6517 #### [facility] [address], [address] [place] [address] Fraud Analyst: Humberto Rosenberg MD #### 6399, 84797 #### [facility] [address] [place] [address] Fraud Analyst: Ksenia AlvaradoiPlatelets (Bld) [#/Vol]209 10*3/uLNormal 140-400Quest DiagnosticsComment on above:Performed By: #### 7600, 6517 #### [facility] [address], [address] [place] [address] Fraud Analyst: Humberto Rosenberg MD #### 6399, 06869 #### [facility] [id number] Fraud Analyst: Ksenia AlvaradoiRBC (Bld) [#/Vol]4.23 10*6/uLNormal3.80-5.10 [facility]osticsComment on above:Performed By: #### 7600, 6517 #### [facility] [address], [address] [place] [address] Fraud Analyst: Humberto Rosenberg MD #### 6399, 89224 #### [facility] [phone] Fraud Analyst: Ksenia AlvaradoiWBC (Bld) [#/Vol]6.2 10*3/uLNormal3.8-10.8 [facility]osticsComment on above:Performed By: #### 7600, 6517 #### [facility] [address], [address] [place] [address] Fraud Analyst: Humberto Rosenberg MD #### 6399, 51251 #### [facility] [address] [place] [address] Fraud Analyst: Ksenia AlvaradoiCOMPREHENSIVE METABOLIC PANELon 06-12-2024 Albumin [Mass/Vol]4.4 g/dLNormal3.6-5.1Quest DiagnosticsComment on above: Performed By: #### 6020, 6517 #### [facility] [address], [address] [place] [address] Fraud Analyst: Humberto Rosenberg MD #### 6399, 87108 #### [facility] [address] Fraud Analyst: Ksenia Okeefe FlatiAlbumin/Globulin [Mass ratio]1.3 {ratio}Normal 1.0-2.5Quest DiagnosticsComment on above:Performed By: #### 1720, 6517 #### [facility] [address], [address] [place] [address] Fraud Analyst: Humberto Rosenberg MD #### 6399, 58512 #### [facility] [address] Fraud Analyst: Ksenia AlvaradoiALP [Catalytic activity/Vol]44 U/BWpxxqn40-393 [facility]osticsComment on above:Performed By: #### 5910, 6517 #### [facility] [address], [address] [place] [address] Fraud Analyst: Humberto Rosenberg MD #### 6399, 02042 #### [facility] [address] Fraud Analyst: Ksenia Okeefe FlatiALT [Catalytic activity/Vol]21 U/LNormal6-29 [facility]osticsComment on above:Performed By: #### 7600, 6517 #### [facility] [address], [address] [place] [address] Fraud Analyst: Humberto Rosenberg MD #### 6399, 74476 #### [facility] [address] [place], [place] [id number] Fraud Analyst: Ksenia Okeefe FlatiAST [Catalytic activity/Vol]23 U/EWnnqgz03-29 [facility]osticsComment on above:Performed By: #### 0820, 6517 #### [facility] [address], [address] [place], [place] [id number] Fraud Analyst: Humberto Rosenberg MD #### 6399, 84185 #### [facility] [address] [place], [place] [id number] Fraud Analyst: Ksenia Okeefe FlatiBilirubin [Mass/Vol]1.0 mg/dLNormal0.2-1.2 [facility]osticsComment on above:Performed By: #### 7600, 6517 #### [facility] [address], [address] [place] [address] Fraud Analyst: Humberto Rosenberg MD #### 6399, 22411 #### [facility]-[address] Fraud Analyst: Ksenia Okeefe FlatiCalcium [Mass/Vol]10.2 mg/dLNormal8.6-10.4 [facility]osticsComment on above:Performed By: #### 7600, 6517 #### [facility] [place] [address] [address] , [address] [place] [address] Fraud Analyst: Humberto Rosenberg MD #### 6399, 48264 #### [facility]-[address] Fraud Analyst: Ksenia Okeefe FlatiChloride [Moles/Vol]107 mmol/VXulxjt13-413 [facility]osticsComment on above:Performed By: #### 7600, 6517 #### [facility] [address], [address] [place] [address] Fraud Analyst: Humberto Rosenberg MD #### 6399, 72371 #### [facility] [address] [place] [address] Fraud Analyst: Ksenia Okeefe FlatiCO2 [Moles/Vol]28 mmol/XVzxuet36-23Vrgav DiagnosticsComment on above:Performed By: #### 7600, 6517 #### [facility] [address], [address] [place] [address] Fraud Analyst: Humberto Rosenberg MD #### 6399, 76832 #### [facility] [address] [place] [address] Fraud Analyst: Ksenia AlvaradoiCreatinine [Mass/Vol]0.88 mg/dLNormal0.60-1.00 [facility]osticsComment on above:Performed By: #### 7600, 6517 #### [facility] [address], [address] [place] [address] Fraud Analyst: Humberto Rosenberg MD #### 6399, 44362 #### [facility] [address] [place], [place] [address] Fraud Analyst: Ksenia AlvaradoiGFR/1.73 sq M.predicted among non-blacks MDRD (S/P/Bld) [Vol rate/Area]68 mL/min/{1.73_m2}Normal> OR = 60[facility] Comment on above:Performed By: #### 7600, 6517 #### [facility] [address], [address] [place] [address] Fraud Analyst: Humberto Rosenberg MD #### 6399, 64965 #### [facility] [address] [place] [address] Fraud Analyst: Ksenia Okeefe FlatiGlobulin (S) [Mass/Vol]3.3 g/dLNormal1.9-3.7 [facility]osticsComment on above:Performed By: #### 7600, 6517 #### [facility] [address], [address] [place] [address] Fraud Analyst: Humberto Rosenberg MD #### 6399, 14242 #### [facility] [address] [place] [address] Fraud Analyst: Ksenia Okeefe FlatiGlucose [Mass/Vol]198 mg/zEFzdu07-81Xwmpw DiagnosticsComment on above:Result Comment: Fasting reference interval For someone without known diabetes, a glucose value >125 mg/dL indicates that they may have diabetes and this should be confirmed with a follow-up test.Performed By: #### 7600, 6517 #### [facility] [address], [address] [place] [address] Fraud Analyst: Humberto Rosenberg MD #### 6399, 73163 #### [facility] [address] Fraud Analyst: Ksenia Okeefe FlatiPotassium [Moles/Vol]4.6 mmol/LNormal3.5-5.3 [facility]osticsComment on above:Performed By: #### 7600, 6517 #### [facility] [address], [address] [place] [address] Fraud Analyst: Humberto Rosenberg MD #### 6399, 11614 #### [facility] [address] Fraud Analyst: Ksenia AlvaradoiProtein [Mass/Vol]7.7 g/dLNormal6.1-8.1[facility] DiagnosticsComment on above:Performed By: #### 7600, 6517 #### [facility] [address], [address] [place] [address] Fraud Analyst: Humberto Rosenberg MD #### 6399, 88860 #### [facility] [address] Fraud Analyst: Ksenia AlvaradoiSodium [Moles/Vol]141 mmol/DJvonga068-662Fnfue DiagnosticsComment on above:Performed By: #### 7600, 6517 #### [facility] [address], [address] [place] [address] Fraud Analyst: Humberto Rosenberg MD #### 6399, 43606 #### [facility]-[address] [address] Fraud Analyst: Ksenia AlvaradoiUrea nitrogen [Mass/Vol]26 mg/dLHigh7-25Quest DiagnosticsComment on above:Performed By: #### 7070, 6517 #### [facility] [address], [address] [place], [place] [id number] Fraud Analyst: Humberto Rosenberg MD #### 6399, 79758 #### [facility] [address] [place] [address] Fraud Analyst: Ksenia AlvaradoiUrea nitrogen/Creatinine [Mass ratio]30 mg/mg High6-22Quest DiagnosticsComment on above:Performed By: #### 7600, 6517 #### [facility] [address], [address] [place], [place] [id number] Fraud Analyst: Humberto Rosenberg MD #### 6399, 76810 #### [facility] [address] [place] [address] Fraud Analyst: Ksenia WHELANBlanchard Valley Health [facility] 85-19-7025Jccsfmafaet [Mass/Vol]173 mg/dLNormal<200Quest DiagnosticsComment on above:Performed By: #### 7600, 6517 #### [facility] [address], [address] [place] [address] Fraud Analyst: Humberto Rosenberg MD #### 6399, [id number] #### [facility] [address] [place] [address] Fraud Analyst: Ksenia Okeefe FlatiCholesterol in HDL [Mass/Vol]78 mg/dLNormal> OR = 50Quest DiagnosticsComment on above:Performed By: #### 7600, 6517 #### [facility] [address], [address] [place], [place] [address] Fraud Analyst: Humberto Rosenberg MD #### 6399, 05354 #### [facility] [address] [place] [address] Fraud Analyst: Ksenia AlvaradoiCholesterol in LDL [Mass/Vol]81 mg/dLNormal Quest DiagnosticsComment on above:Result Comment: Reference range: <100 Desirable range <100 mg/dL for primary prevention; <70 mg/dL for patients with CHD or diabetic patients with > or = 2 CHD risk factors. LDL-C is now calculated using the Louie calculation, which is a validated novel method providing better accuracy than the Friedewald equation in the estimation of LDL-C. Ck CASIANO et al. DRE. 2013;310(19): 8251-9723 (http://education.[employer]/faq/ZTD981)Performed By: #### 0, 6517 #### [facility] [address], [address] [place] [address] Fraud Analyst: Humberto Rosenberg MD #### 6399, 51793 #### [facility] [address] [place] [address] Fraud Analyst: Ksenia Quiroz.total/Cholesterol in HDL [Mass ratio]2.2 {ratio}Normal<5.0Quest DiagnosticsComment on above:Performed By: #### 7599, 6517 #### [facility] [address], [address] [place] [address] Fraud Analyst: Humberto Rosenberg MD #### 6399, 85806 #### [facility] [address] [place] [address] Fraud Analyst: Ksenia Rowe HDL UKDIWVSFONU81 mg/dL (calc)Normal<130 Quest DiagnosticsComment on above:Result Comment: For patients with diabetes plus 1 major ASCVD risk factor, treating to a non-HDL-C goal of <100 mg/dL (LDL-C of <70 mg/dL) is considered a therapeutic option.Performed By: #### 7599, 6517 #### [facility] [address], [address] [place] [address] Fraud Analyst: Humberto Rosenberg MD #### 6399, 47200 #### [facility] [address] [place] [address] Fraud Analyst: Ksenia AlvaradoiTriglyceride [Mass/Vol]62 mg/dLNormal<150Quest DiagnosticsComment on above:Performed By: #### 255, 6517 #### [facility] [address], [address] [place] [address] Fraud Analyst: Humberto Rosenberg MD #### 6399, 44204 #### [facility] [address] [place] [address] Fraud Analyst: Ksenia AlvaradoiTSH W/REFLEX TO FT4on 44-85-3592LCJ W/REFLEX TO FT42.93 mIU/LNormal0.40-4.50Quest DiagnosticsComment on above:Performed By: #### 7600, 6517 #### [facility] [address], [address] [place] [address] Fraud Analyst: Humberto Rosenberg MD #### 6399, 53598 #### [facility] [address] [place] [address] Fraud Analyst: Ksenia AlvaradoiHbA1c (Bld) [Mass fraction]on 59-79-8862[facility] HealthcareLaboratory - Hematology and Cell countson 60-64-9364OuY5u (Bld) [Mass fraction]7 %[facility] HealthcareXR THORACIC SPINE 3Von 13-96-2024Jhq[address] [address] XRay Report Signed Patient: KERLINE MEJIA MR#: [id number] : 1950 Acct:[id number] Age/Sex: 73 / F ADM Date: 08/05/23 Loc: RAD Attending Dr: PHILLIP DE LA CRUZ Ordering Physician: PHILLIP DE LA CRUZ Date of Service: 08/05/23 Procedure(s): XR thoracic spine 3V Accession Number(s): [id number] cc: PHILLIP DE LA CRUZ [address] [address] Patient Name: KERLINE MEJIA MRN: [id number] date: 1950 Sex: F Assigned Patient Location: RAD Current Patient Location: Accession/Order Number: [id number] Exam Date: 08/05/2023 10:24 Report Date: 08/08/2023 [...] Signed By: 08/08/23 1605 DD/ 1603 TD/TT: Trumpet Player:TBHRadiology, Radiologist, MD - 08/08/2023 [place] [address] XRay Report Signed Patient: KERLINE MEJIA MR#: [id number] : 1950 Acct:[id number] Age/Sex: 73 / F ADM Date: 08/05/23 Loc: [facility] Attending Dr: PHILLIP DE LA CRUZ Ordering Physician: PHILLIP DE LA CRUZ Date of Service: 08/05/23 Procedure(s): XR thoracic spine 3V Accession Number(s): [id number] cc: PHILLIP DE LA CRUZ [place] [address] Patient Name: KERLINE MEJIA MRN: [id number] date: 1950 Sex: F Assigned Patient Location: [facility] Current Patient Location: Accession/Order Number: [id number] Exam Date: 08/05/2023 10:24 Report Date: 08/08/2023 [...] Signed By: 08/08/23 1605 DD/ 1603 TD/TT: Trumpet Player: SHELL HealthcareRadiology Study observation (narrative)[facility] HealthcareXR THORACIC SPINE 3VOrdered By: Radiologist Radiology on 27-20-5737[facility] Work Phone: cOVID Quick Testingon 99-97-8178LklkclMaiwidstOhngk [employer] Other microalbumin (with Creat)on 20-54-6092rMVG<1.2Low [facility] SpecialistComment on above:Result Comment: Unable to calculate mALB/Crea ratio, mALB is <1.2 mg/dL mALB reference range not established.Performed By: #### mALBC #### [facility] [address] [place], [place] [id number] mg/lOEgkzrf48-643JwralinvCity Hospital Comment on above:Performed By: #### mALBC #### [facility] [address], [place] [id number] DEXA BONE DENSITYon 03-48-0507JZ DEXA BONE DENSITY EXAMINATION: XR DEXA BONE DENSITY HISTORY: Adult health examination COMPARISON: 2019 TECHNIQUE: Dual-energy X-ray absorptiometry (DXA) was performed. FINDINGS: Bone mineral density AP spine L1-L4 measures 1.101 g/sq cm. T score -0.7. WHO classification: Normal. Lowest bone mineral density is in the femoral necks measuring 0.673 on the right and on the left. T score -2.6. WHO classification: Osteoporosis IMPRESSION: Osteoporosis. High fracture risk Electronically authenticated by: CASEY RADER Date: 2021-01-30 09:00[facility] GLUCOSEon 58-88-3848Ybwwjkd [Mass/Vol]189 mg/dL Critically mcvg20-663JdfSt. Francis HospitalComment on above:Performed By: #### POCGLUC #### [facility] [address] [address] Stephy Mckeon Covid-19 PCRon 16-20-8382Eglmucoc LDT InfoSEE BELOWNormalThDelaware County Hospital on above:Result Comment: This test is not yet approved or cleared by the [place] Food and Drug Administration (FDA) . This test was developed by [facility]. The performance character istics of this test were validated by [facility]. The results are not intended to be used as the sole means for clinical diagnosis or patient management decisions. The [facility] is authorized under Clinical Laboratory Improvement Amendments (CLIA) to perform high-complexity testing. When diagnostic testing is negative, the possibility of a false negative should be considered in the context of a patients recent exposures and the presence of clinical signs and symptoms consistent with SARS-CoV-2.Performed By: #### CVDRPD #### [facility] [address] [place] [address] Stephy YadavFywizGFBG-EmH-7 (COVID-19) RNA GAIL+probe Ql (Unsp spec)DetectedInvalid Interpretation CodeNOT DETECTEDThe [facility] on above:Result Comment: This test is not yet approved or cleared by the [place] Food and Drug Administration (FDA). This test was developed by [facility]. The performance characteristics of this test were validated by [facility]. The results are not intendedto be used as the sole means for clinical diagnosis or patient management decisions. The [facility] is authorized under Clinical Laboratory Improvement Amendments (CLIA) to perform high-complexity testing.Performed By: #### CVDRPD #### [facility] [address] [place] [address] Stephy KarenCREATININEon 16-73-1420Gptsjuvfck [Mass/Vol]1.01 mg/dLNormal 0.52-1.04[facility] on above:Performed By: #### CREA #### [facility] [address] [place] [address] Stephy KarenEGFR-AF SOUTH KOREAN>60Normal>=60[facility] on above: Performed By: #### CREA #### [facility] [address] [place] [address] Stephy KarenEGFR-NON AF HLYVXJAF67 mL/min/1.76p2Qlfpabqtkp low>=60The [facility] HospitalComment on above:Performed By: #### CREA #### [facility] [address] [id number] Stephy Guo CHEST W CONon 86-09-8036QC CHEST W CONEXAMINATION: CT CHEST W CON HISTORY: Solitary nodule [...] Electronically authenticated by: ZORA ATKINSON Date: 2020-05-16 13:45[facility] Vital Signs Date TimeVital SignValuePerforming TlcaymquiPkxgeuov02-56-3231 14:56-0500Body ddahwx397.1 cmDadonald De La Cruz MD Work Phone: SmartyContentEllett Memorial HospitalUpgjjrxjqj66-95-1516 14:56-0500Body mass index (BMI) [Ratio]28.29 kg/g6AkvwpoPhillip De La Cruz MD Work Phone: SmartyContentEllett Memorial HospitalXvtpyzrega26-63-9264 14:56-0500Body abeflg35.11 kgPhillip De La Cruz MD Work Phone: SmartyContentEllett Memorial HospitalIswpkxvlif72-54-3702 14:56-0500Diastolic blood mm[Hg]Phillip De La rCuz MD Work Phone: [facility] HospitalZkaxpkqcfu45-66-7716 14:56-0500Heart rate92 /min Phillip De La Cruz MD Work Phone: [facility] HospitalRwpofrsscm59-10-9728 14:56-6208UuB2% (BldA) [Mass fraction]96 %Phillip De La Cruz MD Work Phone: [facility] HospitalVekcxwszbv47-69-5812 14:56-0500Systolic blood wcsvxeur770 mm[Hg]Phillip De La Cruz MD Work Phone: [facility] HospitalDrtptkrkwu79-84-1897 16:08-0500Body cxrfyz140.1 cmJessica Pollock DPM Work Phone: [phone] [place], [place] [address]68[address]-21-2025 16:08-0500Body mass index (BMI) [Ratio]28.29 kg/z1Rtqemxz Pollock DPM Work Phone: [phone] [place], [place] 3768001-21-2025 16:08-0500Body adsbqb49.11 kgJessica Pollock DPM Work Phone: [phone] [place], [place] 3768012-31-2024 09:53-0500Body pauwck682.1 cmJessica Pollock DPM Work Phone: [phone]-31-2024 09:53-0500Body mass index (BMI) [Ratio]28.29 kg/f9Qvkjqgq Pollock DPM Work Phone: [phone] [place], [place] 3768012-31-2024 09:53-0500Body gykmkx83.11 kgJessica Pollock DPM Work Phone: [phone] [place], [place] 3768012-17-2024 13:21-0500Body nnjijq003.1 cmJessica Pollock DPM Work Phone: [phone] [place], [place] 3768012-17-2024 13:21-0500Body mass index (BMI) [Ratio]28.29 kg/e3Pwcymun Pollock DPM Work Phone: [phone])[address] [place], [place] 3768012-17-2024 13:21-0500Body rifmqi00.11 kgLucy Pollock DPM Work Phone: NOEllett Memorial HospitalFabfjqwhys64-27-7962 09:41-0400Body mass index (BMI) [Ratio]28.21 kg/a6DdmbqtPhillip De La Cruz MD Work Phone: NOEllett Memorial HospitalCnhrefwmoo29-87-0232 09:41-0400Body .29 kgDadonald De La Cruz MD Work Phone: NOEllett Memorial HospitalImxhvxdqww38-79-3958 09:41-0400Diastolic blood hoeppxds05 mm[Hg]Phillip De La Cruz MD Work Phone: [facility] HospitalZkaxkorfsy52-36-0156 09:41-0400Heart rate79 /min Phillip De La Cruz MD Work Phone: [facility] HospitalMsixienfep97-26-7459 09:41-0400Respiratory rate18 /minDjory De La Cruz MD Work Phone: [facility] HospitalHngtqjwecx94-93-3420 09:41-0418MdY8% (BldA) [Mass fraction]99 %Phillip De La Cruz MD Work Phone: [facility] HospitalMexlmpazbc33-71-1359 09:41-0400Systolic blood uvyigfzz103 mm[Hg]Phillip De La Cruz MD Work Phone: noVT [facility] Encounters Encounter DateEncounter TypeCare ProviderFacilityStart: 03-05-2025 End: 18-92-0226fyxddoiirxROP SHELLY A SHIRAHMANNFacility:FT FM BellevueStart: 02-07-2025 End: 92-31-5142Vev Drop offSHELLY A MIMA [facility] Start: 02-07-2025 End: 18-67-0918mdevkslqatLYF SHELLY A SHIRAHMANNFacility:FTMCStart: 01-17-2025 End: 05-23-3863qpzvcscrmkJspsex E. RossFacility:FT FM BellevueStart: 01-08-2025 End: 47-22-6311Ywi Drop offJodi L Jessie [facility] Start: 01-08-2025 End: 57-77-3110mdjqvmcorsNxoy L SchwabFacility:FTMCStart: 01-07-2025 End: 05-55-9470thjvmamttxKS Konrad AlcantaraBrandon GoldenFacility:FTMCStart: 01-01-2025 End: 59-40-0512njvnqodmgqHM Konraddeandre GoldenFacility:FT FM BellevueStart: 12-25-2024 End: 47-09-5595qgrqrbjxoaWI Konraddeandre GoldenFacility:FT FM BellevueStart: 11-27-2024 End: 21-72-9421Nas Drop offStomasdeandre QuintonBrandon [place] [facility] Start: 11-27-2024 End: 50-55-2431szsoscrosdUX Konrad Fernandez ChicoFacility:FT FM BellevueStart: 09-24-2024 End: 97-61-0122xrsvcuooifESS Padma Cortes SchwabFacility:FT FM BellevueStart: 03-50-9332rmbzbjkqezZD Konrad ChicoFacility:FT FM BellevueStart: 09-10-2024 End: 46-85-3965Sjqoof outpatient visit 10 minutesDadonald De La Cruz MD Work Phone: noms CI FMComment on above:Age-related osteoporosis without current pathological fracture (CMS/HCC); Type 2 diabetes mellitus with diabetic chronic kidney disease (CMS/HCC); Chronic kidney disease, stage 2 (mild); Type 2 diabetes mellitus with other specified complication (CMS/HCC); Hyperlipidemia, unspecified (CMS/HCC)Start: 09-10-2024 End: 10-59-5979tuaeywatrrCLQBJE B BERRYNot AvailableStart: 09-10-2024 End: 68-54-5323Yasapa flowsLiza De La Cruz MD Work Phone: noMS CI FMStart: 09-10-2024 End: 42-85-7632Woqjge David De La Cruz MD Work Phone: noms FMStart: 08-28-2024 End: 08-59-1634Ebkhfj outpatient visit 15 Jeannie Pollock DPM Work Phone: NONE PODIATRYComment on above:Nail dystrophy (Primary Dx); Onychomycosis; Pain in toes of both feetStart: 08-28-2024 End: 11-04-4992sercjwtaaoEZCQNSKShar Moser AvailableStart: 08-28-2024 End: 09-60-1472Wqpajy Moises Pollock DPM Work Phone: NOMS PODIATRYStart: 08-28-2024 End: 36-56-4412Pulxsk Moises Pollock DPM Work Phone: NOMS PODIATRYStart: 08-07-2024 End: 99-94-7898Ghhzes Moises Pollock DPM Work Phone: NOIJ PODIATRYStart: 08-07-2024 End: 47-53-8352Apmtmx Moises Pollock DPM Work Phone: NOPJ PODIATRYStart: 08-07-2024 End: 43-17-5315Mxamlf follow up visit related to original Ronaldo Pollock DPM Work Phone: NOAR PODIATRYComment on above:Nail dystrophy (Primary Dx); Onychomycosis; Pain in toes of both feetStart: 08-07-2024 End: 50-96-7114ekjkhpxlewZSJECDV W CLARKENot AvailableStart: 07-24-2024 End: 82-06-2220Pzgfyi flowsheetLucy Pollock DPM Work Phone: NOMS PODIATRYStart: 07-24-2024 End: 18-49-2446Tddjde flowsheetLucy Pollock DPM Work Phone: NOMS PODIATRYStart: 07-24-2024 End: 59-15-6268ffztgtrpohPPGZORX W Shanti AvailableStart: 07-24-2024 End: 92-85-6444Xnfhbc outpatient new 30 minutesLucy Pringle Pollock DPM Work Phone: noms FH PODIATRYComment on above:Nail dystrophy (Primary Dx); Onychomycosis; Pain in toes of both feetStart: 06-04-2024 End: 71-18-2255Txoymv flowsLiza De La Cruz MD Work Phone: NOMS CI FMStart: 06-04-2024 End: 78-68-6243Nyrgkf flowsLiza De La Cruz MD Work Phone: NOMS CI FMStart: 06-04-2024 End: 21-37-4029Tdrfl of hemosiderin, quantPhillip De La Cruz MD Work Phone: [facility] Work Phone: Start: 06-04-2024 End: 19-73-7004Ltoddog encounter procedurePhillip De La Cruz MD Work Phone: NODZ CI FMComment on above:Routine general medical examination at health care facility (Primary Dx); Type 2 diabetes mellitus with diabetic polyneuropathy, with long-term current use of insulin (CMS/HCC); Benign essential hypertension (CMS/HCC); Chronic kidney disease, stage 3a (N18.31); Mixed hyperlipidemia (CMS/HCC)Start: 06-04-2024 End: 13-76-9366gvljfyiirkNBEDON B BERRYNot AvailableStart: 05-19-2024 End: 89-35-1786QjixzjOxnhiToni TUCKER Work Phone: NOMS CI FMComment on above:Hypothyroidism, unspecified (CMS/HCC)Start: 03-01-2024 End: 97-22-7062dbqhbzpplgOCCEBV B BERRYNot AvailableStart: 12-26-2023 End: 94-82-2695rljvosdhgnFIDKYK B BERRYNot AvailableStart: 12-01-2023 End: 22-27-1238bfisgpkdtfFTXWMD B BERRYNot AvailableStart: 08-08-2023 End: 98-78-6490Womrluzum Result EncounterPhillip De La Cruz MD Work Phone: noms External Department UnsolicitedStart: 08-08-2023 End: 03-96-3875Vvdyacekq Result EncounterPhillip De La Cruz MD Work Phone: noms External Department UnsolicitedStart: 01-21-2022 End: 08-72-7711necgcbkqnnVijskuuhe Roslyn Other [facility] [employer] Other Start: 19-14-8075Pleyjl outpatient visit 5 minutes Aartirobert Rosa [facility] ClydeStart: 39-27-0133Pgrzfflqm for general adult medical examination without abnormal findingsDR PHILLIP Genaro [facility] HospitalStart: 01-30-2021 End: 64-57-7727uwshjfdhtjMO PHILLIP JONOFacility:T0Ierue: 01-30-2021 End: 03-12-0490Hmegzjjep for general adult medical examination without abnormal findingsDR PHILLIP JONOFacility:Y9Xhuib: 10-13-2020 End: 42-98-5860gtjrufrlosHS NONE LISTED REQUESTFacility:K8Khnkj: 06-17-2020 End: 80-25-9948prgqphfgzvKN PHILLIP JONOFacility:O6Vikpe: 05-16-2020 End: 56-92-3188wkqvacjhuhNE PHILLIP JONOFacility:T8Vlssr: 05-13-2020 End: 80-49-3648rnibkeaslcIK PHILLIP JONOFacility:H1 Procedures DateProcedureProcedure DetailPerforming ClinicianStart: 51-54-4533Nmtpeourex glycosylated v2kRzdliedonald De La Cruz MD Work Phone: Start: 80-03-3056LC THORACIC SPINE 3VDjory De La Cruz MD Work Phone: Start: 01-28-2023H/O: hysterectomyHistory of hysterectomyBeena TUCKER Work Phone: Start: 56-26-1781tt (qualifier value)Konrad Golden H/O: hysterectomyStepnixon Mcgowan Other H/O: hysterectomySarick Gloden Plan of Treatment DateCare ActivityDetailAuthorStart: 82-56-3122Iiulb screening for protein Diabetes: Urine Protein ScreeningNOMS HealthcareStart: 10-28-2025Medicare Annual Wellness (AWV)Medicare Annual Wellness (AWV)NOMS HealthcareStart: 04-08-2025 COVID-19 Vaccine ()COVID-19 Vaccine ()NOMS HealthcareStart: 42-18-8460Yvzlekwbx vaccinationInfluenza Vaccine (#1)NOMS HealthcareStart: 96-28-0914Czvwulyko for malignant neoplasm of colonColorectal Cancer ScreeningNOMS HealthcareComment on above:Postponed from 1950 (Patient Refused)Start: 50-66-9607Jknwuqlp screeningDiabetes: Retinopathy ScreeningNOMS HealthcareStart: 10-01-2024 End: 89-38-3716Oviiwlk encounter /24/2025 1:00 PM EST Office Visit [facility] [address] [facility] [address] [place] [address] Phillip De La Cruz MD [address] [facility] [address] [place] [address] NOMS CI FMStart: 09-10-2024 End: 95-77-9554Xpgjlpc encounter procedureNOMS CI FMComment on above:Arrived Start: 83-25-2274Alvyjxiyqg A1c measurementDiabetes: Hemoglobin M9JBHCC HealthcareStart: 08-28-2024 End: 61-61-2371Trhsbjr encounter procedureNOMS FH PODIATRYComment on above: ArrivedStart: 08-07-2024 End: 38-84-0901Sshqfii encounter procedureNOMS FH PODIATRYComment on above: ArrivedStart: 08-06-2024 End: 22-91-7307Qmucfxe encounter wwrmvjwus91/30/2024 8:45 AM EST Office Visit [facility] [address] [place] [address] [place] [address] Phillip De La Cruz MD [address] [facility] [address] [place] [address] NOMS CI FMStart: 06-04-2024 End: 59-65-9481Bqxhqfwjowutr metabolic 2000 panel - Serum or PlasmaComprehensive metabolic panel Lab Routine Type 2 diabetes mellitus with diabetic polyneuropathy, with long-term current use of insulin (CMS/HCC) Benign essential hypertension (CMS/HCC) Chronic kidneydisease, stage 3a (N18.31) Expected: 06/04/2024 (Approximate), Expires: 06/04/2025NOVT HealthcareComment on above: Expected: 06/04/2024 (Approximate), Expires: 06/04/2025Start: 06-04-2024 End: 32-04-1404Nivrd 1996 panel - Serum or PlasmaLipid panel Lab Routine Mixed hyperlipidemia (CMS/HCC) Expected: 06/04/2024 (Approximate), Expires:06/04/2025 NOMS HealthcareComment on above:Expected: 06/04/2024 (Approximate), Expires: 06/04/2025Start: 06-04-2024 End: 58-30-8593ZRD W/REFLEX TO FT4TSH W/REFLEX TO FT4 Lab Routine Type 2 diabetes mellitus with diabetic polyneuropathy, with long-term current use of insulin (CMS/HCC) Expected: 06/04/2024 (Approximate), Expires: 06/04/2025[facility] Work Phone: Comment on above:Expected: 06/04/2024 (Approximate), Expires: 06/04/2025Start: 06-04-2024 End: 89-29-7173Wazwbyz encounter procedureNOMS CI FMComment on above:Arrived Start: 67-11-6910Qdxuq screening for proteinDiabetes: Urine Protein Screening NOMS HealthcareStart: 91-80-5396Lemxgmleje A1c measurementDiabetes: Hemoglobin Z4YCNCT HealthcareStart: 07-13-2023Medicare Annual Wellness (AWV)Medicare Annual Wellness (AWV)NOMS HealthcareStart: 98-29-2828Oijwjdibw for malignant neoplasm of colonFIT-DNAFILLMORE COMMUNITY [facility] HealthcareStart: 92-46-3407DFyV/Tdap/Td Vaccines (1 - Tdap) DTaP/Tdap/Td Vaccines (1 - Tdap)NOMS HealthcareStart: 66-27-8034Jhsymlvfy for malignant neoplasm of colonNOVT HealthcareCB W Auto Differential panel - Blood CBC and differential Lab Routine Type 2 diabetes mellitus with diabetic polyneuropathy, with long-term current use of insulin ([facility]) Benign essential hypertension ([facility]) Chronic kidney disease,stage 3a (N18.31) Ordered: 06/04/2024[facility] HospitalComment on above:Ordered: 06/04/2024 Microalbumin/Creatinine panel in random UrineMicroalbumin / creatinine urine ratio Lab Routine Type 2 diabetes mellitus with diabetic polyneuropathy, with long-term current use of insulin ([facility]) Ordered: 06/04/2024[facility] Comment on above:Ordered: 06/04/2024 Immunizations Immunization DateImmunizationNotesCare NtnokcvlOuckyyvc19-23-9313iakaiijkr virus vaccine, unspecified formulationSneelima Golden [phone]-FjeywParma Community General Hospital 91-36-2666soklgyjki, high dose seasonal, preservative-Cas De La Cruz MD Work Phone: [facility] HospitalIuoxcispbs85-47-3386GIF, recombinant, protein subunit RSVpreF, adjuvant reconstitu, 120mcg/0.5mL, PF (Arexvy)Beena TUCKER Work Phone: [facility] HospitalDnohshwzss17-80-2862vfjnzvayu virus vaccine, unspecified formulationSneelima Golden [phone]-ZepguParma Community General Hospital 28-54-0803Wirpfwkcp, High-dose Seasonal, Quadrivalent, Preservative FreeBeena TUCKER Work Phone: [facility] HospitalKingunmikl83-63-5413irfcacjxy virus vaccine, unspecified formulationSneelima Golden [phone]-IazhqParma Community General Hospital 52-66-0030Bvrbsvjkz, Seasonal, Quadrivalent, AdjuvantedKaren Hemmer PA Work Phone: [facility] HospitalCbdxzlbbns17-25-5077UGTH-HpQ-5 mRNA (tgbcyeiuvla-jktt-rcvolyi) vaccineSneelima Golden [phone]-DgyujParma Community General Hospital 33-55-5755jowyghzft virus vaccine, unspecified formulationSneelima Golden [phone]-ZiwdyParma Community General Hospital 41-35-2018avkoelwjk, high dose seasonal, preservative-freeKaren Hemmer PA Work Phone: [facility] HospitalQcehthdrij80-49-0947VQNK-ZdG-9 (COVID-19) mRNA BNT-162b2 vaxSneelima Golden [phone]-MrzahParma Community General Hospital Comment on above:Result Comment: 2024-09-20: KVN6875-22-7003crepit vaccine recombinantKaren Hemmer PA Work Phone: [facility] HospitalBblaogtmhy99-53-0335mhxikakmz, high dose seasonal, preservative-freeKaren Hemmer PA Work Phone: [facility] HospitalYlmcvjsxfl79-41-4622oyeyjl vaccine recombinant Beena Hemmer PA Work Phone: SmartyContentEllett Memorial HospitalOurxxjqnsq49-15-7727SNAE-ByH-7 (COVID-19) Ad26 vaccine, recombinantSneelima Golden [phone]-YmgfmParma Community General Hospital 13-65-9262okvofrxig virus vaccine, unspecified formulationSneelima Golden [phone]-RlvhaParma Community General Hospital 52-15-4196xjfzdxlbz, injectable, quadrivalent, preservative freeKaren Hemmer PA Work Phone: [facility] HospitalIuybqurcej38-06-2241juekymvigqeg polysaccharide vaccine, 23 valentKaren Hemmer PA Work Phone: SmartyContentEllett Memorial HospitalRljoryjigq62-36-9177hkyrbjovogwq vaccine, unspecified formulation; Translations: [Pneumovax 23 25 MCG/0.5ML]Aarti Mcgowan Other [employer] Other [id number], high dose seasonal, preservative-freeStepnixon Mcgowan Other [facility] Jzyvvaplrj09-49-6172qdbiupanh virus vaccine, unspecified formulationSneelima Golden [phone]-DrtwaCincinnati Children'S [facility] Medicine [place] 98-50-4779vcdbbnfpdpnx conjugate vaccine, 13 valSebastian TUCKER Work Phone: noVT [employer] GasNEGATED: Highlighted row has not occurred!08-53-2092trshifkmnegj polysaccharide vaccine, 23 valentStepnixon Mcgowan Other [employer] Other Payers DatePayer CategoryPayerPolicy [id number] (Managed Care)[facility] [id number] Private Health InsuranceM[facility] [place] [id number] OF [facility] [id number] 2022-Present [address] [facility] [place] [address] [id number] 2014Medicare [id number] [id number] 1960 Ggfr-[id number] 2.16.840.1.220137.3.57[id number] 2.16.840.1.016608.3.57[id number] 2.16.840.1.301642.3.57[id number] 2.16.840.1.822506.3.57[id number] 2.16840.1.310401.3.57[id number] 2.16.840.1.975855.3.57[id number] 2.16.840.1.114849.3.57[id number] 2.16.840.1.364408.3.579.2.[id number] 2.16840.1.538004.3.57[id number] 2.16.840.1.859337.3.57[id number] 2.16.840.1.469641.3.57[id number] 2.16.840.1.983603.3.579.[id number] 2.16.840.1.065960.3.57[id number] 2.16.840.1.445471.3.57[id number] 2.16840.1.760723.3.57[id number] 2.16840.1.553873.3.57[id number] 2.16840.1.050052.3.57[id number] 2.16.840.1.599455.3.579.[id number] 2.16840.1.548746.3.579.[id number] 2.16.840.1.475012.3.579.2.73084-56-5690Chhvtaz2030 2.16840.1.365436.3.579.2.[id number] 2.16840.1.161241.3.57[id number] 2.16.840.1.088704.3.57[id number] 2..840.1.685562.3.579.[id number] 2..840.1.237949.3.57[id number] 2.16.840.1.7981[id number] 2.16.840.1.317067.3.579.2.593 Social History DateTypeDetailFacilityStart: 03-01-2024 End: 04-77-4842Pae Assigned At [facility] [employer] Other Start: 01-28-2023 End: 00-29-6063Caxykmt smoking status NHISNever smoked tobaccoNOMS Healthcare Start: 57-86-4233Oepjrzw use and exposureSmokeless tobacco non-userNOMS HealthcareStart: 08-04-2023 End: 89-80-4317Ynihpxuxj beverage intakeEx-drinker (finding)[facility] Start: 03-01-2024 End: 53-84-1353Mxsihhe of Social functionNOMS HealthcareStart: 88-38-8677Xzq assigned at birthNot on fileNOMS HealthcareStart: 99-95-3969Vdiwvej smoking statusAshtabula [facility] SexFemale (finding)[facility] Medical Equipment Procedure CodeEquipment CodeEquipment Original TextEquipment IdentifierDates [id number], [id number], [id number]: 60-05-9190brundvfi ultra2 test strips, See Instructions, 400 EA, 1, to check BS qid e11.9, [id number], Supply, 164, cm, 11/27/24 12:58:00 EDT, Height/Length Dosing, 77, kg, 11/27/24 12:58:00 EDT, Weight DosingStart: 60-29-8909hqprpxgd ultra2 test strips, See Instructions, 400 EA, 1, to check BS qid e11.9, [id number], Supply, 164, cm, 11/27/24 12:58:00 EDT, Height/Length Dosing, 77, kg, 11/27/24 12:58:00 EDT, Weight Dosing Start: 12-25-2024 Functional Status BvnqEajsimnqexGaybygAnedqqgm03-55-0344Fuevnbf Health Questionnaire 2 item (PHQ- 2) [Reported][facility] Clinical Notes 01-21-2022 to 02-07-2025 Note Date & YkqhLclhCfobsare71-30-9078 NotePatient Education Neurology Dizziness Dizziness is a common problem. It makes you feel unsteady or light-headed. You may feel like you are about to pass out (faint). Dizziness can lead to getting hurt if you stumble or fall. Dizziness can be caused by many things, including: ??? Medicines. ??? Not having enough water in your body (dehydration). ??? Illness. Follow these instructions at home: Eating and drinking ??? Drink enough fluid to keep your pee (urine) pale yellow. This helps to keep you from getting dehydrated. Try to drink more clear fluids, such as water. ??? Do not drink alcohol. ??? Limit how much caffeine you drink or eat, if your doctor tells you to do that. ??? Limit how much salt (sodium) you drink or eat, if your doctor tells you to do that. Activity ??? Avoid making quick movements. ? Stand up slowly from sitting in a chair, and steady yourself until you feel okay. ? In the morning, first sit up on the side of the bed. When you feel okay, stand up slowly while you hold onto something. Do this until you know that your balance is okay. ??? 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 Tighten and relax the muscles in your legs while you are standing. ??? Do not drive or use machinery if you feel dizzy. ??? Avoid bending down if you feel dizzy. Place items in your home so you can reach them easily without leaning over. Lifestyle ??? Do not smoke or use any products that contain nicotine or tobacco. If you need help quitting, ask your doctor. ??? Try to lower your stress level. You can do this by using methods such as yoga or meditation. Talk with your doctor if you need help. General instructions ??? Watch your dizziness for any changes. ??? Take oupv-ofi-pwuovpn and prescription medicines only as told by your doctor. Talk with your doctor if you think that you are dizzy because of a medicine that you are taking. ??? Tell a friend or a family member that you are feeling dizzy. If he or she notices any changes in your behavior, have this person call your doctor. ??? Keep all follow-up visits. Contact a doctor if: ??? Your dizziness does not go away. ??? Your dizziness or light-headedness gets worse. ??? You feel like you may vomit (are nauseous). ??? You have trouble hearing. ??? You have new symptoms. ??? You are unsteady on your feet. ??? You feel like the room is spinning. ??? You have neck pain or a stiff neck. ??? You have a fever. Get help right away if: ??? You vomit or have watery poop (diarrhea), and you cannot eat or drink anything. ??? You have trouble: ? Talking. ? Walking. ? Swallowing. ? Using your arms, hands, or legs. ??? You feel generally weak. ??? You are not thinking clearly, or you have trouble forming sentences. A friend or family member may notice this. ??? You have: ? Chest pain. ? Pain in your belly (abdomen). ? Shortness of breath. ? Sweating. ??? Your vision changes. ??? You are bleeding. ??? You have a very bad headache. These symptoms may be an emergency. Get help right away. Call your local emergency services (131 int [place] ??? Do not wait to see if the symptoms will go away. ??? Do not drive yourself to the hospital. Summary ??? Dizziness makes you feel unsteady or light-headed. You may feel like you are about to pass out (faint). ??? Drink enough fluid to keep your pee (urine) pale yellow. Do not drink alcohol. ??? Avoid making quick movements if you feel dizzy. ??? Watch your dizziness for any changes. This information is not intended to replace advice given to you by your health care provider. Make sure you discuss any questions you have with your health care provider. Document Revised: 06/26/2021 Document Reviewed: 06/29/2021 Elsevier Patient Education ? 2023 [email or web address].[email or web address] 01-17-2025 NotePatient Education Nutrition BMI for Adults Body mass index (BMI) is a number found using a person's weight and height. BMI can help tell how much of a person's weight is made up of fat. BMI does not measure body fat directly. It is used instead of tests that directly measure body fat, which can be difficult and expensive. What are BMI measurements used for? BMI is useful to: ??? Find out if your weight puts you at higher risk for medical problems. ??? Help recommend changes, such as in diet and exercise. This can help you reach a healthy weight.BMI screening can be done again to see if these changes are working. How is BMI calculated? Your height and weight are measured. The BMI is found from those numbers. This can be done with U.[place]. or metric measurements. Note that charts and online BMI calculators are available to help you findyour BMI quickly and easily without doing these calculations. To calculate your BMI in U.S. measurements: 1. Measure your weight in pounds (lb). 2. Multiply the number of pounds by 703. ??? So, for an adult who weighs 150 lb, multiply that number by 703: 150 x 703, which equals 105,450. 3. Measure your height in inches. Then multiply that number by itself to get a measurement called inches squared. ??? So, for an adult who is 70 inches tall, the inches squared measurement is 70 inches x 70 inches, which equals 4,900 inches squared. 4. Divide the total from step 2 (number of lb x 703) by the total from step 3 (inches squared): 105,450 ? 4,900 = 21.5. This is your BMI. To calculate your BMI in metric measurements: 1. Measure your weight in kilograms (kg). ??? For this example, the weight is 70 kg. 2. Measure your height in meters (m). Then multiply that number by itself to get a measurement called meters squared. ??? So, for an adult who is 1.75 m tall, the meters squared measurement is 1.75 m x 1.75 m, whichequals 3.1 meters squared. 3. Divide the number of kilograms (your weight) by the meters squared number. In this example: 70 ?3.1 = 22.6. This is your BMI. What do the results mean? BMI charts are used to see if you are underweight, normal weight, overweight, or obese. The following guidelines will be used: ??? Underweight: BMI less than 18.5. ??? Normal weight: BMI between 18.5 and 24.9. ??? Overweight: BMI between 25 and 29.9. ??? Obese: BMI of 30 or above. BMI is a tool and cannot diagnose a condition. Talk with your health care provider about what your BMI means for you. Keep these notes in mind: ??? Weight includes fat and muscle. Someone with a muscular build, such as an athlete, may have a BMI that is higher than 24.9. In cases like these, BMI is not a correct measure of body fat. ??? If you have a BMI of 25 or higher, your provider may need to do more testing to find out if excess body fat is the cause. ??? BMI is measured the same way for males and females. Females usually have more body fat than males of the same height and weight. Where to find more information For more information about BMI, including tools to quickly find your BMI, go to: ??? Centers for Disease Control and Prevention: cdc.gov ??? [place] Heart Association: heart.org ??? National Heart, Lung, and Blood [place]: nhlbi.nih.gov This information is not intended to replace advice given to you by your health care provider. Make sure you discuss any questions you have with your health care provider. Document Revised: 04/14/2023 Document Reviewed: 04/07/2023 [employer] Patient Education ? 2023 [email or web address].[facility] 09-10-2024 History of Present illness Narrative* Phillip De La Cruz MD - 09/10/2024 3:15 PM EST Images from the original note were not included. Subjective Patient ID: Kerline Mejia is a 74 y.o. female who [...] Date Adnexal mass Asthma (CMS/HCC) Cerebrovascular accident (CMS/HCC) 2013 Diabetes mellitus (CMS/HCC) Diabetic coma (CMS/HCC) 2005 Hyperlipemia (CMS/HCC) Hypertension (CMS/HCC) Osteoarthrosis [place]at[place] [address] dr amezquita Past Surgical [...] visit: Age-related osteoporosis without current pathological fracture ([facility]/HCC) - denosumab (Prolia) injection 60 mg Type 2 diabetes mellitus with diabetic chronic kidney disease ([facility]/HCC) Chronic kidney disease, stage 2 (mild) Type 2 diabetes mellitus with other specified complication ([facility]/HCC) Hyperlipidemia, unspecified ([facility]/HCC) Follow up in about 2 weeks (around 09/24/2024) for Wellness. documented in this encounterSaint John's Aurora Community HospitalWayitfclww65-52-3632 History of Present illness Narrative* Lucy Pollock, DPKeyon - 08/28/2024 4:00 PM EST Images from the original note were not included. Subjective Patient ID: Kerline Mejia is a 74 y.o. female who presents for POV (Kerline Mejia is a 74 y.o. female. Pt is here today for FUV Right hallux total phenol. DOS 07/24/24. Patient states it has improved, still some drainage present./BS: [address] De La Cruz 06/04/2024 SS 9.5). HPI Patient presents for follow up of the right hallux total phenol procedure. She states the toe is nolonger painful. She is no longer having drainage. She has continued to cover the area during the day and leave it open to air at night. She was interested in having the same procedure on the left hallux, but was surprised as to how slowly her right great toe healed and does not wish to proceed witha phenol on the left. Review of Systems [...] mm misc, USE WITH INSULIN DAILY, Disp: 100each, Rfl: 11 Lancets misc, 1 Device Daily, [...] IPJ and MPJ L, and medial malleolus, andpatella b/l. SEMMES-MANUELA 5.07 MONOFILAMENT intact at 10/10 [...] or corrected. Thank you for your understanding. Lucy Pollock DPM documented in this encounterSaint John's Aurora Community HospitalRvpqagmbkf51-59-7915 History of Present illness Narrative* Lucy Pollock DPM - 08/07/2024 10:00 AM EST Images from the original note were not included. Subjective Patient ID: Kerline Mejia is a 74 y.o. female who [...] mm misc, USE WITH INSULIN DAILY, Disp: 100each, Rfl: 11 Lancets misc, 1 Device Daily, [...] hallux nail is 8mm thick, yellow, brittle, e longated, fungal. Both nails are lysed from distal 1/2 of nail bed, clubbed, fungal. SKIN PATHOLOGY: texture, turgor, hair growth, within normal limits. Neurological: Mental Status: She is alert and oriented to person, place, and time. Comments: VIBRATORY:Absent at IPJ and MPJ R, diminished at IPJ and MPJ L, and medial malleolus, andpatella b/l. SEMMES-MANUELA 5.07 MONOFILAMENT intact at 10/10 [...] or corrected. Thank you for your understanding. Lucy Pollock DPM documented in this encounterSaint John's Aurora Community HospitalPufxzohsrb18-09-9389 History of Present illness Narrative* Lucy Pollock DPM - 07/24/2024 1:15 PM EST Images from the original note were not included. Subjective Patient ID: Kerline Mejia is a 74 y.o. female who [...] mm misc, USE WITH INSULIN DAILY, Disp: 100each, Rfl: 11 Lancets misc, 1 Device Daily, [...] nail is 8mm thick, yellow, brittle, elongated, fungal.Both nails are lysed from distal 1/2 of nail bed, clubbed, fungal. SKIN PATHOLOGY: texture, turgor, hair growth, within normal limits. Neurological: Mental Status: She is alert and oriented to person, place, and time. Comments: VIBRATORY:Absent at IPJ and MPJ R, diminished at IPJ and MPJ L, and medial malleolus, andpatella b/l. SEMMES-MANUELA 5.07 MONOFILAMENT intact at 10/10 [...] and requests the R hallux nail be removedfirst and asks if I can debride the L hallux nail as it is abutting the L 2nd digit and is painful.L hallux nail was debrided in length and [...] they said they understood and agreed. After appropriateconsent and verifying the correct digit, the R hallux was anesthetized with 3 mL of 2% xylocaine plain. It was then prepped and draped in the usual aseptic manner. A tourniquet was used for hemostasis. The offending nail was removed, matrix area curetted, and 3-30 second applications of phenol wereapplied to the matrix area and nail bed. The tourniquet was released, free bleeding was encounteredand encouraged. A telfa pad and DSD was [...] or corrected. Thank you for your understanding. Lucy Pollock DPM documented in this encounterSaint John's Aurora Community HospitalHgvpnbgelr27-68-2395 History of Present illness Narrative* Phillip De La Cruz MD - 06/04/2024 9:30 AM EDT Images from the original note were not included. Subjective : Chief Complaint: Kerline Mejia is an 74 y.o. female here [...] De La Cruz MD as PCP - [facility] Reach Phillip De La Cruz MD as [...] taxes?: Yes Cognitive Screening Three Word Registration: Aubrie Jensen, Chair Clock Drawing: Normal Clock - 2 Three Word Recall: All 3 words correct - 3 Total Score (0-5 Points): 5 Advance Care Planning Do you have a living will?: Yes Do you have a medical power of fur mixer?: Yes Who is your medical power of fur mixer?: sister Objective : BP 125/85 Pulse 79 [...] on June 04, 2024 documented in this encounterSaint John's Aurora Community HospitalCadhmtustf59-92-8414 Telephone encounter Note* Telephone Encounter - CAITLIN Mcgill - 05/19/2024 9:06 AM EDT Levothyroxine sent [facility] HospitalDobjhikhxz93-36-2731 Miscellaneous Notes* Telephone Encounter - CAITLIN Mcgill - 05/19/2024 9:06 AM EDT Levothyroxine sent documented in this encounterSaint John's Aurora Community HospitalZalrkgbvay16-00-0666 Evaluation note* Encounter Date Diagnosis Assessment Notes Treatment Notes Treatment Clinical Notes Jan, Travel advice encounter (ICD-10 - Z71.84) [facility] Other Evaluation + Plan note Future Appointments Appointment Date:12/25/2024 01:40:00 PM Scheduled Provider:Konrad Golden MD Location:[facility] Appointment Type: Open [facility] Evaluation + Plan note Future Appointments Appointment Date:01/21/2025 10:45:00 AM Scheduled Provider: Location[facility] Appointment Type:DM Diabetes Follow Up 60 (FT) Appointment Date:03/05/2025 01:00:00 PM Scheduled Provider: Location:[facility] Appointment Type: Medicare Wellness Subsequent Appointment Date:03/05/2025 02:00:00 PM Scheduled Provider:Konrad Golden MD Location:[facility] Appointment Type: Open Diagnostic Tests Pending * Urine Culture 01/08/25 [facility] Evaluation + Plan note Future Appointments Appointment Date:03/05/2025 01:00:00 PM Scheduled Provider: Location:[facility] Appointment Type: Medicare Wellness Subsequent Appointment Date:03/05/2025 02:00:00 PM Scheduled Provider:MELITA GUILLERMO CNP Location:[facility] Appointment Type:[facility] Evaluation note* Diagnosis Hypothyroidism, unspecified ([facility]/HCC) documented in this encounter [facility] HealthcareEvaluation [facility]* Diagnosis Routine general medical examination at health care facility- Primary Routine general medical examination at a health care facility Type 2 diabetes mellitus with diabetic polyneuropathy, with long-term current use of insulin ([facility]) Benign essential hypertension ([facility]) Essential hypertension, benign Chronic kidney disease, stage 3a (N18.31) Mixed hyperlipidemia ([facility]) Mixed hyperlipidemia documented in this encounter [facility]* Diagnosis Nail dystrophy- Primary Other specified disease of nail Onychomycosis Dermatophytosis of nail Pain in toes of both feet documented in this encounter [facility]* Diagnosis Nail dystrophy- Primary Other specified disease of nail Onychomycosis Dermatophytosis of nail Pain in toes of both feet documented in this encounter [facility]Evaluation [facility]* Diagnosis Age-related osteoporosis without current pathological fracture ([facility]/HCC) Type 2 diabetes mellitus with diabetic chronic kidney disease ([facility]/HCC) Chronic kidney disease, stage 2 (mild) Type 2 diabetes mellitus with other specified complication ([facility]) Hyperlipidemia, unspecified ([facility]/HCC) documented in this encounter [facility] HealthcareHistory general Narrative - Reported* Type Description Date Medical History Essential hypertension, benign Medical HistoryDiabetes mellitus without mention of complication, type II or unspecified type, not stated as uncontrolledMedical HistoryOther and unspecified hyperlipidemiaMedical HistoryOsteoarthrosis, unspecified whether generalized or localized, unspecified siteMedical HistoryAsthma, unspecified, with (acute) exacerbationMedical Historycerebrovascular accident 2014Medical [id number] Diabetic ComaMedical HistoryTeratoma - Dr. Amezquita (2017)Medical HistoryAdnexal massMedical HistoryAdnexal massSurgical HistoryProcedure:Hysterectomy;Disease: [id number] HistoryBil toe [id number] HistoryTeratoma [id number] Hospitalization Historysee surgical history [facility] Other Hospital course Narrative No data available for this section [facility] Hospital Discharge instructions No data available for this section [facility] Progress note No data available for this section [facility] Summary Purpose Family History No Family History Records FoundNo Family History Records FoundNo Family History Records FoundNo Family History Records Found No data available for this section No Family History Records FoundNo Family History Records FoundNo Family History Records FoundNo Family History Records FoundNo Family History Records FoundNo Family History Records FoundNo Family History Records Found No data available for this section No data available for this section No Family History Records FoundNo Family History [...] section and content) DATE CREATED AUTHOR 02/04/2021 [facility] DATE CREATED AUTHOR AUTHOR'S ORGANIZ ATION 12/02/2021 [facility] [employer] DATE CREATED AUTHOR AUTHOR'S ORGANIZ ATION 06/14/2024 [facility] DATE CREATED AUTHOR AUTHOR'S ORGANIZ ATION 09/12/2024 [facility] EPIC DATE CREATED AUTHOR AUTHOR'S ORGANIZ ATION 11/28/2024 [facility] DATE CREATED AUTHOR AUTHOR'S ORGANIZ ATION 01/11/2025 [facility] DATE CREATED AUTHOR AUTHOR'S ORGANIZ ATION 03/07/2025 [facility] DATE CREATED AUTHOR AUTHOR'S ORGANIZ ATION 03/09/2025 [facility] DATE CREATED AUTHOR AUTHOR'S ORGANIZ ATION 04/22/2025 [facility] REASON FOR VISIT (unrecogniz ed section and content) ReasonCommentsMed RefillReasonCommentsToenail ProblemPt is here today requesting nail removal BL hallux nails, the nails are bothersome for her as they grow into the 2nd toe. BS: 123 A1C: 7.[address] De La Cruz [id number]: 9.5ReasonComments Follow-upPt is here today for FUV nail procedure Rt total hallux nail removal, she states it has improved, still some drainage present.BS: 132ReasonCommentsPOV Kerline Mejia is a 74 y.o. female. Pt is here today for FUV Right hallux total phenol. DOS 07/24/24. Patient states it has improved, still some drainage present./BS: [address] De La Cruz 06/04/2024 SS9.5ReasonCommentsprolia injection Care Teams (unrecognized sec tion and content) Team MemberRelationshipSpecialtyStart DateEnd Date Phillip De La Cruz MD [address] [place] [address] PCP - GeneralInternal Medicine12/31/22 Phillip De La Cruz MD [address] [place] [address] PCP - ACO Reach12/30/22 Phillip De La Cruz MD [address] [place] [address] PCP - Devoted04/08/24Team MemberRelationshipSpecialtyStart DateEnd Date Phillip De La Cruz MD [address] [place] [address] PCP - GeneralInternal Medicine12/31/22 Phillip De La Cruz MD [address] [place] [address] PCP - ACO Reach12/30/22 Phillip De La Cruz MD [address] [place] [address] PCP - Devoted04/08/24Team MemberRelationshipSpecialtyStart DateEnd Phillip De La Cruz MD [address] [place] [address] [facility] - [facility]Tim[facility] [facility]12[facility]22 Phillip De La Cruz MD [address] [place] [address] [facility]12/30/22 Phillip De La Cruz MD [address] [place] [address] PCP - [employer]04/08/24Team MemberRelationshipSpecialtyStart DateEnd Date Phillip De La Cruz MD [address] [place] [address] PCP - [facility]12/31/22 Phillip De La Cruz MD [address] [place] [address] PCP [facility]12/30/22 Phillip De La Cruz MD [address] [place] [address] PCP - [employer]04/08/24Team MemberRelationshipSpecialtyStart DateEnd Date Phillip De La Cruz MD [address] [place] [address] PCP - [facility]12/31/22 Phillip De La Cruz MD [address] [place] [address] PCP - [facility]12/30/22 Phillip De La Cruz MD [address] [place] [address] PCP - [employer]04/08/24Team MemberRelationshipSpecialtyStart DateEnd Phillip De La Cruz MD [address] [place] [address] [facility] Phillip De La Cruz MD [address] [place] [address] PCP - [facility]12/30/22 Phillip De La Cruz MD [address] [place] [address] PCP - [employer]04/08/24Team MemberRelationshipSpecialtyStart DateEnd Phillip De La Cruz MD [address] [place] [address] [facility] - [facility]12/31/22 Phillip De La Cruz MD [address] [place] [address] PCP - [facility] Phillip De La Cruz MD [address] [place] [address] PCP - [facility]04/08/24 Phillip De La Cruz MD [address] [place] [address] [facility] Reach2/14254 FOR RECORDS PERTAINING TO PATIENTS WHO ARE [...] BE BASED ON THE PRIMARY CLINICAL RECORDS. [facility]. provides no warranty or guarantee of the accuracy or completeness of information in this document.
--- NOTE | 2025-06-13 16:15 | XR_ITS ---
The [address] [address] Patient Name: KERLINE JOHNSON MRN: [id number] date: 1950 Sex: F Assigned Patient Location: [facility] Current Patient Location: Accession/Order Number: [id number] Exam Date: 06/13/2025 16:20 Report Date: 06/14/2025 08:01 At the request of: JERONIMO FRANCIS MD Procedure: XR ribs LT 2V CLINICAL HISTORY: Left lower chest wall pain, without injury R07.89 PA AND LATERAL CHEST: COMPARISON: 09/24/2024 There is minimal linear scarring or atelectasis at the left base. There is no developing consolidation, effusion or pneumothorax. The cardiac, hilar and mediastinal silhouettes are within normal limits. There is no vascular congestion. There is slight dextroscoliotic curvature and minor endplate spurring. XR/XR chest 2V IMPRESSION: NO ACUTE CARDIOPULMONARY ABNORMALITY. LEFT RIBS - 3 views COMPARISON: Chest x-ray 09/24/2024 AP and both oblique views of the ribs were obtained. No acute displaced rib fractures or bony destruction are identified. No soft tissue abnormalities are noted at the chest wall. IMPRESSION: NO ACUTE RIB FINDINGS. Impression dictated by: Beena Grigsby M.D. 06/14/2025 8:01 AM Dictation Location: [place] [address] Electronically authenticated by: [id number] Y Date: 06/14/2025 08:01
--- NOTE | 2025-06-13 16:15 | XR_ITS ---
The [address] [address] Patient Name: KERLINE JOHNSON MRN: [id number] date: 1950 Sex: F Assigned Patient Location: [facility] Current Patient Location: Accession/Order Number: [id number] Exam Date: 06/13/2025 16:20 Report Date: 06/14/2025 08:01 At the request of: JERONIMO FRANCIS MD Procedure: XR ribs LT 2V CLINICAL HISTORY: Left lower chest wall pain, without injury R07.89 PA AND LATERAL CHEST: COMPARISON: 09/24/2024 There is minimal linear scarring or atelectasis at the left base. There is no developing consolidation, effusion or pneumothorax. The cardiac, hilar and mediastinal silhouettes are within normal limits. There is no vascular congestion. There is slight dextroscoliotic curvature and minor endplate spurring. XR/XR ribs LT 2V IMPRESSION: NO ACUTE CARDIOPULMONARY ABNORMALITY. LEFT RIBS - 3 views COMPARISON: Chest x-ray 09/24/2024 AP and both oblique views of the ribs were obtained. No acute displaced rib fractures or bony destruction are identified. No soft tissue abnormalities are noted at the chest wall. IMPRESSION: NO ACUTE RIB FINDINGS. Impression dictated by: Beena Grigsby M.D. 06/14/2025 8:01 AM Dictation Location: [place] [address] Electronically authenticated by: [id number] Y Date: 06/14/2025 08:01
--- OUTSIDE RECORDS SUMMARY | 2025-06-13 16:16 | XMS_ITS | Patient Health Record ---
Author Organization The [facility] in [place] Address [address] [place] [address] Care Team Providers Care Used Car [employer]ovator Name Role Phone Ivan Gutierrez Primary Care Provider [phone] Allergies No Known Allergies Results Component Value Reference Range Notes FREE T3 Reviewed date:03/11/2025 01:38:22 PM Interpretation: Performing Lab: Notes/Report: [facility] , Free T3 1.62 2.18-3.98 pg/mL Performing Lab:see noteML - [facility] LBIRON Reviewed date:03/11/2025 01:38:22 PM Interpretation: Performing Lab: Notes/Report: [facility] ,Qvjy532.050.0-170.0 ug/dLPerforming Lab:see noteML - [facility] LB LIPID PROFILE Reviewed date:03/11/2025 01:38:22 PM Interpretation: Performing Lab: Notes/Report: [facility] ,Ttjsdplgynxgn23<=150 mg/dXKbnxnihboux655<=200 mg/dLHDL Ulrzbrzphim1437-16 mg/dL > or =60 mg/dl - LOW CARDIOVASCULAR RISK <40 mg/dl - HIGH CARDIOVASCULAR RISK LDL Cholesterol Htfstsrtdx32.0 130-159 mg/dl BORDERLINE HIGH >190 mg/dl VERY HIGH <100 mg/dl OPTIMAL 100-129 mg/dl NEAR OR ABOVE OPTIMAL 160-189 mg/dl HIGH VLDL WOXDGSCJEMO28.6Chol HDL Ratio2.2 3.3 - 4.4 LOW RISK 7.1 - 11.0 MODERATE RISK 4.4 - 7.1 AVERAGE RISK >11.0 HIGH RISK Performing Lab:see noteML - [facility] LBPROF 14(COMP METB) Reviewed date:03/11/2025 01:38:22 PM Interpretation: Performing Lab: Notes/Report: [facility] ,Rpjrlt758513-484 mmol/LPotassium4.63.5-5.1 mmol/DGvpkmuuf51933-527 mmol/LCarbon Ssltchj68.821.0-32.0 mmol/LAnion Gap10.3Hngjdwp41011-878 mg/dLBlood Urea Cuhzlsce47.07.0-18.0 mg/dLCreatinine1.150.55-1.02 mg/dLEstimated GFR ( Fjdrkhy98>=60 mL/min/1.73m 2Estimated GFR (Non- Ame46>=60 mL/min/1.73m 2 BUN Creatinine Ratio26.7Zgsmohx54.18.5-10.1 mg/dLBilirubin Total1.50.2-1.0 mg/dL Aspartate Amino Wonsqcghmxn6549-83 U/LAlanine Qvxikcuasjuzmxsz7474-40 U/L Alkaline Dczsogdzvpd5912-845 U/LTotal Protein8.16.4-8.2 g/dLAlbumin Level4.03.4- 5.0 g/dLGlobulin4.1Albumin Globulin Ratio1.0Performing Lab:see noteML - [facility] LBT4 Reviewed date:03/11/2025 01:38:22 PM Interpretation: Performing Lab: Notes/Report: [facility] ,T4 Ihrljswbf59.104.80-13.90 ug/dLPerforming Lab:see noteML - [facility] LBTSH Reviewed date:03/11/2025 01:38:22 PM Interpretation: Performing Lab: Notes/Report: [facility] ,Thyroid Stimulating Hormone1.1900.358-3.740 uIU/mLPerforming Lab:see noteML - [facility] LBOccult Blood* Reviewed date:03/12/2025 02:57:32 PM Interpretation: Performing Lab: Notes/Report: [facility] ,Occult BloodPositivePerforming Lab:see note - [facility] LB GLYCOHEMOGLOBIN A1C Reviewed date:03/11/2025 01:38:22 PM Interpretation: Performing Lab: Notes/Report: [facility] ,Glycohemoglobin A1C8.24.5-6.2 % > 7.0 ACTION SUGGESTED ADA RECOMMENDED LIMIT 4.0 - 6.0 ADA THERAPEUTIC TARGET < 7.0 Estimated Average Ppuszqs404Lpmvapirrx Lab:see noteML - [facility] LB CBC AUTO DIFF Reviewed date:03/11/2025 01:38:22 PM Interpretation: Performing Lab: Notes/Report: [facility] ,White Blood Count6.74.0-11.0 10 3/uLRed Blood Count4.114.20-5.40 10 6/uL Itevpqwqzf48.212.0-16.0 g/zADrpvnccuqu48.636.0-48.0 %Mean Corpuscular Hfnxaj76.4 81.0-99.0 fLMean Corpuscular Obnpcokhsi66.126.7-34.0 pgMean Corpuscular HGB Conc 33.329.9-35.2 g/dLRed Cell Distribution Width13.211.0-15.0 %Platelet Mzbgx874 150-450 10 3/uLMean Platelet Otvcct55.69.5-13.5 fLNeutrophils Percent Auto43.0 43.0-75.0 %Lymphocytes Percent Auto45.220.5-60.0 %Monocytes Percent Auto9.71.7- 12.0 %Eosinophils Percent Auto1.60.9-7.0 %Basophils Percent Auto0.40.2-2.0 % Immature Granulocytes Pct Auto0.10.0-0.5 %Neutrophils Absolute Auto2.91.4-6.5 10 3/uLLymphocytes Absolute Auto3.01.2-3.8 10 3/uLMonocytes Absolute Auto0.70.3-0.8 10 3/uLEosinophils Absolute Auto0.10.0-0.7 10 3/uLBasophils Absolute Auto0.00.0- 0.1 10 3/uLImmature Granulocytes Abs Auto0.010.00-0.03 10 3/uLPerforming Lab:see noteML - [facility] LB Reason For Referral No Information Medications Medication SIG (Take, Route, Frequency, Duration) Notes Start Date End Date Status Pen [place] 31G X 5 MM Use 1 pen needle to inject insulin TID; Duration: 30 days 5ActiveOne Touch Ultra Test Strips - Use 1 strip four times daily to check blood sugar; Duration: 90 days Dx: E11.9 5ActiveNovoLIN 70/30 FlexPen (70-30) 100 UNIT/ML12 U Subcutaneous bid 5ActiveLiothyronine Sodium 5 MCG1 tablet on an empty stomach Orally Once a day; Duration: 30 days5ActiveLevothyroxine Sodium 88 MCGTAKE 1 TABLET BY MOUTH EVERY DAY FOR 100 DAYS Oral; Duration: 90 DaysActiveLancets -use one lancet daily to monitor glucose level dx-E11.9; Duration: 90 days03/01/2025 ActiveAtorvastatin Calcium 80 MGTAKE 1 TABLET BY MOUTH EVERY DAY Oral; Duration: 90 DaysActiveAspirin 81 MG1 tablet Orally Once a dayActiveamLODIPine Besylate- Valsartan 5-160 MG1 tablet Orally Once a day; Duration: 30 daysActive Immunizations Vaccine Route Administration Date Status Comme nts Flu, Fluad (47237) 65 yrs and older, single-dose syringe (4378-4776) IM Intramuscular 06/13/2025 Administered Social History Tobacco Use: Social History Observation Description Date Details (start date - stop date) Never Smoker NA - NA Tobacco Control (Standard) Question Answer Notes Tobacco use: Nonsmoker Problems Problem Type SNOMED Code ICD Code Onset Dates Problem Status W/U Status Risk Notes Problem Hypertension (05524614) Hypertension (I10 ) ActiveconfirmedProblemStroke (454216890)Stroke (I63.9)ActiveconfirmedProblem Hypothyroid (48503213)Hypothyroid (E03.9)ActiveconfirmedProblemLaboratory test result abnormal (024689499)Abnormal laboratory test (R89.9)Activeconfirmed Problemhypercholesterolemia (disorder) (32827453)Hypercholesteremia (E78.00) ActiveconfirmedProblemType II diabetes mellitus without complication (654834962) Diabetes (E11.9)Activeconfirmed Vital Signs Blood pressure diastolic 70 mm Hg 06/13/2025 Xmvgzj31 in06/13/2025lood pressure vstomoew156 mm Hg06/13/20256011Orqtiv563.2 lbs 06/13/2025BMI22.3 kg/m206/13/2025 Encounters Encounter Location Date Provider Diagnosis [facility] [address] [place] [address] 03/01/2025 [facility] [place] [address] 03/11/2025[facility] [facility] [place] [address]/11/2024Doug HoyAbnormal laboratory test R89.9[facility] [facility] [place] [address]/12/2024Doug [facility] [place] [address]/ [facility] [facility] [place] [address]/Doug [facility] [facility] [place] [address]/[facility] [facility] [place] [address]/Doug [facility] [address] [facility] [place] [place] [address]/08/2024[facility] [place] [address]/Doug Hoy Hypertension K61MmlfnxwSwedish Medical Center[address] [facility] [place] [address]/Doug HoyDiabetes E11.9 and Hypercholesteremia E78.00[facility] [facility] [place] [address]/ Ivan HoyDiabetes E11.9 ; Hypercholesteremia E78.00 ; Hypothyroid E03.9 and Hypertension Z98HxwzapiSwedish Medical Center[address] [facility] [place] [address]/06/2025Doug HoyEncounter for immunization Z23 and Chest wall pain R07.89 Assessments Encounter Date Diagnosis (ICD Code) Assessment Notes Treatment Notes Treatment Clinical Notes Section Notes 02/20/2025 Diabetes (ICD-10 - E11.9) 02/20/2025Hypercholesteremia (ICD-10 - E78.00)03/06/2025Diabetes (ICD-10 - E11.9)03/06/2025Hypercholesteremia (ICD-10 - E78.00)04/03/2025Hypertension (ICD- 10 - I10)06/13/2025Encounter for immunization (ICD-10 - Z23)06/13/2025hest wall pain (ICD-10 - R07.89)03/11/2025bnormal laboratory test (ICD-10 - R89.9) 03/06/2025Hypothyroid (ICD-10 - E03.9)03/06/2025Hypertension (ICD-10 - I10) Plan Of Treatment Pending Test Test Name Order Date HEMOGLOBIN A1C (GLYCO) 03/06/2025 IRON, TOTAL 03/06/2025 LIPID PANEL (CHOL/TRIG/HDL/LDL) 03/06/20 25 CBC W/AUTO DIFF 03/11/2025 STOOL OCCULT BLOOD 03/06/2025 XR CHEST 2 V 06/13/2025 THYROID PANEL (T4/TSH/FREE T3) 5 THYROID PANEL (T4/TSH/FREE T3) 5 XR ribs LT 2V 06/13/2025 CMP (COMP MET HAYDEN) w/eGFR CKD-EPI 2024 CBC WITH DIFF 03/06/2025 Insurance Providers Payer Name Payer Address Payer Phone Subscriber Number Group Number Insured Name Patient Relationship to Insured Coverage Start Date Coverage End Date [employer] [address] [place] [id number] [phone] [id number] Alie Johnson - patient is the insured Medical (General) History Medical History History ICD Code Diabetes E11.9 Hypercholesteremia E78.00 Thyroid disorder E07.9 Stroke I63.9 Surgical History Surgery Date(Month/Year) Uterus Removed Ovaries and Tubes RemovedBig Toe- Bilateral (Calcium Deposit)
== END 2025-06-13 16:10 | disposition home or self-care (01) ==
LOC: RAD 16:10
PROVIDERS: PCP Family Medicine; Visit Provider Family Medicine
DX: R07.89 Other chest pain (principal)
CPT/HCPCS: 71046; 71100